=== PATIENT | male | born 1975 | race American Indian/Alaskan Native ===

== ENCOUNTER 2021-06-10 13:03 | Emergency (ER) | payer SELFPAY ==
[2021-06-10 13:19] VITALS: BP 127/97
[2021-06-10] MEDS ORDERED: SODIUM CHLORIDE 0.9% 1000 ML 1,000 ML IV ONE ×2 (14:03→18:07)
[2021-06-10] MEDS ORDERED: MECLIZINE 25 MG TAB PO ONE ×2 (14:03→18:07)
[2021-06-10 16:18] LABS: Basophils # (Auto) 0.1 K/mm3 (0.0-0.1); Basophils % (Auto) 0.3 % (0.0-1.8); Eosinophils % (Auto) 0.1 % (0.0-4.3); Hematocrit 47.4 % (35.5-45.6); Hemoglobin 16.8 gm/dl (11.8-15.2); Lymphocytes # (Auto) 1.1 K/mm3 (1.2-5.4); Lymphocytes % (Auto) 6.5 % (13.4-35.0); Mean Corpuscular HGB Conc 35 % (32-34); Mean Corpuscular Volume 91 fl (84-94); Monocytes % (Auto) 5.9 % (0.0-7.3); Platelet Count 307 K/mm3 (140-440); Red Blood Count 5.23 M/mm3 (3.65-5.03); Red Cell Distribution Width 14.9 % (13.2-15.2)
[2021-06-10 16:42] LABS: Alanine Aminotransferase 51 units/L (7-56); Albumin 4.3 g/dL (3.9-5); BUN/Creatinine Ratio 18; Blood Urea Nitrogen 21 mg/dL (9-20); Calcium 9.2 mg/dL (8.4-10.2); Hemolysis Index 5
--- NOTE | 2021-06-10 18:11 | Emergency Department Report ---
ED General Adult HPI - General Chief complaint: Medical Clearance Stated complaint: DRAINED AND LIGHT HEADED Time Seen by Provider: 06/10/21 13:51 Source: patient Mode of arrival: Ambulatory Limitations: No Limitations - History of Present Illness Initial comments: This is a 46-year-old male nontoxic, well nourished in appearance, no acute signs of distress presents to the ED with c/o of tiredness and dizziness x several days. Patient denies any headache or head trauma. Patient stated the dizziness is worsened with position change. Patient denies any other complaints or symptoms. Patient denies any numbness, tingling, headache, stiff neck, chest pain, shortness of breathe, numbness or tingling. Denies any visual changes or blurry vision. Denies any drug allergies. Patient stated PMH includes DM which he was prescribed Metformin 500 mg BID but has not been taking it for "very long time". -: days(s) Radiation: non-radiation Severity scale (0 -10): 3 Quality: aching Consistency: constant Improves with: none Worsens with: none Associated Symptoms: denies other symptoms. denies: confusion, chest pain, cough, diaphoresis, fever/chills, headaches, loss of appetite, malaise, nausea/vomiting, rash, seizure, shortness of breath, syncope, weakness Treatments Prior to Arrival: none - Related Data Previous Rx's Medication Instructions Recorded Last Taken Type Meclizine [Antivert] 12.5 mg PO DAILY PRN #12 tablet 06/10/21 Unknown Rx metFORMIN [Glucophage] 500 mg PO BID #60 tablet 06/10/21 Unknown Rx Allergies Allergy/AdvReac Type Severity Reaction Status Date / Time No Known Allergies Allergy Unverified 06/10/21 13:17 ED Review of Systems ROS: Stated complaint: DRAINED AND LIGHT HEADED Other details as noted in HPI Comment: All other systems reviewed and negative Constitutional: denies: chills, fever Eyes: denies: eye pain, eye discharge, vision change ENT: denies: ear pain, throat pain Respiratory: denies: cough, shortness of breath, wheezing Cardiovascular: denies: chest pain, palpitations Endocrine: no symptoms reported Gastrointestinal: denies: abdominal pain, nausea, diarrhea Genitourinary: denies: urgency, dysuria Musculoskeletal: denies: back pain, joint swelling, arthralgia Skin: denies: rash, lesions Neurological: headache. denies: weakness, paresthesias Psychiatric: denies: anxiety, depression Hematological/Lymphatic: denies: easy bleeding, easy bruising ED Past Medical Hx - Past Medical History Previous Medical History?: No - Surgical History Past Surgical History?: No - Medications Home Medications: Home Medications Medication Instructions Recorded Confirmed Last Taken Type Meclizine [Antivert] 12.5 mg PO DAILY PRN #12 tablet 06/10/21 Unknown Rx metFORMIN [Glucophage] 500 mg PO BID #60 tablet 06/10/21 Unknown Rx ED Physical Exam - General Limitations: No Limitations General appearance: alert, in no apparent distress - Head Head exam: Present: atraumatic, normocephalic - Eye Eye exam: Present: normal appearance, PERRL, EOMI - ENT ENT exam: Present: normal exam, normal orophraynx - Neck Neck exam: Present: normal inspection, full ROM. Absent: tenderness, meningismus, lymphadenopathy - Respiratory Respiratory exam: Present: normal lung sounds bilaterally. Absent: respiratory distress, wheezes, rales, rhonchi, stridor, chest wall tenderness, accessory muscle use, decreased breath sounds, prolonged expiratory - Cardiovascular Cardiovascular Exam: Present: regular rate, normal rhythm, normal heart sounds. Absent: bradycardia, tachycardia, irregular rhythm, systolic murmur, diastolic murmur, rubs, gallop - GI/Abdominal GI/Abdominal exam: Present: soft, normal bowel sounds. Absent: distended, tenderness, guarding, rebound, rigid, diminished bowel sounds - Extremities Exam Extremities exam: Present: normal inspection, full ROM, normal capillary refill. Absent: tenderness - Back Exam Back exam: Present: normal inspection, full ROM. Absent: tenderness, CVA tenderness (R), CVA tenderness (L), muscle spasm, paraspinal tenderness, vertebral tenderness, rash noted - Neurological Exam Neurological exam: Present: alert, oriented X3, normal gait - Expanded Neurological Exam Expanded Patient oriented to: Present: person, place, time Cranial nerves: EOM's Intact: Normal, Facial Sensation: Normal Cerebellar function: Finger to Nose: Normal Upper motor neuron: Pronator Drift: Normal, Sensory Extinction: Normal Motor strength exam: RUE: 5, LUE: 5, RLE: 5, LLE: 5 Best Eye Response (Lima): (4) open spontaneously Best Motor Response (Lima): (6) obeys commands Best Verbal Response (Lima): (5) oriented Nettie Total: 15 - Psychiatric Psychiatric exam: Present: normal affect, normal mood - Skin Skin exam: Present: warm, dry, intact, normal color. Absent: rash ED Course Vital Signs 06/10/21 13:16 Temperature 98.4 F Pulse Rate 81 Respiratory 18 Rate Blood Pressure 127/97 O2 Sat by Pulse 99 Oximetry - Reevaluation(s) Reevaluation #1: 06/10/21 18:13 Patient is speaking in full sentences with no signs of distress noted. ED Medical Decision Making - Lab Data Result diagrams: 06/10/21 16:06 06/10/21 16:06 Lab Results 06/10/21 06/10/21 Range/Units 16:06 16:06 WBC 16.5 H (4.5-11.0) K/mm3 RBC 5.23 H (3.65-5.03) M/mm3 Hgb 16.8 H (11.8-15.2) gm/dl Hct 47.4 H (35.5-45.6) % MCV 91 (84-94) fl MCH 32 (28-32) pg MCHC 35 H (32-34) % RDW 14.9 (13.2-15.2) % Plt Count 307 (140-440) K/mm3 Lymph % (Auto) 6.5 L (13.4-35.0) % [place] % (Auto) 5.9 (0.0-7.3) % Eos % (Auto) 0.1 (0.0-4.3) % Baso % (Auto) 0.3 (0.0-1.8) % Lymph # (Auto) 1.1 L (1.2-5.4) K/mm3 [place] # (Auto) 1.0 H (0.0-0.8) K/mm3 Eos # (Auto) 0.0 (0.0-0.4) K/mm3 Baso # (Auto) 0.1 (0.0-0.1) K/mm3 Seg Neutrophils % 87.2 H (40.0-70.0) % Seg Neutrophils # 14.4 H (1.8-7.7) K/mm3 Sodium 137 (137-145) mmol/L Potassium 3.7 (3.6-5.0) mmol/L Chloride 98.8 (98-107) mmol/L Carbon Dioxide 27 (22-30) mmol/L Anion Gap 15 mmol/L BUN 21 H (9-20) mg/dL Creatinine 1.2 (0.8-1.3) mg/dL Estimated GFR > 60 ml/min BUN/Creatinine Ratio 18 % Glucose 240 H (75-100) mg/dL Calcium 9.2 (8.4-10.2) mg/dL Total Bilirubin 0.60 (0.1-1.2) mg/dL AST 26 (5-40) units/L ALT 51 (7-56) units/L Alkaline Phosphatase 84 (35-129) units/L Total Protein 6.9 (6.3-8.2) g/dL Albumin 4.3 (3.9-5) g/dL Albumin/Globulin Ratio 1.7 % - EKG Data 06/10/21 18:13 Normal sinus rhythm at 89 bpm. Anterior premature complex. Probable left anterior large. LVH with secondary repositioning abnormality. No STEMI. Reviewed and signed by MD. - Medical Decision Making This is a 46-year-old male that presents with dizziness and hyperglycemia. Patient is stable and was examined by me. EKG is normal sinus rhythm with no ST abnormalities. Labs are unremarkable. Urine obtained. Orthostatic vital signs obtained and within normal limits. Patient received 1 L of normal saline and antivert which she stated his symptoms of dizziness has subsided and resolved. Patient is neurologically stable. Patient was instructed to Follow- up with a primary care doctor in 3-5 days or if symptoms worsen and continue return to emergency room as soon as possible. At time of discharge, the patient does not seem toxic or ill in appearance. No acute signs of distress noted. Patient agrees to discharge treatment plan of care. No further questions noted by the patient. Critical care attestation.: If time is entered above; I have spent that time in minutes in the direct care of this critically ill patient, excluding procedure time. ED Disposition Clinical Impression: Hyperglycemia, Dizziness Disposition: HOME / SELF CARE / HOMELESS Is pt being admited?: No Does the pt Need Aspirin: No Condition: Stable Instructions: Hyperglycemia, Dizziness, Blood Glucose Monitoring, Adult Additional Instructions: Follow-up with a primary care doctor in 3-5 days or if symptoms worsen and continue return to emergency room as soon as possible. Prescriptions: Meclizine [Antivert] 12.5 mg PO DAILY PRN #12 tablet PRN Reason: Vertigo metFORMIN [Glucophage] 500 mg PO BID #60 tablet Referrals: PRIMARY CAREMD [Primary Care Provider] - 3-5 Days ISAIAS MCKINNON MD [Staff Physician] - 3-5 Days Forms: Work/School Release Form(ED) Time of Disposition: 18:20
--- NOTE | 2021-06-11 14:26 | Electrocardiograph Report ---
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
== END 2021-06-10 20:22 | disposition home or self-care (01) ==
LOC: ED 13:03
DX: R42 Dizziness and giddiness (principal); R73.9 Hyperglycemia, unspecified; Z79.899 Other long term (current) drug therapy
CPT/HCPCS: 36415; 80053; 85025; 93005; 99283; J7030

== ENCOUNTER 2021-06-24 14:29 | Emergency (ER) | payer OTHER ==
[2021-06-24] MEDS ORDERED: IBUPROFEN 800 MG TAB PO ONE (16:16)
[2021-06-24 16:27] VITALS: BP 156/107
[2021-06-24 16:53] LABS: INR 0.93 (0.87-1.13)
[2021-06-24 16:54] LABS: Partial Thromboplastin Time 23.5 Sec. (24.2-36.6)
[2021-06-24 16:59] LABS: Alanine Aminotransferase 109 units/L (7-56); Albumin 3.7 g/dL (3.9-5); BUN/Creatinine Ratio 18; Blood Urea Nitrogen 14 mg/dL (9-20); Calcium 8.9 mg/dL (8.4-10.2); Hemolysis Index 10
[2021-06-24] MEDS ORDERED: POTASSIUM CHLORIDE ER 20 MEQ TAB PO ONE (17:02)
--- NOTE | 2021-06-24 17:20 | XRay Report ---
CHEST 2 VIEWS INDICATION / CLINICAL INFORMATION: Chest Pain. COMPARISON: None available. FINDINGS: SUPPORT DEVICES: None. HEART / MEDIASTINUM: The heart size is borderline with a left ventricular configuration. The aorta is normal in caliber. LUNGS / PLEURA: There are bullous changes in both lungs, significantly greater on the right. Patchy l inear and coarse parenchymal opacities in both lungs are more likely chronic than acute. No pneumotho rax. ADDITIONAL FINDINGS: No significant additional findings. IMPRESSION: Chronic appearing changes in both lungs with bullous changes, especially on the right. Signer Name: Isauro Ellington MD Signed: 06/24/2021 5:16 PM Workstation Name: [id number]
[2021-06-24 18:01] LABS: Basophils % (Auto) 0.1 % (0.0-1.8); Eosinophils % (Auto) 0.3 % (0.0-4.3); Hematocrit 41.5 % (35.5-45.6); Hemoglobin 13.9 gm/dl (11.8-15.2); Lymphocytes # (Auto) 2.1 K/mm3 (1.2-5.4); Lymphocytes % (Auto) 14.5 % (13.4-35.0); Mean Corpuscular HGB Conc 34 % (32-34); Mean Corpuscular Volume 93 fl (84-94); Monocytes # (Auto) 1.1 K/mm3 (0.0-0.8); Monocytes % (Auto) 7.7 % (0.0-7.3); Platelet Count 273 K/mm3 (140-440); Red Blood Count 4.46 M/mm3 (3.65-5.03); Red Cell Distribution Width 15.2 % (13.2-15.2)
--- NOTE | 2021-06-24 18:30 | Emergency Department Report ---
ED Chest Pain HPI - General Chief Complaint: Chest Pain Stated Complaint: chest pain, left upper area Time Seen by Provider: 06/24/21 16:09 Source: patient Mode of arrival: Ambulatory Limitations: No Limitations - History of Present Illness Initial Comments: This is a 46-year-old male nontoxic, well nourished in appearance, no acute signs of distress presents to the ED with c/o of left-sided chest pain x 4 days. Patient stated pain is worse with inspirations. Patient denies any radiation of pain. Patient describes pain as sharp intermittently. Patient denies any upper respiratory symptoms. Patient denies any shortness of breath, hemoptysis, fever, chills, nausea, vomiting, headache, stiff neck, numbness, tingling, abdominal pain. Patient denies any recent travels or long car rides. Patient denies any recent surgeries or any sick contacts. Patient denies any drug allergies or significant PMH. MD Complaint: chest pain -: days(s) Pain Location: left chest Pain Radiation: none Severity: mild Severity scale (0 -10): 3 Quality: sharp Consistency: intermittent, now resolved Improves With: nothing Worsens With: nothing re: denies: nausea, vomting, diaphoresis, dyspnea, sense of impending doom Other Symptoms: denies: cough, fever, syncope, rash, acid taste in mouth, leg swelling, palpitations, burping Treatments Prior to Arrival: none Aspirin use within the Past 7 Days: (0) No - Related Data Previous Rx's Medication Instructions Recorded Last Taken Type Meclizine [Antivert] 12.5 mg PO DAILY PRN #12 tablet 06/10/21 Unknown Rx metFORMIN [Glucophage] 500 mg PO BID #60 tablet 06/10/21 Unknown Rx Naproxen 500 mg PO Q12H PRN #12 tablet 06/24/21 Unknown Rx Allergies Allergy/AdvReac Type Severity Reaction Status Date / Time No Known Allergies Allergy Verified 06/24/21 16:38 Heart Score - HEART Score History: Slightly suspicious EKG: Normal Age: 45-65 Risk factors: No known risk factors Troponin: < normal limit HEART Score: 1 - EKG Read Time Time EKG Completed: 16:32 EKG Read Time: 16:33 - Critical Actions Critical Actions: 0-3 pts:0.9-1.7%risk of adverse cardiac event.Candidate for discharge ED Review of Systems ROS: Stated complaint: chest pain, left upper area Other details as noted in HPI Constitutional: denies: chills, fever Eyes: denies: eye pain, eye discharge, vision change ENT: denies: ear pain, throat pain Respiratory: denies: cough, orthopnea, shortness of breath, SOB with exertion, SOB at rest, wheezing Cardiovascular: chest pain. denies: palpitations, dyspnea on exertion, orthopnea, edema, syncope, paroxysmal nocturnal dyspnea Endocrine: no symptoms reported Gastrointestinal: denies: abdominal pain, nausea, diarrhea Genitourinary: denies: urgency, dysuria Musculoskeletal: denies: back pain, joint swelling, arthralgia Skin: denies: rash, lesions Neurological: denies: headache, weakness, paresthesias Psychiatric: denies: anxiety, depression Hematological/Lymphatic: denies: easy bleeding, easy bruising ED Past Medical Hx - Past Medical History Previous Medical History?: No Hx Diabetes: Yes - Social History Smoking Status: Never Smoker Substance Use Type: None - Medications Home Medications: Home Medications Medication Instructions Recorded Confirmed Last Taken Type Meclizine [Antivert] 12.5 mg PO DAILY PRN #12 tablet 06/10/21 Unknown Rx metFORMIN [Glucophage] 500 mg PO BID #60 tablet 06/10/21 Unknown Rx Naproxen 500 mg PO Q12H PRN #12 tablet 06/24/21 Unknown Rx ED Physical Exam - General Limitations: No Limitations General appearance: alert, in no apparent distress - Head Head exam: Present: atraumatic, normocephalic - Eye Eye exam: Present: normal appearance - Neck Neck exam: Present: normal inspection, full ROM. Absent: tenderness, meningismus, lymphadenopathy - Respiratory Respiratory exam: Present: normal lung sounds bilaterally. Absent: respiratory distress, wheezes, rales, rhonchi, stridor, chest wall tenderness, accessory muscle use, decreased breath sounds, prolonged expiratory - Cardiovascular Cardiovascular Exam: Present: regular rate, normal rhythm, normal heart sounds. Absent: bradycardia, tachycardia, irregular rhythm, systolic murmur, diastolic murmur, rubs, gallop - GI/Abdominal GI/Abdominal exam: Present: soft, normal bowel sounds. Absent: distended, tenderness, guarding, rebound, rigid, diminished bowel sounds, mass, bruit, pulsatile mass - Extremities Exam Extremities exam: Present: normal inspection, full ROM - Back Exam Back exam: Present: normal inspection, full ROM. Absent: tenderness, CVA tenderness (R), CVA tenderness (L), muscle spasm, paraspinal tenderness, vertebral tenderness, rash noted - Neurological Exam Neurological exam: Present: alert, oriented X3, normal gait - Psychiatric Psychiatric exam: Present: normal affect, normal mood - Skin Skin exam: Present: warm, dry, intact, normal color. Absent: rash ED Course Vital Signs 06/24/21 16:26 Temperature 98.6 F Pulse Rate 83 Respiratory 16 Rate Blood Pressure 156/107 [Right] O2 Sat by Pulse 95 Oximetry - Reevaluation(s) Reevaluation #1: 06/24/21 18:30 Patient is speaking in full sentences with no signs of distress noted. - Consultations Consultation #1: 06/24/21 19:49 Patient has been consulted with Dr. Burnham about patient history, physical exam, and labs/imaging results and EKG and patient can be discharged with follow-up. BILLY score - Billy Score Age > 65: (0) No Aspirin use within the Past 7 Days: (0) No 3 or more CAD Risk Factors: (0) No 2 or more Angina events in past 24 hrs: (0) No Known CAD with more than 50% Stenosis: (0) No Elevated Cardiac Markers: (0) No ST Deviation Greater than 0.5mm: (0) No BILLY Score: 0 ED Medical Decision Making - Lab Data Result diagrams: 06/24/21 16:18 06/24/21 16:18 Lab Results 06/24/21 06/24/21 06/24/21 Range/Units 16:18 16:18 16:18 WBC 14.4 H (4.5-11.0) K/mm3 RBC 4.46 (3.65-5.03) M/mm3 Hgb 13.9 (11.8-15.2) gm/dl Hct 41.5 (35.5-45.6) % MCV 93 (84-94) fl MCH 31 (28-32) pg MCHC 34 (32-34) % RDW 15.2 (13.2-15.2) % Plt Count 273 (140-440) K/mm3 Lymph % (Auto) 14.5 (13.4-35.0) % [place] % (Auto) 7.7 H (0.0-7.3) % Eos % (Auto) 0.3 (0.0-4.3) % Baso % (Auto) 0.1 (0.0-1.8) % Lymph # (Auto) 2.1 (1.2-5.4) K/mm3 [place] # (Auto) 1.1 H (0.0-0.8) K/mm3 Eos # (Auto) 0.0 (0.0-0.4) K/mm3 Baso # (Auto) 0.0 (0.0-0.1) K/mm3 Seg Neutrophils % 77.4 H (40.0-70.0) % Seg Neutrophils # 11.1 H (1.8-7.7) K/mm3 PT 13.0 (12.2-14.9) Sec. INR 0.93 (0.87-1.13) APTT 23.5 L (24.2-36.6) Sec. D-Dimer 135.00 (0-234) ng/mlDDU Sodium 143 (137-145) mmol/L Potassium 3.1 L (3.6-5.0) mmol/L Chloride 102.3 (98-107) mmol/L Carbon Dioxide 37 H (22-30) mmol/L Anion Gap 7 mmol/L BUN 14 (9-20) mg/dL Creatinine 0.8 (0.8-1.3) mg/dL Estimated GFR > 60 ml/min BUN/Creatinine Ratio 18 % Glucose 145 H (75-100) mg/dL Calcium 8.9 (8.4-10.2) mg/dL Total Bilirubin 0.20 (0.1-1.2) mg/dL AST 54 H (5-40) units/L ALT 109 H (7-56) units/L Alkaline Phosphatase 89 (35-129) units/L Troponin T 0.024 (0.00-0.029) ng/mL Total Protein 5.9 L (6.3-8.2) g/dL Albumin 3.7 L (3.9-5) g/dL Albumin/Globulin Ratio 1.7 % 06/24/21 Range/Units 18:54 WBC (4.5-11.0) K/mm3 RBC (3.65-5.03) M/mm3 Hgb (11.8-15.2) gm/dl Hct (35.5-45.6) % MCV (84-94) fl MCH (28-32) pg MCHC (32-34) % RDW (13.2-15.2) % Plt Count (140-440) K/mm3 Lymph % (Auto) (13.4-35.0) % [place] % (Auto) (0.0-7.3) % Eos % (Auto) (0.0-4.3) % Baso % (Auto) (0.0-1.8) % Lymph # (Auto) (1.2-5.4) K/mm3 [place]key # (Auto) (0.0-0.8) K/mm3 Eos # (Auto) (0.0-0.4) K/mm3 Baso # (Auto) (0.0-0.1) K/mm3 Seg Neutrophils % (40.0-70.0) % Seg Neutrophils # (1.8-7.7) K/mm3 PT (12.2-14.9) Sec. INR (0.87-1.13) APTT (24.2-36.6) Sec. D-Dimer (0-234) ng/mlDDU Sodium (137-145) mmol/L Potassium (3.6-5.0) mmol/L Chloride (98-107) mmol/L Carbon Dioxide (22-30) mmol/L Anion Gap mmol/L BUN (9-20) mg/dL Creatinine (0.8-1.3) mg/dL Estimated GFR ml/min BUN/Creatinine Ratio % Glucose (75-100) mg/dL Calcium (8.4-10.2) mg/dL Total Bilirubin (0.1-1.2) mg/dL AST (5-40) units/L ALT (7-56) units/L Alkaline Phosphatase (35-129) units/L Troponin T 0.026 (0.00-0.029) ng/mL Total Protein (6.3-8.2) g/dL Albumin (3.9-5) g/dL Albumin/Globulin Ratio % - EKG Data 06/24/21 18:31 Normal sinus rhythm at 77 bpm. Anterior premature complex. Consider left ventricular hypertrophic. Nonspecific T wave abnormality. No significant ST wave abnormalities. No STEMI. Reviewed and signed by . - Radiology Data [facility] [address] [place] [address] XRay Report Signed Patient: SHERYL DE LA ROSA MR#: [id number] : 1975 Acct:[id number] Age/Sex: 46 / M ADM Date: 06/24/21 Loc: ED Attending Dr: Ordering Physician: JOSELYN GLOVER NP Date of Service: 06/24/21 Procedure(s): XR chest routine 2V Accession Number(s): [id number] cc: JOSELYN GLOVER NP Fluoro Time In Minutes: CHEST 2 VIEWS INDICATION / CLINICAL INFORMATION: Chest Pain. COMPARISON: None available. FINDINGS: SUPPORT DEVICES: None. HEART / MEDIASTINUM: The heart size is borderline with a left ventricular configuration. The aorta is normal in caliber. LUNGS / PLEURA: There are bullous changes in both lungs, significantly greater on the right. Patchy linear and coarse parenchymal opacities in both lungs are more likely chronic than acute. No pneumothorax. ADDITIONAL FINDINGS: No significant additional findings. IMPRESSION: Chronic appearing changes in both lungs with bullous changes, especially on the right. Signer Name: Isauro Ellington MD Signed: 06/24/2021 5:16 PM Workstation Name: [id number] Transcribed By: RT Dictated By: Isauro Ellington MD Electronically Authenticated By: Isauro Ellington MD Signed Date/Time: 06/24/211715 DD/ 12 TD/TT: - Medical Decision Making This is a 46-year-old male that presents with unspecific chest pain, hypokalemia, hypertension. Patient is stable and was examined by me. BILLY and HEART score 0 pints. PERC score for DVT/SVT/PE 0 points. Negative d-dimmer. EKG normal sinus rhythm with no significant changes in ST. Chest xray dictated by the radiologist. PAtient is notified of the Xray report with no questions noted. Labs within normal limits. Negative troponin x2. Patient received treatment in the ED which stated symptoms are improving subsided. Educated patient on hypertension and to take a blood pressure 2-3 times daily and presented to [facility]. According to ACEP: (1) in ED patients with asymptomatic markedly elevated blood pressure, routine screening for acute target organ injury (eg, serum creatinine, urinalysis, ECG) is not required. (1) In patients with asymptomatic markedly elevated blood pressure, routine ED medical intervention is not required. Patient was instructed to Follow-up with a primary care/pm technician doctor in 2 days or if symptoms worsen and continue return to emergency room as soon as possible. At time of discharge, the patient does not seem toxic or ill in appearance. No acute signs of distress noted. Patient agrees to discharge treatment plan of care. No further questions noted by the patient. Critical care attestation.: If time is entered above; I have spent that time in minutes in the direct care of this critically ill patient, excluding procedure time. ED Disposition Clinical Impression: Chest pain, unspecified Qualifiers: Chest pain type: unspecified Qualified Code(s): R07.9 - Chest pain, unspecified Disposition: 01 HOME / SELF CARE / HOMELESS Is pt being admited?: No Does the pt Need Aspirin: No Condition: Stable Instructions: Nonspecific Chest Pain, Adult Additional Instructions: Follow-up with a primary care/pm technician doctor in 2 days or if symptoms worsen and continue return to emergency room as soon as possible. Prescriptions: Naproxen 500 mg PO Q12H PRN #12 tablet PRN Reason: Pain , Severe (7-10) Referrals: PRIMARY MD ABY [Primary Care Provider] - 3-5 Days ISAIAS MCKINNON MD [Staff Physician] - 3-5 Days CATHERINE LOPEZ MD [Staff Physician] - 06/26/21 Forms: Work/School Release Form(ED) Time of Disposition: 19:50
--- NOTE | 2021-07-09 13:45 | Electrocardiograph Report ---
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
== END 2021-06-24 20:37 | disposition home or self-care (01) ==
LOC: ED 14:29
DX: R07.9 Chest pain, unspecified (principal); E11.8 Type 2 diabetes mellitus with unspecified complications
CPT/HCPCS: 36415; 71046; 80053; 84484; 85025; 85379; 85610; 85730; 93005; 99283; 99284

== ENCOUNTER 2021-07-31 14:44 | Emergency (ER) | payer BC, OTHER ==
--- NOTE | 2021-07-31 16:21 | XRay Report ---
CHEST 2 VIEWS INDICATION / CLINICAL INFORMATION: chest pain. COMPARISON: 06/24/2021 FINDINGS: SUPPORT DEVICES: None. HEART / MEDIASTINUM: Unchanged LUNGS / PLEURA: Bullous disease is unchanged. Pulmonary opacities appear unchanged given differences in technique. There is a nodular density in the right midlung zone which may represent prominent vess els. This area measures approximately 2.5 x 1.7 cm.. No pneumothorax. ADDITIONAL FINDINGS: No significant additional findings. IMPRESSION: 1. Pulmonary opacities and bullous disease appear relatively unchanged given differences in technique . 2. There is a possible nodule in the right midlung zone. CT imaging of the chest is recommended to fu rther evaluate. Signer Name: Johnathan Adamson MD Signed: 07/31/2021 4:17 PM Workstation Name: [id number]
[2021-07-31] MEDS ORDERED: IPRATROPIUM 0.02% NEBU 2.5 ML IH ONE (17:11)
[2021-07-31] MEDS ORDERED: methylPREDNISolone Sod Succinate 125 MG/2 ML INJ IM ONE (17:11)
[2021-07-31] MEDS ORDERED: ALBUTEROL 2.5 MG/3 ML NEBU IH ONE (17:11)
--- NOTE | 2021-07-31 17:16 | Emergency Department Report ---
ED Shortness of Breath HPI - General Chief Complaint: Dyspnea/Respdistress Stated Complaint: CHEST PAIN SOB Time Seen by Provider: 07/31/21 16:30 Source: patient Mode of arrival: Ambulatory Limitations: No Limitations - History of Present Illness Initial Comments: 46-year-old male, history of sarcoidosis, presents to ED with shortness of breath x2-3 days. Patient reports wheezing. He denies any fever, cough. He reports some chest tightness. Patient states ran out of his albuterol inhaler. Does not have a nebulizer machine at home. Patient states he started taking some prednisone that he has at home, but that does not seem to be working. Patient denies any leg pain or swelling. Patient states he is not receiving the COVID-19 vaccine. MD Complaint: shortness of breath -: days(s) (3) Severity: moderate Consistency: intermittent Improves With: rest Worsens With: exertion Known History Of: other (Sarcoidosis) Treatments Prior to Arrival: none - Related Data Home Oxygen Therapy: No Previous Rx's Medication Instructions Recorded Last Taken Type Meclizine [Antivert] 12.5 mg PO DAILY PRN #12 tablet 06/10/21 Unknown Rx metFORMIN [Glucophage] 500 mg PO BID #60 tablet 06/10/21 Unknown Rx Naproxen 500 mg PO Q12H PRN #12 tablet 06/24/21 Unknown Rx Albuterol Sulfate [Proventil Hfa] 2 puff IH Q4HR PRN #1 hfa.[email or web address] 07/31/21 Unknown Rx predniSONE [Deltasone] 50 mg PO QDAY #5 tab 07/31/21 Unknown Rx Allergies Allergy/AdvReac Type Severity Reaction Status Date / Time No Known Allergies Allergy Verified 07/31/21 15:00 ED Review of Systems ROS: Stated complaint: CHEST PAIN SOB Other details as noted in HPI Comment: All other systems reviewed and negative Constitutional: denies: chills, fever Respiratory: SOB with exertion, wheezing. denies: cough Cardiovascular: chest pain Musculoskeletal: other (Denies leg pain or swelling) ED Past Medical Hx - Past Medical History Hx Diabetes: Yes - Social History Smoking Status: Former Smoker Substance Use Type: None - Medications Home Medications: Home Medications Medication Instructions Recorded Confirmed Last Taken Type Meclizine [Antivert] 12.5 mg PO DAILY PRN #12 tablet 06/10/21 Unknown Rx metFORMIN [Glucophage] 500 mg PO BID #60 tablet 06/10/21 Unknown Rx Naproxen 500 mg PO Q12H PRN #12 tablet 06/24/21 Unknown Rx Albuterol Sulfate [Proventil Hfa] 2 puff IH Q4HR PRN #1 hfa.aer.ad 07/31/21 Unknown Rx predniSONE [Deltasone] 50 mg PO QDAY #5 tab 07/31/21 Unknown Rx ED Physical Exam - General Limitations: No Limitations General appearance: alert, in no apparent distress - Head Head exam: Present: atraumatic, normocephalic - Eye Eye exam: Present: normal appearance, EOMI - ENT ENT exam: Present: mucous membranes moist - Neck Neck exam: Present: normal inspection - Respiratory Respiratory exam: Present: wheezes. Absent: respiratory distress - Cardiovascular Cardiovascular Exam: Present: regular rate, normal rhythm - GI/Abdominal GI/Abdominal exam: Present: soft. Absent: distended, tenderness - Extremities Exam Extremities exam: Present: normal inspection. Absent: pedal edema, calf te nderness - Neurological Exam Neurological exam: Present: alert, oriented X3 - Psychiatric Psychiatric exam: Present: normal affect, normal mood - Skin Skin exam: Present: warm, dry, intact, normal color ED Course Vital Signs 07/31/21 07/31/21 07/31/21 14:58 17:03 17:05 Temperature 98.9 F Pulse Rate 76 94 H Pulse Rate [ Bilateral] Respiratory 30 H 19 Rate Respiratory Rate [Bilateral ] Blood Pressure 134/66 Blood Pressure 143/115 [Left] O2 Sat by Pulse 96 95 93 Oximetry 07/31/21 07/31/21 18:01 18:13 Temperature Pulse Rate 91 H Pulse Rate [ 91 H Bilateral] Respiratory 27 H Rate Respiratory 20 Rate [Bilateral ] Blood Pressure 124/96 Blood Pressure [Left] O2 Sat by Pulse 94 Oximetry ED Medical Decision Making - Radiology Data Radiology results: report reviewed, image reviewed - Medical Decision Making 46-year-old male with exacerbation of sarcoidosis. Patient with wheezing, shortness of breath. Solu-Medrol, albuterol nebs given. Following treatment, lungs clear to auscultation bilaterally. Chest x-ray shows no acute findings. O2 sats are normal. Patient will be discharged at this time with prescriptions. Outpatient follow-up advised, return precautions given. - Differential Diagnosis Sarcoidosis, pulmonary edema, pneumonia Critical care attestation.: If time is entered above; I have spent that time in minutes in the direct care of this critically ill patient, excluding procedure time. ED Disposition Clinical Impression: Sarcoidosis of lung Disposition: 01 HOME / SELF CARE / HOMELESS Is pt being admited?: No Condition: Stable Prescriptions: predniSONE [Deltasone] 50 mg PO QDAY #5 tab Albuterol Sulfate [Proventil Hfa] 2 puff IH Q4HR PRN #1 hfa.aer.ad PRN Reason: Wheezing Referrals: PRIMARY CARE, [Primary Care Provider] - 3-5 Days [facility] [Provider Group] - 3-5 Days Forms: Work/School Release Form(ED) Time of Disposition: 20:03
[2021-07-31 18:40] VITALS: BP 124/96
--- NOTE | 2021-08-01 17:38 | Electrocardiograph Report ---
[facility] Test Date: 2021-07-31 Test Time: 14:50:27 Pat Name: SHERYL DE LA ROSA Department: Room: Gender: M Wheelman: TV : 1975 Requested By: ISSAC NELSON Order Number: [id number] Reading MD: Chele Slater Measurements Intervals [place] Rate: 104 P: 68 [place]: 173 QRS: 40 QRSD: 85 T: 48 QT: 345 QTc: 455 Interpretive Statements Sinus tachycardia LAE, consider biatrial enlargement Probable left ventricular hypertrophy Compared to ECG 06/24/2021 16:32:44 Sinus rate has increased PACs are no longer evident Electronically Signed On 08-01-2021 17:37:51 EDT by Chele Slater
== END 2021-07-31 23:19 | disposition home or self-care (01) ==
LOC: ED 14:44
DX: D86.0 Sarcoidosis of lung (principal); E11.9 Type 2 diabetes mellitus without complications; Z87.891 Personal history of nicotine dependence; Z79.899 Other long term (current) drug therapy
CPT/HCPCS: 71046; 93005; 94640; 96372; 99283; J2930; 94644

== ENCOUNTER 2021-09-10 16:47 | Emergency (ER) | payer SELFPAY ==
--- NOTE | 2021-09-10 16:53 | Emergency Department Report ---
ED Neuro Deficit HPI - General Chief Complaint: Neuro Symptoms/Deficit Stated Complaint: STROKE Time Seen by Provider: 09/10/21 16:50 Source: patient, family, EMS (Verbal report received from emergency medical services. EMS documentation not available at time of chart dictation ), RN notes reviewed, old records reviewed Mode of arrival: Stretcher Limitations: Altered Mental Status, Physical Limitation - History of Present Illness Initial Comments: History obtained from EMS, and from the patient's aunt, Ms. Susan Spears; [phone] The patient is a 46-year-old gentleman, who was brought to the hospital by EMS as a code stroke. EMS believes patient last known well time is at 330/3:45 PM. Contacted patient's aunt, at the listed phone number. Patient's aunt reports that she is only biological next of kin, and point of contact for the patient. She states that the patient's last known well time is 3:00 PM. Patient found at or around 345, laying down, sweating, not responsive, aunts felt that the patient was altered, and called 911. Code stroke activated because the patient has left-sided weakness, and facial droop, as well as a right-sided gaze preference. EMS reports normal Accu-Chek to myself. EMS reports appropriate blood pressure to myself. Extensive discussion had with patient's aunt. She reports no recent trauma, surgery, diagnosis of stroke, reports cardiac catheterization at [facility] a few weeks ago, and she is certain that the patient is not taking systemic anticoagulation. The patient himself is awake, and follows commands, but is aphasic. He is not able to describe the qualitative nature of symptoms, exacerbating factors relieving factors or aggravating factors. -: This afternoon Location: right arm, right leg Presenting Symptoms: Present: Weak/Paralyzed One Side, Facial Droop/Numbness, Unable to Speak Clearly, Altered Mental Status Place: home On Anticoagulants: No Context: other (On believes last known well time is 3:00 PM) - Related Data Home Medications: Previous Rx's Medication Instructions Recorded Last Taken Type Meclizine [Antivert] 12.5 mg PO DAILY PRN #12 tablet 06/10/21 Unknown Rx metFORMIN [Glucophage] 500 mg PO BID #60 tablet 06/10/21 Unknown Rx Naproxen 500 mg PO Q12H PRN #12 tablet 06/24/21 Unknown Rx Albuterol Sulfate [Proventil Hfa] 2 puff IH Q4HR PRN #1 hfa.[email or web address] 07/31/21 Unknown Rx predniSONE [Deltasone] 50 mg PO QDAY #5 tab 07/31/21 Unknown Rx Allergies/Adverse Reactions: Allergies Allergy/AdvReac Type Severity Reaction Status Date / Time No Known Allergies Allergy Verified 07/31/21 15:00 ED Review of Systems ROS: Stated complaint: STROKE Other details as noted in HPI Comment: Per family Constitutional: weakness Respiratory: denies: cough Cardiovascular: denies: syncope Gastrointestinal: denies: nausea, vomiting, hematemesis, melena, hematochezia Neurological: weakness, confusion ED Past Medical Hx - Past Medical History Hx Diabetes: Yes - Social History Smoking Status: Former Smoker Substance Use Type: None - Medications Home Medications: Home Medications Medication Instructions Recorded Confirmed Last Taken Type Meclizine [Antivert] 12.5 mg PO DAILY PRN #12 tablet 06/10/21 Unknown Rx metFORMIN [Glucophage] 500 mg PO BID #60 tablet 06/10/21 Unknown Rx Naproxen 500 mg PO Q12H PRN #12 tablet 06/24/21 Unknown Rx Albuterol Sulfate [Proventil Hfa] 2 puff IH Q4HR PRN #1 hfa.aer.ad 07/31/21 Unknown Rx predniSONE [Deltasone] 50 mg PO QDAY #5 tab 07/31/21 Unknown Rx ED Neuro Physical Exam - General Limitations: Altered Mental Status, Physical Limitation General appearance: in no apparent distress Suspected Stroke: Yes - Head Head exam: Present: atraumatic, normocephalic - Eye Eye exam: Present: normal appearance, PERRL, other (There is a right-sided gaze preference) - ENT ENT exam: Present: normal exam, normal orophraynx, mucous membranes moist, normal external ear exam - Neck Neck exam: Present: normal inspection, full ROM. Absent: tenderness, meningismus - Respiratory Respiratory exam: Present: normal lung sounds bilaterally, decreased breath sounds. Absent: respiratory distress, wheezes, rales, rhonchi, stridor - Cardiovascular Cardiovascular Exam: Present: regular rate, normal rhythm, normal heart sounds. Absent: bradycardia, tachycardia, irregular rhythm, systolic murmur, diastolic murmur, rubs, gallop - GI/Abdominal GI/Abdominal exam: Present: soft. Absent: distended, tenderness, guarding, avery ound, rigid, pulsatile mass - Rectal Rectal exam: Present: deferred - Extremities Exam Extremities exam: Present: normal inspection, full ROM (Right arm), other (2+ pulses noted in the bilateral upper and lower extremities. There is no palpable cord. negative Homans sign. Muscular compartments are soft. The pelvis is stable.). Absent: calf tenderness - Back Exam Back exam: Present: normal inspection. Absent: tenderness, paraspinal tenderness - Neurological Exam Neurological exam: Present: altered, other (There is a right-sided gaze preference. There is left-sided facial droop.) - NIHSS Assessment Interval: Baseline 1a. Level of Consciousness: arousable/minor stimuli 1b. LOC Questions: aphasic 1c. LOC Commands: performs tasks correctly 2. Best Gaze: partial gaze palsy 3. Visual: no visual loss (Unable to assess) 4. Facial Palsy: partial paralysis 5b. Motor Arm Right: drift 5a. Motor Arm Left: no gravity effort 6a. Motor Leg Left: no gravity effort 6b. Motor Leg Right: some gravity effort 7. Limb Ataxia: present 1 limb 8. Sensory: mild/moderate sensory loss 9. Best Language: mute/global aphasia 10. Dysarthria: mute/anarrthric 11. Extinction/Inattention: visual/tactile inattention Total Score: 23 Stroke Severity: Severe Stroke - Skin Skin exam: Present: warm, dry, intact, normal color. Absent: rash ED Course Vital Signs 09/10/21 09/10/21 09/10/21 16:47 17:29 17:30 Pulse Rate 103 H 100 H Respiratory 20 29 H 25 H Rate Blood Pressure 134/97 Blood Pressure [Right] O2 Sat by Pulse 100 99 100 Oximetry 09/10/21 09/10/21 09/10/21 17:46 18:00 18:05 Pulse Rate 93 H 92 H 92 H Respiratory 24 23 Rate Blood Pressure 128/100 132/98 130/93 Blood Pressure [Right] O2 Sat by Pulse 100 100 Oximetry 09/10/21 09/10/21 09/10/21 18:11 18:16 18:40 Pulse Rate 91 H 91 H 91 H Respiratory 23 22 Rate Blood Pressure 130/93 124/92 Blood Pressure 131/93 150/89 [Right] O2 Sat by Pulse 100 98 Oximetry - Reevaluation(s) Reevaluation #1: 09/10/21 17:28 Differential diagnosis, including but not limited to: Acute ischemic stroke, acute hemorrhagic stroke, carotid dissection, large vessel occlusion, aortic dissection Assessment and plan: 46-year-old gentleman presenting with acute stroke syndrome, and suspicion for clinical left MCA occlusion. While he does not have the typical contraindications to TPA, the distribution engineering technologist informs me that they have appreciated an aortic arch dissection, with left carotid artery involvement. I have emergently discussed this with the interpreting radiologist, and I am waiting for confirmation. Currently, TPA contraindicated given concern for aortic dissection. 09/10/21 17:47 Have received verbal report from radiologist, Dr. Metzger, right-sided M1 occlusion, no bleed, no dissection. Prior extensive discussion had with patient's auntMs. Susan Spears; [phone], and we discussed risk benefits and alternatives of TPA, and after a thorough and extensive discussion with her, she informing that the patient had no contraindications to TPA, and also provided verbal consent for TPA administration. Given that patient has a right-sided M1 occlusion, large vessel occlusion, and is within window of last known well time (3:00 PM, as per his aunt), TPA is indicated. TPA ordered by myself. Reached out to [facility], and had multiple discussions with one of their stroke neurologist, Dr. Xi Love They have reviewed the patient's images, and have accepted the patient to [facility] for emergent endovascular intervention. Dr. Xavi Ellington will be the accepting physician. This patient has an emergent medical condition which cannot be definitively managed at this time, as we are not able to provide endovascular intervention for large vessel occlusion. Patient saturating well on room air, protecting airway, and is hemodynamically stable for transfer for definitive thrombectomy. Reevaluation #2: 09/10/21 18:24 Glucose of greater than 400 appreciated. This was discussed with consulting stroke neurologist, Ramses He does not recommend administration of TPA, in spite of hyperglycemia, given presence of large vessel occlusion, which I agree with. Insulin is ordered - Lab Data Result diagrams: 09/10/21 17:22 09/10/21 17:22 Lab Results 12/03/2609/10/21 09/10/21 Range/Units 17:22 17:22 17:22 WBC 10.0 (4.5-11.0) K/mm3 RBC 5.52 H (3.65-5.03) M/mm3 Hgb 16.6 H (11.8-15.2) gm/dl Hct 50.7 H (35.5-45.6) % MCV 92 (84-94) fl MCH 30 (28-32) pg MCHC 33 (32-34) % RDW 15.0 (13.2-15.2) % Plt Count 283 (140-440) K/mm3 Add Manual Diff Complete Total Counted 100 Seg Neutrophils % Pbx Supervisor Seg Neuts % (Manual) 90.0 H (40.0-70.0) % Lymphocytes % (Manual) 6.0 L (13.4-35.0) % Monocytes % (Manual) 4.0 (0.0-7.3) % Nucleated RBC % Not Reportable Seg Neutrophils # Man 9.0 H (1.8-7.7) K/mm3 Band Neutrophils # 0.0 K/mm3 Lymphocytes # (Manual) 0.6 L (1.2-5.4) K/mm3 Abs React Lymphs (Man) 0.0 K/mm3 Monocytes # (Manual) 0.4 (0.0-0.8) K/mm3 Eosinophils # (Manual) 0.0 (0.0-0.4) K/mm3 Basophils # (Manual) 0.0 (0.0-0.1) K/mm3 Metamyelocytes # 0.0 K/mm3 Myelocytes # 0.0 K/mm3 Promyelocytes # 0.0 K/mm3 Blast Cells # 0.0 K/mm3 WBC Morphology Not Reportable Hypersegmented Neuts Not Reportable Hyposegmented Neuts Not Reportable Hypogranular Neuts Not Reportable Smudge Cells Not Reportable Toxic Granulation Not Reportable Toxic Vacuolation Not Reportable Dohle Bodies Not Reportable Pelger-Huet Anomaly Not Reportable Rachel Rods Not Reportable Platelet Estimate Consistent w auto Clumped Platelets Not Reportable Plt Clumps, EDTA Not Reportable Large Platelets Not Reportable Giant Platelets Not Reportable Platelet Satelliting Not Reportable Plt Morphology Comment Not Reportable RBC Morphology Normal Dimorphic RBCs Not Reportable Polychromasia Not Reportable Hypochromasia Not Reportable Poikilocytosis Not Reportable Anisocytosis Not Reportable Microcytosis Not Reportable Macrocytosis Not Reportable Spherocytes Not Reportable Pappenheimer Bodies Not Reportable Sickle Cells Not Reportable Target Cells Not Reportable Tear Drop Cells Not Reportable Ovalocytes Not Reportable Helmet Cells Not Reportable [place] Bodies Not Reportable [place] Rings Not Reportable Demarest Cells Not Reportable Bite Cells Not Reportable Crenated Cell Not Reportable Elliptocytes Not Reportable Acanthocytes (Spur) Not Reportable Rouleaux Not Reportable Hemoglobin C Crystals Not Reportable Schistocytes Not Reportable Malaria parasites Not Reportable Ten Bodies Not Reportable Hem Pathologist Commnt No PT 13.1 (12.2-14.9) Sec. INR 0.89 (0.87-1.13) APTT 23.0 L (24.2-36.6) Sec. Thrombin Time 17.9 (15.1-19.6) Sec. Sodium 133 L (137-145) mmol/L Potassium 5.0 (3.6-5.0) mmol/L Chloride 98.6 (98-107) mmol/L Carbon Dioxide 23 (22-30) mmol/L Anion Gap 16 mmol/L BUN 12 (9-20) mg/dL Creatinine 0.9 (0.8-1.3) mg/dL Estimated GFR > 60 ml/min BUN/Creatinine Ratio 13 % Glucose 447 H (75-100) mg/dL POC Glucose (70-105) mg/dL Calcium 8.8 (8.4-10.2) mg/dL Total Bilirubin 0.80 (0.1-1.2) mg/dL AST 36 (5-40) units/L ALT 95 H (7-56) units/L Alkaline Phosphatase 200 H (35-129) units/L Ammonia (25-60) umol/L Total Creatine Kinase 454 H (55-170) units/L CK-MB (CK-2) 5.8 H (0.0-4.0) ng/mL CK-MB (CK-2) Rel Index 1.2 (0-4) Troponin T 0.023 (0.00-0.029) ng/mL Total Protein 5.6 L (6.3-8.2) g/dL Albumin 3.7 L (3.9-5) g/dL Albumin/Globulin Ratio 1.9 % TSH (0.270-4.200) mlU/mL Plasma/Serum Alcohol (0-0.07) % 09/10/21 09/10/21 09/10/21 Range/Units 17:22 17:22 17:22 WBC (4.5-11.0) K/mm3 RBC (3.65-5.03) M/mm3 Hgb (11.8-15.2) gm/dl Hct (35.5-45.6) % MCV (84-94) fl MCH (28-32) pg MCHC (32-34) % RDW (13.2-15.2) % Plt Count (140-440) K/mm3 Add Manual Diff Total Counted Seg Neutrophils % Seg Neuts % (Manual) (40.0-70.0) % Lymphocytes % (Manual) (13.4-35.0) % Monocytes % (Manual) (0.0-7.3) % Nucleated RBC % Seg Neutrophils # Man (1.8-7.7) K/mm3 Band Neutrophils # K/mm3 Lymphocytes # (Manual) (1.2-5.4) K/mm3 Abs React Lymphs (Man) K/mm3 Monocytes # (Manual) (0.0-0.8) K/mm3 Eosinophils # (Manual) (0.0-0.4) K/mm3 Basophils # (Manual) (0.0-0.1) K/mm3 Metamyelocytes # K/mm3 Myelocytes # K/mm3 Promyelocytes # K/mm3 Blast Cells # K/mm3 WBC Morphology Hypersegmented Neuts Hyposegmented Neuts Hypogranular Neuts Smudge Cells Toxic Granulation Toxic Vacuolation Dohle Bodies Pelger-Huet Anomaly Rachel Rods Platelet Estimate Clumped Platelets Plt Clumps, EDTA Large Platelets Giant Platelets Platelet Satelliting Plt Morphology Comment RBC Morphology Dimorphic RBCs Polychromasia Hypochromasia Poikilocytosis Anisocytosis Microcytosis Macrocytosis Spherocytes Pappenheimer Bodies Sickle Cells Target Cells Tear Drop Cells Ovalocytes Helmet Cells [place] Bodies [place] Rings Demarest Cells Bite Cells Crenated Cell Elliptocytes Acanthocytes (Spur) Rouleaux Hemoglobin C Crystals Schistocytes Malaria parasites Ten Bodies Hem Pathologist Commnt PT (12.2-14.9) Sec. INR (0.87-1.13) APTT (24.2-36.6) Sec. Thrombin Time (15.1-19.6) Sec. Sodium (137-145) mmol/L Potassium (3.6-5.0) mmol/L Chloride (98-107) mmol/L Carbon Dioxide (22-30) mmol/L Anion Gap mmol/L BUN (9-20) mg/dL Creatinine (0.8-1.3) mg/dL Estimated GFR ml/min BUN/Creatinine Ratio % Glucose (75-100) mg/dL POC Glucose (70-105) mg/dL Calcium (8.4-10.2) mg/dL Total Bilirubin (0.1-1.2) mg/dL AST (5-40) units/L ALT (7-56) units/L Alkaline Phosphatase (35-129) units/L Ammonia 45.0 (25-60) umol/L Total Creatine Kinase (55-170) units/L CK-MB (CK-2) (0.0-4.0) ng/mL CK-MB (CK-2) Rel Index (0-4) Troponin T (0.00-0.029) ng/mL Total Protein (6.3-8.2) g/dL Albumin (3.9-5) g/dL Albumin/Globulin Ratio % TSH 0.327 (0.270-4.200) mlU/mL Plasma/Serum Alcohol < 0.01 (0-0.07) % 09/10/21 Range/Units 17:54 WBC (4.5-11.0) K/mm3 RBC (3.65-5.03) M/mm3 Hgb (11.8-15.2) gm/dl Hct (35.5-45.6) % MCV (84-94) fl MCH (28-32) pg MCHC (32-34) % RDW (13.2-15.2) % Plt Count (140-440) K/mm3 Add Manual Diff Total Counted Seg Neutrophils % Seg Neuts % (Manual) (40.0-70.0) % Lymphocytes % (Manual) (13.4-35.0) % Monocytes % (Manual) (0.0-7.3) % Nucleated RBC % Seg Neutrophils # Man (1.8-7.7) K/mm3 Band Neutrophils # K/mm3 Lymphocytes # (Manual) (1.2-5.4) K/mm3 Abs React Lymphs (Man) K/mm3 Monocytes # (Manual) (0.0-0.8) K/mm3 Eosinophils # (Manual) (0.0-0.4) K/mm3 Basophils # (Manual) (0.0-0.1) K/mm3 Metamyelocytes # K/mm3 Myelocytes # K/mm3 Promyelocytes # K/mm3 Blast Cells # K/mm3 WBC Morphology Hypersegmented Neuts Hyposegmented Neuts Hypogranular Neuts Smudge Cells Toxic Granulation Toxic Vacuolation Dohle Bodies Pelger-Huet Anomaly Rachel Rods Platelet Estimate Clumped Platelets Plt Clumps, EDTA Large Platelets Giant Platelets Platelet Satelliting Plt Morphology Comment RBC Morphology Dimorphic RBCs Polychromasia Hypochromasia Poikilocytosis Anisocytosis Microcytosis Macrocytosis Spherocytes Pappenheimer Bodies Sickle Cells Target Cells Tear Drop Cells Ovalocytes Helmet Cells [place] Bodies [place] Rings Demarest Cells Bite Cells Crenated Cell Elliptocytes Acanthocytes (Spur) Rouleaux Hemoglobin C Crystals Schistocytes Malaria parasites Ten Bodies Hem Pathologist Commnt PT (12.2-14.9) Sec. INR (0.87-1.13) APTT (24.2-36.6) Sec. Thrombin Time (15.1-19.6) Sec. Sodium (137-145) mmol/L Potassium (3.6-5.0) mmol/L Chloride (98-107) mmol/L Carbon Dioxide (22-30) mmol/L Anion Gap mmol/L BUN (9-20) mg/dL Creatinine (0.8-1.3) mg/dL Estimated GFR ml/min BUN/Creatinine Ratio % Glucose (75-100) mg/dL POC Glucose 407 H (70-105) mg/dL Calcium (8.4-10.2) mg/dL Total Bilirubin (0.1-1.2) mg/dL AST (5-40) units/L ALT (7-56) units/L Alkaline Phosphatase (35-129) units/L Ammonia (25-60) umol/L Total Creatine Kinase (55-170) units/L CK-MB (CK-2) (0.0-4.0) ng/mL CK-MB (CK-2) Rel Index (0-4) Troponin T (0.00-0.029) ng/mL Total Protein (6.3-8.2) g/dL Albumin (3.9-5) g/dL Albumin/Globulin Ratio % TSH (0.270-4.200) mlU/mL Plasma/Serum Alcohol (0-0.07) % Labs 09/10/21 09/10/21 09/10/21 17:22 17:22 17:22 WBC 10.0 RBC 5.52 H Hgb 16.6 H Hct 50.7 H MCV 92 MCH 30 MCHC 33 RDW 15.0 Plt Count 283 Add Manual Diff Complete Total Counted 100 Seg Neutrophils % Pbx Supervisor Seg Neuts % (Manual) 90.0 H Lymphocytes % (Manual) 6.0 L Monocytes % (Manual) 4.0 Nucleated RBC % Not Reportable Seg Neutrophils # Man 9.0 H Band Neutrophils # 0.0 Lymphocytes # (Manual) 0.6 L Abs React Lymphs (Man) 0.0 Monocytes # (Manual) 0.4 Eosinophils # (Manual) 0.0 Basophils # (Manual) 0.0 Metamyelocytes # 0.0 Myelocytes # 0.0 Promyelocytes # 0.0 Blast Cells # 0.0 WBC Morphology Not Reportable Hypersegmented Neuts Not Reportable Hyposegmented Neuts Not Reportable Hypogranular Neuts Not Reportable Smudge Cells Not Reportable Toxic Granulation Not Reportable Toxic Vacuolation Not Reportable Dohle Bodies Not Reportable Pelger-Huet Anomaly Not Reportable Rachel Rods Not Reportable Platelet Estimate Consistent w auto Clumped Platelets Not Reportable Plt Clumps, EDTA Not Reportable Large Platelets Not Reportable Giant Platelets Not Reportable Platelet Satelliting Not Reportable Plt Morphology Comment Not Reportable RBC Morphology Normal Dimorphic RBCs Not Reportable Polychromasia Not Reportable Hypochromasia Not Reportable Poikilocytosis Not Reportable Anisocytosis Not Reportable Microcytosis Not Reportable Macrocytosis Not Reportable Spherocytes Not Reportable Pappenheimer Bodies Not Reportable Sickle Cells Not Reportable Target Cells Not Reportable Tear Drop Cells Not Reportable Ovalocytes Not Reportable Helmet Cells Not Reportable [place] Bodies Not Reportable [place] Rings Not Reportable [place] Cells Not Reportable Bite Cells Not Reportable Crenated Cell Not Reportable Elliptocytes Not Reportable Acanthocytes (Spur) Not Reportable Rouleaux Not Reportable Hemoglobin C Crystals Not Reportable Schistocytes Not Reportable Malaria parasites Not Reportable Ten Bodies Not Reportable Hem Pathologist Commnt No PT 13.1 INR 0.89 APTT 23.0 L Thrombin Time 17.9 Sodium 133 L Potassium 5.0 Chloride 98.6 Carbon Dioxide 23 Anion Gap 16 BUN 12 Creatinine 0.9 Estimated GFR > 60 BUN/Creatinine Ratio 13 Glucose 447 H POC Glucose Calcium 8.8 Total Bilirubin 0.80 AST 36 ALT 95 H Alkaline Phosphatase 200 H Ammonia Total Creatine Kinase 454 H CK-MB (CK-2) 5.8 H CK-MB (CK-2) Rel Index 1.2 Troponin T 0.023 Total Protein 5.6 L Albumin 3.7 L Albumin/Globulin Ratio 1.9 TSH Plasma/Serum Alcohol 09/10/21 09/10/21 09/10/21 17:22 17:22 17:22 WBC RBC Hgb Hct MCV MCH MCHC RDW Plt Count Add Manual Diff Total Counted Seg Neutrophils % Seg Neuts % (Manual) Lymphocytes % (Manual) Monocytes % (Manual) Nucleated RBC % Seg Neutrophils # Man Band Neutrophils # Lymphocytes # (Manual) Abs React Lymphs (Man) Monocytes # (Manual) Eosinophils # (Manual) Basophils # (Manual) Metamyelocytes # Myelocytes # Promyelocytes # Blast Cells # WBC Morphology Hypersegmented Neuts Hyposegmented Neuts Hypogranular Neuts Smudge Cells Toxic Granulation Toxic Vacuolation Dohle Bodies Pelger-Huet Anomaly Rachel Rods Platelet Estimate Clumped Platelets Plt Clumps, EDTA Large Platelets Giant Platelets Platelet Satelliting Plt Morphology Comment RBC Morphology Dimorphic RBCs Polychromasia Hypochromasia Poikilocytosis Anisocytosis Microcytosis Macrocytosis Spherocytes Pappenheimer Bodies Sickle Cells Target Cells Tear Drop Cells Ovalocytes Helmet Cells [place] Bodies [place] Rings Caterina Cells Bite Cells Crenated Cell Elliptocytes Acanthocytes (Spur) Rouleaux Hemoglobin C Crystals Schistocytes Malaria parasites Ten Bodies Hem Pathologist Commnt PT INR APTT Thrombin Time Sodium Potassium Chloride Carbon Dioxide Anion Gap BUN Creatinine Estimated GFR BUN/Creatinine Ratio Glucose POC Glucose Calcium Total Bilirubin AST ALT Alkaline Phosphatase Ammonia 45.0 Total Creatine Kinase CK-MB (CK-2) CK-MB (CK-2) Rel Index Troponin T Total Protein Albumin Albumin/Globulin Ratio TSH 0.327 Plasma/Serum Alcohol < 0.01 09/10/21 17:54 WBC RBC Hgb Hct MCV MCH MCHC RDW Plt Count Add Manual Diff Total Counted Seg Neutrophils % Seg Neuts % (Manual) Lymphocytes % (Manual) Monocytes % (Manual) Nucleated RBC % Seg Neutrophils # Man Band Neutrophils # Lymphocytes # (Manual) Abs React Lymphs (Man) Monocytes # (Manual) Eosinophils # (Manual) Basophils # (Manual) Metamyelocytes # Myelocytes # Promyelocytes # Blast Cells # WBC Morphology Hypersegmented Neuts Hyposegmented Neuts Hypogranular Neuts Smudge Cells Toxic Granulation Toxic Vacuolation Dohle Bodies Pelger-Huet Anomaly Rachel Rods Platelet Estimate Clumped Platelets Plt Clumps, EDTA Large Platelets Giant Platelets Platelet Satelliting Plt Morphology Comment RBC Morphology Dimorphic RBCs Polychromasia Hypochromasia Poikilocytosis Anisocytosis Microcytosis Macrocytosis Spherocytes Pappenheimer Bodies Sickle Cells Target Cells Tear Drop Cells Ovalocytes Helmet Cells [place] Bodies [place] Rings Demarest Cells Bite Cells Crenated Cell Elliptocytes Acanthocytes (Spur) Rouleaux Hemoglobin C Crystals Schistocytes Malaria parasites Ten Bodies Hem Pathologist Commnt PT INR APTT Thrombin Time Sodium Potassium Chloride Carbon Dioxide Anion Gap BUN Creatinine Estimated GFR BUN/Creatinine Ratio Glucose POC Glucose 407 H Calcium Total Bilirubin AST ALT Alkaline Phosphatase Ammonia Total Creatine Kinase CK-MB (CK-2) CK-MB (CK-2) Rel Index Troponin T Total Protein Albumin Albumin/Globulin Ratio TSH Plasma/Serum Alcohol Vital Signs 09/10/21 09/10/21 09/10/21 16:47 18:05 18:11 Pulse Rate 92 H 91 H Respiratory 20 Rate Blood Pressure 130/93 130/93 O2 Sat by Pulse 100 Oximetry - Radiology Data Radiology results: report reviewed, image reviewed CT HEAD WITHOUT CONTRAST INDICATION / CLINICAL INFORMATION: Stroke symptoms. TECHNIQUE: All CT scans at this location are performed using CT dose reduction for ALARA by means of automated exposure control. COMPARISON: None available. FINDINGS: Limitations: Patient motion artifact degrades image quality and is a limiting factor on this examination. HEMORRHAGE: No evidence of intracranial hemorrhage or extra-axial fluid collection. EXTRA-AXIAL SPACES: Cortical sulci, sylvian fissures and basilar cisterns have an unremarkable appearance. VENTRICULAR SYSTEM: The third and lateral ventricles are of normal size and configuration. CEREBRAL PARENCHYMA: No areas of abnormal brain parenchymal attenuation are identified. There is no indication of recent infarction. MIDLINE SHIFT OR HERNIATION: There is no mass effect. CEREBELLUM / BRAINSTEM: Brainstem and cerebellum have an unremarkable appearance. MIDLINE STRUCTURES:No abnormalities of the pituitary gland or pineal region are identified. INTRA CRANIAL VESSELS:No abnormalities are identified on this noncontrast head CT. ORBITS: visualized portions of the orbits have an unremarkable appearance. SOFT TISSUES of HEAD: No significant abnormality. CALVARIUM: Evaluation of bone windows reveals no abnormalities. PARANASAL SINUSES / MASTOID AIR CELLS: Visualized portions of the paranasal sinuses are free from inflammatory mucosal disease. Mastoid air cells are normally pneumatized. IMPRESSION: 1. No significant intercranial abnormality is identified. 2. Study is limited by patient motion artifact. Signer Name: Omar Metzger MD Signed: 4:30 PM Workstation Name: [id number] CTA head with intravenous contrast CLINICAL HISTORY: stroke sx. Left hemiparesis. TECHNIQUE: 0.625 mm thick contiguous axial scans were obtained fr om the skull base to the skull vertex during rapid bolus administration of intravenous contrast material. Multiplanar reconstructions were produced in the coronal and sagittal planes. In addition 3 plane MIP instructions were produced and reviewed for this report. The axial source images and reconstructed images were reviewed for this report. CONTRAST DOSE REPORT: Omnipaque 350: 100 ml administered intravenously. All CT scans at this location are performed using CT dose reduction for ALARA by means of automated exposure control. FINDINGS: Internal carotid arteries:Wild, cavernous, opthalmic, clinoid and supraclinoid segments of the ICAs have an unremarkable appearance. Middle cerebral arteries: Evaluation of the right middle cerebral artery is remarkable for large vessel occlusion of the distal M1 segment of the right MCA. In addition there is decreased size and number of sylvian and opercular branches are compared to those on the left. The M1 segment of the left middle cerebral artery has a normal appearance as do the left M2 and M3 branches. Anterior cerebral arteries:Bilaterally symmetrical A1 segments are demonstrated. No abnormalities are seen along the course of the A2 segments or their visualized pericallosal branches. A small anterior communicating artery is demonstrated. Vertebral arteries:Bilaterally symmetrical vertebral arteries are demonstrated. Both maxx tebral arteries contribute to the basilar artery origin. Basilar artery:Basilar artery has an unremarkable appearance. Posterior cerebral arteries:Bilaterally symmetrical posterior cerebral arteries are identified. Small bilateral posterior communicating arteries are identified. [place]: Intact. See above Dural sinuses: Dural venous sinuses are well demonstrated on this exam. There is no evidence of dural sinus thrombosis. IMPRESSION: 1. Evidence of large vessel occlusion distal M1 segment right middle cerebral artery. CODE STROKE: Time of Communication (DRAPERY CUTTER MACHINE/CDT): 1640 Central standard time Licensed Practitioner Receiving Report: Dr. Kelley of the [facility] emergency department. Signer Name: Omar Metzger MD Signed: 09/10/2021 4:43 PM Workstation Name: [id number] CTA neck without and with intravenous contrast material CLINICAL HISTORY: stroke sx TECHNIQUE: Following acquisition of a timing bolus 0.625 mm thick contiguous axial scans were obtained from aortic arch to the skull base during rapid bolus intravenous contrast infusion. In addition to evaluation of axial source images multiplanar reconstructions were produced and reviewed for this report. 3 plane MIP reconstructions were produced and reviewed. Contrast dose report: Omnipaque 350: 100 ml, administered intravenously All CT examinations performed at this facility utilize modulated dose reduction, iterative reconstruction or weight-based dosing, as appropriate, to obtain a radiation dose which is as low as can reasonably be achieved. FINDINGS: Thoracic aorta:No abnormalities are identified along the course of the thoracic aorta..The origins of the great vessels have an unremarkable appearance. Brachiocephalic artery, left common carotid artery origin and left subclavian artery all have an unremarkable appearance. Right carotid artery:No abnormalities are seen along the course of the RCCA, at the right carotid bifurcation or along the cervical portions of the LIGIA. Left carotid artery: No abnormalities are noted along the course of the left common carotid artery, at the left carotid bifurcation or along the course of the cervical segments of the LICA. Posterior circulation:The vertebral arteries have an unremarkable appearance. Both vertebral arteries contribute to the basilar artery origin. The basilar artery has an unremarkable appearance. The degree of stenosis, if any, is determined utilizing NASCET like criteria. In this case there is no in dication of hemodynamically significant stenosis at the carotid bifurcations or elsewhere. Evaluation of the nonvascular soft tissue structures reveal no abnormality. There is no indication of cervical lymphadenopathy. No abnormalities are seen along the course of the airway. Visualized portions of the parotid glands and the submandibular salivary glands have a normal appearance. Thyroid gland has a normal appearance. Evaluation of the lung apices reveals no evidence of lung nodule or infiltrate. Evaluation of the cervical spine revealed no significant abnormalities. IMPRESSION: 1. No significant abnormality on CTA neck. Signer Name: Omar Metzger MD Signed: 09/10/2021 4:35 PM Workstation Name: [id number] XR chest 1V ap INDICATION / CLINICAL INFORMATION: hx of dyspnea COMPARISON: July 31 2021 FINDINGS: SUPPORT DEVICES: None. HEART / MEDIASTINUM: No significant abnormality. LUNGS / PLEURA: Lung parenchyma is not significantly changed. Severe emphysema. Bilateral perihilar parenchymal opacities, thought to be related to scarring. Unchanged tubular right middle lung zone parenchymal opacities, similar prior study. Costophrenic sulci are sharp. No pneumothorax. ADDITIONAL FINDINGS: No significant additional findings. IMPRESSION: 1. Severe emphysema. No definite acute findings. Signer Name: Jamal Mcfadden MD Signed: 09/10/2021 4:42 PM Workstation Name: [id number] - Thrombolytic Inclusion/Exclusion Thrombolytic Inclusion Criteria: Ischemic Stroke Onset< 3h, NIH Stroke Scale Deficit, Negative CT Scan for ICH, Age 18 or Older, Glucose of 50-400mg/dl Critical Care Time: Yes Critical care time in (mins) excluding proc time.: 74 Critical care attestation.: If time is entered above; I have spent that time in minutes in the direct care of this critically ill patient, excluding procedure time. ED Disposition Clinical Impression: Acute ischemic right MCA stroke, Hyperglycemia Disposition: 02 SHORT TERM HOSPITAL Is pt being admited?: No Does the pt Need Aspirin: No Condition: Critical Referrals: PRIMARY CARE, [Primary Care Provider] - 3-5 Days
--- NOTE | 2021-09-10 17:12 | Consultation ---
History of Present Illness - Reason for Consult Consult date: 09/10/21 - History of Present Illness [facility] Consult Note # Demographics Consult Type: Acute Stroke Level 1 (0-4.5 hrs) Patient Location: Emergency Room First Name: jill Last Name: selma Date of : 1975 Age: 46 Gender: Male Facility: [facility] Time of Initial Page (): 09/10/2021, 16:36 Time of Return Call ( Time): 09/10/2021, 16:36 # HPI History: man found slumped over a couch and with possible seizure activity. EMS was called. On their arrival, he was poorly responsive. He was noted to have right facial droop and was not able to lift arms well, possibly with left weakness. He was also with right gaze deviation. Time last normal was 3PM. He did come to the hospital with problems breathing and was DCed back home. Possible Thrombolytic candidate: not on warfarin or NOACs no intracranial hemorrhage history no recent major surgery no known active major internal bleeding no known blood disorders # Scores Time of exam and NIHSS (): 09/10/2021, 16:59 Level of Consciousness 1a: [1] = Not alert; but arousable by minor stim LOC Questions 1b: [2] = Answers neither correctly LOC Commands 1c: [0] = Performs both tasks correctly Best Gaze 2: [1] = Partial gaze palsy Visual 3: [0] = No visual loss Facial Palsy 4: [1] = Minor paralysis Motor Arm Left 5a: [4] = No movement Motor Arm Right 5b: [0] = No drift Motor Leg Left 6a: [4] = No movement Motor Leg Right 6b: [0] = No drift Limb Ataxia 7: [0] = Absent Sensory 8: [0] = Normal Best Language 9: [3] = Mute Dysarthria 10: [2] = Severe dysarthria Extinction and Inattention 11: [2] = Profound home-inattention or extinction to more than one modality NIHSS Total: 20 # Exam Vitals: vital signs reviewed SBP: 137 DBP: 69 # PMH-FH-SH Past Medical History: congestive heart failure Diabetes hypertension # Data Glucose: [address] personally read by me ( Time): 09/10/2021, 16:[address]: no bleed # Assessment Impression: Ischemic Stroke (Acute) # Plan Thrombolytic/Intervention: IV thrombolytic and possible IA candidate Thrombolytic Dosing: IV alteplase 0.9 mg/kg, max dose 90 mg; 10% of dose given over 1 minute IVP, remaining 90% given as infusion over 1 hour Possible IA Candidate: CTA pending Time IV Thrombolytic Recommended (Eastern Time): 09/10/2021, 17:03 Target Blood Pressure: SBP < 180 DBP < 105 Labs: lipid panel Imaging: (urgency: STAT): CT Angiogram Head and CT Angiogram Neck Imaging: (urgency: routine): MRI Brain without contrast Diagnostic Test: echo without bubble study Therapy/Evaluation: NPO until swallow evaluation PT/OT evaluation speech/swallow consultation DVT Prophylaxis: SCD Thrombolytic Administration Recommendations: Unable to obtain informed consent due to medical condition. No family available. In my opinion, benefits of IV thrombolytic therapy outweigh risks. I have collected independent history specific to time last normal or last known well. We have collaborated with the ED provider and at this time, we have the most current timeline with the information that is available. BP goal< 180/105 for 24hrs post Thrombolytic administration Use Labetolol 10-20mg IV prn or Nicardipine gtt to maintain BP parameters No antiplatelets or anticoagulants for next 24 hrs unless indicated for emergent IA procedure or other life threatening situation ICU admission Call back if there is any decline in neurological condition Other: telemetry monitoring I have discussed my recommendations with the referring provider Disposition: transfer to ICU if no thrombus. If there is a clot on the CTA, I would transfer patient to thrombectomy center Medications and Allergies Allergies Allergy/AdvReac Type Severity Reaction Status Date / Time No Known Allergies Allergy Verified 07/31/21 15:00 Home Medications Medication Instructions Recorded Confirmed Last Taken Type Meclizine [Antivert] 12.5 mg PO DAILY PRN #12 tablet 06/10/21 Unknown Rx metFORMIN [Glucophage] 500 mg PO BID #60 tablet 06/10/21 Unknown Rx Naproxen 500 mg PO Q12H PRN #12 tablet 06/24/21 Unknown Rx Albuterol Sulfate [Proventil Hfa] 2 puff IH Q4HR PRN #1 hfa.aer.ad 07/31/21 Unknown Rx predniSONE [Deltasone] 50 mg PO QDAY #5 tab 07/31/21 Unknown Rx
--- NOTE | 2021-09-10 17:35 | Cat Scan Report ---
CT HEAD WITHOUT CONTRAST INDICATION / CLINICAL INFORMATION: Stroke symptoms. TECHNIQUE: All CT scans at this location are performed using CT dose reduction for ALARA by means of automated e xposure control. COMPARISON: None available. FINDINGS: Limitations: Patient motion artifact degrades image quality and is a limiting factor on this examinat ion. HEMORRHAGE: No evidence of intracranial hemorrhage or extra-axial fluid collection. EXTRA-AXIAL SPACES: Cortical sulci, sylvian fissures and basilar cisterns have an unremarkable appear ance. VENTRICULAR SYSTEM: The third and lateral ventricles are of normal size and configuration. CEREBRAL PARENCHYMA: No areas of abnormal brain parenchymal attenuation are identified. There is no i ndication of recent infarction. MIDLINE SHIFT OR HERNIATION: There is no mass effect. CEREBELLUM / BRAINSTEM: Brainstem and cerebellum have an unremarkable appearance. MIDLINE STRUCTURES:No abnormalities of the pituitary gland or pineal region are identified. INTRACRANIAL VESSELS:No abnormalities are identified on this noncontrast head CT. ORBITS: visualized portions of the orbits have an unremarkable appearance. SOFT TISSUES of HEAD: No significant abnormality. CALVARIUM: Evaluation of bone windows reveals no abnormalities. PARANASAL SINUSES / MASTOID AIR CELLS: Visualized portions of the paranasal sinuses are free from inf lammatory mucosal disease. Mastoid air cells are normally pneumatized. IMPRESSION: 1. No significant intercranial abnormality is identified. 2. Study is limited by patient motion artifact. Signer Name: Omar Metzger MD Signed: 09/10/2021 5:30 PM Workstation Name: [id number]
[2021-09-10 17:40] LABS: Hematocrit 50.7 % (35.5-45.6); Hemoglobin 16.6 gm/dl (11.8-15.2); Mean Corpuscular HGB Conc 33 % (32-34); Mean Corpuscular Volume 92 fl (84-94); Platelet Count 283 K/mm3 (140-440); Red Blood Count 5.52 M/mm3 (3.65-5.03)
--- NOTE | 2021-09-10 17:40 | Cat Scan Report ---
CTA neck without and with intravenous contrast material CLINICAL HISTORY: stroke sx TECHNIQUE: Following acquisition of a timing bolus 0.625 mm thick contiguous axial scans were obtained from aort ic arch to the skull base during rapid bolus intravenous contrast infusion. In addition to evaluation of axial source images multiplanar reconstructions were produced and reviewed for this report. 3 ling ne MIP reconstructions were produced and reviewed. Contrast dose report: Omnipaque 350: 100 ml, administered intravenously All CT examinations performed at this facility utilize modulated dose reduction, iterative reconstruc tion or weight-based dosing, as appropriate, to obtain a radiation dose which is as low as can reason ably be achieved. FINDINGS: Thoracic aorta:No abnormalities are identified along the course of the thoracic aorta..The origins of the great vessels have an unremarkable appearance. Brachiocephalic artery, left common carotid arter y origin and left subclavian artery all have an unremarkable appearance. Right carotid artery:No abnormalities are seen along the course of the RCCA, at the right carotid bif urcation or along the cervical portions of the LIGIA. Left carotid artery: No abnormalities are noted along the course of the left common carotid artery, a t the left carotid bifurcation or along the course of the cervical segments of the LICA. Posterior circulation:The vertebral arteries have an unremarkable appearance. Both vertebral arteries contribute to the basilar artery origin. The basilar artery has an unremarkable appearance. The degree of stenosis, if any, is determined utilizing NASCET like criteria. In this case there is no indication of hemodynamically significant stenosis at the carotid bifurcations or elsewhere. Evaluation of the nonvascular soft tissue structures reveal no abnormality. There is no indication of cervical lymphadenopathy. No abnormalities are seen along the course of the airway. Visualized porti ons of the parotid glands and the submandibular salivary glands have a normal appearance. Thyroid gla nd has a normal appearance. Evaluation of the lung apices reveals no evidence of lung nodule or infil trate. Evaluation of the cervical spine revealed no significant abnormalities. IMPRESSION: 1. No significant abnormality on CTA neck. Signer Name: Omar Metzger MD Signed: 09/10/2021 5:35 PM Workstation Name: [id number]
[2021-09-10] MEDS ORDERED: SODIUM CHLORIDE 0.9% 50 ML IVPB IV ONE ×2 (17:41→18:00)
[2021-09-10] MEDS ORDERED: ALTEPLASE 100 MG INJ KIT IV ONE ×4 (17:41→18:00)
--- NOTE | 2021-09-10 17:47 | XRay Report ---
XR chest 1V ap INDICATION / CLINICAL INFORMATION: hx of dyspnea COMPARISON: July 31 2021 FINDINGS: SUPPORT DEVICES: None. HEART / MEDIASTINUM: No significant abnormality. LUNGS / PLEURA: Lung parenchyma is not significantly changed. Severe emphysema. Bilateral perihilar p arenchymal opacities, thought to be related to scarring. Unchanged tubular right middle lung zone par enchymal opacities, similar prior study. Costophrenic sulci are sharp. No pneumothorax. ADDITIONAL FINDINGS: No significant additional findings. IMPRESSION: 1. Severe emphysema. No definite acute findings. Signer Name: Jamal Mcfadden MD Signed: 09/10/2021 5:42 PM Workstation Name: [id number]
--- NOTE | 2021-09-10 17:48 | Cat Scan Report ---
CTA head with intravenous contrast CLINICAL HISTORY: stroke sx. Left hemiparesis. TECHNIQUE: 0.625 mm thick contiguous axial scans were obtained from the skull base to the skull vertex during r apid bolus administration of intravenous contrast material. Multiplanar reconstructions were produced in the coronal and sagittal planes. In addition 3 plane MIP instructions were produced and reviewed for this report. The axial source images and reconstructed images were reviewed for this report. CONTRAST DOSE REPORT: Omnipaque 350: 100 ml administered intravenously. All CT scans at this location are performed using CT dose reduction for ALARA by means of automated e xposure control. FINDINGS: Internal carotid arteries:Wild, cavernous, opthalmic, clinoid and supraclinoid segments of the ICAs have an unremarkable appearance. Middle cerebral arteries: Evaluation of the right middle cerebral artery is remarkable for large vess el occlusion of the distal M1 segment of the right MCA. In addition there is decreased size and numbe r of sylvian and opercular branches are compared to those on the left. The M1 segment of the left mid dle cerebral artery has a normal appearance as do the left M2 and M3 branches. Anterior cerebral arteries:Bilaterally symmetrical A1 segments are demonstrated. No abnormalities are seen along the course of the A2 segments or their visualized pericallosal branches. A small anterior communicating artery is demonstrated. Vertebral arteries:Bilaterally symmetrical vertebral arteries are demonstrated. Both vertebral arteri es contribute to the basilar artery origin. Basilar artery:Basilar artery has an unremarkable appearance. Posterior cerebral arteries:Bilaterally symmetrical posterior cerebral arteries are identified. [place] l bilateral posterior communicating arteries are identified. [place]: Intact. See above Dural sinuses: Dural venous sinuses are well demonstrated on this exam. There is no evidence of dural sinus thrombosis. IMPRESSION: 1. Evidence of large vessel occlusion distal M1 segment right middle cerebral artery. CODE STROKE: Time of Communication (BUSH HOG OPERATOR/CDT): 1640 Central standard time Licensed Practitioner Receiving Report: Dr. Kelley of the [facility] emergenc y department. Signer Name: Omar Metzger MD Signed: 09/10/2021 5:43 PM Workstation Name: [id number]
[2021-09-10 17:50] LABS: INR 0.89 (0.87-1.13)
[2021-09-10 17:59] LABS: Thrombin Time 17.9 Sec. (15.1-19.6)
[2021-09-10 18:01] LABS: Alanine Aminotransferase 95 units/L (7-56); Albumin 3.7 g/dL (3.9-5); BUN/Creatinine Ratio 13; Blood Urea Nitrogen 12 mg/dL (9-20); Calcium 8.8 mg/dL (8.4-10.2); Creatine Kinase MB 5.8 ng/mL (0.0-4.0); Hemolysis Index 15
[2021-09-10 18:18] LABS: Total Cells Counted 100
[2021-09-10 18:19] LABS: Platelet Estimate Consistent w Auto; RBC Morphology Normal
[2021-09-10] MEDS ORDERED: INSULIN REGULAR, HUMAN 100 UNITS/1 ML IV ONE (18:24)
[2021-09-10 18:48] VITALS: BP 150/89
== END 2021-09-10 18:40 | disposition short-term general hospital (02) ==
LOC: ED 16:47
DX: I63.511 Cerebral infarction due to unspecified occlusion or stenosis of right middle cerebral artery (principal); E11.65 Type 2 diabetes mellitus with hyperglycemia; Z87.891 Personal history of nicotine dependence; Z79.899 Other long term (current) drug therapy
CPT/HCPCS: 36415; 37195; 70450; 70496; 70498; 71045; 80053; 82140; 82550; 82553; 82962; 84443; 84484; 85007; 85025; 85610; 85670; 85730; 99291; J2997; Q9967; 80320; 99285; G0480

== ENCOUNTER 2022-02-07 11:29 | Inpatient (IN) | payer SELFPAY ==
[2022-02-07] MEDS ORDERED: ETOMIDATE 20 MG/10 ML INJ IV ONE ×3 (14:46→14:58)
[2022-02-07] MEDS ORDERED: ROCURONIUM 50 MG/5 ML INJ IV ONE ×4 (14:47→20:41)
[2022-02-07] MEDS ORDERED: levETIRAcetam 1000 MG/NS 0.75% 1,000 MG/100 ML BAG IV ONE ×2 (14:58→15:01)
[2022-02-07] MEDS ORDERED: MINERAL OIL/PETROLATUM, WHITE OPHTH OINT 3.5 GM OU PRN (14:58)
[2022-02-07] MEDS ORDERED: levETIRAcetam 500 MG in DEXTROSE 5% IN WATER 100 ML IV ONE (14:58)
[2022-02-07] MEDS ORDERED: LIP THERAPY VASELINE TP PRN (14:58)
--- NOTE | 2022-02-07 15:11 | Emergency Department Report ---
ED General Adult HPI - General Chief complaint: Dyspnea/Respdistress Stated complaint: SOB Time Seen by Provider: 02/07/22 14:56 Source: patient, RN notes reviewed, old records reviewed Mode of arrival: Stretcher Limitations: Altered Mental Status, Physical Limitation - History of Present Illness Initial comments: The patient is a 47-year-old gentleman. He reportedly presented to the emergency room this afternoon with a complaint of shortness of breath. He was immediately brought to my attention after he had an episode of convulsion and unresponsiveness in the waiting room, last known well time is approximately 2:45 PM. History obtained entirely from nursing team. Patient reportedly presented with shortness of breath, unremarkable vital signs, and unremarkable physical exam. After his convulsive event, with a normal documented glucose, he is immediately brought back to room 19. The patient is not protecting his airway. The patient is sweating and diaphoretic. Patient placed on nasal cannula, head of bed elevated, and receives [id number] ventilation. Patient induced with 20 mg of etomidate, and 100 mg of rocuronium, and intubated with a 7.5 endotracheal tube for acute respiratory failure. A code stroke is called overhead. Prior to intubation and paralysis, patient noted to be moving right arm and right leg, after seizure/convulsive event. Multiple phone calls made to listed phone numbers in the patient's chart; [phone]. Nobody answered. Left voicemail for call back. Have not received a call back. Patient not able to describe the qualitative nature of symptoms, exacerbating factors relieving factors or aggravating factors. Patient is now currently intubated, sedated, and has not had any convulsive events, he does not appear to be bucking the vent -: unknown Severity scale (0 -10): 0 - Related Data Previous Rx's Medication Instructions Recorded Last Taken Type Meclizine [Antivert] 12.5 mg PO DAILY PRN #12 tablet 06/10/21 Unknown Rx RX: metFORMIN [Glucophage] 500 mg PO BID #60 tablet 06/10/21 Unknown Rx RX: Naproxen 500 mg PO Q12H PRN #12 tablet 06/24/21 Unknown Rx RX: Albuterol Sulfate [Proventil 2 puff IH Q4HR PRN #1 hfa.aer.ad 07/31/21 Unknown Rx Hfa] RX: predniSONE [Deltasone] 50 mg PO QDAY #5 tab 07/31/21 Unknown Rx Allergies Allergy/AdvReac Type Severity Reaction Status Date / Time No Known Allergies Allergy Verified 07/31/21 15:00 ED Review of Systems ROS: Stated complaint: SOB Other details as noted in HPI Comment: Unobtainable due to pts medical conditions ED Past Medical Hx - Past Medical History Hx Diabetes: Yes - Social History Smoking Status: Former Smoker Substance Use Type: None - Medications Home Medications: Home Medications Medication Instructions Recorded Confirmed Last Taken Type Meclizine [Antivert] 12.5 mg PO DAILY PRN #12 tablet 06/10/21 Unknown Rx RX: metFORMIN [Glucophage] 500 mg PO BID #60 tablet 06/10/21 Unknown Rx RX: Naproxen 500 mg PO Q12H PRN #12 tablet 06/24/21 Unknown Rx RX: Albuterol Sulfate [Proventil 2 puff IH Q4HR PRN #1 hfa.aer.ad 07/31/21 Unknown Rx Hfa] RX: predniSONE [Deltasone] 50 mg PO QDAY #5 tab 07/31/21 Unknown Rx ED Physical Exam - General Limitations: Altered Mental Status General appearance: anxious, lethargic - Head Head exam: Present: atraumatic, normocephalic - Eye Eye exam: Present: normal appearance - ENT ENT exam: Present: normal exam, normal orophraynx, mucous membranes moist, normal external ear exam - Neck Neck exam: Present: normal inspection. Absent: tenderness, meningismus - Respiratory Respiratory exam: Present: respiratory distress - Cardiovascular Cardiovascular Exam: Present: normal rhythm, tachycardia, normal heart sounds. Absent: bradycardia, irregular rhythm, systolic murmur, diastolic murmur, rubs, gallop - GI/Abdominal GI/Abdominal exam: Present: soft. Absent: distended, tenderness, guarding, avery ound, rigid, pulsatile mass - Rectal Rectal exam: Present: deferred - exam: Present: normal inspection External exam: Present: normal external exam - Extremities Exam Extremities exam: Present: normal inspection, full ROM (Right arm and right leg) - Back Exam Back exam: Present: normal inspection. Absent: tenderness, CVA tenderness (R), CVA tenderness (L), paraspinal tenderness, vertebral tenderness - Neurological Exam Neurological exam: Present: altered, other (Prior to intubation, there is no facial droop. Vigorous 5/5 strength right arm and right leg. Not moving left arm or left leg. Unable to assess sensation) - Psychiatric Psychiatric exam: Present: anxious - Skin Skin exam: Present: warm, dry, intact, normal color. Absent: rash ED Course Vital Signs 02/07/22 02/07/22 02/07/22 11:54 14:57 15:42 Temperature 98.8 F 97.0 F L Pulse Rate 59 L 135 H 133 H Respiratory 18 18 18 Rate Blood Pressure 159/95 166/119 Blood Pressure 125/95 [Right] O2 Sat by Pulse 98 100 100 Oximetry 02/07/22 02/07/22 02/07/22 15:46 16:00 16:12 Temperature Pulse Rate 136 H 137 H 135 H Respiratory 18 18 Rate Blood Pressure 166/119 170/120 171/122 Blood Pressure [Right] O2 Sat by Pulse 100 100 Oximetry 02/07/22 02/07/22 16:16 16:30 Temperature Pulse Rate 128 H 141 H Respiratory 18 19 Rate Blood Pressure 171/122 159/95 Blood Pressure [Right] O2 Sat by Pulse 100 100 Oximetry - Reevaluation(s) Reevaluation #1: 02/07/22 16:33 Differential diagnosis, including but not limited to: Seizure, pneumonia, UTI, intracranial hemorrhage, large vessel occlusion Assessment and plan: 47-year-old gentleman, who presented initially with a triage complaint of shortness of breath, with a known documented normal exam as per nursing team, who has a convulsive event in the waiting room, normal Accu- Chek, subsequently required intubation for airway protection. I suspect that the patient had a primary respiratory event, either secondary to undiagnosed emphysema, pneumonia, or both, causing transient hypoxic respiratory failure, and subsequent seizure/convulsion. 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 A large vessel occlusion is not identified. Ischemic stroke is less likely, given the aforementioned. In addition, the patient is intubated for airway protection, but did not have more than 1 seizure, and is currently not demonstrating evidence of seizure-like activity. Subclinical status epilepticus is very unlikely. In addition, his aunt, Ms. Spears, called me back, and indicated that the patient did have some residual left-sided deficits after his old stroke. Patient is seen in conjunction/consultation with stroke neurology, Dr. Gill, who has also examined the patient, and we both agree that this is most likely a seizure, much less likely to be an acute ischemic event, and therefore, would not advise tPA. Antibiotics, fluids and supportive care will be administered, given pulmonary opacities on x-ray and imaging. Patient is ruling in for systemic inflammatory response syndrome, metabolic acidosis likely secondary to seizure and or convulsive event. Fluids, antibiotics, and supportive care. Nonspecific pulmonary findings noted on visualized lung architecture from CT scan of the cervical spine, I will defer to the inpatient team to further evaluate and manage. It does appear that this patient has a history of emphysema/COPD as per discussion with family, so I suspect that initial presenting complaint likely secondary to underlying COPD/pneumonia. Critical care physician, Dr. Jha to follow in consultation. Hospital physician, Dr. Montez Hess to admit to IMS/ICU Reevaluation #2: 02/07/22 17:23 Lactic acidosis likely secondary to convulsions/seizure/systemic inflammatory response syndrome ED Medical Decision Making - Lab Data Result diagrams: 02/07/22 Unknown 02/07/22 Unknown Vital Signs 02/07/22 11:54 Temperature 98.8 F Pulse Rate 59 L Respiratory 18 Rate Blood Pressure 125/95 [Right] O2 Sat by Pulse 98 Oximetry Lab Results 02/07/22 02/07/22 02/07/22 Range/Units 11:56 Unknown Unknown WBC 17.1 H (4.5-11.0) K/mm3 RBC 5.46 H (3.65-5.03) M/mm3 Hgb 15.2 (11.8-15.2) gm/dl Hct 46.4 H (35.5-45.6) % MCV 85 (84-94) fl MCH 28 (28-32) pg MCHC 33 (32-34) % RDW 17.6 H (13.2-15.2) % Plt Count 431 (140-440) K/mm3 Lymph # (Auto) Sample Checker Add Manual Diff Complete Total Counted 100 Seg Neuts % (Manual) 48.0 (40.0-70.0) % Band Neutrophils % 0 % Lymphocytes % (Manual) 30.0 (13.4-35.0) % Reactive Lymphs % (Man) 11.0 % Monocytes % (Manual) 10.0 H (0.0-7.3) % Eosinophils % (Manual) 0 (0.0-4.3) % Basophils % (Manual) 1.0 (0.0-1.8) % Metamyelocytes % 0 % Myelocytes % 0 % Promyelocytes % 0 % Blast Cells % 0 % Nucleated RBC % Not Reportable Seg Neutrophils # Man 8.2 H (1.8-7.7) K/mm3 Band Neutrophils # 0.0 K/mm3 Lymphocytes # (Manual) 5.1 (1.2-5.4) K/mm3 Abs React Lymphs (Man) 1.9 K/mm3 Monocytes # (Manual) 1.7 H (0.0-0.8) K/mm3 Eosinophils # (Manual) 0.0 (0.0-0.4) K/mm3 Basophils # (Manual) 0.2 H (0.0-0.1) K/mm3 Metamyelocytes # 0.0 K/mm3 Myelocytes # 0.0 K/mm3 Promyelocytes # 0.0 K/mm3 Blast Cells # 0.0 K/mm3 WBC Morphology Not Reportable Hypersegmented Neuts Not Reportable Hyposegmented Neuts Not Reportable Hypogranular Neuts Not Reportable Smudge Cells Not Reportable Toxic Granulation Not Reportable Toxic Vacuolation Not Reportable Dohle Bodies Not Reportable Pelger-Huet Anomaly Not Reportable Rachel Rods Not Reportable Platelet Estimate Appears decreased Clumped Platelets Rare Plt Clumps, EDTA Not Reportable Large Platelets Not Reportable Giant Platelets Not Reportable Platelet Satelliting Not Reportable Plt Morphology Comment Not Reportable RBC Morphology Not Reportable Dimorphic RBCs Not Reportable Polychromasia Not Reportable Hypochromasia Not Reportable Poikilocytosis Rare Anisocytosis Not Reportable Microcytosis Not Reportable Macrocytosis Not Reportable Spherocytes Not Reportable Pappenheimer Bodies Not Reportable Sickle Cells Not Reportable Target Cells Not Reportable Tear Drop Cells Not Reportable Ovalocytes Rare Helmet Cells Not Reportable [place] Bodies Not Reportable [place] Rings Not Reportable [place]aterina Cells Not Reportable Bite Cells Not Reportable Crenated Cell Not Reportable Elliptocytes Rare Acanthocytes (Spur) Not Reportable Rouleaux Not Reportable Hemoglobin C Crystals Not Reportable Schistocytes Not Reportable Malaria parasites Not Reportable Ten Bodies Not Reportable Hem Pathologist Commnt No PT 17.2 H (12.2-14.9) Sec. INR 1.25 H (0.87-1.13) APTT 29.2 (24.2-36.6) Sec. Thrombin Time 17.0 (15.1-19.6) Sec. Sodium (137-145) mmol/L Potassium (3.6-5.0) mmol/L Chloride (98-107) mmol/L Carbon Dioxide (22-30) mmol/L Anion Gap mmol/L BUN (9-20) mg/dL Creatinine (0.8-1.3) mg/dL Estimated GFR ml/min BUN/Creatinine Ratio % Glucose (75-100) mg/dL POC Glucose 131 H (70-105) mg/dL Calcium (8.4-10.2) mg/dL Total Bilirubin (0.1-1.2) mg/dL AST (5-40) units/L ALT (7-56) units/L Alkaline Phosphatase (35-129) units/L Total Creatine Kinase (55-170) units/L CK-MB (CK-2) (0.0-4.0) ng/mL CK-MB (CK-2) Rel Index (0-4) Troponin T (0.00-0.029) ng/mL Total Protein (6.3-8.2) g/dL Albumin (3.9-5) g/dL Albumin/Globulin Ratio % Salicylates (2.8-20.0) mg/dL Acetaminophen (10.0-30.0) ug/mL Plasma/Serum Alcohol (0-0.07) % 02/07/22 02/07/22 02/07/22 Range/Units Unknown Unknown Unknown WBC (4.5-11.0) K/mm3 RBC (3.65-5.03) M/mm3 Hgb (11.8-15.2) gm/dl Hct (35.5-45.6) % MCV (84-94) fl MCH (28-32) pg MCHC (32-34) % RDW (13.2-15.2) % Plt Count (140-440) K/mm3 Lymph # (Auto) Add Manual Diff Total Counted Seg Neuts % (Manual) (40.0-70.0) % Band Neutrophils % % Lymphocytes % (Manual) (13.4-35.0) % Reactive Lymphs % (Man) % Monocytes % (Manual) (0.0-7.3) % Eosinophils % (Manual) (0.0-4.3) % Basophils % (Manual) (0.0-1.8) % Metamyelocytes % % Myelocytes % % Promyelocytes % % Blast Cells % % Nucleated RBC % Seg Neutrophils # Man (1.8-7.7) K/mm3 Band Neutrophils # K/mm3 Lymphocytes # (Manual) (1.2-5.4) K/mm3 Abs React Lymphs (Man) K/mm3 Monocytes # (Manual) (0.0-0.8) K/mm3 Eosinophils # (Manual) (0.0-0.4) K/mm3 Basophils # (Manual) (0.0-0.1) K/mm3 Metamyelocytes # K/mm3 Myelocytes # K/mm3 Promyelocytes # K/mm3 Blast Cells # K/mm3 WBC Morphology Hypersegmented Neuts Hyposegmented Neuts Hypogranular Neuts Smudge Cells Toxic Granulation Toxic Vacuolation Dohle Bodies Pelger-Huet Anomaly Rachel Rods Platelet Estimate Clumped Platelets Plt Clumps, EDTA Large Platelets Giant Platelets Platelet Satelliting Plt Morphology Comment RBC Morphology Dimorphic RBCs Polychromasia Hypochromasia Poikilocytosis Anisocytosis Microcytosis Macrocytosis Spherocytes Pappenheimer Bodies Sickle Cells Target Cells Tear Drop Cells Ovalocytes Helmet Cells Banuelos-[place] Bodies [place] Rings Caterina Cells Bite Cells Crenated Cell Elliptocytes Acanthocytes (Spur) Rouleaux Hemoglobin C Crystals Schistocytes Malaria parasites Ten Bodies Hem Pathologist Commnt PT (12.2-14.9) Sec. INR (0.87-1.13) APTT (24.2-36.6) Sec. Thrombin Time (15.1-19.6) Sec. Sodium 143 (137-145) mmol/L Potassium 4.2 (3.6-5.0) mmol/L Chloride 96.3 L (98-107) mmol/L Carbon Dioxide 14 L (22-30) mmol/L Anion Gap 37 mmol/L BUN 11 (9-20) mg/dL Creatinine 1.4 H (0.8-1.3) mg/dL Estimated GFR > 60 ml/min BUN/Creatinine Ratio 8 % Glucose 190 H (75-100) mg/dL POC Glucose (70-105) mg/dL Calcium 10.1 (8.4-10.2) mg/dL Total Bilirubin 1.30 H (0.1-1.2) mg/dL AST 23 (5-40) units/L ALT 23 (7-56) units/L Alkaline Phosphatase 141 H (35-129) units/L Total Creatine Kinase 279 H (55-170) units/L CK-MB (CK-2) 3.7 (0.0-4.0) ng/mL CK-MB (CK-2) Rel Index 1.3 (0-4) Troponin T 0.010 (0.00-0.029) ng/mL Total Protein 7.2 (6.3-8.2) g/dL Albumin 4.9 (3.9-5) g/dL Albumin/Globulin Ratio 2.1 % Salicylates < 0.3 L (2.8-20.0) mg/dL Acetaminophen (10.0-30.0) ug/mL Plasma/Serum Alcohol < 0.01 (0-0.07) % // Range/Units Unknown WBC (4.5-11.0) K/mm3 RBC (3.65-5.03) M/mm3 Hgb (11.8-15.2) gm/dl Hct (35.5-45.6) % MCV (84-94) fl MCH (28-32) pg MCHC (32-34) % RDW (13.2-15.2) % Plt Count (140-440) K/mm3 Lymph # (Auto) Add Manual Diff Total Counted Seg Neuts % (Manual) (40.0-70.0) % Band Neutrophils % % Lymphocytes % (Manual) (13.4-35.0) % Reactive Lymphs % (Man) % Monocytes % (Manual) (0.0-7.3) % Eosinophils % (Manual) (0.0-4.3) % Basophils % (Manual) (0.0-1.8) % Metamyelocytes % % Myelocytes % % Promyelocytes % % Blast Cells % % Nucleated RBC % Seg Neutrophils # Man (1.8-7.7) K/mm3 Band Neutrophils # K/mm3 Lymphocytes # (Manual) (1.2-5.4) K/mm3 Abs React Lymphs (Man) K/mm3 Monocytes # (Manual) (0.0-0.8) K/mm3 Eosinophils # (Manual) (0.0-0.4) K/mm3 Basophils # (Manual) (0.0-0.1) K/mm3 Metamyelocytes # K/mm3 Myelocytes # K/mm3 Promyelocytes # K/mm3 Blast Cells # K/mm3 WBC Morphology Hypersegmented Neuts Hyposegmented Neuts Hypogranular Neuts Smudge Cells Toxic Granulation Toxic Vacuolation Dohle Bodies Pelger-Huet Anomaly Rachel Rods Platelet Estimate Clumped Platelets Plt Clumps, EDTA Large Platelets Giant Platelets Platelet Satelliting Plt Morphology Comment RBC Morphology Dimorphic RBCs Polychromasia Hypochromasia Poikilocytosis Anisocytosis Microcytosis Macrocytosis Spherocytes Pappenheimer Bodies Sickle Cells Target Cells Tear Drop Cells Ovalocytes Helmet Cells Banuelos-[place] Bodies [place] Rings [place] Cells Bite Cells Crenated Cell Elliptocytes Acanthocytes (Spur) Rouleaux Hemoglobin C Crystals Schistocytes Malaria parasites Ten Bodies Hem Pathologist Commnt PT (12.2-14.9) Sec. INR (0.87-1.13) APTT (24.2-36.6) Sec. Thrombin Time (15.1-19.6) Sec. Sodium (137-145) mmol/L Potassium (3.6-5.0) mmol/L Chloride (98-107) mmol/L Carbon Dioxide (22-30) mmol/L Anion Gap mmol/L BUN (9-20) mg/dL Creatinine (0.8-1.3) mg/dL Estimated GFR ml/min BUN/Creatinine Ratio % Glucose (75-100) mg/dL POC Glucose (70-105) mg/dL Calcium (8.4-10.2) mg/dL Total Bilirubin (0.1-1.2) mg/dL AST (5-40) units/L ALT (7-56) units/L Alkaline Phosphatase (35-129) units/L Total Creatine Kinase (55-170) units/L CK-MB (CK-2) (0.0-4.0) ng/mL CK-MB (CK-2) Rel Index (0-4) Troponin T (0.00-0.029) ng/mL Total Protein (6.3-8.2) g/dL Albumin (3.9-5) g/dL Albumin/Globulin Ratio % Salicylates (2.8-20.0) mg/dL Acetaminophen 5.0 L (10.0-30.0) ug/mL Plasma/Serum Alcohol (0-0.07) % - EKG Data -: EKG Interpreted by Or EKG shows normal: sinus rhythm Rate: tachycardia - EKG Data 02/07/22 16:28 The EKG is interpreted at 15: 02 Sinus rhythm, tachycardia, rate 139 bpm. Normal axis, normal P wave axis, QTC 5 4 5 ms. This is an abnormal EKG. This is not a STEMI. - Radiology Data Radiology results: pending, report reviewed, image reviewed CT HEAD WITHOUT CONTRAST INDICATION / CLINICAL INFORMATION: Stroke symptoms. TECHNIQUE: Axial imaging performed from the skull apex through the skull base without the use of contrast. Sagittal and coronal reformatted images. All CT scans at this location are performed using CT dose reduction for [employer] by means of automated exposure control. COMPARISON: 09/10/2021 FINDINGS: CEREBRAL PARENCHYMA: No acute parenchymal abnormality is detected. Moderate size area of chronic infarct are identified throughout the right MCA distribution which is new since the previous exam. The remaining brain parenchyma density is within normal limits. HEMORRHAGE: None. EXTRA-AXIAL SPACES: Normal in size and morphology for the patient's age. VENTRICULAR SYSTEM: Normal in size and morphology for the patient's age. MIDLINE SHIFT OR HERNIATION: None. CEREBELLUM / BRAINSTEM: No significant abnormality. CALVARIUM: No significant abnorm ality. ORBITS: Normal as visualized. PARANASAL SINUSES / MASTOID AIR CELLS: Normal as visualized. SOFT TISSUES of HEAD: No significant abnormality. ADDITIONAL FINDINGS: None. IMPRESSION: No acute intracranial abnormality. Moderate areas of chronic ischemia in the right MCA distribution. These findings were discussed with Dr. Danielle in the emergency department at 1443 hours Signer Name: Alessandro Brower Jr, MD Signed: 02/07/2022 2:45 PM Workstation Name: [id number] . XR chest 1V ap INDICATION / CLINICAL INFORMATION: ett placement. COMPARISON: 09/10/2021 FINDINGS: SUPPORT DEVICES: Endotracheal tube terminates 3.1 cm above the katiana. HEART /PULMONARY VASCULATURE: Unchanged. LUNGS / PLEURA: Increased airspace density extending from the lateral right lung apex to the hilum. Severe bullous disease again noted. Patchy bibasilar opacities appear unchanged. No sizable pleural effusion. No pneumothorax. IMPRESSION: 1. Satisfactory position of endotracheal tube. 2. Increased airspace density in the right lung apex. CT is recommended. Signer Name: Usman Campos MD Signed: 02/07/2022 2:58 PM Workstation Name: [email or web address] CT angio head, CT angio neck HISTORY: stroke sx 100 ML [id number] COMPARISON: CT head from earlier same day. CTA head neck from September 10, 2021 TECHNIQUE: CTA of the neck and head is performed after IV contrast. 3-D/MIP reformats were postprocessed. Percentage stenosis is determined by direct quantitative measurements of diseased internal carotid artery diameter compared with normal distal internal carotid artery reference segments or by criteria similar to NASCET where applicable. All CT scans at this location are performed using CT dose reduction for ALARA by means of automated exposure control. FINDINGS: CTA NECK: Aortic arch: No significant abnormality. Cervical vertebral arteries: No occlusion or hemodynamically significant stenosis. Common Carotid arteries: No occlusion or hemodynamically significant stenosis. Internal carotid arteries: No occlusion or hemodynamically significant stenosis. CTA HEAD: Intracranial internal carotid arteries: No occlusion or significant stenosis. Anterior cerebral arteries: No occlusion or significant stenosis. Middle cerebral arteries: No occlusion or significant stenosis. Intracranial vertebral arteries: No occlusion or significant stenosis. Basilar artery: No occlusion or significant stenosis. Posterior cerebral arteries: No occlusion or significant stenosis. No aneurysm. Encephalomalacia from prior right MCA distribution infarction. Additional findings: Patient is intubated and the ventricular tube terminates appropriately. Severe emphysematous changes lung parenchyma with a new moderate- sized right pleural effusion. There is persistent but progressed soft tissue seen involving the right hilum which extends along the right bronchus along the posterior aspect of the right pulmonary artery. There is associated narrowing of the bronchi and right pulmona ry artery. There is also left perihilar soft tissue seen associated bronchiectasis which is related to scarring. There are bilateral patchy ground glass opacities and small areas of consolidation seen within the right upper lobe. IMPRESSION: 1. CTA NECK: No occlusion or significant stenosis of the carotid or vertebral arteries. 2. CTA HEAD: No occlusion or significant stenosis of the major intracranial vasculature. 3. Severe emphysema with worsening soft tissue seen along the right hilum which appears to extend into mediastinum resulting in narrowing of the right pulmonary artery and bronchi. This raises concern for neoplasm and CT chest with contrast is recommended if this has not been worked up previously. Signer Name: Jamal Mcfadden MD Signed: 02/07/2022 3:04 PM Workstation Name: [email or web address] Critical Care Time: Yes Critical care time in (mins) excluding proc time.: 45 Critical care attestation.: If time is entered above; I have spent that time in minutes in the direct care of this critically ill patient, excluding procedure time. ED Disposition Clinical Impression: Acute respiratory failure with hypoxia, Systemic inflammatory response syndrome (SIRS), Opacity of lung on imaging study, Metabolic acidosis, Seizure, Acute encephalopathy Disposition: 09 ADMITTED INPATIENT Is pt being admited?: Yes Does the pt Need Aspirin: No Condition: Critical Referrals: PRIMARY CARE, [Primary Care Provider] - 3-5 Days
[2022-02-07 15:25] LABS: Hematocrit 46.4 % (35.5-45.6); Hemoglobin 15.2 gm/dl (11.8-15.2); Mean Corpuscular HGB Conc 33 % (32-34); Mean Corpuscular Volume 85 fl (84-94); Platelet Count 431 K/mm3 (140-440); Red Blood Count 5.46 M/mm3 (3.65-5.03); Red Cell Distribution Width 17.6 % (13.2-15.2)
[2022-02-07 15:31] LABS: INR 1.25 (0.87-1.13)
[2022-02-07 15:32] LABS: Partial Thromboplastin Time 29.2 Sec. (24.2-36.6)
[2022-02-07 15:37] LABS: Creatine Kinase MB 3.7 ng/mL (0.0-4.0)
[2022-02-07] MEDS ORDERED: hydrALAZINE 20 MG/1 ML INJ IV ONE (15:44)
--- NOTE | 2022-02-07 15:49 | Cat Scan Report ---
CT HEAD WITHOUT CONTRAST INDICATION / CLINICAL INFORMATION: Stroke symptoms. TECHNIQUE: Axial imaging performed from the skull apex through the skull base without the use of cont rast. Sagittal and coronal reformatted images. All CT scans at this location are performed using CT dose reduction for ALARA by means of automated exposure control. COMPARISON: 09/10/2021 FINDINGS: CEREBRAL PARENCHYMA: No acute parenchymal abnormality is detected. Moderate size area of chronic infa rct are identified throughout the right MCA distribution which is new since the previous exam. The re maining brain parenchyma density is within normal limits. HEMORRHAGE: None. EXTRA-AXIAL SPACES: Normal in size and morphology for the patient's age. VENTRICULAR SYSTEM: Normal in size and morphology for the patient's age. MIDLINE SHIFT OR HERNIATION: None. CEREBELLUM / BRAINSTEM: No significant abnormality. CALVARIUM: No significant abnormality. ORBITS: Normal as visualized. PARANASAL SINUSES / MASTOID AIR CELLS: Normal as visualized. SOFT TISSUES of HEAD: No significant abnormality. ADDITIONAL FINDINGS: None. IMPRESSION: No acute intracranial abnormality. Moderate areas of chronic ischemia in the right MCA distribution. These findings were discussed with Dr. Danielle in the emergency department at 1443 hours Signer Name: Alessandro Brower Jr, MD Signed: 02/07/2022 3:45 PM Workstation Name: [id number]
[2022-02-07 16:00] LABS: Alanine Aminotransferase 23 units/L (7-56); Albumin 4.9 g/dL (3.9-5); BUN/Creatinine Ratio 8; Blood Urea Nitrogen 11 mg/dL (9-20); Calcium 10.1 mg/dL (8.4-10.2); Hemolysis Index 78
--- NOTE | 2022-02-07 16:03 | XRay Report ---
. XR chest 1V ap INDICATION / CLINICAL INFORMATION: ett placement. COMPARISON: 09/10/2021 FINDINGS: SUPPORT DEVICES: Endotracheal tube terminates 3.1 cm above the katiana. HEART /PULMONARY VASCULATURE: Unchanged. LUNGS / PLEURA: Increased airspace density extending from the lateral right lung apex to the hilum. S evere bullous disease again noted. Patchy bibasilar opacities appear unchanged. No sizable pleural ef fusion. No pneumothorax. IMPRESSION: 1. Satisfactory position of endotracheal tube. 2. Increased airspace density in the right lung apex. CT is recommended. Signer Name: Usman Campos MD Signed: 02/07/2022 3:58 PM Workstation Name: [id number]
[2022-02-07 16:05] LABS: Eosinophils % (Manual) 0 % (0.0-4.3); Total Cells Counted 100
--- NOTE | 2022-02-07 16:09 | Cat Scan Report ---
CT angio head, CT angio neck HISTORY: stroke sx 100 ML OMNI 350 COMPARISON: CT head from earlier same day. CTA head neck from September 10, 2021 TECHNIQUE: CTA of the neck and head is performed after IV contrast. 3-D/MIP reformats were postproces sed. Percentage stenosis is determined by direct quantitative measurements of diseased internal jarvis tid artery diameter compared with normal distal internal carotid artery reference segments or by crit eria similar to NASCET where applicable. All CT scans at this location are performed using CT dose re duction for ALARA by means of automated exposure control. FINDINGS: CTA NECK: Aortic arch: No significant abnormality. Cervical vertebral arteries: No occlusion or hemodynamically significant stenosis. Common Carotid arteries: No occlusion or hemodynamically significant stenosis. Internal carotid arteries: No occlusion or hemodynamically significant stenosis. CTA HEAD: Intracranial internal carotid arteries: No occlusion or significant stenosis. Anterior cerebral arteries: No occlusion or significant stenosis. Middle cerebral arteries: No occlusion or significant stenosis. Intracranial vertebral arteries: No occlusion or significant stenosis. Basilar artery: No occlusion or significant stenosis. Posterior cerebral arteries: No occlusion or significant stenosis. No aneurysm. Encephalomalacia from prior right MCA distribution infarction. Additional findings: Patient is intubated and the ventricular tube terminates appropriately. Severe e mphysematous changes lung parenchyma with a new moderate-sized right pleural effusion. There is persi stent but progressed soft tissue seen involving the right hilum which extends along the right bronchu s along the posterior aspect of the right pulmonary artery. There is associated narrowing of the bron chi and right pulmonary artery. There is also left perihilar soft tissue seen associated bronchiectas is which is related to scarring. There are bilateral patchy ground glass opacities and small areas of consolidation seen within the ri ght upper lobe. IMPRESSION: 1. CTA NECK: No occlusion or significant stenosis of the carotid or vertebral arteries. 2. CTA HEAD: No occlusion or significant stenosis of the major intracranial vasculature. 3. Severe emphysema with worsening soft tissue seen along the right hilum which appears to extend int o mediastinum resulting in narrowing of the right pulmonary artery and bronchi. This raises concern f or neoplasm and CT chest with contrast is recommended if this has not been worked up previously. Signer Name: Jamal Mcfadden MD Signed: 02/07/2022 4:04 PM Workstation Name: [id number]
[2022-02-07 16:10] LABS: Ovalocytes Rare; Poikilocytosis Rare
[2022-02-07 16:12] LABS: Platelet Estimate Appears Decreased
[2022-02-07 16:13] LABS: Platelet Clumps Rare
[2022-02-07] MEDS ORDERED: AZITHROMYCIN/NS 500 MG/250 ML 500 MG/250 ML BAG IV ONE (16:25)
[2022-02-07] MEDS ORDERED: cefTRIAXone/NS 1 GM/50 ML 1 GM/50 ML BAG IV ONE (16:25)
[2022-02-07] MEDS ORDERED: SODIUM CHLORIDE 0.9% 1000 ML 2,500 ML IV ONE (16:26)
[2022-02-07] MEDS ORDERED: IPRATROPIUM 0.02% NEBU 2.5 ML IH ONE (16:41)
[2022-02-07] MEDS ORDERED: ALBUTEROL 2.5 MG/3 ML NEBU IH ONE (16:41)
[2022-02-07] MEDS ORDERED: methylPREDNISolone Sod Succinate 125 MG/2 ML INJ IV ONE (16:41)
[2022-02-07 17:47] LABS: Bilirubin,Urine NEG (Negative); Blood,Urine NEG (Negative); Color,Urine Straw (Yellow); Urobilinogen,Urine < 2.0 mg/dL (<2.0)
[2022-02-07 17:54] LABS: Amphetamine Screen,Urine Negative; Benzodiazepines Screen,Urine Negative; Cannabinoid Screen,Urine Negative; Cocaine Screen,Urine Negative; Methadone Screen,Urine Negative; Opiate Screen,Urine Negative
[2022-02-07 18:33] LABS: ABG Methemoglobin 0.5 % (0.0-1.5); ABG Oxygen Saturation 99.7 % (95.0-99.0)
--- NOTE | 2022-02-07 18:34 | Emergency Department Report ---
Blank Doc - Documentation Documentation: [facility] Consult Note # Demographics Consult Type: Acute Stroke Level 1 (0-4.5 hrs) Patient Location: Emergency Room First Name: Manoj Last Name: Lori Date of : 1975 Age: 47 Gender: Male Facility: [facility] Time of Initial Page (Eastern Time): 02/07/2022, 14:57 Time of Return Call (Eastern Time): 02/07/2022, 14:58 # HPI History: 47 year old male presented with sob. In waiting room he had syncopal episode and convulsive activity that was generalized. He did not return to baseline and as per ED provider, there was concern for left sided weakness. Patient noted to have hx of right mca infarct with left sided weakness that is old. Patient was intubated in ED. Neurology consult after the fact Last Known Normal: 11:54 # Exam Additional Neurologic Exam: Patient intubated, received rocuronium and sedative thus I am not able to get any examination on the patient at this time. # H-FH-SH Past Medical History: stroke Social History: lives with family # Data Head CT: chronic right mca infarct CTA Neck: findings of emphysema in hilum extending further into mediastinum concerning for lung cancer # Assessment Impression: 47 year old male with right mca infarct presented to ED with SOB. noted to have seizure in ED. Intubated for airway protection. CTH with old right mca infarct. CTA neck shows emphysema in right hilum extending into mediastinum concerning for cancer. This is likely cause of the SOB and hypoxia. Neuro standpoint cannot rule out seizure though convulsive event in light of severe hypoxia is high on the differential. Recommend MRI Brain with and without to rule out any intracr anial mets. Start Keppra 1000 mg BID. Consider cEEG if patient is not waking up off sedation. # Plan Labs: CBC comprehensive metabolic panel troponin Imaging: (urgency: routine): MRI Brain with AND without contrast Medication: levetiracetam (Keppra) 1000 mg twice daily Other: If patient has any neurological deterioration please call me back immediately telemetry monitoring seizure precautions I have discussed my recommendations with the referring provider Disposition: continue admission
[2022-02-07 18:38] LABS: ABG Base Excess -1.9 mmol/L (-2.0-3.0); ABG HCO3 22.7 mmol/L (20.0-26.0); ABG PCO2 38.1 mm Hg; ABG PH 7.393 pH Units (7.350-7.450); ABG PO2 161.1 mm Hg (80.0-90.0)
[2022-02-07] MEDS ORDERED: SODIUM CHLORIDE 0.9% 1000 ML 1,000 ML IV ONE (18:56)
[2022-02-07] MEDS ORDERED: fentaNYL DRIP Premix 2,000 MCG/100 ML BAG IV SCH (19:00)
[2022-02-07] MEDS: fentaNYL 100 MCG/2 ML INJ IV PRN (19:08)
[2022-02-07] MEDS ORDERED: METOCLOPRAMIDE 10 MG/2 ML INJ IV PRN (20:27)
[2022-02-07] MEDS ORDERED: MORPHINE 2 MG/1 ML INJ IV PRN (20:27)
[2022-02-07] MEDS ORDERED: ONDANSETRON 4 MG/2 ML INJ IV PRN (20:27)
[2022-02-07] MEDS ORDERED: ACETAMINOPHEN 325 MG TAB PO PRN (20:27)
[2022-02-07] MEDS ORDERED: SODIUM CHLORIDE 0.9% 1000 ML 1,000 ML IV SCH (20:30)
[2022-02-07] MEDS ORDERED: MIDAZOLAM 2 MG/2 ML INJ IV PRN (20:38)
[2022-02-07] MEDS ORDERED: MIDAZOLAM/NS Drip 100mg/100ml 100 MG/100 ML BAG IV SCH (21:00)
[2022-02-07] MEDS ORDERED: levETIRAcetam 1000 MG/NS 0.75% 1,000 MG/100 ML BAG IV SCH (21:00)
[2022-02-07] MEDS ORDERED: hydrALAZINE 20 MG/1 ML INJ IV PRN (21:03)
[2022-02-07] MEDS ORDERED: dilTIAZem 25 MG/5 ML INJ IV ONE (21:28)
[2022-02-08] MEDS: dilTIAZem/D5W 100 MG/100 ML BAG IV SCH ×2 (00:34→06:14)
[2022-02-08] MEDS: fentaNYL 100 MCG/2 ML INJ IV PRN (01:52)
[2022-02-08] MEDS: levETIRAcetam 1,000 MG in DEXTROSE 5% IN WATER 100 ML IV SCH ×2 (04:06→16:45)
[2022-02-08] MEDS: SENNOSIDES/DOCUSATE SODIUM 8.6/50 MG TAB FEEDTUBE SCH ×3 (04:30→22:42)
[2022-02-08] MEDS: FAMOTIDINE 20 MG/2 ML INJ IV SCH ×3 (04:30→22:42)
[2022-02-08] MEDS: HEPARIN 5,000 UNIT/1 ML VIAL SUB-Q SCH ×3 (04:31→22:41)
[2022-02-08 04:48] LABS: ABG Base Excess 0.9 mmol/L (-2.0-3.0); ABG HCO3 25.1 mmol/L (20.0-26.0); ABG Methemoglobin 0.5 % (0.0-1.5); ABG Oxygen Saturation 96.9 % (95.0-99.0); ABG PCO2 38.5 mm Hg; ABG PH 7.432 pH Units (7.350-7.450); ABG PO2 85.9 mm Hg (80.0-90.0)
[2022-02-08 04:56] LABS: Basophils # (Auto) 0.1 K/mm3 (0.0-0.1); Basophils % (Auto) 0.6 % (0.0-1.8); Hematocrit 45.6 % (35.5-45.6); Hemoglobin 14.3 gm/dl (11.8-15.2); Lymphocytes # (Auto) 0.8 K/mm3 (1.2-5.4); Lymphocytes % (Auto) 5.3 % (13.4-35.0); Mean Corpuscular HGB Conc 31 % (32-34); Mean Corpuscular Volume 82 fl (84-94); Monocytes # (Auto) 0.7 K/mm3 (0.0-0.8); Monocytes % (Auto) 4.8 % (0.0-7.3); Platelet Count 386 K/mm3 (140-440); Red Blood Count 5.57 M/mm3 (3.65-5.03); Red Cell Distribution Width 16.9 % (13.2-15.2)
[2022-02-08 05:21] LABS: Alanine Aminotransferase 63 units/L (7-56); Albumin 4.4 g/dL (3.9-5); BUN/Creatinine Ratio 13; Blood Urea Nitrogen 15 mg/dL (9-20); Calcium 9.5 mg/dL (8.4-10.2); Hemolysis Index 124
--- NOTE | 2022-02-08 05:26 | XRay Report ---
CHEST 1 VIEW INDICATION / CLINICAL INFORMATION: follow up respiratory failure. COMPARISON: Chest x-ray 02/07/2022 FINDINGS: SUPPORT DEVICES: Stable, satisfactory device positioning. HEART / MEDIASTINUM: Stable interval appearance of the cardiomediastinal silhouette. Mild cardiomegal y. LUNGS / PLEURA: Opacities in the lateral aspect of the right lung possibly reflective of fluid within minor fissure have resolved. Coarsened interstitial markings mid and lower left lung slightly more p rominent. BONES: No significant osseous abnormality. ADDITIONAL FINDINGS: No significant additional findings. IMPRESSION: 1. Overall, minimal change. Stable endotracheal tube placement. Signer Name: Sam Aparicio II, MD Signed: 02/08/2022 5:21 AM Workstation Name: [id number]
[2022-02-08] MEDS ORDERED: SODIUM CHLORIDE 0.9% 1000 ML 1,000 ML IV ONE (05:55)
[2022-02-08] MEDS ORDERED: SODIUM CHLORIDE 0.9% 1000 ML 1,000 ML IV SCH (05:57)
--- NOTE | 2022-02-08 06:38 | History and Physical Report ---
History of Present Illness Date of examination: 02/07/22 Date of admission: 02/07/22 20:28 Chief complaint: Witnessed seizures followed by respiratory arrest in the ER waiting room History of present illness: 47-year-old male medical history significant for diabetes and asthma presented to the emergency room with complaints of shortness of breath. In the emergency room patient had and became unresponsive. Last well-known time around 2:45 PM history obtained from nursing. Patient became extremely shortness of breath while in the triage area and the patient was brought into the emergency room. Chief complaint was shortness of breath. No fever or chills. - Past Medical History --Diabetes: Yes =Surgical history ==unavailable = Family history ==unavailable - Social History --Smoking Status: Former Smoker --Substance Use Type: None - Medications Home Medications: Home Medications Medication Instructions Recorded Confirmed Last Taken Type Meclizine [Antivert] 12.5 mg PO DAILY PRN #12 tablet 06/10/21 Unknown Rx RX: metFORMIN [Glucophage] 500 mg PO BID #60 tablet 06/10/21 Unknown Rx RX: Naproxen 500 mg PO Q12H PRN #12 tablet 06/24/21 Unknown Rx RX: Albuterol Sulfate [Proventil 2 puff IH Q4HR PRN #1 hfa.aer.ad 07/31/21 Unknown Rx Hfa] RX: predniSONE [Deltasone] 50 mg PO QDAY #5 tab 07/31/21 Unknown Rx Review of Systems ROS: Stated complaint: SOB Other details as noted in HPI Comment: Unobtainable due to pts medical conditions Medications and Allergies Allergies Allergy/AdvReac Type Severity Reaction Status Date / Time No Known Allergies Allergy Verified 07/31/21 15:00 Home Medications Medication Instructions Recorded Confirmed Last Taken Type Meclizine [Antivert] 12.5 mg PO DAILY PRN #12 tablet 06/10/21 Unknown Rx metFORMIN [Glucophage] 500 mg PO BID #60 tablet 06/10/21 Unknown Rx Naproxen 500 mg PO Q12H PRN #12 tablet 06/24/21 Unknown Rx Albuterol Sulfate [Proventil Hfa] 2 puff IH Q4HR PRN #1 hfa.aer.ad 07/31/21 Unknown Rx predniSONE [Deltasone] 50 mg PO QDAY #5 tab 07/31/21 Unknown Rx Active Meds: Active Medications Acetaminophen (Acetaminophen 325 Mg Tab) 650 mg PO Q4H PRN PRN Reason: Pain MILD(1-3)/Fever >100.5/AVILES Famotidine (Famotidine 20 Mg/2 Ml Inj) 20 mg IV BID REBECCA Last Admin: 02/08/22 04:30 Dose: Not Given Fentanyl (Fentanyl 100 Mcg/2 Ml Inj) 50 mcg IV Q10MIN PRN PRN Reason: ANALGESIA Last Admin: 02/08/22 01:52 Dose: 50 mcg Heparin Sodium (Porcine) (Heparin 5,000 Unit/1 Ml Vial) 5,000 unit SUB-Q Q12HR REBECCA Last Admin: 02/08/22 04:31 Dose: Not Given Hydralazine HCl (Hydralazine 20 Mg/1 Ml Inj) 10 mg IV Q6HR PRN PRN Reason: Blood Pressure Stop: 02/13/22 21:02 Last Admin: 02/07/22 21:13 Dose: 10 mg Hydrophilic Ointment (Lip Therapy Vaseline) 1 applic TP Q2HR PRN PRN Reason: Dry Lips Propofol (Diprivan 10 Mg/Ml) 1,000 mg in 100 mls @ 2.449 mls/hr IV TITR REBECCA; Protocol Last Titration: 02/07/22 20:49 Dose: 0 mcg/kg/min, 0 mls/hr Fentanyl Citrate (Fentanyl Drip Premix) 2,000 mcg in 100 mls @ 4.082 mls/hr IV TITR REBECCA; Protocol Last Admin: 02/08/22 03:02 Dose: 1 mcg/kg/hr, 4.082 mls/hr MIDAZOLAM/NS Drip 100mg/100ml (Midazolam/Ns Drip 100mg/100ml) 100 mg in 100 mls @ 1 mls/hr IV TITR REBECCA; Protocol Last Titration: 02/08/22 05:32 Dose: 0 mg/hr, 0 mls/hr Levetiracetam 1,000 mg/ (Dextrose) 110 mls @ 400 mls/hr IV Q12H REBECCA Last Admin: 02/08/22 04:06 Dose: 400 mls/hr Diltiazem HCl (Cardizem/D5w 100mg/100ml) 100 mg in 100 mls @ 5 mls/hr IV TITR REBECCA; Protocol Last Admin: 02/08/22 06:14 Dose: 5 mg/hr, 5 mls/hr Sodium Chloride (Nacl 0.9% 1000 Ml) 1,000 mls @ 999 mls/hr IV BOLUS ONE Stop: 02/08/22 06:55 Last Admin: 02/08/22 06:15 Dose: 999 mls/hr Sodium Chloride (Nacl 0.9% 1000 Ml) 1,000 mls @ 125 mls/hr IV DIRECT REBECCA Metoclopramide HCl (Metoclopramide 10 Mg/2 Ml Inj) 10 mg IV Q6H PRN PRN Reason: Nausea And Vomiting Midazolam HCl (Midazolam 2 Mg/2 Ml Inj) 2 mg IV Q10MIN PRN PRN Reason: Sedation Morphine Sulfate (Morphine 2 Mg/1 Ml Inj) 2 mg IV Q4H PRN PRN Reason: Pain, Moderate (4-6) Multi-Ingred Cream/Lotion/Oil/Oint (Mineral Oil/Petrolatum, White Ophth Oint 3.5 Gm) 1 applic OU Q4HR PRN PRN Reason: Dry Eye(s) Ondansetron HCl (Ondansetron 4 Mg/2 Ml Inj) 4 mg IV Q8H PRN PRN Reason: Nausea And Vomiting Senna/Docusate Sodium (Sennosides/Docusate Sodium 8.6/50 Mg Tab) 1 tab FEEDTUBE BID [facility] Last Admin: 02/08/22 04:30 Dose: Not Given Sodium Chloride (Sodium Chloride 0.9% 10 Ml Flush Syringe) 10 ml IV BID [facility] Last Admin: 02/08/22 04:30 Dose: Not Given Sodium Chloride (Sodium Chloride 0.9% 10 Ml Flush Syringe) 10 ml IV PRN PRN PRN Reason: LINE FLUSH Exam - Physical Exam Narrative exam: Patient is intubated. - Constitutional Vitals: Temp Pulse Resp BP Pulse Ox 98.8 F 87 13 87/49 96 02/08/22 03:54 02/08/22 06:15 02/08/22 06:15 02/08/22 06:15 02/08/22 06:15 General appearance: Present: severe distress, well-nourished - EENT Eyes: Present: PERRL ENT: hearing intact, clear oral mucosa - Neck Neck: Present: supple, normal ROM - Respiratory Respiratory effort: normal Respiratory: bilateral: CTA - Cardiovascular Heart rate: 78 Rhythm: regular Heart Sounds: Present: S1 & S2. Absent: rub, click - Extremities Extremities: no ischemia, pulses intact, pulses symmetrical, No edema Peripheral Pulses: within normal limits - Abdominal General gastrointestinal: Present: soft, non-tender, non-distended, normal bowel sounds Male genitourinary: Present: normal - Rectal Rectal Exam: deferred - Integumentary Integumentary: Present: clear, warm, dry - Musculoskeletal Musculoskeletal: generalized weakness - Psychiatric Psychiatric: other (Patient intubated.) - Neurologic Neurologic: other (Patient intubated.) - Allied Health Allied health notes reviewed: nursing, RT, case management HEART Score - HEART Score Age: 45-65 Risk factors: 1-2 risk factors Troponin: Troponin T 0.010 ng/mL (0.00-0.029) 02/07/22 Unknown Troponin: < normal limit - Critical Actions Critical Actions: 0-3 pts:0.9-1.7%risk of adverse cardiac event.Candidate for discharge Results - Labs CBC & Chem 7: 02/08/22 04:07 02/08/22 04:07 Labs: Laboratory Last Values WBC 15.0 K/mm3 (4.5-11.0) H 02/08/22 04:07 RBC 5.57 M/mm3 (3.65-5.03) H 02/08/22 04:07 Hgb 14.3 gm/dl (11.8-15.2) 02/08/22 04:07 Hct 45.6 % (35.5-45.6) 02/08/22 04:07 MCV 82 fl (84-94) L 02/08/22 04:07 MCH 26 pg (28-32) L 02/08/22 04:07 MCHC 31 % (32-34) L 02/08/22 04:07 RDW 16.9 % (13.2-15.2) H 02/08/22 04:07 Plt Count 386 K/mm3 (140-440) 02/08/22 04:07 Lymph % (Auto) 5.3 % (13.4-35.0) L 02/08/22 04:07 [place] % (Auto) 4.8 % (0.0-7.3) 02/08/22 04:07 Eos % (Auto) 0.0 % (0.0-4.3) 02/08/22 04:07 Baso % (Auto) 0.6 % (0.0-1.8) 02/08/22 04:07 Lymph # (Auto) 0.8 K/mm3 (1.2-5.4) L 02/08/22 04:07 [place] # (Auto) 0.7 K/mm3 (0.0-0.8) 02/08/22 04:07 Eos # (Auto) 0.0 K/mm3 (0.0-0.4) 02/08/22 04:07 Baso # (Auto) 0.1 K/mm3 (0.0-0.1) 02/08/22 04:07 Add Manual Diff Complete 02/07/22 Unknown Total Counted 100 02/07/22 Unknown Seg Neutrophils % 89.3 % (40.0-70.0) H 02/08/22 04:07 Seg Neuts % (Manual) 48.0 % (40.0-70.0) 02/07/22 Unknown Band Neutrophils % 0 % 02/07/22 Unknown Lymphocytes % (Manual) 30.0 % (13.4-35.0) 02/07/22 Unknown Reactive Lymphs % (Man) 11.0 % 02/07/22 Unknown Monocytes % (Manual) 10.0 % (0.0-7.3) H 02/07/22 Unknown Eosinophils % (Manual) 0 % (0.0-4.3) 02/07/22 Unknown Basophils % (Manual) 1.0 % (0.0-1.8) 02/07/22 Unknown Metamyelocytes % 0 % 02/07/22 Unknown Myelocytes % 0 % 02/07/22 Unknown Promyelocytes % 0 % 02/07/22 Unknown Blast Cells % 0 % 02/07/22 Unknown Nucleated RBC % Not Reportable 02/07/22 Unknown Seg Neutrophils # 13.4 K/mm3 (1.8-7.7) H 02/08/22 04:07 Seg Neutrophils # Man 8.2 K/mm3 (1.8-7.7) H 02/07/22 Unknown Band Neutrophils # 0.0 K/mm3 02/07/22 Unknown Lymphocytes # (Manual) 5.1 K/mm3 (1.2-5.4) 02/07/22 Unknown Abs React Lymphs (Man) 1.9 K/mm3 02/07/22 Unknown Monocytes # (Manual) 1.7 K/mm3 (0.0-0.8) H 02/07/22 Unknown Eosinophils # (Manual) 0.0 K/mm3 (0.0-0.4) 02/07/22 Unknown Basophils # (Manual) 0.2 K/mm3 (0.0-0.1) H 02/07/22 Unknown Metamyelocytes # 0.0 K/mm3 02/07/22 Unknown Myelocytes # 0.0 K/mm3 02/07/22 Unknown Promyelocytes # 0.0 K/mm3 02/07/22 Unknown Blast Cells # 0.0 K/mm3 02/07/22 Unknown WBC Morphology Not Reportable 02/07/22 Unknown Hypersegmented Neuts Not Reportable 02/07/22 Unknown Hyposegmented Neuts Not Reportable 02/07/22 Unknown Hypogranular Neuts Not Reportable 02/07/22 Unknown Smudge Cells Not Reportable 02/07/22 Unknown Toxic Granulation Not Reportable 02/07/22 Unknown Toxic Vacuolation Not Reportable 02/07/22 Unknown Dohle Bodies Not Reportable 02/07/22 Unknown Pelger-Huet Anomaly Not Reportable 02/07/22 Unknown Rachel Rods Not Reportable 02/07/22 Unknown Platelet Estimate Appears decreased 02/07/22 Unknown Clumped Platelets Rare 02/07/22 Unknown Plt Clumps, EDTA Not Reportable 02/07/22 Unknown Large Platelets Not Reportable 02/07/22 Unknown Giant Platelets Not Reportable 02/07/22 Unknown Platelet Satelliting Not Reportable 02/07/22 Unknown Plt Morphology Comment Not Reportable 02/07/22 Unknown RBC Morphology Not Reportable 02/07/22 Unknown Dimorphic RBCs Not Reportable 02/07/22 Unknown Polychromasia Not Reportable 02/07/22 Unknown Hypochromasia Not Reportable 02/07/22 Unknown Poikilocytosis Rare 02/07/22 Unknown Anisocytosis Not Reportable 02/07/22 Unknown Microcytosis Not Reportable 02/07/22 Unknown Macrocytosis Not Reportable 02/07/22 Unknown Spherocytes Not Reportable 02/07/22 Unknown Pappenheimer Bodies Not Reportable 02/07/22 Unknown Sickle Cells Not Reportable 02/07/22 Unknown Target Cells Not Reportable 02/07/22 Unknown Tear Drop Cells Not Reportable 02/07/22 Unknown Ovalocytes Rare 02/07/22 Unknown Helmet Cells Not Reportable 02/07/22 Unknown Banuelos-Matheson Bodies Not Reportable 02/07/22 Unknown [place] Rings Not Reportable 02/07/22 Unknown [place] Cells Not Reportable 02/07/22 Unknown Bite Cells Not Reportable 02/07/22 Unknown Crenated Cell Not Reportable 02/07/22 Unknown Elliptocytes Rare 02/07/22 Unknown Acanthocytes (Spur) Not Reportable 02/07/22 Unknown Rouleaux Not Reportable 02/07/22 Unknown Hemoglobin C Crystals Not Reportable 02/07/22 Unknown Schistocytes Not Reportable 02/07/22 Unknown Malaria parasites Not Reportable 02/07/22 Unknown Ten Bodies Not Reportable 02/07/22 Unknown Hem Pathologist Commnt No 02/07/22 Unknown PT 17.2 Sec. (12.2-14.9) H 02/07/22 Unknown INR 1.25 (0.87-1.13) H 02/07/22 Unknown APTT 29.2 Sec. (24.2-36.6) 02/07/22 Unknown Thrombin Time 17.0 Sec. (15.1-19.6) 02/07/22 Unknown ABG pH 7.432 pH Units (7.350-7.450) 02/08/22 04:09 ABG pCO2 38.5 mm Hg 02/08/22 04:09 ABG pO2 85.9 mm Hg (80.0-90.0) 02/08/22 04:09 ABG HCO3 25.1 mmol/L (20.0-26.0) 02/08/22 04:09 ABG O2 Saturation 96.9 % (95.0-99.0) 02/08/22 04:09 ABG O2 Content 18.0 (0.0-44) 02/08/22 04:09 ABG Base Excess 0.9 mmol/L (-2.0-3.0) 02/08/22 04:09 ABG Hemoglobin 13.4 gm/dl (14.0-18.0) L 02/08/22 04:09 ABG Carboxyhemoglobin 1.4 % (0.0-5.0) 02/08/22 04:09 ABG Methemoglobin 0.5 % (0.0-1.5) 02/08/22 04:09 Oxyhemoglobin 95.1 % (95.0-99.0) 02/08/22 04:09 FiO2 40 % 02/08/22 04:09 Sodium 141 mmol/L (137-145) 02/08/22 04:07 Potassium 4.4 mmol/L (3.6-5.0) 02/08/22 04:07 Chloride 99.9 mmol/L (98-107) 02/08/22 04:07 Carbon Dioxide 22 mmol/L (22-30) D 02/08/22 04:07 Anion Gap 24 mmol/L 02/08/22 04:07 BUN 15 mg/dL (9-20) 02/08/22 04:07 Creatinine 1.2 mg/dL (0.8-1.3) 02/08/22 04:07 Estimated GFR > 60 ml/min 02/08/22 04:07 BUN/Creatinine Ratio 13 % 02/08/22 04:07 Glucose 184 mg/dL (75-100) H 02/08/22 04:07 POC Glucose 183 mg/dL (70-105) H 02/08/22 05:31 Lactic Acid 2.20 mmol/L (0.7-2.0) H* 02/07/22 19:36 Calcium 9.5 mg/dL (8.4-10.2) 02/08/22 04:07 Total Bilirubin 0.90 mg/dL (0.1-1.2) 02/08/22 04:07 AST 80 units/L (5-40) H 02/08/22 04:07 ALT 63 units/L (7-56) H 02/08/22 04:07 Alkaline Phosphatase 150 units/L (35-129) H 02/08/22 04:07 Total Creatine Kinase 279 units/L (55-170) H 02/07/22 Unknown CK-MB (CK-2) 3.7 ng/mL (0.0-4.0) 02/07/22 Unknown CK-MB (CK-2) Rel Index 1.3 (0-4) 02/07/22 Unknown Troponin T 0.010 ng/mL (0.00-0.029) 02/07/22 Unknown Total Protein 6.5 g/dL (6.3-8.2) 02/08/22 04:07 Albumin 4.4 g/dL (3.9-5) 02/08/22 04:07 Albumin/Globulin Ratio 2.1 % 02/08/22 04:07 Urine Color Straw (Yellow) 02/07/22 Unknown Urine Turbidity Clear (Clear) 02/07/22 Unknown Urine pH 7.0 (5.0-7.0) 02/07/22 Unknown Ur Specific [place] 1.028 (1.003-1.030) 02/07/22 Unknown Urine Protein 100 mg/dl mg/dL (Negative) 02/07/22 Unknown Urine Glucose (UA) >=500 mg/dL (Negative) 02/07/22 Unknown Urine Ketones Neg mg/dL (Negative) 02/07/22 Unknown Urine Blood Neg (Negative) 02/07/22 Unknown Urine Nitrite Neg (Negative) 02/07/22 Unknown Urine Bilirubin Neg (Negative) 02/07/22 Unknown Urine Urobilinogen < 2.0 mg/dL (<2.0) 02/07/22 Unknown Ur Leukocyte Esterase Neg (Negative) 02/07/22 Unknown Urine WBC (Auto) 1.0 /HPF (0.0-6.0) 02/07/22 Unknown Urine RBC (Auto) 2.0 /HPF (0.0-6.0) 02/07/22 Unknown U Epithel Cells (Auto) < 1.0 /HPF (0-13.0) 02/07/22 Unknown Salicylates < 0.3 mg/dL (2.8-20.0) L 02/07/22 Unknown Urine Opiates Screen Negative 02/07/22 Unknown Urine Methadone Screen Negative 02/07/22 Unknown Acetaminophen 5.0 ug/mL (10.0-30.0) L 02/07/22 Unknown Ur Barbiturates Screen Negative 02/07/22 Unknown Ur Phencyclidine Scrn Negative 02/07/22 Unknown Ur Amphetamines Screen Negative 02/07/22 Unknown U Benzodiazepines Scrn Negative 02/07/22 Unknown Urine Cocaine Screen Negative 02/07/22 Unknown U Marijuana (THC) Screen Negative 02/07/22 Unknown Drugs of Abuse Note Disclamer 02/07/22 Unknown Plasma/Serum Alcohol < 0.01 % (0-0.07) 02/07/22 Unknown Short CBC 02/07/22 02/08/22 Range/Units Unknown 04:07 WBC 17.1 H 15.0 H (4.5-11.0) K/mm3 Hgb 15.2 14.3 (11.8-15.2) gm/dl Hct 46.4 H 45.6 (35.5-45.6) % Plt Count 431 386 (140-440) K/mm3 BMP 02/07/22 02/08/22 Unknown 04:07 Sodium 143 141 Potassium 4.2 4.4 Chloride 96.3 L 99.9 Carbon Dioxide 14 L 22 D BUN 11 15 Creatinine 1.4 H 1.2 Glucose 190 H 184 H Calcium 10.1 9.5 Cardiac Enzymes 02/07/22 Range/Units Unknown Total Creatine Kinase 279 H (55-170) units/L CK-MB (CK-2) 3.7 (0.0-4.0) ng/mL Troponin T 0.010 (0.00-0.029) ng/mL Liver Function 02/07/22 02/08/22 Range/Units Unknown 04:07 Total Bilirubin 1.30 H 0.90 (0.1-1.2) mg/dL AST 23 80 H (5-40) units/L ALT 23 63 H (7-56) units/L Alkaline Phosphatase 141 H 150 H (35-129) units/L Albumin 4.9 4.4 (3.9-5) g/dL Urine 02/07/22 Range/Units Unknown Urine Color Straw (Yellow) Urine pH 7.0 (5.0-7.0) Ur Specific [place] 1.028 (1.003-1.030) Urine Protein 100 mg/dl (Negative) mg/dL Urine Glucose (UA) >=500 (Negative) mg/dL Microbiology: Microbiology 02/07/22 16:42 Peripheral/Venous Blood Culture - Preliminary Culture in Progress 02/07/22 16:42 Peripheral/Venous Blood Culture - Preliminary Culture in Progress - Imaging and Cardiology EKG: report reviewed Chest x-ray: report reviewed Imaging and Cardiology: Neck CTA chest x-ray Satisfactory positioning of endotracheal tube Increased airspace density in the right Neck CTA no occlusion or significant Significant emphysema with worsening soft tissue from the right hilum with history Intermedius narrowing of the right pulmonary artery. This raises concern for neoplasm on CT chest this has not been worked up p CT with contrast recommended when patient is stable and Not CTA head No acute findings Alexandre/IV: Voiding Method Indwelling Catheter Assessment and Plan Assessment and plan: Critical care statement The high probability OF a clinically significant sudden or life-threatening deterioration of the cardiorespiratory system and endocrine system required my full and direct attention, intervention and postoperative management. The aggregate critical care time was 40 minutes. The time is in addition to time spent performing reported procedures but includes the followin: Data review and interpretation 2: Patient assessment and monitoring of vital signs 3: Documentation 4:: Medication orders and management Advance Directives: Yes (Full code) VTE prophylaxis?: Chemical Plan of care discussed with patient/family: Yes - Patient Problems (1) Acute respiratory failure with hypoxia Current Visit: Yes Status: Acute Plan to address problem: Etiology unclear Possible underlying COPD and pneumonia Treated for COPD and pneumonia IV antibiotics, IV steroids and duo nebs (2) Seizure disorder Current Visit: Yes Status: Acute Plan to address problem: Witnessed seizures in the emergency room IV Keppra initiated Neurology consult requested (3) Sepsis Current Visit: Yes Status: Acute Plan to address problem: Highly likely Rt lung infiltrate present Possible right hilar mass IV antibiotics IV steroids and duo nebs [id number] (4) COPD exacerbation Current Visit: Yes Status: Acute Plan to address problem: Patient has COPD and treat for COPD exacerbation IV antibiotics, IV steroids, duo nebs [id number] and as needed. Kiln Feeder consult requested. (5) Hilar mass Current Visit: Yes Status: Acute Plan to address problem: Hilar mass on the right side\ Possible neoplasm CT of the chest with contrast once stable (6) T2DM (type 2 diabetes mellitus) Current Visit: Yes Status: Chronic Qualifiers: Diabetes mellitus intermediate insulin use: unspecified intermediate frame tender insulin use status Plan to address problem: Coverage for now Check hemoglobin A1c (7) Metabolic acidosis Current Visit: Yes Status: Acute Plan to address problem: Multifactorial Seizures, sepsis and COPD exacerbation IV fluids, IV antibiotics and IV Keppra (8) DVT prophylaxis Current Visit: Yes Status: Acute Plan to address problem: On anticoagulation GI prophylaxis (9) Advance care planning Current Visit: Yes Status: Acute Plan to address problem: Advance care planning could not be done Could not reach out any other family members
[2022-02-08] MEDS ORDERED: IPRATROPIUM/ALBUTEROL SULFATE 3 ML AMPUL.NEB IH PRN (06:54)
[2022-02-08] MEDS ORDERED: ALBUTEROL 2.5 MG/3 ML NEBU IH PRN (07:30)
[2022-02-08] MEDS ORDERED: methylPREDNISolone Sod Succinate 125 MG/2 ML INJ IV SCH (08:00)
--- NOTE | 2022-02-08 09:46 | XRay Report ---
XR abdomen 1V ap INDICATION: ogt placement. COMPARISON: None available. FINDINGS: The tip of the esophagogastric tube projects over the body of the stomach. Signer Name: Garrett Flower MD Signed: 02/08/2022 9:42 AM Workstation Name: [id number]
--- NOTE | 2022-02-08 10:14 | Electrocardiograph Report ---
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
[2022-02-08] MEDS ORDERED: DEXTROSE 50% IN WATER (25GM) 50 ML SYRINGE IV PRN (10:30)
--- NOTE | 2022-02-08 11:35 | Consultation ---
History of Present Illness Consult date: 02/08/22 Reason for consult: dyspnea, other (Seizures) History of present illness: Mr. Sandoval is a 47-year-old -[place] male who reports history of chronic lung problem previous notes suggest possible sarcoidosis was seen in the emergency room with increasing shortness of breath. While in ED patient had syncopal episode and had a seizure. He was intubated for airway protection. He now is intubated and being mechanically ventilated. He he has been sedated with fentanyl drip. There is history of diabetes as well. Clear old previous his tory of his health conditions and not readily available at this time. Past History Past Medical History: diabetes, sarcoidosis (Possible sarcoidosis) Medications and Allergies Allergies Allergy/AdvReac Type Severity Reaction Status Date / Time No Known Allergies Allergy Verified 07/31/21 15:00 Home Medications Medication Instructions Recorded Confirmed Last Taken Type Meclizine [Antivert] 12.5 mg PO DAILY PRN #12 tablet 06/10/21 Unknown Rx metFORMIN [Glucophage] 500 mg PO BID #60 tablet 06/10/21 Unknown Rx Naproxen 500 mg PO Q12H PRN #12 tablet 06/24/21 Unknown Rx Albuterol Sulfate [Proventil Hfa] 2 puff IH Q4HR PRN #1 hfa.aer.ad 07/31/21 Unknown Rx predniSONE [Deltasone] 50 mg PO QDAY #5 tab 07/31/21 Unknown Rx Active Meds: Active Medications Acetaminophen (Acetaminophen 325 Mg Tab) 650 mg PO Q4H PRN PRN Reason: Pain MILD(1-3)/Fever >100.5/AVILES Albuterol (Albuterol 2.5 Mg/3 Ml Nebu) 2.5 mg IH Q3HRT PRN PRN Reason: Wheezing Albuterol/Ipratropium (Ipratropium/Albuterol Sulfate 3 Ml Ampul.Neb) 1 ampul IH QIDRT REBECCA Dextrose (Dextrose 50% In Water (25gm) 50 Ml Syringe) 50 ml IV Q30MIN PRN; Protocol PRN Reason: Hypoglycemia Famotidine (Famotidine 20 Mg/2 Ml Inj) 20 mg IV BID REBECCA Last Admin: 02/08/22 10:36 Dose: 20 mg Fentanyl (Fentanyl 100 Mcg/2 Ml Inj) 50 mcg IV Q10MIN PRN PRN Reason: ANALGESIA Last Admin: 02/08/22 01:52 Dose: 50 mcg Heparin Sodium (Porcine) (Heparin 5,000 Unit/1 Ml Vial) 5,000 unit SUB-Q Q12HR REBECCA Last Admin: 02/08/22 10:36 Dose: 5,000 unit Hydralazine HCl (Hydralazine 20 Mg/1 Ml Inj) 10 mg IV Q6HR PRN PRN Reason: Blood Pressure Stop: 02/13/22 21:02 Last Admin: 02/07/22 21:13 Dose: 10 mg Hydrophilic Ointment (Lip Therapy Vaseline) 1 applic TP Q2HR PRN PRN Reason: Dry Lips Propofol (Diprivan 10 Mg/Ml) 1,000 mg in 100 mls @ 2.449 mls/hr IV TITR REBECCA; Protocol Last Titration: 02/07/22 20:49 Dose: 0 mcg/kg/min, 0 mls/hr Fentanyl Citrate (Fentanyl Drip Premix) 2,000 mcg in 100 mls @ 4.082 mls/hr IV TITR REBECCA; Protocol Last Titration: 02/08/22 10:55 Dose: 1 mcg/kg/hr, 4.082 mls/hr MIDAZOLAM/NS Drip 100mg/100ml (Midazolam/Ns Drip 100mg/100ml) 100 mg in 100 mls @ 1 mls/hr IV TITR REBECCA; Protocol Last Titration: 02/08/22 05:32 Dose: 0 mg/hr, 0 mls/hr Levetiracetam 1,000 mg/ (Dextrose) 110 mls @ 400 mls/hr IV Q12H REBECCA Last Admin: 02/08/22 04:06 Dose: 400 mls/hr Diltiazem HCl (Cardizem/D5w 100mg/100ml) 100 mg in 100 mls @ 5 mls/hr IV TITR REBECCA; Protocol Last Titration: 02/08/22 07:59 Dose: 0 mg/hr, 0 mls/hr Sodium Chloride (Nacl 0.9% 1000 Ml) 1,000 mls @ 125 mls/hr IV DIRECT REBECCA Last Admin: 02/08/22 07:22 Dose: 125 mls/hr Azithromycin (Zithromax/Ns) 500 mg in 250 mls @ 250 mls/hr IV Q24H REBECCA Stop: 02/11/22 17:59 Ceftriaxone Sodium (Rocephin/Ns 2 Gm/100 Ml) 2 gm in 100 mls @ 200 mls/hr IV Q24H [facility]; Protocol Insulin Human Regular (Insulin Regular, Human 100 Units/1 Ml) 0 units SUB-Q Q6HR [facility]; Protocol Methylprednisolone Sodium Succinate (Methylprednisolone Sod Succinate 125 Mg/2 Ml Inj) 80 mg IV Q8HR [facility] Last Admin: 02/08/22 08:30 Dose: 80 mg Metoclopramide HCl (Metoclopramide 10 Mg/2 Ml Inj) 10 mg IV Q6H PRN PRN Reason: Nausea And Vomiting Midazolam HCl (Midazolam 2 Mg/2 Ml Inj) 2 mg IV Q10MIN PRN PRN Reason: Sedation Morphine Sulfate (Morphine 2 Mg/1 Ml Inj) 2 mg IV Q4H PRN PRN Reason: Pain, Moderate (4-6) Multi-Ingred Cream/Lotion/Oil/Oint (Mineral Oil/Petrolatum, White Ophth Oint 3.5 Gm) 1 applic OU Q4HR PRN PRN Reason: Dry Eye(s) Ondansetron HCl (Ondansetron 4 Mg/2 Ml Inj) 4 mg IV Q8H PRN PRN Reason: Nausea And Vomiting Senna/Docusate Sodium (Sennosides/Docusate Sodium 8.6/50 Mg Tab) 1 tab FEEDTUBE BID [facility] Last Admin: 02/08/22 10:37 Dose: 1 tab Sodium Chloride (Sodium Chloride 0.9% 10 Ml Flush Syringe) 10 ml IV BID [facility] Last Admin: 02/08/22 10:37 Dose: 10 ml Sodium Chloride (Sodium Chloride 0.9% 10 Ml Flush Syringe) 10 ml IV PRN PRN PRN Reason: LINE FLUSH Review of Systems ROS unobtainable: due to endotracheal tube, due to mental status Physical Examination Vital signs: Vital Signs Temp Pulse Resp BP Pulse Ox 98.8 F 59 L 18 125/95 98 02/07/22 11:54 02/07/22 11:54 02/07/22 11:54 02/07/22 11:54 02/07/22 11:54 General appearance: no acute distress, appears uncomfortable, other (Sedated) Eyes: non-icteric ENT: oropharynx moist, other (Orally intubated) Neck: supple, no lymphadenopathy, no JVD Effort: other (Normal on mechanical ventilator) Ascultation: Bilateral: diminished breath sounds Cardiovascular: regular rate and rhythm Gastrointestinal: normoactive bowel sounds, soft, non-tender Extremities: no cyanosis, other (No clubbing or edema) Musculoskeletal: no deformities Gait: other (Not tested) Results - Laboratory Findings CBC and BMP: 02/08/22 04:07 02/08/22 04:07 ABG ABG pH 7.432 pH Units (7.350-7.450) 02/08/22 04:09 ABG pCO2 38.5 mm Hg 02/08/22 04:09 ABG pO2 85.9 mm Hg (80.0-90.0) 02/08/22 04:09 ABG O2 Saturation 96.9 % (95.0-99.0) 02/08/22 04:09 PT/INR, D-dimer PT 17.2 Sec. (12.2-14.9) H 02/07/22 Unknown INR 1.25 (0.87-1.13) H 02/07/22 Unknown Abnormal lab findings: Abnormal Labs 02/07/22 02/07/22 02/07/22 11:56 16:42 16:51 WBC RBC Hct MCV MCH MCHC RDW Lymph % (Auto) Lymph # (Auto) Seg Neutrophils % Monocytes % (Manual) Seg Neutrophils # Seg Neutrophils # Man Monocytes # (Manual) Basophils # (Manual) PT INR ABG pO2 ABG O2 Saturation ABG Hemoglobin Chloride Carbon Dioxide Creatinine Glucose POC Glucose 131 H 320 H Lactic Acid 16.80 H* Total Bilirubin AST ALT Alkaline Phosphatase Total Creatine Kinase Salicylates Acetaminophen 02/07/22 02/07/22 02/07/22 18:30 19:36 Unknown WBC 17.1 H RBC 5.46 H Hct 46.4 H MCV MCH MCHC RDW 17.6 H Lymph % (Auto) Lymph # (Auto) Seg Neutrophils % Monocytes % (Manual) 10.0 H Seg Neutrophils # Seg Neutrophils # Man 8.2 H Monocytes # (Manual) 1.7 H Basophils # (Manual) 0.2 H PT INR ABG pO2 161.1 H ABG O2 Saturation 99.7 H ABG Hemoglobin 13.1 L Chloride Carbon Dioxide Creatinine Glucose POC Glucose Lactic Acid 2.20 H* Total Bilirubin AST ALT Alkaline Phosphatase Total Creatine Kinase Salicylates Acetaminophen 02/07/22 02/07/2202/07/22 Unknown Unknown Unknown WBC RBC Hct MCV MCH MCHC RDW Lymph % (Auto) Lymph # (Auto) Seg Neutrophils % Monocytes % (Manual) Seg Neutrophils # Seg Neutrophils # Man Monocytes # (Manual) Basophils # (Manual) PT 17.2 H INR 1.25 H ABG pO2 ABG O2 Saturation ABG Hemoglobin Chloride 96.3 L Carbon Dioxide 14 L Creatinine 1.4 H Glucose 190 H POC Glucose Lactic Acid Total Bilirubin 1.30 H AST ALT Alkaline Phosphatase 141 H Total Creatine Kinase 279 H Salicylates < 0.3 L Acetaminophen 02/07/22 02/08/22 02/08/22 Unknown 01:27 04:07 WBC 15.0 H RBC 5.57 H Hct MCV 82 L MCH 26 L MCHC 31 L RDW 16.9 H Lymph % (Auto) 5.3 L Lymph # (Auto) 0.8 L Seg Neutrophils % 89.3 H Monocytes % (Manual) Seg Neutrophils # 13.4 H Seg Neutrophils # Man Monocytes # (Manual) Basophils # (Manual) PT INR ABG pO2 ABG O2 Saturation ABG Hemoglobin Chloride Carbon Dioxide Creatinine Glucose POC Glucose 264 H Lactic Acid Total Bilirubin AST ALT Alkaline Phosphatase Total Creatine Kinase Salicylates Acetaminophen 5.0 L 02/08/22 02/08/22 02/08/22 04:07 04:09 05:31 WBC RBC Hct MCV MCH MCHC RDW Lymph % (Auto) Lymph # (Auto) Seg Neutrophils % Monocytes % (Manual) Seg Neutrophils # Seg Neutrophils # Man Monocytes # (Manual) Basophils # (Manual) PT INR ABG pO2 ABG O2 Saturation ABG Hemoglobin 13.4 L Chloride Carbon Dioxide Creatinine Glucose 184 H POC Glucose 183 H Lactic Acid Total Bilirubin AST 80 H ALT 63 H Alkaline Phosphatase 150 H Total Creatine Kinase Salicylates Acetaminophen - Diagnostic Findings Chest x-ray: image reviewed (Mild cardiomegaly. There appears to be chronic changes in the both lung. Majority of these changes unchanged from previous chest x-ray from last year. However, there is some increased atelectatic changes in the right upper lobe compared to the past) Assessment and Plan Impression: Acute respiratory failure, on mechanical ventilator. Seizure disorder Chronic lung disease possible sarcoidosis based on previous history Dyspnea and hypoxemia. Diabetes mellitus. Recommendation: Patient appears to be waking up and responsive on fentanyl drip. Wean sedation, gives trial of CPAP if tolerated possible extubation later today. Continue with control of seizure with Keppra Continue with antibiotic and steroids and inhaled bronchodilators Total critical care time 37-minute
--- NOTE | 2022-02-08 13:53 | Progress Note ---
<JAIMIENIK KirbyMari - Last Filed: 02/08/22 14:00> Assessment and Plan Assessment and plan: This is a 47-year-old male with a right MCA infarct, DM, sarcoidosis admitted with acute hypoxic respiratory failure, seizures and possible sepsis secondary to pneumonia. Neuro: Seizure, H/O right MCA infarct (2020) -Sedated with fentanyl -RASS goal 0 to -1 -Avoid delirium -Reorientation as needed -Maintain sleep-wake cycle -aspiration/seizure precautions -As needed analgesia -CT head showed no acute intracranial abnormality, moderate areas of chronic ischemia in the right MCA distribution -CTA head and neck showed no occlusion or significant stenosis of the major intracranial Or carotid or vertebral arteries. -Neurology consulted, appreciate recommendations -IV Keppra -MRI Brain pending -EEG pending Cardiac: NAD -Blood pressure monitoring per protocol -As needed IV hydralazine Respiratory: Acute hypoxic respiratory failure, h/o sarcoidosis -cTAh/n shows severe emphysema with worsening soft tissue seen along the right helium which appears to extend into the mediastinum resulting in narrowing of the right pulmonary artery and bronchi which raises concern for neoplasm CT of chest with contrast is recommended by radiology -CCM consulted, appreciate recommendations -Intubated on 02/07 with 7.5 OETT at 24 at the lips in the ED -A.m. vent settings: AC/PRVC Rate 18, TV 475, PEEP 6, 40% FiO2 -See RT notes for titration -PSV trial -A.m. ABG and CXR noted -VAP bundle -SPO2 monitoring GI: Transminitis -24 hours +33 mL -PPI -NTR consulted for tube feedings -hold TF in setting of possible extubation -BR: Senokot -Trend LFTs : Acute kidney injury 2/2 vasomotor nephropathy (resolved) -Admit labs Cr/BUN 1.4/11 -s/p 3 L IVF in ED -Strict intake and output -Renally dose medications -Avoid nephrotoxic medications -Daily weights -Trend BMP ID: Sepsis 2/2 to possible PNA, lactic acidosis (resolving) -CXR showed increased density in the right lung apex -Initial LA 16 but repeat 2.2 -s/p 3L NS in ED -Antibiotic therapy with cefepime and azithro -f/u blood culture -Monitor WBC and temperature curve -Trend LA Endo: h/o DM -Hbg A1C 9.2 -Avoid hypoglycemia -SSI -Accu-Cheks q.6 Heme: Leukocytosis -Trend CBC -Transfuse hemoglobin less than 7 -Heparin subq -Monitor for signs of bleeding -SCDs to BLE while in bed The high probability of a clinically significant, sudden or life threatening deterioration of the [pulm/neuro] system(s) required my full and direct attention, intervention and personal management. The aggregate critical care time was [60] minutes. This time is in addition to time spent performing reported procedures but includes the following: [x] Data Review and interpretation [x] Patient assessment and monitoring of vital signs [x] Documentation [x] Medication orders and management Disposition Plan: icu Total Time Spent with Patient (Minutes): 60 History Interval history: This is a 47-year-old male with sarcoidosis, right MCA infarct (2020), former tobacco abuse, diabetes mellitus who presented to the emergency department on 02/07 with increasing shortness of breath and while in the ED patient had a seizure and was intubated for airway protection. Work-up in the emergency department revealed leukocytosis, acute kidney injury, metabolic acidosis and imaging was read as possible pneumonia. Patient was initiated on sepsis protocol and admitted to the hospitalist service with consults to [facility] and neurology. Hospital course to date: 02/08: Patient sedated on fentanyl which has been weaned and patient is currently on pressure support trial. We will continue antibiotic therapy with ceftriaxone and azithromycin but discontinued steroid therapy. Hospitalist Physical - Constitutional Vitals: Temp Pulse Resp BP Pulse Ox 97.7 F 88 15 103/67 93 02/08/22 12:00 02/08/22 13:00 02/08/22 13:00 02/08/22 13:00 02/08/22 13:00 General appearance: Present: no acute distress, well-nourished - EENT Eyes: Present: PERRL, EOM intact ENT: hearing intact, clear oral mucosa, dentition normal - Neck Neck: Present: normal ROM - Respiratory Respiratory effort: normal Respiratory: bilateral: diminished - Cardiovascular Rhythm: regular Heart Sounds: Present: S1 & S2. Absent: systolic murmur, diastolic murmur - Extremities Extremities: no ischemia, pulses intact, pulses symmetrical, No edema, normal temperature, normal color, Full ROM Peripheral Pulses: within normal limits - Abdominal General gastrointestinal: soft, non-tender, non-distended, normal bowel sounds - Integumentary Integumentary: Present: warm, dry - Psychiatric Psychiatric: appropriate mood/affect, cooperative - Neurologic Neurologic: CNII-XII intact, no focal deficits, moves all extremities - Allied Health Allied health notes reviewed: nursing, RT, social work HEART Score - HEART Score Age: 45-65 Risk factors: 1-2 risk factors Troponin: Troponin T 0.010 ng/mL (0.00-0.029) 02/07/22 Unknown Troponin: < normal limit - Critical Actions Critical Actions: 0-3 pts:0.9-1.7%risk of adverse cardiac event.Candidate for discharge Results - Labs CBC & Chem 7: 02/08/22 04:07 02/08/22 04:07 Labs: Laboratory Last Values WBC 15.0 K/mm3 (4.5-11.0) H 02/08/22 04:07 RBC 5.57 M/mm3 (3.65-5.03) H 02/08/22 04:07 Hgb 14.3 gm/dl (11.8-15.2) 02/08/22 04:07 Hct 45.6 % (35.5-45.6) 02/08/22 04:07 MCV 82 fl (84-94) L 02/08/22 04:07 MCH 26 pg (28-32) L 02/08/22 04:07 MCHC 31 % (32-34) L 02/08/22 04:07 RDW 16.9 % (13.2-15.2) H 02/08/22 04:07 Plt Count 386 K/mm3 (140-440) 02/08/22 04:07 Lymph % (Auto) 5.3 % (13.4-35.0) L 02/08/22 04:07 Caroline % (Auto) 4.8 % (0.0-7.3) 02/08/22 04:07 Eos % (Auto) 0.0 % (0.0-4.3) 02/08/22 04:07 Baso % (Auto) 0.6 % (0.0-1.8) 02/08/22 04:07 Lymph # (Auto) 0.8 K/mm3 (1.2-5.4) L 02/08/22 04:07 Caroline # (Auto) 0.7 K/mm3 (0.0-0.8) 02/08/22 04:07 Eos # (Auto) 0.0 K/mm3 (0.0-0.4) 02/08/22 04:07 Baso # (Auto) 0.1 K/mm3 (0.0-0.1) 02/08/22 04:07 Add Manual Diff Complete 02/07/22 Unknown Total Counted 100 02/07/22 Unknown Seg Neutrophils % 89.3 % (40.0-70.0) H 02/08/22 04:07 Seg Neuts % (Manual) 48.0 % (40.0-70.0) 02/07/22 Unknown Band Neutrophils % 0 % 02/07/22 Unknown Lymphocytes % (Manual) 30.0 % (13.4-35.0) 02/07/22 Unknown Reactive Lymphs % (Man) 11.0 % 02/07/22 Unknown Monocytes % (Manual) 10.0 % (0.0-7.3) H 02/07/22 Unknown Eosinophils % (Manual) 0 % (0.0-4.3) 02/07/22 Unknown Basophils % (Manual) 1.0 % (0.0-1.8) 02/07/22 Unknown Metamyelocytes % 0 % 02/07/22 Unknown Myelocytes % 0 % 02/07/22 Unknown Promyelocytes % 0 % 02/07/22 Unknown Blast Cells % 0 % 02/07/22 Unknown Nucleated RBC % Not Reportable 02/07/22 Unknown Seg Neutrophils # 13.4 K/mm3 (1.8-7.7) H 02/08/22 04:07 Seg Neutrophils # Man 8.2 K/mm3 (1.8-7.7) H 02/07/22 Unknown Band Neutrophils # 0.0 K/mm3 02/07/22 Unknown Lymphocytes # (Manual) 5.1 K/mm3 (1.2-5.4) 02/07/22 Unknown Abs React Lymphs (Man) 1.9 K/mm3 02/07/22 Unknown Monocytes # (Manual) 1.7 K/mm3 (0.0-0.8) H 02/07/22 Unknown Eosinophils # (Manual) 0.0 K/mm3 (0.0-0.4) 02/07/22 Unknown Basophils # (Manual) 0.2 K/mm3 (0.0-0.1) H 02/07/22 Unknown Metamyelocytes # 0.0 K/mm3 02/07/22 Unknown Myelocytes # 0.0 K/mm3 02/07/22 Unknown Promyelocytes # 0.0 K/mm3 02/07/22 Unknown Blast Cells # 0.0 K/mm3 02/07/22 Unknown WBC Morphology Not Reportable 02/07/22 Unknown Hypersegmented Neuts Not Reportable 02/07/22 Unknown Hyposegmented Neuts Not Reportable 02/07/22 Unknown Hypogranular Neuts Not Reportable 02/07/22 Unknown Smudge Cells Not Reportable 02/07/22 Unknown Toxic Granulation Not Reportable 02/07/22 Unknown Toxic Vacuolation Not Reportable 02/07/22 Unknown Dohle Bodies Not Reportable 02/07/22 Unknown Pelger-Huet Anomaly Not Reportable 02/07/22 Unknown Rachel Rods Not Reportable 02/07/22 Unknown Platelet Estimate Appears decreased 02/07/22 Unknown Clumped Platelets Rare 02/07/22 Unknown Plt Clumps, EDTA Not Reportable 02/07/22 Unknown Large Platelets Not Reportable 02/07/22 Unknown Giant Platelets Not Reportable 02/07/22 Unknown Platelet Satelliting Not Reportable 02/07/22 Unknown Plt Morphology Comment Not Reportable 02/07/22 Unknown RBC Morphology Not Reportable 02/07/22 Unknown Dimorphic RBCs Not Reportable 02/07/22 Unknown Polychromasia Not Reportable 02/07/22 Unknown Hypochromasia Not Reportable 02/07/22 Unknown Poikilocytosis Rare 02/07/22 Unknown Anisocytosis Not Reportable 02/07/22 Unknown Microcytosis Not Reportable 02/07/22 Unknown Macrocytosis Not Reportable 02/07/22 Unknown Spherocytes Not Reportable 02/07/22 Unknown Pappenheimer Bodies Not Reportable 02/07/22 Unknown Sickle Cells Not Reportable 02/07/22 Unknown Target Cells Not Reportable 02/07/22 Unknown Tear Drop Cells Not Reportable 02/07/22 Unknown Ovalocytes Rare 02/07/22 Unknown Helmet Cells Not Reportable 02/07/22 Unknown [place] Bodies Not Reportable 02/07/22 Unknown [place] Rings Not Reportable 02/07/22 Unknown [place] Cells Not Reportable 02/07/22 Unknown Bite Cells Not Reportable 02/07/22 Unknown Crenated Cell Not Reportable 02/07/22 Unknown Elliptocytes Rare 02/07/22 Unknown Acanthocytes (Spur) Not Reportable 02/07/22 Unknown Rouleaux Not Reportable 02/07/22 Unknown Hemoglobin C Crystals Not Reportable 02/07/22 Unknown Schistocytes Not Reportable 02/07/22 Unknown Malaria parasites Not Reportable 02/07/22 Unknown Ten Bodies Not Reportable 02/07/22 Unknown Hem Pathologist Commnt No 02/07/22 Unknown PT 17.2 Sec. (12.2-14.9) H 02/07/22 Unknown INR 1.25 (0.87-1.13) H 02/07/22 Unknown APTT 29.2 Sec. (24.2-36.6) 02/07/22 Unknown Thrombin Time 17.0 Sec. (15.1-19.6) 02/07/22 Unknown ABG pH 7.432 pH Units (7.350-7.450) 02/08/22 04:09 ABG pCO2 38.5 mm Hg 02/08/22 04:09 ABG pO2 85.9 mm Hg (80.0-90.0) 02/08/22 04:09 ABG HCO3 25.1 mmol/L (20.0-26.0) 02/08/22 04:09 ABG O2 Saturation 96.9 % (95.0-99.0) 02/08/22 04:09 ABG O2 Content 18.0 (0.0-44) 02/08/22 04:09 ABG Base Excess 0.9 mmol/L (-2.0-3.0) 02/08/22 04:09 ABG Hemoglobin 13.4 gm/dl (14.0-18.0) L 02/08/22 04:09 ABG Carboxyhemoglobin 1.4 % (0.0-5.0) 02/08/22 04:09 ABG Methemoglobin 0.5 % (0.0-1.5) 02/08/22 04:09 Oxyhemoglobin 95.1 % (95.0-99.0) 02/08/22 04:09 FiO2 40 % 02/08/22 04:09 Sodium 141 mmol/L (137-145) 02/08/22 04:07 Potassium 4.4 mmol/L (3.6-5.0) 02/08/22 04:07 Chloride 99.9 mmol/L (98-107) 02/08/22 04:07 Carbon Dioxide 22 mmol/L (22-30) D 02/08/22 04:07 Anion Gap 24 mmol/L 02/08/22 04:07 BUN 15 mg/dL (9-20) 02/08/22 04:07 Creatinine 1.2 mg/dL (0.8-1.3) 02/08/22 04:07 Estimated GFR > 60 ml/min 02/08/22 04:07 BUN/Creatinine Ratio 13 % 02/08/22 04:07 Glucose 184 mg/dL (75-100) H 02/08/22 04:07 POC Glucose 183 mg/dL (70-105) H 02/08/22 05:31 Hemoglobin A1c 9.2 % (4-6) H 02/08/22 04:07 Lactic Acid 2.20 mmol/L (0.7-2.0) H* 02/07/22 19:36 Calcium 9.5 mg/dL (8.4-10.2) 02/08/22 04:07 Total Bilirubin 0.90 mg/dL (0.1-1.2) 02/08/22 04:07 AST 80 units/L (5-40) H 02/08/22 04:07 ALT 63 units/L (7-56) H 02/08/22 04:07 Alkaline Phosphatase 150 units/L (35-129) H 02/08/22 04:07 Total Creatine Kinase 279 units/L (55-170) H 02/07/22 Unknown CK-MB (CK-2) 3.7 ng/mL (0.0-4.0) 02/07/22 Unknown CK-MB (CK-2) Rel Index 1.3 (0-4) 02/07/22 Unknown Troponin T 0.010 ng/mL (0.00-0.029) 02/07/22 Unknown Total Protein 6.5 g/dL (6.3-8.2) 02/08/22 04:07 Albumin 4.4 g/dL (3.9-5) 02/08/22 04:07 Albumin/Globulin Ratio 2.1 % 02/08/22 04:07 Urine Color Straw (Yellow) 02/07/22 Unknown Urine Turbidity Clear (Clear) 02/07/22 Unknown Urine pH 7.0 (5.0-7.0) 02/07/22 Unknown Ur Specific [place] 1.028 (1.003-1.030) 02/07/22 Unknown Urine Protein 100 mg/dl mg/dL (Negative) 02/07/22 Unknown Urine Glucose (UA) >=500 mg/dL (Negative) 02/07/22 Unknown Urine Ketones Neg mg/dL (Negative) 02/07/22 Unknown Urine Blood Neg (Negative) 02/07/22 Unknown Urine Nitrite Neg (Negative) 02/07/22 Unknown Urine Bilirubin Neg (Negative) 02/07/22 Unknown Urine Urobilinogen < 2.0 mg/dL (<2.0) 02/07/22 Unknown Ur Leukocyte Esterase Neg (Negative) 02/07/22 Unknown Urine WBC (Auto) 1.0 /HPF (0.0-6.0) 02/07/22 Unknown Urine RBC (Auto) 2.0 /HPF (0.0-6.0) 02/07/22 Unknown U Epithel Cells (Auto) < 1.0 /HPF (0-13.0) 02/07/22 Unknown Salicylates < 0.3 mg/dL (2.8-20.0) L 02/07/22 Unknown Urine Opiates Screen Negative 02/07/22 Unknown Urine Methadone Screen Negative 02/07/22 Unknown Acetaminophen 5.0 ug/mL (10.0-30.0) L 02/07/22 Unknown Ur Barbiturates Screen Negative 02/07/22 Unknown Ur Phencyclidine Scrn Negative 02/07/22 Unknown Ur Amphetamines Screen Negative 02/07/22 Unknown U Benzodiazepines Scrn Negative 02/07/22 Unknown Urine Cocaine Screen Negative 02/07/22 Unknown U Marijuana (THC) Screen Negative 02/07/22 Unknown Drugs of Abuse Note Disclamer 02/07/22 Unknown Plasma/Serum Alcohol < 0.01 % (0-0.07) 02/07/22 Unknown Microbiology: Microbiology 02/07/22 16:42 Peripheral/Venous Blood Culture - Preliminary Culture in Progress 02/07/22 16:42 Peripheral/Venous Blood Culture - Preliminary Culture in Progress Alexandre/IV: Voiding Method Indwelling Catheter Active Medications - Current Medications Current Medications: Generic Name Dose Route Start Last Admin Trade Name Freq PRN Reason Stop Dose Admin Acetaminophen 650 mg 02/07/22 20:27 Acetaminophen 325 Mg Tab PO Q4H PRN Pain MILD(1-3)/Fever >100.5/AVILES Albuterol 2.5 mg 02/08/22 07:30 Albuterol 2.5 Mg/3 Ml Nebu IH Q3HRT PRN Wheezing Albuterol/Ipratropium 1 ampul 02/08/22 08:00 Ipratropium/Albuterol Sulfate 3 Ml Ampul.Neb IH QIDRT REBECCA Dextrose 50 ml 02/08/22 10:30 Dextrose 50% In Water (25gm) 50 Ml Syringe IV Q30MIN PRN Hypoglycemia Protocol Famotidine 20 mg 02/07/22 22:00 02/08/22 10:36 Famotidine 20 Mg/2 Ml Inj IV 20 mg BID REBECCA Administration Fentanyl 50 mcg 02/07/22 18:56 02/08/22 01:52 Fentanyl 100 Mcg/2 Ml Inj IV 50 mcg Q10MIN PRN Administration ANALGESIA Heparin Sodium (Porcine) 5,000 unit 02/07/22 22:00 02/08/22 10:36 Heparin 5,000 Unit/1 Ml Vial SUB-Q 5,000 unit Q12HR REBECCA Administration Hydralazine HCl 10 mg 02/07/22 21:03 02/07/22 21:13 Hydralazine 20 Mg/1 Ml Inj IV 02/13/22 21:02 10 mg Q6HR PRN Administration Blood Pressure Hydrophilic Ointment 1 applic 02/07/22 14:58 Lip Therapy Vaseline TP Q2HR PRN Dry Lips Propofol 1,000 mg in 100 mls @ 2.449 mls/hr 02/07/22 15:00 02/07/22 20:49 Diprivan 10 Mg/Ml IV 0 mcg/kg/min TITR REBECCA 0 mls/hr Titration Protocol 5 MCG/KG/MIN Fentanyl Citrate 2,000 mcg in 100 mls @ 4.082 mls/hr 02/07/22 19:00 02/08/22 10:55 Fentanyl Drip Premix IV 1 mcg/kg/hr TITR REBECCA 4.082 mls/hr Titration Protocol 1 MCG/KG/HR MIDAZOLAM/NS Drip 100mg/100ml 100 mg in 100 mls @ 1 mls/hr 02/07/22 21:00 02/08/22 05:32 Midazolam/Ns Drip 100mg/100ml IV 0 mg/hr TITR REBECCA 0 mls/hr Titration Protocol 1 MG/HR Levetiracetam 1,000 mg/ 110 mls @ 400 mls/hr 02/08/22 04:00 02/08/22 04:06 Dextrose IV 400 mls/hr Q12H REBECCA Administration Diltiazem HCl 100 mg in 100 mls @ 5 mls/hr 02/07/22 22:00 02/08/22 07:59 Cardizem/D5w 100mg/100ml IV 0 mg/hr TITR REBECCA 0 mls/hr Titration Protocol 5 MG/HR Sodium Chloride 1,000 mls @ 125 mls/hr 02/08/22 05:57 02/08/22 07:22 Nacl 0.9% 1000 Ml IV 125 mls/hr DIRECT REBECCA Administration Azithromycin 500 mg in 250 mls @ 250 mls/hr 02/08/22 17:00 Zithromax/Ns IV 02/11/22 17:59 Q24H REBECCA Ceftriaxone Sodium 2 gm in 100 mls @ 200 mls/hr 02/08/22 18:00 Rocephin/Ns 2 Gm/100 Ml IV Q24H [facility] Protocol Insulin Human Regular 0 units 02/08/22 12:00 Insulin Regular, Human 100 Units/1 Ml SUB-Q Q6HR [facility] Protocol Metoclopramide HCl 10 mg 02/07/22 20:27 Metoclopramide 10 Mg/2 Ml Inj IV Q6H PRN Nausea And Vomiting Midazolam HCl 2 mg 02/07/22 20:38 Midazolam 2 Mg/2 Ml Inj IV Q10MIN PRN Sedation Morphine Sulfate 2 mg 02/07/22 20:27 Morphine 2 Mg/1 Ml Inj IV Q4H PRN Pain, Moderate (4-6) Multi-Ingred Cream/Lotion/Oil/Oint 1 applic 02/07/22 14:58 Mineral Oil/Petrolatum, White Ophth Oint 3.5 Gm OU Q4HR PRN Dry Eye(s) Ondansetron HCl 4 mg 02/07/22 20:27 Ondansetron 4 Mg/2 Ml Inj IV Q8H PRN Nausea And Vomiting Senna/Docusate Sodium 1 tab 02/07/22 22:00 02/08/22 10:37 Sennosides/Docusate Sodium 8.6/50 Mg Tab FEEDTUBE 1 tab BID REBECCA Administration Sodium Chloride 10 ml 02/07/22 22:00 02/08/22 10:37 Sodium Chloride 0.9% 10 Ml Flush Syringe IV 10 ml BID REBECCA Administration Sodium Chloride 10 ml 02/07/22 20:27 Sodium Chloride 0.9% 10 Ml Flush Syringe IV PRN PRN LINE FLUSH <ROSIO BIRMINGHAM - Last Filed: 02/09/22 07:22> Assessment and Plan Assessment and plan: I saw and evaluated the patient. I agree with the findings and the plan of care as documented in the Nurse Practitioner's~note, with the following corrections and additions. Hospitalist Physical - Constitutional Vitals: Temp Pulse Resp BP Pulse Ox 97.8 F 89 30 H 114/81 96 02/09/22 03:55 02/09/22 05:45 02/09/22 06:20 02/09/22 06:20 02/09/22 04:00 HEART Score - HEART Score Troponin: Troponin T 0.010 ng/mL (0.00-0.029) 02/07/22 Unknown Results - Labs CBC & Chem 7: 02/09/22 04:19 02/09/22 04:19 Labs: Laboratory Last Values WBC 14.5 K/mm3 (4.5-11.0) H 02/09/22 04:19 RBC 4.97 M/mm3 (3.65-5.03) 02/09/22 04:19 Hgb 12.7 gm/dl (11.8-15.2) 02/09/22 04:19 Hct 41.4 % (35.5-45.6) 02/09/22 04:19 MCV 83 fl (84-94) L 02/09/22 04:19 MCH 26 pg (28-32) L 02/09/22 04:19 MCHC 31 % (32-34) L 02/09/22 04:19 RDW 16.9 % (13.2-15.2) H 02/09/22 04:19 Plt Count 359 K/mm3 (140-440) 02/09/22 04:19 Lymph % (Auto) 5.3 % (13.4-35.0) L 02/08/22 04:07 [place] % (Auto) 4.8 % (0.0-7.3) 02/08/22 04:07 Eos % (Auto) 0.0 % (0.0-4.3) 02/08/22 04:07 Baso % (Auto) 0.6 % (0.0-1.8) 02/08/22 04:07 Lymph # (Auto) 0.8 K/mm3 (1.2-5.4) L 02/08/22 04:07 Caroline # (Auto) 0.7 K/mm3 (0.0-0.8) 02/08/22 04:07 Eos # (Auto) 0.0 K/mm3 (0.0-0.4) 02/08/22 04:07 Baso # (Auto) 0.1 K/mm3 (0.0-0.1) 02/08/22 04:07 Add Manual Diff Complete 02/07/22 Unknown Total Counted 100 02/07/22 Unknown Seg Neutrophils % 89.3 % (40.0-70.0) H 02/08/22 04:07 Seg Neuts % (Manual) 48.0 % (40.0-70.0) 02/07/22 Unknown Band Neutrophils % 0 % 02/07/22 Unknown Lymphocytes % (Manual) 30.0 % (13.4-35.0) 02/07/22 Unknown Reactive Lymphs % (Man) 11.0 % 02/07/22 Unknown Monocytes % (Manual) 10.0 % (0.0-7.3) H 02/07/22 Unknown Eosinophils % (Manual) 0 % (0.0-4.3) 02/07/22 Unknown Basophils % (Manual) 1.0 % (0.0-1.8) 02/07/22 Unknown Metamyelocytes % 0 % 02/07/22 Unknown Myelocytes % 0 % 02/07/22 Unknown Promyelocytes % 0 % 02/07/22 Unknown Blast Cells % 0 % 02/07/22 Unknown Nucleated RBC % Not Reportable 02/07/22 Unknown Seg Neutrophils # 13.4 K/mm3 (1.8-7.7) H 02/08/22 04:07 Seg Neutrophils # Man 8.2 K/mm3 (1.8-7.7) H 02/07/22 Unknown Band Neutrophils # 0.0 K/mm3 02/07/22 Unknown Lymphocytes # (Manual) 5.1 K/mm3 (1.2-5.4) 02/07/22 Unknown Abs React Lymphs (Man) 1.9 K/mm3 02/07/22 Unknown Monocytes # (Manual) 1.7 K/mm3 (0.0-0.8) H 02/07/22 Unknown Eosinophils # (Manual) 0.0 K/mm3 (0.0-0.4) 02/07/22 Unknown Basophils # (Manual) 0.2 K/mm3 (0.0-0.1) H 02/07/22 Unknown Metamyelocytes # 0.0 K/mm3 02/07/22 Unknown Myelocytes # 0.0 K/mm3 02/07/22 Unknown Promyelocytes # 0.0 K/mm3 02/07/22 Unknown Blast Cells # 0.0 K/mm3 02/07/22 Unknown WBC Morphology Not Reportable 02/07/22 Unknown Hypersegmented Neuts Not Reportable 02/07/22 Unknown Hyposegmented Neuts Not Reportable 02/07/22 Unknown Hypogranular Neuts Not Reportable 02/07/22 Unknown Smudge Cells Not Reportable 02/07/22 Unknown Toxic Granulation Not Reportable 02/07/22 Unknown Toxic Vacuolation Not Reportable 02/07/22 Unknown Dohle Bodies Not Reportable 02/07/22 Unknown Pelger-Huet Anomaly Not Reportable 02/07/22 Unknown Rachel Rods Not Reportable 02/07/22 Unknown Platelet Estimate Appears decreased 02/07/22 Unknown Clumped Platelets Rare 02/07/22 Unknown Plt Clumps, EDTA Not Reportable 02/07/22 Unknown Large Platelets Not Reportable 02/07/22 Unknown Giant Platelets Not Reportable 02/07/22 Unknown Platelet Satelliting Not Reportable 02/07/22 Unknown Plt Morphology Comment Not Reportable 02/07/22 Unknown RBC Morphology Not Reportable 02/07/22 Unknown Dimorphic RBCs Not Reportable 02/07/22 Unknown Polychromasia Not Reportable 02/07/22 Unknown Hypochromasia Not Reportable 02/07/22 Unknown Poikilocytosis Rare 02/07/22 Unknown Anisocytosis Not Reportable 02/07/22 Unknown Microcytosis Not Reportable 02/07/22 Unknown Macrocytosis Not Reportable 02/07/22 Unknown Spherocytes Not Reportable 02/07/22 Unknown Pappenheimer Bodies Not Reportable 02/07/22 Unknown Sickle Cells Not Reportable 02/07/22 Unknown Target Cells Not Reportable 02/07/22 Unknown Tear Drop Cells Not Reportable 02/07/22 Unknown Ovalocytes Rare 02/07/22 Unknown Helmet Cells Not Reportable 02/07/22 Unknown [place] Bodies Not Reportable 02/07/22 Unknown [place] Rings Not Reportable 02/07/22 Unknown [place] Cells Not Reportable 02/07/22 Unknown Bite Cells Not Reportable 02/07/22 Unknown Crenated Cell Not Reportable 02/07/22 Unknown Elliptocytes Rare 02/07/22 Unknown Acanthocytes (Spur) Not Reportable 02/07/22 Unknown Rouleaux Not Reportable 02/07/22 Unknown Hemoglobin C Crystals Not Reportable 02/07/22 Unknown Schistocytes Not Reportable 02/07/22 Unknown Malaria parasites Not Reportable 02/07/22 Unknown Ten Bodies Not Reportable 02/07/22 Unknown Hem Pathologist Commnt No 02/07/22 Unknown PT 17.2 Sec. (12.2-14.9) H 02/07/22 Unknown INR 1.25 (0.87-1.13) H 02/07/22 Unknown APTT 29.2 Sec. (24.2-36.6) 02/07/22 Unknown Thrombin Time 17.0 Sec. (15.1-19.6) 02/07/22 Unknown ABG pH 7.393 pH Units (7.350-7.450) 02/08/22 16:03 ABG pCO2 37.0 mm Hg 02/08/22 16:03 ABG pO2 76.4 mm Hg (80.0-90.0) L 02/08/22 16:03 ABG HCO3 22.1 mmol/L (20.0-26.0) 02/08/22 16:03 ABG O2 Saturation 95.6 % (95.0-99.0) 02/08/22 16:03 ABG O2 Content 16.8 (0.0-44) 02/08/22 16:03 ABG Base Excess -2.4 mmol/L (-2.0-3.0) L 02/08/22 16:03 ABG Hemoglobin 12.7 gm/dl (14.0-18.0) L 02/08/22 16:03 ABG Carboxyhemoglobin 1.5 % (0.0-5.0) 02/08/22 16:03 ABG Methemoglobin 0.4 % (0.0-1.5) 02/08/22 16:03 Oxyhemoglobin 93.8 % (95.0-99.0) L 02/08/22 16:03 FiO2 25 % 02/08/22 16:03 Sodium 143 mmol/L (137-145) 02/09/22 04:19 Potassium 4.3 mmol/L (3.6-5.0) 02/09/22 04:19 Chloride 105.4 mmol/L (98-107) 02/09/22 04:19 Carbon Dioxide 18 mmol/L (22-30) L 02/09/22 04:19 Anion Gap 24 mmol/L 02/09/22 04:19 BUN 26 mg/dL (9-20) H 02/09/22 04:19 Creatinine 1.3 mg/dL (0.8-1.3) 02/09/22 04:19 Estimated GFR > 60 ml/min 02/09/22 04:19 BUN/Creatinine Ratio 20 % 02/09/22 04:19 Glucose 170 mg/dL (75-100) H 02/09/22 04:19 POC Glucose 175 mg/dL (70-105) H 02/09/22 05:12 Hemoglobin A1c 9.2 % (4-6) H 02/08/22 04:07 Lactic Acid 5.00 mmol/L (0.7-2.0) H* 02/09/22 04:19 Calcium 9.1 mg/dL (8.4-10.2) 02/09/22 04:19 Total Bilirubin 0.90 mg/dL (0.1-1.2) 02/08/22 04:07 AST 80 units/L (5-40) H 02/08/22 04:07 ALT 63 units/L (7-56) H 02/08/22 04:07 Alkaline Phosphatase 150 units/L (35-129) H 02/08/22 04:07 Total Creatine Kinase 279 units/L (55-170) H 02/07/22 Unknown CK-MB (CK-2) 3.7 ng/mL (0.0-4.0) 02/07/22 Unknown CK-MB (CK-2) Rel Index 1.3 (0-4) 02/07/22 Unknown Troponin T 0.010 ng/mL (0.00-0.029) 02/07/22 Unknown Total Protein 6.5 g/dL (6.3-8.2) 02/08/22 04:07 Albumin 4.4 g/dL (3.9-5) 02/08/22 04:07 Albumin/Globulin Ratio 2.1 % 02/08/22 04:07 Urine Color Straw (Yellow) 02/07/22 Unknown Urine Turbidity Clear (Clear) 02/07/22 Unknown Urine pH 7.0 (5.0-7.0) 02/07/22 Unknown Ur Specific [place] 1.028 (1.003-1.030) 02/07/22 Unknown Urine Protein 100 mg/dl mg/dL (Negative) 02/07/22 Unknown Urine Glucose (UA) >=500 mg/dL (Negative) 02/07/22 Unknown Urine Ketones Neg mg/dL (Negative) 02/07/22 Unknown Urine Blood Neg (Negative) 02/07/22 Unknown Urine Nitrite Neg (Negative) 02/07/22 Unknown Urine Bilirubin Neg (Negative) 02/07/22 Unknown Urine Urobilinogen < 2.0 mg/dL (<2.0) 02/07/22 Unknown Ur Leukocyte Esterase Neg (Negative) 02/07/22 Unknown Urine WBC (Auto) 1.0 /HPF (0.0-6.0) 02/07/22 Unknown Urine RBC (Auto) 2.0 /HPF (0.0-6.0) 02/07/22 Unknown U Epithel Cells (Auto) < 1.0 /HPF (0-13.0) 02/07/22 Unknown Salicylates < 0.3 mg/dL (2.8-20.0) L 02/07/22 Unknown Urine Opiates Screen Negative 02/07/22 Unknown Urine Methadone Screen Negative 02/07/22 Unknown Acetaminophen 5.0 ug/mL (10.0-30.0) L 02/07/22 Unknown Ur Barbiturates Screen Negative 02/07/22 Unknown Ur Phencyclidine Scrn Negative 02/07/22 Unknown Ur Amphetamines Screen Negative 02/07/22 Unknown U Benzodiazepines Scrn Negative 02/07/22 Unknown Urine Cocaine Screen Negative 02/07/22 Unknown U Marijuana (THC) Screen Negative 02/07/22 Unknown Drugs of Abuse Note Disclamer 02/07/22 Unknown Plasma/Serum Alcohol < 0.01 % (0-0.07) 02/07/22 Unknown Microbiology: Microbiology 02/07/22 16:42 Peripheral/Venous Blood Culture - Preliminary NO GROWTH AFTER 24 HOURS 02/07/22 16:42 Peripheral/Venous Blood Culture - Preliminary NO GROWTH AFTER 24 HOURS Alexandre/IV: Voiding Method Indwelling Catheter Active Medications - Current Medications Current Medications: Generic Name Dose Route Start Last Admin Trade Name Freq PRN Reason Stop Dose Admin Acetaminophen 650 mg 02/07/22 20:27 Acetaminophen 325 Mg Tab PO Q4H PRN Pain MILD(1-3)/Fever >100.5/AVILES Albuterol 2.5 mg 02/08/22 07:30 Albuterol 2.5 Mg/3 Ml Nebu IH Q3HRT PRN Wheezing Albuterol/Ipratropium 1 ampul 02/08/22 08:00 02/08/22 20:42 Ipratropium/Albuterol Sulfate 3 Ml Ampul.Neb IH 1 ampul QIDRT REBECCA Administration Dextrose 50 ml 02/08/22 10:30 Dextrose 50% In Water (25gm) 50 Ml Syringe IV Q30MIN PRN Hypoglycemia Protocol Famotidine 20 mg 02/07/22 22:00 02/08/22 22:42 Famotidine 20 Mg/2 Ml Inj IV 20 mg BID REBECCA Administration Fentanyl 50 mcg 02/07/22 18:56 02/08/22 01:52 Fentanyl 100 Mcg/2 Ml Inj IV 50 mcg Q10MIN PRN Administration ANALGESIA Heparin Sodium (Porcine) 5,000 unit 02/07/22 22:00 02/08/22 22:41 Heparin 5,000 Unit/1 Ml Vial SUB-Q 5,000 unit Q12HR REBECCA Administration Hydralazine HCl 10 mg 02/07/22 21:03 02/07/22 21:13 Hydralazine 20 Mg/1 Ml Inj IV 02/13/22 21:02 10 mg Q6HR PRN Administration Blood Pressure Hydrophilic Ointment 1 applic 02/07/22 14:58 Lip Therapy Vaseline TP Q2HR PRN Dry Lips Propofol 1,000 mg in 100 mls @ 2.449 mls/hr 02/07/22 15:00 02/07/22 20:49 Diprivan 10 Mg/Ml IV 0 mcg/kg/min TITR REBECCA 0 mls/hr Titration Protocol 5 MCG/KG/MIN Fentanyl Citrate 2,000 mcg in 100 mls @ 4.082 mls/hr 02/07/22 19:00 02/08/22 10:55 Fentanyl Drip Premix IV 1 mcg/kg/hr TITR REBECCA 4.082 mls/hr Titration Protocol 1 MCG/KG/HR MIDAZOLAM/NS Drip 100mg/100ml 100 mg in 100 mls @ 1 mls/hr 02/07/22 21:00 02/08/22 05:32 Midazolam/Ns Drip 100mg/100ml IV 0 mg/hr TITR REBECCA 0 mls/hr Titration Protocol 1 MG/HR Levetiracetam 1,000 mg/ 110 mls @ 400 mls/hr 02/08/22 04:00 02/09/22 04:26 Dextrose IV 400 mls/hr Q12H REBECCA Administration Diltiazem HCl 100 mg in 100 mls @ 5 mls/hr 02/07/22 22:00 02/08/22 07:59 Cardizem/D5w 100mg/100ml IV 0 mg/hr TITR REBECCA 0 mls/hr Titration Protocol 5 MG/HR Sodium Chloride 1,000 mls @ 125 mls/hr 02/08/22 05:57 02/08/22 07:22 Nacl 0.9% 1000 Ml IV 125 mls/hr DIRECT REBECCA Administration Azithromycin 500 mg in 250 mls @ 250 mls/hr 02/08/22 17:00 02/08/22 17:13 Zithromax/Ns IV 02/11/22 17:59 250 mls/hr Q24H REBECCA Administration Ceftriaxone Sodium 2 gm in 100 mls @ 200 mls/hr 02/08/22 18:00 02/08/22 18:56 Rocephin/Ns 2 Gm/100 Ml IV 200 mls/hr Q24H REBECCA Administration Protocol Insulin Human Regular 0 units 02/08/22 12:00 02/09/22 06:26 Insulin Regular, Human 100 Units/1 Ml SUB-Q 2 units Q6HR REBECCA Administration Protocol Metoclopramide HCl 10 mg 02/07/22 20:27 Metoclopramide 10 Mg/2 Ml Inj IV Q6H PRN Nausea And Vomiting Midazolam HCl 2 mg 02/07/22 20:38 Midazolam 2 Mg/2 Ml Inj IV Q10MIN PRN Sedation Morphine Sulfate 2 mg 02/07/22 20:27 Morphine 2 Mg/1 Ml Inj IV Q4H PRN Pain, Moderate (4-6) Multi-Ingred Cream/Lotion/Oil/Oint 1 applic 02/07/22 14:58 Mineral Oil/Petrolatum, White Ophth Oint 3.5 Gm OU Q4HR PRN Dry Eye(s) Ondansetron HCl 4 mg 02/07/22 20:27 Ondansetron 4 Mg/2 Ml Inj IV Q8H PRN Nausea And Vomiting Senna/Docusate Sodium 1 tab 02/07/22 22:00 02/08/22 22:42 Sennosides/Docusate Sodium 8.6/50 Mg Tab FEEDTUBE 1 tab BID REBECCA Administration Sodium Chloride 10 ml 02/07/22 22:00 02/08/22 22:42 Sodium Chloride 0.9% 10 Ml Flush Syringe IV 10 ml BID REBECCA Administration Sodium Chloride 10 ml 02/07/22 20:27 Sodium Chloride 0.9% 10 Ml Flush Syringe IV PRN PRN LINE FLUSH Nutrition/Malnutrition Assess - Dietary Evaluation Nutrition/Malnutrition Findings: Nutrition Notes Start: 02/08/22 14:02 Freq: Status: Active Protocol: Document 02/08/22 14:26 SHAYNE (Rec: 02/08/22 14:56 SHAYNE [id number]) Nutrition Notes Need for Assessment 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 Current Diet NPO (since 02/07 16:41), TF- Glucerna 1.2 Ranjan @ 70 ml/hr ( from B 02/09). Labs/Tests 02/08: Glu 184, HbA1c 9.2. Pertinent Medications 02/08: Propofol @ 2.449 ml/hr (65 Kcal), others nutritionally unremarkable. Height 6 ft 1 in Weight 84.5 kg [place] Body Weight (kg) 83.63 BMI 24.5 Intake Prior to Admission Good Weight change and time frame Pt states being unsure if loss body weight [employer]. Weight Status Appropriate Subjective/Other Information RD consult for evaluation of nutritional intake, difficulty chewing and risk of malnutrition assessments, and write/manage TF. Pt has been on NPO since admission. Pt is on Mechanical Ventilation, O2 saturation @ 100%, according to Physical Assessment History notes. I will prescribe and order TF. Pt shows no signs of concern for risk of malnutrition at the time, according to Physical Assessment History notes. Swallowing and chewing evaluation have not been performed, due to Pt's being on Mechanical ventilation. Pt will possibly be extubated later today, according to Progress notes. Percent of energy/protein needs met: Pt has been on NPO since admission. Prescribed TF-Glucerna 1.2 Ranjan @ 70 ml/hr provides for energy/protein needs (2,020 Kcal/101 g) during LOS, 95% Kcal; 99% AA. Including Propofol, increases to 98% Kcal; 99% AA. Burn Absent Trauma Absent GI Symptoms None Food Allergy No Skin Integrity/Comment Assessment WNL. Current % PO Other Minimum of two criteria No #1 Nutrition Diagnosis Inadequate oral intake Comments: Pt will possibly be extubated later today (02/08), according to Progress notes. Etiology Pt on Mechanical Ventilation. As Evidenced by Signs and Symptoms Pt has been on NPO since admission. Is patient on ventilator? Yes Is Patient Ambulatory and/or Out of Bed No REE-([facility]-confined to bed) [phone] Calculation Used for Recommendations Kcal/kg Additional Notes Protein: 1.2-2 g/Kg ABW; 102- 170 g/day. Fluids: 1 ml/Kcal, or as per MD. Nutrition Intervention Nutrition Support: Start Glucerna 1.2 Ranjan @ 70 ml /hr. Flush: 130 ml water Q 4 hr, or as per MD. Kcal 2,020 Protein (gm) 101 Carbohydrates (gm) 193 Fat (gm) 101 Fluid (mL) 1,355 Fiber (gm) 27 % RDI: 95% Kcal; 99% AA. Goal #1 Provide at least 75% of energy /protein needs through Enteral Feeding during LOS. Goal #2 Maintain body weight within +/ -3% of admission body weight during LOS. Follow-Up By: 02/11/22 Additional Comments Start monitoring TF tolerance and BM.
[2022-02-08] MEDS: INSULIN REGULAR, HUMAN 100 UNITS/1 ML SUB-Q SCH ×2 (14:53→18:56)
[2022-02-08 16:49] LABS: ABG Base Excess -2.4 mmol/L (-2.0-3.0); ABG HCO3 22.1 mmol/L (20.0-26.0); ABG Methemoglobin 0.4 % (0.0-1.5); ABG Oxygen Saturation 95.6 % (95.0-99.0); ABG PH 7.393 pH Units (7.350-7.450); ABG PO2 76.4 mm Hg (80.0-90.0)
[2022-02-08] MEDS: AZITHROMYCIN/NS 500 MG/250 ML 500 MG/250 ML BAG IV SCH (17:13)
[2022-02-08] MEDS: cefTRIAXone/NS 2 GM/100 ML 2 GM/100 ML BAG IV SCH (18:56)
[2022-02-08] MEDS: IPRATROPIUM/ALBUTEROL SULFATE 3 ML AMPUL.NEB IH SCH (20:42)
--- NOTE | 2022-02-08 21:48 | Consultation ---
History of Present Illness Consult date: 02/08/22 Reason for Consult: Seizure Chief complaint: Seizure History of present illness: 47 yo male with rt mca stroke, sarcoidosis, dm, asthma who presented initially with acute respiratory distress and then witnessed with a seizure in the ED. Noted with abnormal lung findings including a questionable mass. Patient is cur rently intubated and no further history can be obtained. No clinical seizure activity noted since admission. Past History Past Medical History: diabetes, sarcoidosis (Possible sarcoidosis) Past Surgical History: Other (cannot obtain secondary to loc;) Social history: other (cannot obtain secondary to loc;) Family history: other (cannot obtain secondary to loc;) Medications and Allergies Allergies Allergy/AdvReac Type Severity Reaction Status Date / Time No Known Allergies Allergy Verified 07/31/21 15:00 Home Medications Medication Instructions Recorded Confirmed Last Taken Type Meclizine [Antivert] 12.5 mg PO DAILY PRN #12 tablet 06/10/21 Unknown Rx metFORMIN [Glucophage] 500 mg PO BID #60 tablet 06/10/21 Unknown Rx Naproxen 500 mg PO Q12H PRN #12 tablet 06/24/21 Unknown Rx Albuterol Sulfate [Proventil Hfa] 2 puff IH Q4HR PRN #1 hfa.aer.ad 07/31/21 Unknown Rx predniSONE [Deltasone] 50 mg PO QDAY #5 tab 07/31/21 Unknown Rx Active Meds: Active Medications Acetaminophen (Acetaminophen 325 Mg Tab) 650 mg PO Q4H PRN PRN Reason: Pain MILD(1-3)/Fever >100.5/AVILES Albuterol (Albuterol 2.5 Mg/3 Ml Nebu) 2.5 mg IH Q3HRT PRN PRN Reason: Wheezing Albuterol/Ipratropium (Ipratropium/Albuterol Sulfate 3 Ml Ampul.Neb) 1 ampul IH QIDRT [facility] Last Admin: 02/08/22 20:42 Dose: 1 ampul Dextrose (Dextrose 50% In Water (25gm) 50 Ml Syringe) 50 ml IV Q30MIN PRN; Protocol PRN Reason: Hypoglycemia Famotidine (Famotidine 20 Mg/2 Ml Inj) 20 mg IV BID [facility] Last Admin: 02/08/22 10:36 Dose: 20 mg Fentanyl (Fentanyl 100 Mcg/2 Ml Inj) 50 mcg IV Q10MIN PRN PRN Reason: ANALGESIA Last Admin: 02/08/22 01:52 Dose: 50 mcg Heparin Sodium (Porcine) (Heparin 5,000 Unit/1 Ml Vial) 5,000 unit SUB-Q Q12HR REBECCA Last Admin: 02/08/22 10:36 Dose: 5,000 unit Hydralazine HCl (Hydralazine 20 Mg/1 Ml Inj) 10 mg IV Q6HR PRN PRN Reason: Blood Pressure Stop: 02/13/22 21:02 Last Admin: 02/07/22 21:13 Dose: 10 mg Hydrophilic Ointment (Lip Therapy Vaseline) 1 applic TP Q2HR PRN PRN Reason: Dry Lips Propofol (Diprivan 10 Mg/Ml) 1,000 mg in 100 mls @ 2.449 mls/hr IV TITR REBECCA; Protocol Last Titration: 02/07/22 20:49 Dose: 0 mcg/kg/min, 0 mls/hr Fentanyl Citrate (Fentanyl Drip Premix) 2,000 mcg in 100 mls @ 4.082 mls/hr IV TITR REBECCA; Protocol Last Titration: 02/08/22 10:55 Dose: 1 mcg/kg/hr, 4.082 mls/hr MIDAZOLAM/NS Drip 100mg/100ml (Midazolam/Ns Drip 100mg/100ml) 100 mg in 100 mls @ 1 mls/hr IV TITR REBECCA; Protocol Last Titration: 02/08/22 05:32 Dose: 0 mg/hr, 0 mls/hr Levetiracetam 1,000 mg/ (Dextrose) 110 mls @ 400 mls/hr IV Q12H REBECCA Last Admin: 02/08/22 16:45 Dose: 400 mls/hr Diltiazem HCl (Cardizem/D5w 100mg/100ml) 100 mg in 100 mls @ 5 mls/hr IV TITR REBECCA; Protocol Last Titration: 02/08/22 07:59 Dose: 0 mg/hr, 0 mls/hr Sodium Chloride (Nacl 0.9% 1000 Ml) 1,000 mls @ 125 mls/hr IV DIRECT REBECCA Last Admin: 02/08/22 07:22 Dose: 125 mls/hr Azithromycin (Zithromax/Ns) 500 mg in 250 mls @ 250 mls/hr IV Q24H REBECCA Stop: 02/11/22 17:59 Last Admin: 02/08/22 17:13 Dose: 250 mls/hr Ceftriaxone Sodium (Rocephin/Ns 2 Gm/100 Ml) 2 gm in 100 mls @ 200 mls/hr IV Q24H [facility]; Protocol Last Admin: 02/08/22 18:56 Dose: 200 mls/hr Insulin Human Regular (Insulin Regular, Human 100 Units/1 Ml) 0 units SUB-Q Q 6HR [facility]; Protocol Last Admin: 02/08/22 18:56 Dose: 2 units Metoclopramide HCl (Metoclopramide 10 Mg/2 Ml Inj) 10 mg IV Q6H PRN PRN Reason: Nausea And Vomiting Midazolam HCl (Midazolam 2 Mg/2 Ml Inj) 2 mg IV Q10MIN PRN PRN Reason: Sedation Morphine Sulfate (Morphine 2 Mg/1 Ml Inj) 2 mg IV Q4H PRN PRN Reason: Pain, Moderate (4-6) Multi-Ingred Cream/Lotion/Oil/Oint (Mineral Oil/Petrolatum, White Ophth Oint 3.5 Gm) 1 applic OU Q4HR PRN PRN Reason: Dry Eye(s) Ondansetron HCl (Ondansetron 4 Mg/2 Ml Inj) 4 mg IV Q8H PRN PRN Reason: Nausea And Vomiting Senna/Docusate Sodium (Sennosides/Docusate Sodium 8.6/50 Mg Tab) 1 tab FEEDTUBE BID [facility] Last Admin: 02/08/22 10:37 Dose: 1 tab Sodium Chloride (Sodium Chloride 0.9% 10 Ml Flush Syringe) 10 ml IV BID [facility] Last Admin: 02/08/22 10:37 Dose: 10 ml Sodium Chloride (Sodium Chloride 0.9% 10 Ml Flush Syringe) 10 ml IV PRN PRN PRN Reason: LINE FLUSH Review of Systems ROS unobtainable: due to endotracheal tube Physical Examination - Vital Signs Vital Signs: Vital Signs Temp Pulse Resp BP Pulse Ox 98.8 F 59 L 18 125/95 98 02/07/22 11:54 02/07/22 11:54 02/07/22 11:54 02/07/22 11:54 02/07/22 11:54 - Physical Exam Narrative exam: Gen: nad, well-nourished, intubated; Head: normocephalic; Eyes: no gaze deviation; no ptosis appreciated; ENT: +ETT; CVS: warm and well-perfused; Pulm: no respiratory distress; GI: appears non-distended; Ext: no cyanosis appreciated at distal extremities; Skin: no acute rash or hives appreciated at distal extremities; Heme: no pathologic ecchymosis appreciated at distal extremities; Neuro: obtunded, intubated, CN 2 - sluggish reactive pupils, CN 3, 4, 6 - oculocephalic absent, CN 5/7 - corneal reflex intact, CN 9/10 - cough reflex noted, CN 11/12 - pt cannot cooperate secondary to LOC; Motor/Sensory - at least 1+/5 at right exts and 0/5 at left exts to tactile stimuli; Cerebellar/Gait - pt cannot cooperate secondary to LOC; Results - Laboratory Findings CBC and BMP: 02/09/22 04:19 02/09/22 04:19 Abnormal Lab Findings: Abnormal Labs 02/07/22 02/07/22 02/07/22 11:56 16:42 16:51 WBC RBC Hct MCV MCH MCHC RDW Lymph % (Auto) Lymph # (Auto) Seg Neutrophils % Monocytes % (Manual) Seg Neutrophils # Seg Neutrophils # Man Monocytes # (Manual) Basophils # (Manual) PT INR ABG pO2 ABG O2 Saturation ABG Base Excess ABG Hemoglobin Oxyhemoglobin Chloride Carbon Dioxide Creatinine Glucose POC Glucose 131 H 320 H Hemoglobin A1c Lactic Acid 16.80 H* Total Bilirubin AST ALT Alkaline Phosphatase Total Creatine Kinase Salicylates Acetaminophen 02/07/22 02/07/22 02/07/22 18:30 19:36 Unknown WBC 17.1 H RBC 5.46 H Hct 46.4 H MCV MCH MCHC RDW 17.6 H Lymph % (Auto) Lymph # (Auto) Seg Neutrophils % Monocytes % (Manual) 10.0 H Seg Neutrophils # Seg Neutrophils # Man 8.2 H Monocytes # (Manual) 1.7 H Basophils # (Manual) 0.2 H PT INR ABG pO2 161.1 H ABG O2 Saturation 99.7 H ABG Base Excess ABG Hemoglobin 13.1 L Oxyhemoglobin Chloride Carbon Dioxide Creatinine Glucose POC Glucose Hemoglobin A1c Lactic Acid 2.20 H* Total Bilirubin AST ALT Alkaline Phosphatase Total Creatine Kinase Salicylates Acetaminophen 02/07/22 02/07/22 02/07/22 Unknown Unknown Unknown WBC RBC Hct MCV MCH MCHC RDW Lymph % (Auto) Lymph # (Auto) Seg Neutrophils % Monocytes % (Manual) Seg Neutrophils # Seg Neutrophils # Man Monocytes # (Manual) Basophils # (Manual) PT 17.2 H INR 1.25 H ABG pO2 ABG O2 Saturation ABG Base Excess ABG Hemoglobin Oxyhemoglobin Chloride 96.3 L Carbon Dioxide 14 L Creatinine 1.4 H Glucose 190 H POC Glucose Hemoglobin A1c Lactic Acid Total Bilirubin 1.30 H AST ALT Alkaline Phosphatase 141 H Total Creatine Kinase 279 H Salicylates < 0.3 L Acetaminophen 02/07/22 02/08/22 02/08/22 Unknown 01:27 04:07 WBC 15.0 H RBC 5.57 H Hct MCV 82 L MCH 26 L MCHC 31 L RDW 16.9 H Lymph % (Auto) 5.3 L Lymph # (Auto) 0.8 L Seg Neutrophils % 89.3 H Monocytes % (Manual) Seg Neutrophils # 13.4 H Seg Neutrophils # Man Monocytes # (Manual) Basophils # (Manual) PT INR ABG pO2 ABG O2 Saturation ABG Base Excess ABG Hemoglobin Oxyhemoglobin Chloride Carbon Dioxide Creatinine Glucose POC Glucose 264 H Hemoglobin A1c Lactic Acid Total Bilirubin AST ALT Alkaline Phosphatase Total Creatine Kinase Salicylates Acetaminophen 5.0 L 02/08/22 02/08/22 02/08/22 04:07 04:07 04:09 WBC RBC Hct MCV MCH MCHC RDW Lymph % (Auto) Lymph # (Auto) Seg Neutrophils % Monocytes % (Manual) Seg Neutrophils # Seg Neutrophils # Man Monocytes # (Manual) Basophils # (Manual) PT INR ABG pO2 ABG O2 Saturation ABG Base Excess ABG Hemoglobin 13.4 L Oxyhemoglobin Chloride Carbon Dioxide Creatinine Glucose 184 H POC Glucose Hemoglobin A1c 9.2 H Lactic Acid Total Bilirubin AST 80 H ALT 63 H Alkaline Phosphatase 150 H Total Creatine Kinase Salicylates Acetaminophen 02/08/22 02/08/22 02/08/22 05:31 11:36 16:03 WBC RBC Hct MCV MCH MCHC RDW Lymph % (Auto) Lymph # (Auto) Seg Neutrophils % Monocytes % (Manual) Seg Neutrophils # Seg Neutrophils # Man Monocytes # (Manual) Basophils # (Manual) PT INR ABG pO2 76.4 L ABG O2 Saturation ABG Base Excess -2.4 L ABG Hemoglobin 12.7 L Oxyhemoglobin 93.8 L Chloride Carbon Dioxide Creatinine Glucose POC Glucose 183 H 153 H Hemoglobin A1c Lactic Acid Total Bilirubin AST ALT Alkaline Phosphatase Total Creatine Kinase Salicylates Acetaminophen Assessment and Plan 47 yo male with rt mca stroke, sarcoidosis, dm, asthma who presented initially with acute respiratory distress and then witnessed with a seizure in the ED. Patient is currently intubated and no further history can be obtained. No clinical seizure activity noted since admission. 1. Seizure - agree with Keppra; eeg; mri brain w/ wo contrast; aggressive treatment of underlying metabolic/toxic/infectious/inflammatory derangements; seizure precautions. 2. Sarcoidosis / Neurosarcoidosis - recommend mri brain w/ wo contrast. 3. Acute Metabolic Encephalopathy - in the setting of infection/renal failure. 4. Hx of Completed Stroke - if non-hemorrhagic, recommend antiplatelet/statin therapy unless known cardioembolic/afib-related event, then recommend anticoagulation. 5. Left Hemiplegia - ?chronic vs. recrudescece vs. postictal; mri brain w/ wo contrast; eeg. 6. Cerebral Metastasis - if findings on cxr confirm lung ca, then recommend mri brrain w/ wo contrast. 7. Seizure precautions. Glynn Ellington MD Neurology [id number]
[2022-02-09] MEDS: INSULIN REGULAR, HUMAN 100 UNITS/1 ML SUB-Q SCH ×5 (00:05→22:48)
[2022-02-09] MEDS: levETIRAcetam 1,000 MG in DEXTROSE 5% IN WATER 100 ML IV SCH (04:26)
[2022-02-09 04:49] LABS: Mean Corpuscular HGB Conc 31 % (32-34); Mean Corpuscular Volume 83 fl (84-94); Platelet Count 359 K/mm3 (140-440); Red Blood Count 4.97 M/mm3 (3.65-5.03); Red Cell Distribution Width 16.9 % (13.2-15.2)
[2022-02-09 05:01] LABS: Hematocrit 41.4 % (35.5-45.6); Hemoglobin 12.7 gm/dl (11.8-15.2)
[2022-02-09 05:10] LABS: BUN/Creatinine Ratio 20; Blood Urea Nitrogen 26 mg/dL (9-20); Calcium 9.1 mg/dL (8.4-10.2); Hemolysis Index 35
[2022-02-09] MEDS: IPRATROPIUM/ALBUTEROL SULFATE 3 ML AMPUL.NEB IH SCH ×6 (08:08→21:24)
[2022-02-09] MEDS ORDERED: levETIRAcetam 500 MG TAB PO SCH (10:00)
[2022-02-09] MEDS: HEPARIN 5,000 UNIT/1 ML VIAL SUB-Q SCH ×2 (10:19→22:48)
--- NOTE | 2022-02-09 10:54 | XRay Report ---
XR chest 1V ap INDICATION / CLINICAL INFORMATION: RESP DISTRESS. COMPARISON: 02/08/2022 FINDINGS: SUPPORT DEVICES: Endotracheal tube has been removed. HEART /PULMONARY VASCULATURE: Unchanged. LUNGS / PLEURA: Bilateral parenchymal opacities, left greater than right, unchanged. Focal small roun ded opacity within the right mid-upper lung may reflect fluid in the fissure. Recommend continued fol low-up resolution. No pneumothorax IMPRESSION: 1. No significant interval change. Signer Name: Usman Campos MD Signed: 02/09/2022 10:50 AM Workstation Name: [id number]
[2022-02-09] MEDS ORDERED: LACTATED RINGERS 1,000 ML IV ONE (10:57)
[2022-02-09] MEDS ORDERED: LACTATED RINGERS 1,000 ML IV SCH (11:00)
--- NOTE | 2022-02-09 11:40 | Progress Note ---
<JAIMIENIK KirbyMari - Last Filed: 02/09/22 14:31> Assessment and Plan Assessment and plan: This is a 47-year-old male with a right MCA infarct, DM, sarcoidosis admitted with acute hypoxic respiratory failure, seizures and possible sepsis secondary to pneumonia. Neuro: Seizure, H/O right MCA infarct (2020) with left sided deficits -Avoid delirium -Reorientation as needed -Maintain sleep-wake cycle -aspiration/seizure precautions -As needed analgesia -CT head showed no acute intracranial abnormality, moderate areas of chronic ischemia in the right MCA distribution -CTA head and neck showed no occlusion or significant stenosis of the major intracranial or carotid or vertebral arteries. -Neurology consulted, appreciate recommendations -PO Meño -MRI Brain pending -EEG pending Cardiac: NAD -Blood pressure monitoring per protocol -As needed IV hydralazine Respiratory: Acute hypoxic respiratory failure, h/o sarcoidosis, former smoker -CTA h/n shows severe emphysema with worsening soft tissue seen along the right helium which appears to extend into the mediastinum resulting in narrowing of the right pulmonary artery and bronchi which raises concern for neoplasm CT of chest with contrast is recommended by radiology -CCM consulted, appreciate recommendations -Intubated on 02/07 with 7.5 OETT and extubated 02/08 -Weaned to NC -Pulmonary hygiene -Supplemental oxygenation as needed -SPO2 monitoring GI: Transminitis -24 hours +1015 mL -PPI -CC diet -BR: Senokot -Trend LFTs : Acute kidney injury 2/2 vasomotor nephropathy (resolved) -Admit labs Cr/BUN 1.4/11 -s/p 3 L IVF in ED -Strict intake and output -Renally dose medications -Avoid nephrotoxic medications -Daily weights -Trend BMP ID: Sepsis 2/2 to PNA, lactic acidosis -CXR showed increased density in the right lung apex -Initial LA 16 but repeat 2.2 -today 5 -will given LR bolus and continue IVF -s/p 3L NS in ED -Antibiotic therapy with cefepime and azithro -f/u blood culture -Monitor WBC and temperature curve -Trend LA Endo: h/o DM -Hbg A1C 9.2 -Avoid hypoglycemia -SSI -Accu-Cheks q.6 Heme: Leukocytosis -Trend CBC -Transfuse hemoglobin less than 7 -Heparin subq -Monitor for signs of bleeding -SCDs to BLE while in bed The high probability of a clinically significant, sudden or life threatening deterioration of the [pulm/neuro] system(s) required my full and direct attention, intervention and personal management. The aggregate critical care time was [60] minutes. This time is in addition to time spent performing reported procedures but includes the following: [x] Data Review and interpretation [x] Patient assessment and monitoring of vital signs [x] Documentation [x] Medication orders and management Disposition Plan: icu Total Time Spent with Patient (Minutes): 60 History Interval history: This is a 47-year-old male with sarcoidosis, right MCA infarct (2020), former tobacco abuse, diabetes mellitus who presented to the emergency department on 02/07 with increasing shortness of breath and while in the ED patient had a seizure and was intubated for airway protection. Work-up in the emergency department revealed leukocytosis, acute kidney injury, metabolic acidosis and imaging was read as possible pneumonia. Patient was initiated on sepsis protocol and admitted to the hospitalist service with consults to [facility] and neurology. Hospital course to date: 02/08: Patient sedated on fentanyl which has been weaned and patient is currently on pressure support trial. We will continue antibiotic therapy with ceftriaxone and azithromycin but discontinued steroid therapy. 02/09: Patient had hypotension overnight and received IVF. This morning he has lactic acidosis and a repeat LA is pending. LR bolus. Pharmacy has concerns about LR with Rocephin forming participates and causing renal failure. Lr IVF cancelled, will give IVF NS. Metabolic acidosis noted. Unequal pupils however no new neuro deficits (LUE altered sensation with drift, Left facial droop fom previous CVA per pt) and he is AAOX4. Complaining of dry eye and given cellulose drops. Pending MRI brain w and w/o con. Hospitalist Physical - Constitutional Vitals: Temp Pulse Resp BP Pulse Ox 98.9 F 88 16 117/85 100 02/09/22 07:22 02/09/22 10:00 02/09/22 10:00 02/09/22 10:02/09/22 10:27 General appearance: Present: no acute distress, well-nourished - EENT Eyes: Present: EOM intact. Absent: PERRL (L pupil > R pupil, both reactive to light/round) ENT: hearing intact, clear oral mucosa, dentition normal - Neck Neck: Present: normal ROM - Respiratory Respiratory effort: normal Respiratory: bilateral: diminished - Cardiovascular Rhythm: regular Heart Sounds: Present: S1 & S2. Absent: systolic murmur, diastolic murmur - Extremities Extremities: no ischemia, pulses intact, pulses symmetrical, No edema, normal temperature, normal color Peripheral Pulses: within normal limits - Abdominal General gastrointestinal: soft, non-tender, normal bowel sounds - Integumentary Integumentary: Present: warm, dry - Psychiatric Psychiatric: appropriate mood/affect, intact judgment & insight, cooperative - Neurologic Neurologic: CNII-XII intact, focal deficits (L facial droop/LUE drift and altered sensation (not new deficits)), moves all extremities - Allied Health Allied health notes reviewed: nursing, RT HEART Score - HEART Score Age: 45-65 Risk factors: 1-2 risk factors Troponin: Troponin T 0.010 ng/mL (0.00-0.029) 02/07/22 Unknown Troponin: < normal limit - Critical Actions Critical Actions: 0-3 pts:0.9-1.7%risk of adverse cardiac event.Candidate for discharge Results - Labs CBC & Chem 7: 02/09/22 04:19 02/09/22 04:19 Labs: Laboratory Last Values WBC 14.5 K/mm3 (4.5-11.0) H 02/09/22 04:19 RBC 4.97 M/mm3 (3.65-5.03) 02/09/22 04:19 Hgb 12.7 gm/dl (11.8-15.2) 02/09/22 04:19 Hct 41.4 % (35.5-45.6) 02/09/22 04:19 MCV 83 fl (84-94) L 02/09/22 04:19 MCH 26 pg (28-32) L 02/09/22 04:19 MCHC 31 % (32-34) L 02/09/22 04:19 RDW 16.9 % (13.2-15.2) H 02/09/22 04:19 Plt Count 359 K/mm3 (140-440) 02/09/22 04:19 Lymph % (Auto) 5.3 % (13.4-35.0) L 02/08/22 04:07 Dale % (Auto) 4.8 % (0.0-7.3) 02/08/22 04:07 Eos % (Auto) 0.0 % (0.0-4.3) 02/08/22 04:07 Baso % (Auto) 0.6 % (0.0-1.8) 02/08/22 04:07 Lymph # (Auto) 0.8 K/mm3 (1.2-5.4) L 02/08/22 04:07 Dale # (Auto) 0.7 K/mm3 (0.0-0.8) 02/08/22 04:07 Eos # (Auto) 0.0 K/mm3 (0.0-0.4) 02/08/22 04:07 Baso # (Auto) 0.1 K/mm3 (0.0-0.1) 02/08/22 04:07 Add Manual Diff Complete 02/07/22 Unknown Total Counted 100 02/07/22 Unknown Seg Neutrophils % 89.3 % (40.0-70.0) H 02/08/22 04:07 Seg Neuts % (Manual) 48.0 % (40.0-70.0) 02/07/22 Unknown Band Neutrophils % 0 % 02/07/22 Unknown Lymphocytes % (Manual) 30.0 % (13.4-35.0) 02/07/22 Unknown Reactive Lymphs % (Man) 11.0 % 02/07/22 Unknown Monocytes % (Manual) 10.0 % (0.0-7.3) H 02/07/22 Unknown Eosinophils % (Manual) 0 % (0.0-4.3) 02/07/22 Unknown Basophils % (Manual) 1.0 % (0.0-1.8) 02/07/22 Unknown Metamyelocytes % 0 % 02/07/22 Unknown Myelocytes % 0 % 02/07/22 Unknown Promyelocytes % 0 % 02/07/22 Unknown Blast Cells % 0 % 02/07/22 Unknown Nucleated RBC % Not Reportable 02/07/22 Unknown Seg Neutrophils # 13.4 K/mm3 (1.8-7.7) H 02/08/22 04:07 Seg Neutrophils # Man 8.2 K/mm3 (1.8-7.7) H 02/07/22 Unknown Band Neutrophils # 0.0 K/mm3 02/07/22 Unknown Lymphocytes # (Manual) 5.1 K/mm3 (1.2-5.4) 02/07/22 Unknown Abs React Lymphs (Man) 1.9 K/mm3 02/07/22 Unknown Monocytes # (Manual) 1.7 K/mm3 (0.0-0.8) H 02/07/22 Unknown Eosinophils # (Manual) 0.0 K/mm3 (0.0-0.4) 02/07/22 Unknown Basophils # (Manual) 0.2 K/mm3 (0.0-0.1) H 02/07/22 Unknown Metamyelocytes # 0.0 K/mm3 02/07/22 Unknown Myelocytes # 0.0 K/mm3 02/07/22 Unknown Promyelocytes # 0.0 K/mm3 02/07/22 Unknown Blast Cells # 0.0 K/mm3 02/07/22 Unknown WBC Morphology Not Reportable 02/07/22 Unknown Hypersegmented Neuts Not Reportable 02/07/22 Unknown Hyposegmented Neuts Not Reportable 02/07/22 Unknown Hypogranular Neuts Not Reportable 02/07/22 Unknown Smudge Cells Not Reportable 02/07/22 Unknown Toxic Granulation Not Reportable 02/07/22 Unknown Toxic Vacuolation Not Reportable 02/07/22 Unknown Dohle Bodies Not Reportable 02/07/22 Unknown Pelger-Huet Anomaly Not Reportable 02/07/22 Unknown Rachel Rods Not Reportable 02/07/22 Unknown Platelet Estimate Appears decreased 02/07/22 Unknown Clumped Platelets Rare 02/07/22 Unknown Plt Clumps, EDTA Not Reportable 02/07/22 Unknown Large Platelets Not Reportable 02/07/22 Unknown Giant Platelets Not Reportable 02/07/22 Unknown Platelet Satelliting Not Reportable 02/07/22 Unknown Plt Morphology Comment Not Reportable 02/07/22 Unknown RBC Morphology Not Reportable 02/07/22 Unknown Dimorphic RBCs Not Reportable 02/07/22 Unknown Polychromasia Not Reportable 02/07/22 Unknown Hypochromasia Not Reportable 02/07/22 Unknown Poikilocytosis Rare 02/07/22 Unknown Anisocytosis Not Reportable 02/07/22 Unknown Microcytosis Not Reportable 02/07/22 Unknown Macrocytosis Not Reportable 02/07/22 Unknown Spherocytes Not Reportable 02/07/22 Unknown Pappenheimer Bodies Not Reportable 02/07/22 Unknown Sickle Cells Not Reportable 02/07/22 Unknown Target Cells Not Reportable 02/07/22 Unknown Tear Drop Cells Not Reportable 02/07/22 Unknown Ovalocytes Rare 02/07/22 Unknown Helmet Cells Not Reportable 02/07/22 Unknown [place] Bodies Not Reportable 02/07/22 Unknown Warden Rings Not Reportable 02/07/22 Unknown [place] Cells Not Reportable 02/07/22 Unknown Bite Cells Not Reportable 02/07/22 Unknown Crenated Cell Not Reportable 02/07/22 Unknown Elliptocytes Rare 02/07/22 Unknown Acanthocytes (Spur) Not Reportable 02/07/22 Unknown Rouleaux Not Reportable 02/07/22 Unknown Hemoglobin C Crystals Not Reportable 02/07/22 Unknown Schistocytes Not Reportable 02/07/22 Unknown Malaria parasites Not Reportable 02/07/22 Unknown Ten Bodies Not Reportable 02/07/22 Unknown Hem Pathologist Commnt No 02/07/22 Unknown PT 17.2 Sec. (12.2-14.9) H 02/07/22 Unknown INR 1.25 (0.87-1.13) H 02/07/22 Unknown APTT 29.2 Sec. (24.2-36.6) 02/07/22 Unknown Thrombin Time 17.0 Sec. (15.1-19.6) 02/07/22 Unknown ABG pH 7.393 pH Units (7.350-7.450) 02/08/22 16:03 ABG pCO2 37.0 mm Hg 02/08/22 16:03 ABG pO2 76.4 mm Hg (80.0-90.0) L 02/08/22 16:03 ABG HCO3 22.1 mmol/L (20.0-26.0) 02/08/22 16:03 ABG O2 Saturation 95.6 % (95.0-99.0) 02/08/22 16:03 ABG O2 Content 16.8 (0.0-44) 02/08/22 16:03 ABG Base Excess -2.4 mmol/L (-2.0-3.0) L 02/08/22 16:03 ABG Hemoglobin 12.7 gm/dl (14.0-18.0) L 02/08/22 16:03 ABG Carboxyhemoglobin 1.5 % (0.0-5.0) 02/08/22 16:03 ABG Methemoglobin 0.4 % (0.0-1.5) 02/08/22 16:03 Oxyhemoglobin 93.8 % (95.0-99.0) L 02/08/22 16:03 FiO2 25 % 02/08/22 16:03 Sodium 143 mmol/L (137-145) 02/09/22 04:19 Potassium 4.3 mmol/L (3.6-5.0) 02/09/22 04:19 Chloride 105.4 mmol/L (98-107) 02/09/22 04:19 Carbon Dioxide 18 mmol/L (22-30) L 02/09/22 04:19 Anion Gap 24 mmol/L 02/09/22 04:19 BUN 26 mg/dL (9-20) H 02/09/22 04:19 Creatinine 1.3 mg/dL (0.8-1.3) 02/09/22 04:19 Estimated GFR > 60 ml/min 02/09/22 04:19 BUN/Creatinine Ratio 20 % 02/09/22 04:19 Glucose 170 mg/dL (75-100) H 02/09/22 04:19 POC Glucose 175 mg/dL (70-105) H 02/09/22 05:12 Hemoglobin A1c 9.2 % (4-6) H 02/08/22 04:07 Lactic Acid 5.00 mmol/L (0.7-2.0) H* 02/09/22 04:19 Calcium 9.1 mg/dL (8.4-10.2) 02/09/22 04:19 Total Bilirubin 0.90 mg/dL (0.1-1.2) 02/08/22 04:07 AST 80 units/L (5-40) H 02/08/22 04:07 ALT 63 units/L (7-56) H 02/08/22 04:07 Alkaline Phosphatase 150 units/L (35-129) H 02/08/22 04:07 Total Creatine Kinase 279 units/L (55-170) H 02/07/22 Unknown CK-MB (CK-2) 3.7 ng/mL (0.0-4.0) 02/07/22 Unknown CK-MB (CK-2) Rel Index 1.3 (0-4) 02/07/22 Unknown Troponin T 0.010 ng/mL (0.00-0.029) 02/07/22 Unknown Total Protein 6.5 g/dL (6.3-8.2) 02/08/22 04:07 Albumin 4.4 g/dL (3.9-5) 02/08/22 04:07 Albumin/Globulin Ratio 2.1 % 02/08/22 04:07 Urine Color Straw (Yellow) 02/07/22 Unknown Urine Turbidity Clear (Clear) 02/07/22 Unknown Urine pH 7.0 (5.0-7.0) 02/07/22 Unknown Ur Specific [place] 1.028 (1.003-1.030) 02/07/22 Unknown Urine Protein 100 mg/dl mg/dL (Negative) 02/07/22 Unknown Urine Glucose (UA) >=500 mg/dL (Negative) 02/07/22 Unknown Urine Ketones Neg mg/dL (Negative) 02/07/22 Unknown Urine Blood Neg (Negative) 02/07/22 Unknown Urine Nitrite Neg (Negative) 02/07/22 Unknown Urine Bilirubin Neg (Negative) 02/07/22 Unknown Urine Urobilinogen < 2.0 mg/dL (<2.0) 02/07/22 Unknown Ur Leukocyte Esterase Neg (Negative) 02/07/22 Unknown Urine WBC (Auto) 1.0 /HPF (0.0-6.0) 02/07/22 Unknown Urine RBC (Auto) 2.0 /HPF (0.0-6.0) 02/07/22 Unknown U Epithel Cells (Auto) < 1.0 /HPF (0-13.0) 02/07/22 Unknown Salicylates < 0.3 mg/dL (2.8-20.0) L 02/07/22 Unknown Urine Opiates Screen Negative 02/07/22 Unknown Urine Methadone Screen Negative 02/07/22 Unknown Acetaminophen 5.0 ug/mL (10.0-30.0) L 02/07/22 Unknown Ur Barbiturates Screen Negative 02/07/22 Unknown Ur Phencyclidine Scrn Negative 02/07/22 Unknown Ur Amphetamines Screen Negative 02/07/22 Unknown U Benzodiazepines Scrn Negative 02/07/22 Unknown Urine Cocaine Screen Negative 02/07/22 Unknown U Marijuana (THC) Screen Negative 02/07/22 Unknown Drugs of Abuse Note Disclamer 02/07/22 Unknown Plasma/Serum Alcohol < 0.01 % (0-0.07) 02/07/22 Unknown Microbiology: Microbiology 02/07/22 16:42 Peripheral/Venous Blood Culture - Preliminary NO GROWTH AFTER 24 HOURS 02/07/22 16:42 Peripheral/Venous Blood Culture - Preliminary NO GROWTH AFTER 24 HOURS Alexandre/IV: Voiding Method Indwelling Catheter Active Medications - Current Medications Current Medications: Generic Name Dose Route Start Last Admin Trade Name Freq PRN Reason Stop Dose Admin Acetaminophen 650 mg 02/07/22 20:27 Acetaminophen 325 Mg Tab PO Q4H PRN Pain MILD(1-3)/Fever >100.5/AVILES Albuterol 2.5 mg 02/08/22 07:30 Albuterol 2.5 Mg/3 Ml Nebu IH Q3HRT PRN Wheezing Albuterol/Ipratropium 1 ampul 02/08/22 08:00 02/09/22 08:14 Ipratropium/Albuterol Sulfate 3 Ml Ampul.Neb IH Not Given QIDRT REBECCA Dextrose 50 ml 02/08/22 10:30 Dextrose 50% In Water (25gm) 50 Ml Syringe IV Q30MIN PRN Hypoglycemia Protocol Famotidine 40 mg 02/09/22 22:00 Famotidine 20 Mg Tab PO QHS REBECCA Heparin Sodium (Porcine) 5,000 unit 02/07/22 22:00 02/09/22 10:19 Heparin 5,000 Unit/1 Ml Vial SUB-Q 5,000 unit Q12HR REBECCA Administration Hydralazine HCl 10 mg 02/07/22 21:03 02/07/22 21:13 Hydralazine 20 Mg/1 Ml Inj IV 02/13/22 21:02 10 mg Q6HR PRN Administration Blood Pressure Hydrophilic Ointment 1 applic 02/07/22 14:58 Lip Therapy Vaseline TP Q2HR PRN Dry Lips Azithromycin 500 mg in 250 mls @ 250 mls/hr 02/08/22 17:00 02/08/22 17:13 Zithromax/Ns IV 02/11/22 17:59 250 mls/hr Q24H REBECCA Administration Ceftriaxone Sodium 2 gm in 100 mls @ 200 mls/hr 02/08/22 18:00 02/08/22 18:56 Rocephin/Ns 2 Gm/100 Ml IV 200 mls/hr Q24H REBECCA Administration Protocol Levetiracetam 1,000 mg/ 110 mls @ 400 mls/hr 02/09/22 16:00 Dextrose IV 02/09/22 16:16 ONCE ONE Lactated Ringer's 1,000 mls @ 999 mls/hr 02/09/22 10:57 02/09/22 11:20 Lactated Ringers IV 02/09/22 11:57 999 mls/hr BOLUS ONE Administration Insulin Glargine 10 units 02/09/22 22:00 Insulin Glargine 100 Units/Ml SUB-Q QHS [facility] Insulin Human Regular 0 units 02/08/22 12:00 02/09/22 06:26 Insulin Regular, Human 100 Units/1 Ml SUB-Q 2 units Q6HR [facility] Administration Protocol Levetiracetam 1,000 mg 02/10/22 10:00 Levetiracetam 500 Mg Tab PO BID [facility] Metoclopramide HCl 10 mg 02/07/22 20:27 Metoclopramide 10 Mg/2 Ml Inj IV Q6H PRN Nausea And Vomiting Morphine Sulfate 2 mg 02/07/22 20:27 Morphine 2 Mg/1 Ml Inj IV Q4H PRN Pain, Moderate (4-6) Multi-Ingred Cream/Lotion/Oil/Oint 1 applic 02/07/22 14:58 Mineral Oil/Petrolatum, White Ophth Oint 3.5 Gm OU Q4HR PRN Dry Eye(s) Ondansetron HCl 4 mg 02/07/22 20:27 Ondansetron 4 Mg/2 Ml Inj IV Q8H PRN Nausea And Vomiting Senna/Docusate Sodium 1 tab 02/09/22 22:00 Sennosides/Docusate Sodium 8.6/50 Mg Tab PO QHS REBECCA Sodium Chloride 10 ml 02/07/22 22:00 02/09/22 10:20 Sodium Chloride 0.9% 10 Ml Flush Syringe IV 10 ml BID REBECCA Administration Sodium Chloride 10 ml 02/07/22 20:27 Sodium Chloride 0.9% 10 Ml Flush Syringe IV PRN PRN LINE FLUSH Nutrition/Malnutrition Assess - Dietary Evaluation Nutrition/Malnutrition Findings: Nutrition Notes Start: 02/08/22 14:02 Freq: Status: Active Protocol: Document 02/08/22 14:26 SHAYNE (Rec: 02/08/22 14:56 SHAYNE [id number]) Nutrition Notes Need for Assessment 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 Current Diet NPO (since 02/07 16:41), TF- Glucerna 1.2 Ranjan @ 70 ml/hr ( from B 02/09). Labs/Tests 02/08: Glu 184, HbA1c 9.2. Pertinent Medications 02/08: Propofol @ 2.449 ml/hr (65 Kcal), others nutritionally unremarkable. Height 6 ft 1 in Weight 84.5 kg [place] Body Weight (kg) 83.63 BMI 24.5 Intake Prior to Admission Good Weight change and time frame Pt states being unsure if loss body weight [employer]. Weight Status Appropriate Subjective/Other Information RD consult for evaluation of nutritional intake, difficulty chewing and risk of malnutrition assessments, and write/manage TF. Pt has been on NPO since admission. Pt is on Mechanical Ventilation, O2 saturation @ 100%, according to Physical Assessment History notes. I will prescribe and order TF. Pt shows no signs of concern for risk of malnutrition at the time, according to Physical Assessment History notes. Swallowing and chewing evaluation have not been performed, due to Pt's being on Mechanical ventilation. Pt will possibly be extubated later today, according to Progress notes. Percent of energy/protein needs met: Pt has been on NPO since admission. Prescribed TF-Glucerna 1.2 Ranjan @ 70 ml/hr provides for energy/protein needs (2,020 Kcal/101 g) during LOS, 95% Kcal; 99% AA. Including Propofol, increases to 98% Kcal; 99% AA. Burn Absent Trauma Absent GI Symptoms None Food Allergy No Skin Integrity/Comment Assessment WNL. Current % PO Other Minimum of two criteria No #1 Nutrition Diagnosis Inadequate oral intake Comments: Pt will possibly be extubated later today (02/08), according to Progress notes. Etiology Pt on Mechanical Ventilation. As Evidenced by Signs and Symptoms Pt has been on NPO since admission. Is patient on ventilator? Yes Is Patient Ambulatory and/or Out of Bed No REE-([place]-St. Jeor-confined to bed) 3582.148 Calculation Used for Recommendations Kcal/kg Additional Notes Protein: 1.2-2 g/Kg ABW; 102- 170 g/day. Fluids: 1 ml/Kcal, or as per MD. Nutrition Intervention Nutrition Support: Start Glucerna 1.2 Ranjan @ 70 ml /hr. Flush: 130 ml water Q 4 hr, or as per MD. Kcal 2,020 Protein (gm) 101 Carbohydrates (gm) 193 Fat (gm) 101 Fluid (mL) 1,355 Fiber (gm) 27 % RDI: 95% Kcal; 99% AA. Goal #1 Provide at least 75% of energy /protein needs through Enteral Feeding during LOS. Goal #2 Maintain body weight within +/ -3% of admission body weight during LOS. Follow-Up By: 02/11/22 Additional Comments Start monitoring TF tolerance and BM. <ROSIO BIRMINGHAM - Last Filed: 02/10/22 06:58> Assessment and Plan Assessment and plan: I saw and evaluated the patient. I agree with the findings and the plan of care as documented in the Nurse Practitioner's~note, with the following corrections and additions. Hospitalist Physical - Constitutional Vitals: Temp Pulse Resp BP Pulse Ox 97.8 F 83 23 101/73 100 02/10/22 04:00 02/10/22 04:00 02/10/22 04:00 02/10/22 04:00 02/10/22 04:00 HEART Score - HEART Score Troponin: Troponin T 0.010 ng/mL (0.00-0.029) 02/07/22 Unknown Results - Labs CBC & Chem 7: 02/10/22 04:00 02/10/22 04:00 Labs: Laboratory Last Values WBC 9.7 K/mm3 (4.5-11.0) 02/10/22 04:00 RBC 4.54 M/mm3 (3.65-5.03) 02/10/22 04:00 Hgb 11.9 gm/dl (11.8-15.2) 02/10/22 04:00 Hct 37.8 % (35.5-45.6) 02/10/22 04:00 MCV 83 fl (84-94) L 02/10/22 04:00 MCH 26 pg (28-32) L 02/10/22 04:00 MCHC 31 % (32-34) L 02/10/22 04:00 RDW 17.0 % (13.2-15.2) H 02/10/22 04:00 Plt Count 272 K/mm3 (140-440) 02/10/22 04:00 Lymph % (Auto) 5.3 % (13.4-35.0) L 02/08/22 04:07 Dale % (Auto) 4.8 % (0.0-7.3) 02/08/22 04:07 Eos % (Auto) 0.0 % (0.0-4.3) 02/08/22 04:07 Baso % (Auto) 0.6 % (0.0-1.8) 02/08/22 04:07 Lymph # (Auto) 0.8 K/mm3 (1.2-5.4) L 02/08/22 04:07 Dale # (Auto) 0.7 K/mm3 (0.0-0.8) 02/08/22 04:07 Eos # (Auto) 0.0 K/mm3 (0.0-0.4) 02/08/22 04:07 Baso # (Auto) 0.1 K/mm3 (0.0-0.1) 02/08/22 04:07 Add Manual Diff Complete 02/07/22 Unknown Total Counted 100 02/07/22 Unknown Seg Neutrophils % 89.3 % (40.0-70.0) H 02/08/22 04:07 Seg Neuts % (Manual) 48.0 % (40.0-70.0) 02/07/22 Unknown Band Neutrophils % 0 % 02/07/22 Unknown Lymphocytes % (Manual) 30.0 % (13.4-35.0) 02/07/22 Unknown Reactive Lymphs % (Man) 11.0 % 02/07/22 Unknown Monocytes % (Manual) 10.0 % (0.0-7.3) H 02/07/22 Unknown Eosinophils % (Manual) 0 % (0.0-4.3) 02/07/22 Unknown Basophils % (Manual) 1.0 % (0.0-1.8) 02/07/22 Unknown Metamyelocytes % 0 % 02/07/22 Unknown Myelocytes % 0 % 02/07/22 Unknown Promyelocytes % 0 % 02/07/22 Unknown Blast Cells % 0 % 02/07/22 Unknown Nucleated RBC % Not Reportable 02/07/22 Unknown Seg Neutrophils # 13.4 K/mm3 (1.8-7.7) H 02/08/22 04:07 Seg Neutrophils # Man 8.2 K/mm3 (1.8-7.7) H 02/07/22 Unknown Band Neutrophils # 0.0 K/mm3 02/07/22 Unknown Lymphocytes # (Manual) 5.1 K/mm3 (1.2-5.4) 02/07/22 Unknown Abs React Lymphs (Man) 1.9 K/mm3 02/07/22 Unknown Monocytes # (Manual) 1.7 K/mm3 (0.0-0.8) H 02/07/22 Unknown Eosinophils # (Manual) 0.0 K/mm3 (0.0-0.4) 02/07/22 Unknown Basophils # (Manual) 0.2 K/mm3 (0.0-0.1) H 02/07/22 Unknown Metamyelocytes # 0.0 K/mm3 02/07/22 Unknown Myelocytes # 0.0 K/mm3 02/07/22 Unknown Promyelocytes # 0.0 K/mm3 02/07/22 Unknown Blast Cells # 0.0 K/mm3 02/07/22 Unknown WBC Morphology Not Reportable 02/07/22 Unknown Hypersegmented Neuts Not Reportable 02/07/22 Unknown Hyposegmented Neuts Not Reportable 02/07/22 Unknown Hypogranular Neuts Not Reportable 02/07/22 Unknown Smudge Cells Not Reportable 02/07/22 Unknown Toxic Granulation Not Reportable 02/07/22 Unknown Toxic Vacuolation Not Reportable 02/07/22 Unknown Dohle Bodies Not Reportable 02/07/22 Unknown Pelger-Huet Anomaly Not Reportable 02/07/22 Unknown Rachel Rods Not Reportable 02/07/22 Unknown Platelet Estimate Appears decreased 02/07/22 Unknown Clumped Platelets Rare 02/07/22 Unknown Plt Clumps, EDTA Not Reportable 02/07/22 Unknown Large Platelets Not Reportable 02/07/22 Unknown Giant Platelets Not Reportable 02/07/22 Unknown Platelet Satelliting Not Reportable 02/07/22 Unknown Plt Morphology Comment Not Reportable 02/07/22 Unknown RBC Morphology Not Reportable 02/07/22 Unknown Dimorphic RBCs Not Reportable 02/07/22 Unknown Polychromasia Not Reportable 02/07/22 Unknown Hypochromasia Not Reportable 02/07/22 Unknown Poikilocytosis Rare 02/07/22 Unknown Anisocytosis Not Reportable 02/07/22 Unknown Microcytosis Not Reportable 02/07/22 Unknown Macrocytosis Not Reportable 02/07/22 Unknown Spherocytes Not Reportable 02/07/22 Unknown Pappenheimer Bodies Not Reportable 02/07/22 Unknown Sickle Cells Not Reportable 02/07/22 Unknown Target Cells Not Reportable 02/07/22 Unknown Tear Drop Cells Not Reportable 02/07/22 Unknown Ovalocytes Rare 02/07/22 Unknown Helmet Cells Not Reportable 02/07/22 Unknown [place] Bodies Not Reportable 02/07/22 Unknown Warden Rings Not Reportable 02/07/22 Unknown [place] Cells Not Reportable 02/07/22 Unknown Bite Cells Not Reportable 02/07/22 Unknown Crenated Cell Not Reportable 02/07/22 Unknown Elliptocytes Rare 02/07/22 Unknown Acanthocytes (Spur) Not Reportable 02/07/22 Unknown Rouleaux Not Reportable 02/07/22 Unknown Hemoglobin C Crystals Not Reportable 02/07/22 Unknown Schistocytes Not Reportable 02/07/22 Unknown Malaria parasites Not Reportable 02/07/22 Unknown Ten Bodies Not Reportable 02/07/22 Unknown Hem Pathologist Commnt No 02/07/22 Unknown PT 17.2 Sec. (12.2-14.9) H 02/07/22 Unknown INR 1.25 (0.87-1.13) H 02/07/22 Unknown APTT 29.2 Sec. (24.2-36.6) 02/07/22 Unknown Thrombin Time 17.0 Sec. (15.1-19.6) 02/07/22 Unknown ABG pH 7.393 pH Units (7.350-7.450) 02/08/22 16:03 ABG pCO2 37.0 mm Hg 02/08/22 16:03 ABG pO2 76.4 mm Hg (80.0-90.0) L 02/08/22 16:03 ABG HCO3 22.1 mmol/L (20.0-26.0) 02/08/22 16:03 ABG O2 Saturation 95.6 % (95.0-99.0) 02/08/22 16:03 ABG O2 Content 16.8 (0.0-44) 02/08/22 16:03 ABG Base Excess -2.4 mmol/L (-2.0-3.0) L 02/08/22 16:03 ABG Hemoglobin 12.7 gm/dl (14.0-18.0) L 02/08/22 16:03 ABG Carboxyhemoglobin 1.5 % (0.0-5.0) 02/08/22 16:03 ABG Methemoglobin 0.4 % (0.0-1.5) 02/08/22 16:03 Oxyhemoglobin 93.8 % (95.0-99.0) L 02/08/22 16:03 FiO2 25 % 02/08/22 16:03 Sodium 143 mmol/L (137-145) 02/10/22 04:00 Potassium 4.3 mmol/L (3.6-5.0) 02/10/22 04:00 Chloride 107.1 mmol/L (98-107) H 02/10/22 04:00 Carbon Dioxide 22 mmol/L (22-30) 02/10/22 04:00 Anion Gap 18 mmol/L 02/10/22 04:00 BUN 27 mg/dL (9-20) H 02/10/22 04:00 Creatinine 1.1 mg/dL (0.8-1.3) 02/10/22 04:00 Estimated GFR > 60 ml/min 02/10/22 04:00 BUN/Creatinine Ratio 25 % 02/10/22 04:00 Glucose 122 mg/dL (75-100) H 02/10/22 04:00 POC Glucose 178 mg/dL (70-105) H 02/09/22 21:29 Hemoglobin A1c 9.2 % (4-6) H 02/08/22 04:07 Lactic Acid 1.90 mmol/L (0.7-2.0) 02/10/22 04:00 Calcium 8.3 mg/dL (8.4-10.2) L 02/10/22 04:00 Total Bilirubin 0.50 mg/dL (0.1-1.2) 02/10/22 04:00 AST 44 units/L (5-40) H 02/10/22 04:00 ALT 57 units/L (7-56) H 02/10/22 04:00 Alkaline Phosphatase 152 units/L (35-129) H 02/10/22 04:00 Total Creatine Kinase 279 units/L (55-170) H 02/07/22 Unknown CK-MB (CK-2) 3.7 ng/mL (0.0-4.0) 02/07/22 Unknown CK-MB (CK-2) Rel Index 1.3 (0-4) 02/07/22 Unknown Troponin T 0.010 ng/mL (0.00-0.029) 02/07/22 Unknown Total Protein 5.5 g/dL (6.3-8.2) L 02/10/22 04:00 Albumin 3.9 g/dL (3.9-5) 02/10/22 04:00 Albumin/Globulin Ratio 2.4 % 02/10/22 04:00 Urine Color Straw (Yellow) 02/07/22 Unknown Urine Turbidity Clear (Clear) 02/07/22 Unknown Urine pH 7.0 (5.0-7.0) 02/07/22 Unknown Ur Specific [place] 1.028 (1.003-1.030) 02/07/22 Unknown Urine Protein 100 mg/dl mg/dL (Negative) 02/07/22 Unknown Urine Glucose (UA) >=500 mg/dL (Negative) 02/07/22 Unknown Urine Ketones Neg mg/dL (Negative) 02/07/22 Unknown Urine Blood Neg (Negative) 02/07/22 Unknown Urine Nitrite Neg (Negative) 02/07/22 Unknown Urine Bilirubin Neg (Negative) 02/07/22 Unknown Urine Urobilinogen < 2.0 mg/dL (<2.0) 02/07/22 Unknown Ur Leukocyte Esterase Neg (Negative) 02/07/22 Unknown Urine WBC (Auto) 1.0 /HPF (0.0-6.0) 02/07/22 Unknown Urine RBC (Auto) 2.0 /HPF (0.0-6.0) 02/07/22 Unknown U Epithel Cells (Auto) < 1.0 /HPF (0-13.0) 02/07/22 Unknown Salicylates < 0.3 mg/dL (2.8-20.0) L 02/07/22 Unknown Urine Opiates Screen Negative 02/07/22 Unknown Urine Methadone Screen Negative 02/07/22 Unknown Acetaminophen 5.0 ug/mL (10.0-30.0) L 02/07/22 Unknown Ur Barbiturates Screen Negative 02/07/22 Unknown Ur Phencyclidine Scrn Negative 02/07/22 Unknown Ur Amphetamines Screen Negative 02/07/22 Unknown U Benzodiazepines Scrn Negative 02/07/22 Unknown Urine Cocaine Screen Negative 02/07/22 Unknown U Marijuana (THC) Screen Negative 02/07/22 Unknown Drugs of Abuse Note Disclamer 02/07/22 Unknown Plasma/Serum Alcohol < 0.01 % (0-0.07) 02/07/22 Unknown Microbiology: Microbiology 02/07/22 16:42 Peripheral/Venous Blood Culture - Preliminary NO GROWTH AFTER 48 HOURS 02/07/22 16:42 Peripheral/Venous Blood Culture - Preliminary NO GROWTH AFTER 48 HOURS Alexandre/IV: Voiding Method Incontinent Active Medications - Current Medications Current Medications: Generic Name Dose Route Start Last Admin Trade Name Freq PRN Reason Stop Dose Admin Acetaminophen 650 mg 02/07/22 20:27 Acetaminophen 325 Mg Tab PO Q4H PRN Pain MILD(1-3)/Fever >100.5/AVILES Albuterol 2.5 mg 02/08/22 07:30 Albuterol 2.5 Mg/3 Ml Nebu IH Q3HRT PRN Wheezing Albuterol/Ipratropium 1 ampul 02/08/22 08:00 02/09/22 21:24 Ipratropium/Albuterol Sulfate 3 Ml Ampul.Neb IH 1 ampul QIDRT REBECCA Administration Dextrose 50 ml 02/08/22 10:30 Dextrose 50% In Water (25gm) 50 Ml Syringe IV Q30MIN PRN Hypoglycemia Protocol Famotidine 40 mg 02/09/22 22:00 02/09/22 22:47 Famotidine 20 Mg Tab PO 40 mg QHS REBECCA Administration Heparin Sodium (Porcine) 5,000 unit 02/07/22 22:00 02/09/22 22:48 Heparin 5,000 Unit/1 Ml Vial SUB-Q 5,000 unit Q12HR REBECCA Administration Hydralazine HCl 10 mg 02/07/22 21:03 02/07/22 21:13 Hydralazine 20 Mg/1 Ml Inj IV 02/13/22 21:02 10 mg Q6HR PRN Administration Blood Pressure Hydrophilic Ointment 1 applic 02/07/22 14:58 Lip Therapy Vaseline TP Q2HR PRN Dry Lips Azithromycin 500 mg in 250 mls @ 250 mls/hr 02/08/22 17:00 02/09/22 16:47 Zithromax/Ns IV 02/11/22 17:59 250 mls/hr Q24H REBECCA Administration Ceftriaxone Sodium 2 gm in 100 mls @ 200 mls/hr 02/08/22 18:00 02/09/22 17:47 Rocephin/Ns 2 Gm/100 Ml IV 200 mls/hr Q24H REBECCA Administration Protocol Sodium Chloride 1,000 mls @ 75 mls/hr 02/09/22 15:00 02/10/22 06:56 Nacl 0.45% 1000 Ml IV 75 mls/hr DIRECT REBECCA Administration Insulin Glargine 10 units 02/09/22 22:00 02/09/22 22:47 Insulin Glargine 100 Units/Ml SUB-Q 10 units QHS REBECCA Administration Insulin Human Regular 0 units 02/09/22 22:00 02/09/22 22:48 Insulin Regular, Human 100 Units/1 Ml SUB-Q 2 units ACHS REBECCA Administration Protocol Levetiracetam 1,000 mg 02/10/22 10:00 Levetiracetam 500 Mg Tab PO BID REBECCA Metoclopramide HCl 10 mg 02/07/22 20:27 Metoclopramide 10 Mg/2 Ml Inj IV Q6H PRN Nausea And Vomiting Morphine Sulfate 2 mg 02/07/22 20:27 Morphine 2 Mg/1 Ml Inj IV Q4H PRN Pain, Moderate (4-6) Multi-Ingred Cream/Lotion/Oil/Oint 1 applic 02/07/22 14:58 02/09/22 11:40 Mineral Oil/Petrolatum, White Ophth Oint 3.5 Gm OU 1 applic Q4HR PRN Administration Dry Eye(s) Ondansetron HCl 4 mg 02/07/22 20:27 02/09/22 18:29 Ondansetron 4 Mg/2 Ml Inj IV 4 mg Q8H PRN Administration Nausea And Vomiting Senna/Docusate Sodium 1 tab 02/09/22 22:00 02/09/22 22:47 Sennosides/Docusate Sodium 8.6/50 Mg Tab PO 1 tab QHS REBECCA Administration Sodium Chloride 10 ml 02/07/22 22:00 02/09/22 22:48 Sodium Chloride 0.9% 10 Ml Flush Syringe IV 10 ml BID REBECCA Administration Sodium Chloride 10 ml 02/07/22 20:27 Sodium Chloride 0.9% 10 Ml Flush Syringe IV PRN PRN LINE FLUSH Nutrition/Malnutrition Assess - Dietary Evaluation Nutrition/Malnutrition Findings: Nutrition Notes Start: 02/08/22 14:02 Freq: Status: Active Protocol: Document 02/08/22 14:26 SHAYNE (Rec: 02/08/22 14:56 SHAYNE [email or web address]) Nutrition Notes Need for Assessment generated from: 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 Current Diet NPO (since 02/07 16:41), TF- Glucerna 1.2 Ranjan @ 70 ml/hr ( from B 02/09). Labs/Tests 02/08: Glu 184, HbA1c 9.2. Pertinent Medications 02/08: Propofol @ 2.449 ml/hr (65 Kcal), others nutritionally unremarkable. Height 6 ft 1 in Weight 84.5 kg [place] Body Weight (kg) 83.63 BMI 24.5 Intake Prior to Admission Good Weight change and time frame Pt states being unsure if loss body weight [employer]. Weight Status Appropriate Subjective/Other Information RD consult for evaluation of nutritional intake, difficulty chewing and risk of malnutrition assessments, and write/manage TF. Pt has been on NPO since admission. Pt is on Mechanical Ventilation, O2 saturation @ 100%, according to Physical Assessment History notes. I will prescribe and order TF. Pt shows no signs of concern for risk of malnutrition at the time, according to Physical Assessment History notes. Swallowing and chewing evaluation have not been performed, due to Pt's being on Mechanical ventilation. Pt will possibly be extubated later today, according to Progress notes. Percent of energy/protein needs met: Pt has been on NPO since admission. Prescribed TF-Glucerna 1.2 Ranjan @ 70 ml/hr provides for energy/protein needs (2,020 Kcal/101 g) during LOS, 95% Kcal; 99% AA. Including Propofol, increases to 98% Kcal; 99% AA. Burn Absent Trauma Absent GI Symptoms None Food Allergy No Skin Integrity/Comment Assessment WNL. Current % PO Other Minimum of two criteria No #1 Nutrition Diagnosis Inadequate oral intake Comments: Pt will possibly be extubated later today (02/08), according to Progress notes. Etiology Pt on Mechanical Ventilation. As Evidenced by Signs and Symptoms Pt has been on NPO since admission. Is patient on ventilator? Yes Is Patient Ambulatory and/or Out of Bed No REE-([facility]-confined to bed) 2132.148 Calculation Used for Recommendations Kcal/kg Additional Notes Protein: 1.2-2 g/Kg ABW; 102- 170 g/day. Fluids: 1 ml/Kcal, or as per MD. Nutrition Intervention Nutrition Support: Start Glucerna 1.2 Ranjan @ 70 ml /hr. Flush: 130 ml water Q 4 hr, or as per MD. Kcal 2,020 Protein (gm) 101 Carbohydrates (gm) 193 Fat (gm) 101 Fluid (mL) 1,355 Fiber (gm) 27 % RDI: 95% Kcal; 99% AA. Goal #1 Provide at least 75% of energy /protein needs through Enteral Feeding during LOS. Goal #2 Maintain body weight within +/ -3% of admission body weight during LOS. Follow-Up By: 02/11/22 Additional Comments Start monitoring TF tolerance and BM.
--- NOTE | 2022-02-09 12:38 | Progress Note ---
Assessment and Plan Impression: Acute respiratory failure, on mechanical ventilator. Seizure disorder Chronic lung disease possible sarcoidosis based on previous history Dyspnea and hypoxemia. Diabetes mellitus. History of right MCA stroke in the past Concerned about developing mild metabolic acidosis, elevated lactic acid and some drop in blood pressure. Rule out sepsis. Recommendation: Continue with antibiotic therapy. Will keep in ICU for another day for observation and monitoring. Continue with control of seizure with Keppra Continue with antibiotic and steroids and inhaled bronchodilators Consider echocardiogram and CT of the chest Total critical care time 31-minute Subjective Date of service: 02/09/22 Interval history: Patient was successfully intubated yesterday afternoon. Patient is doing quite well with no significant respiratory issue. He reports having sarcoidosis diagnosed on a lung biopsy in 2003 and currently not receiving any treatment. He does have some shortness of breath with exertion prior to admission. Objective - Exam Narrative Exam: Gen: nad, well-nourished, intubated; Head: normocephalic; Eyes: no gaze deviation; no ptosis appreciated; ENT: +ETT; CVS: warm and well-perfused; Pulm: no respiratory distress; GI: appears non-distended; Ext: no cyanosis appreciated at distal extremities; Skin: no acute rash or hives appreciated at distal extremities; Heme: no pathologic ecchymosis appreciated at distal extremities; Neuro: obtunded, intubated, CN 2 - sluggish reactive pupils, CN 3, 4, 6 - oculocephalic absent, CN 5/7 - corneal reflex intact, CN 9/10 - cough reflex noted, CN 11/12 - pt cannot cooperate secondary to LOC; Motor/Sensory - at least 1+/5 at right exts and 0/5 at left exts to tactile stimuli; Cerebellar/Gait - pt cannot cooperate secondary to LOC; Vital Signs - 12hr 02/09/22 02/09/22 02/09/22 00:45 01:00 01:15 Temperature Pulse Rate 90 84 130 H Pulse Rate [ Bilateral] Pulse Rate [ From Monitor] Respiratory 16 15 42 H Rate Respiratory Rate [Bilateral ] Blood Pressure 98/65 87/52 87/52 O2 Sat by Pulse Oximetry 02/09/22 02/09/22 02/09/22 01:31 01:45 02:00 Temperature Pulse Rate 85 84 81 Pulse Rate [ Bilateral] Pulse Rate [ From Monitor] Respiratory 18 16 11 L Rate Respiratory Rate [Bilateral ] Blood Pressure 87/52 87/52 102/71 O2 Sat by Pulse 99 100 88 Oximetry 02/09/22 02/09/22 02/09/22 02:15 02:31 02:45 Temperature Pulse Rate 83 82 Pulse Rate [ Bilateral] Pulse Rate [ From Monitor] Respiratory 15 15 24 Rate Respiratory Rate [Bilateral ] Blood Pressure 102/71 102/71 102/71 O2 Sat by Pulse 100 100 Oximetry 02/09/22 02/09/22 02/09/22 03:00 03:15 03:31 Temperature Pulse Rate 89 83 84 Pulse Rate [ Bilateral] Pulse Rate [ From Monitor] Respiratory 33 H 18 16 Rate Respiratory Rate [Bilateral ] Blood Pressure 115/89 115/89 115/89 O2 Sat by Pulse 99 100 100 Oximetry 02/09/22 02/09/22 02/09/22 03:45 03:55 04:00 Temperature 97.8 F Pulse Rate 93 H 86 Pulse Rate [ Bilateral] Pulse Rate [ 94 H From Monitor] Respiratory 25 H 16 Rate Respiratory Rate [Bilateral ] Blood Pressure 115/89 O2 Sat by Pulse 96 Oximetry 02/09/22 02/09/22 02/09/22 04:01 04:31 04:45 Temperature Pulse Rate 97 H 90 87 Pulse Rate [ Bilateral] Pulse Rate [ From Monitor] Respiratory 34 H 17 21 Rate Respiratory Rate [Bilateral ] Blood Pressure 115/89 128/95 128/95 O2 Sat by Pulse Oximetry 02/09/22 02/09/22 02/09/22 05:00 05:15 05:31 Temperature Pulse Rate 86 88 89 Pulse Rate [ Bilateral] Pulse Rate [ From Monitor] Respiratory 32 H 18 21 Rate Respiratory Rate [Bilateral ] Blood Pressure 106/41 106/41 106/41 O2 Sat by Pulse Oximetry 02/09/22 02/09/22 02/09/22 05:45 06:00 06:20 Temperature Pulse Rate 89 Pulse Rate [ Bilateral] Pulse Rate [ From Monitor] Respiratory 22 30 H Rate Respiratory Rate [Bilateral ] Blood Pressure 106/41 114/81 114/81 O2 Sat by Pulse Oximetry 02/09/22 02/09/22 02/09/22 06:31 07:00 07:22 Temperature 98.9 F Pulse Rate 86 84 Pulse Rate [ Bilateral] Pulse Rate [ From Monitor] Respiratory 18 20 Rate Respiratory Rate [Bilateral ] Blood Pressure 114/81 94/46 O2 Sat by Pulse Oximetry 02/09/22 02/09/22 02/09/22 08:00 08:01 08:10 Temperature Pulse Rate 88 89 Pulse Rate [ 92 H Bilateral] Pulse Rate [ 84 From Monitor] Respiratory 17 16 Rate Respiratory 16 Rate [Bilateral ] Blood Pressure 107/90 O2 Sat by Pulse 100 Oximetry 02/09/22 02/09/22 02/09/22 09:00 10:00 10:27 Temperature Pulse Rate 87 88 Pulse Rate [ Bilateral] Pulse Rate [ From Monitor] Respiratory 13 16 Rate Respiratory Rate [Bilateral ] Blood Pressure 107/79 117/85 O2 Sat by Pulse 100 100 Oximetry 02/09/22 11:37 Temperature 98.0 F Pulse Rate Pulse Rate [ Bilateral] Pulse Rate [ From Monitor] Respiratory Rate Respiratory Rate [Bilateral ] Blood Pressure O2 Sat by Pulse Oximetry Constitutional: no acute distress, alert, appears uncomfortable, other Eyes: non-icteric ENT: oropharynx moist Neck: supple, no lymphadenopathy, no JVD Effort: normal Ascultation: Bilateral: diminished breath sounds Cardiovascular: regular rate and rhythm Gastrointestinal: normoactive bowel sounds, soft, non-tender Extremities: no cyanosis Neurologic: normal mental status CBC and BMP: 02/09/22 04:19 02/09/22 04:19 ABG, PT/INR, D-dimer: ABG ABG pH 7.393 pH Units (7.350-7.450) 02/08/22 16:03 ABG pCO2 37.0 mm Hg 02/08/22 16:03 ABG pO2 76.4 mm Hg (80.0-90.0) L 02/08/22 16:03 ABG O2 Saturation 95.6 % (95.0-99.0) 02/08/22 16:03 PT/INR, D-dimer PT 17.2 Sec. (12.2-14.9) H 02/07/22 Unknown INR 1.25 (0.87-1.13) H 02/07/22 Unknown Abnormal lab findings: Abnormal Labs 02/07/22 02/07/22 02/07/22 11:56 16:42 16:51 WBC RBC Hct MCV MCH MCHC RDW Lymph % (Auto) Lymph # (Auto) Seg Neutrophils % Monocytes % (Manual) Seg Neutrophils # Seg Neutrophils # Man Monocytes # (Manual) Basophils # (Manual) PT INR ABG pO2 ABG O2 Saturation ABG Base Excess ABG Hemoglobin Oxyhemoglobin Chloride Carbon Dioxide BUN Creatinine Glucose POC Glucose 131 H 320 H Hemoglobin A1c Lactic Acid 16.80 H* Total Bilirubin AST ALT Alkaline Phosphatase Total Creatine Kinase Salicylates Acetaminophen 02/07/22 02/07/22 02/07/22 18:30 19:36 Unknown WBC 17.1 H RBC 5.46 H Hct 46.4 H MCV MCH MCHC RDW 17.6 H Lymph % (Auto) Lymph # (Auto) Seg Neutrophils % Monocytes % (Manual) 10.0 H Seg Neutrophils # Seg Neutrophils # Man 8.2 H Monocytes # (Manual) 1.7 H Basophils # (Manual) 0.2 H PT INR ABG pO2 161.1 H ABG O2 Saturation 99.7 H ABG Base Excess ABG Hemoglobin 13.1 L Oxyhemoglobin Chloride Carbon Dioxide BUN Creatinine Glucose POC Glucose Hemoglobin A1c Lactic Acid 2.20 H* Total Bilirubin AST ALT Alkaline Phosphatase Total Creatine Kinase Salicylates Acetaminophen 02/07/22 02/07/22 02/07/22 Unknown Unknown Unknown WBC RBC Hct MCV MCH MCHC RDW Lymph % (Auto) Lymph # (Auto) Seg Neutrophils % Monocytes % (Manual) Seg Neutrophils # Seg Neutrophils # Man Monocytes # (Manual) Basophils # (Manual) PT 17.2 H INR 1.25 H ABG pO2 ABG O2 Saturation ABG Base Excess ABG Hemoglobin Oxyhemoglobin Chloride 96.3 L Carbon Dioxide 14 L BUN Creatinine 1.4 H Glucose 190 H POC Glucose Hemoglobin A1c Lactic Acid Total Bilirubin 1.30 H AST ALT Alkaline Phosphatase 141 H Total Creatine Kinase 279 H Salicylates < 0.3 L Acetaminophen 02/07/22 02/08/22 02/08/22 Unknown 01:27 04:07 WBC 15.0 H RBC 5.57 H Hct MCV 82 L MCH 26 L MCHC 31 L RDW 16.9 H Lymph % (Auto) 5.3 L Lymph # (Auto) 0.8 L Seg Neutrophils % 89.3 H Monocytes % (Manual) Seg Neutrophils # 13.4 H Seg Neutrophils # Man Monocytes # (Manual) Basophils # (Manual) PT INR ABG pO2 ABG O2 Saturation ABG Base Excess ABG Hemoglobin Oxyhemoglobin Chloride Carbon Dioxide BUN Creatinine Glucose POC Glucose 264 H Hemoglobin A1c Lactic Acid Total Bilirubin AST ALT Alkaline Phosphatase Total Creatine Kinase Salicylates Acetaminophen 5.0 L 05/06/22 05/06/22 05/06/22 04:07 04:07 04:09 WBC RBC Hct MCV MCH MCHC RDW Lymph % (Auto) Lymph # (Auto) Seg Neutrophils % Monocytes % (Manual) Seg Neutrophils # Seg Neutrophils # Man Monocytes # (Manual) Basophils # (Manual) PT INR ABG pO2 ABG O2 Saturation ABG Base Excess ABG Hemoglobin 13.4 L Oxyhemoglobin Chloride Carbon Dioxide BUN Creatinine Glucose 184 H POC Glucose Hemoglobin A1c 9.2 H Lactic Acid Total Bilirubin AST 80 H ALT 63 H Alkaline Phosphatase 150 H Total Creatine Kinase Salicylates Acetaminophen 02/08/22 02/08/22 02/08/22 05:31 11:36 16:03 WBC RBC Hct MCV MCH MCHC RDW Lymph % (Auto) Lymph # (Auto) Seg Neutrophils % Monocytes % (Manual) Seg Neutrophils # Seg Neutrophils # Man Monocytes # (Manual) Basophils # (Manual) PT INR ABG pO2 76.4 L ABG O2 Saturation ABG Base Excess -2.4 L ABG Hemoglobin 12.7 L Oxyhemoglobin 93.8 L Chloride Carbon Dioxide BUN Creatinine Glucose POC Glucose 183 H 153 H Hemoglobin A1c Lactic Acid Total Bilirubin AST ALT Alkaline Phosphatase Total Creatine Kinase Salicylates Acetaminophen 02/08/22 02/08/22 02/09/22 17:58 23:57 04:19 WBC 14.5 H RBC Hct MCV 83 L MCH 26 L MCHC 31 L RDW 16.9 H Lymph % (Auto) Lymph # (Auto) Seg Neutrophils % Monocytes % (Manual) Seg Neutrophils # Seg Neutrophils # Man Monocytes # (Manual) Basophils # (Manual) PT INR ABG pO2 ABG O2 Saturation ABG Base Excess ABG Hemoglobin Oxyhemoglobin Chloride Carbon Dioxide BUN Creatinine Glucose POC Glucose 166 H 162 H Hemoglobin A1c Lactic Acid Total Bilirubin AST ALT Alkaline Phosphatase Total Creatine Kinase Salicylates Acetaminophen 02/09/22 02/09/22 02/09/22 04:19 04:19 05:12 WBC RBC Hct MCV MCH MCHC RDW Lymph % (Auto) Lymph # (Auto) Seg Neutrophils % Monocytes % (Manual) Seg Neutrophils # Seg Neutrophils # Man Monocytes # (Manual) Basophils # (Manual) PT INR ABG pO2 ABG O2 Saturation ABG Base Excess ABG Hemoglobin Oxyhemoglobin Chloride Carbon Dioxide 18 L BUN 26 H Creatinine Glucose 170 H POC Glucose 175 H Hemoglobin A1c Lactic Acid 5.00 H* Total Bilirubin AST ALT Alkaline Phosphatase Total Creatine Kinase Salicylates Acetaminophen Chest x-ray: image reviewed (Bilateral patchy changes suggestive of scarring/previous sarcoidosis, area of density in the right upper lobe may represent atelectasis or fluid in the fissure.)
--- NOTE | 2022-02-09 13:40 | Magnetic Resonance Report ---
MRI BRAIN WITHOUT AND WITH CONTRAST INDICATION / CLINICAL INFORMATION: SEIZURES. TECHNIQUE: Multiplanar, multisequence MR images of the brain were obtained. Contrast: Clairscan: 18 ml, administered intravenously. COMPARISON: None available. FINDINGS: LIMITATIONS: Patient motion artifact is limiting factor on this examination. BRAIN / INTRACRANIAL CONTENTS: A large area of encephalomalacia is observed involving portions of the right frontal operculum and subinsular region. Blood breakdown products are present in this distribu tion. Findings are related to remote right MCA infarction with presumed hemorrhagic transformation. T he infarction occurred since prior study head CT dated 09/10/2021. The brainstem and cerebellum have an unremarkable appearance. MIDLINE STRUCTURES:No abnormalities are seen to involve the pituitary gland. Pineal region has an unr emarkable appearance. CRANIOCERVICAL JUNCTION: No abnormalities are identified at the craniocervical junction. VASCULAR FLOW-VOIDS: Normal flow-voids are present within the major intracranial vessels. ORBITS: The orbits have an unremarkable appearance. SINUSES / MASTOIDS: There is no indication of inflammatory disease in the paranasal sinuses or mastoi d air cells. Following the administration of intravenous contrast enhancement of normal vascular structures is dem onstrated. There is an unusual area of abnormal contrast enhancement along the anterior margin of the right MCA infarction this appears to be a vascular structure, if arterial consider pseudoaneurysm ve nous consider varix. (Coronal postcontrast sequence series MR #[id number], image [id number] and axial postcontr ast sequence series MR #[id number] image [id number]). follow-up with CTA head suggested. No additional areas of abnormal contrast enhancement are identified. IMPRESSION: 1. Findings indicate remote right MCA infarction with hemorrhagic transformation. This occurred sin ce head CT 09/10/2021. 2. Unusual focus of abnormal contrast enhancement along the anterior margin of the patient's infarct ion. Please see above discussion. Consider CTA head for further evaluation. Signer Name: Omar Metzger MD Signed: 02/09/2022 1:36 PM Workstation Name: [id number]
[2022-02-09] MEDS ORDERED: SODIUM CHLORIDE 0.45% 1000 ML IV SOLN IV SCH (15:00)
[2022-02-09] MEDS ORDERED: levETIRAcetam 1,000 MG in DEXTROSE 5% IN WATER 100 ML IV ONE (16:00)
[2022-02-09] MEDS: SODIUM CHLORIDE 0.45% 1000 ML 1,000 ML IV SCH (16:24)
[2022-02-09] MEDS: AZITHROMYCIN/NS 500 MG/250 ML 500 MG/250 ML BAG IV SCH (16:47)
--- NOTE | 2022-02-09 17:31 | Progress Note ---
Subjective Date of service: 02/09/22 Interval history: NSGY update: consult received, images reviewed. 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 There is no significant MLS or mass effect. Therefore, there is no role for further neurosurgical intervention. Recommend continuing supportive measures and medical management. Mr. Sandoval may follow up as an outpatient as needed. Objective - Vital Sign Vital Signs - 12hr 02/09/22 02/09/22 02/09/22 05:31 05:45 06:00 Temperature Pulse Rate 89 89 Pulse Rate [ Bilateral] Pulse Rate [ From Monitor] Respiratory 21 22 Rate Respiratory Rate [Bilateral ] Blood Pressure 106/41 106/41 114/81 O2 Sat by Pulse Oximetry 02/09/22 02/09/22 02/09/22 06:20 06:31 07:00 Temperature Pulse Rate 86 84 Pulse Rate [ Bilateral] Pulse Rate [ From Monitor] Respiratory 30 H 18 20 Rate Respiratory Rate [Bilateral ] Blood Pressure 114/81 114/81 94/46 O2 Sat by Pulse Oximetry 02/09/22 02/09/22 02/09/22 07: 08:00 08:01 Temperature 98.9 F Pulse Rate 88 89 Pulse Rate [ Bilateral] Pulse Rate [ 84 From Monitor] Respiratory 17 16 Rate Respiratory Rate [Bilateral ] Blood Pressure 107/90 O2 Sat by Pulse 100 Oximetry 02/09/22 02/09/22 02/09/22 08:10 09:00 10:00 Temperature Pulse Rate 87 88 Pulse Rate [ 92 H Bilateral] Pulse Rate [ From Monitor] Respiratory 13 16 Rate Respiratory 16 Rate [Bilateral ] Blood Pressure 107/79 117/85 O2 Sat by Pulse 100 Oximetry 02/09/22 02/09/22 02/09/22 10:27 11:01 11:37 Temperature 98.0 F Pulse Rate 90 Pulse Rate [ Bilateral] Pulse Rate [ From Monitor] Respiratory 14 Rate Respiratory Rate [Bilateral ] Blood Pressure 117/85 O2 Sat by Pulse 100 100 Oximetry 02/09/22 02/09/22 02/09/22 12:00 13:14 14:00 Temperature Pulse Rate 92 H 94 H 87 Pulse Rate [ Bilateral] Pulse Rate [ 92 H From Monitor] Respiratory 19 19 Rate Respiratory Rate [Bilateral ] Blood Pressure 109/85 O2 Sat by Pulse 100 99 99 Oximetry 02/09/22 02/09/22 02/09/22 15:00 15:59 16:00 Temperature 97.5 F L Pulse Rate 90 88 Pulse Rate [ 90 Bilateral] Pulse Rate [ From Monitor] Respiratory 19 14 Rate Respiratory 20 Rate [Bilateral ] Blood Pressure 112/79 107/74 O2 Sat by Pulse 100 100 Oximetry 02/09/22 17:00 Temperature Pulse Rate 90 Pulse Rate [ Bilateral] Pulse Rate [ From Monitor] Respiratory 26 H Rate Respiratory Rate [Bilateral ] Blood Pressure 112/84 O2 Sat by Pulse Oximetry - Laboratory Findings CBC and BMP: 02/09/22 04:19 02/09/22 04:19 Abnormal Lab Findings: Abnormal Labs 02/07/22 02/07/22 02/07/22 11:56 16:42 16:51 WBC RBC Hct MCV MCH MCHC RDW Lymph % (Auto) Lymph # (Auto) Seg Neutrophils % Monocytes % (Manual) Seg Neutrophils # Seg Neutrophils # Man Monocytes # (Manual) Basophils # (Manual) PT INR ABG pO2 ABG O2 Saturation ABG Base Excess ABG Hemoglobin Oxyhemoglobin Chloride Carbon Dioxide BUN Creatinine Glucose POC Glucose 131 H 320 H Hemoglobin A1c Lactic Acid 16.80 H* Total Bilirubin AST ALT Alkaline Phosphatase Total Creatine Kinase Salicylates Acetaminophen 02/07/22 02/07/22 02/07/22 18:30 19:36 Unknown WBC 17.1 H RBC 5.46 H Hct 46.4 H MCV MCH MCHC RDW 17.6 H Lymph % (Auto) Lymph # (Auto) Seg Neutrophils % Monocytes % (Manual) 10.0 H Seg Neutrophils # Seg Neutrophils # Man 8.2 H Monocytes # (Manual) 1.7 H Basophils # (Manual) 0.2 H PT INR ABG pO2 161.1 H ABG O2 Saturation 99.7 H ABG Base Excess ABG Hemoglobin 13.1 L Oxyhemoglobin Chloride Carbon Dioxide BUN Creatinine Glucose POC Glucose Hemoglobin A1c Lactic Acid 2.20 H* Total Bilirubin AST ALT Alkaline Phosphatase Total Creatine Kinase Salicylates Acetaminophen 02/07/22 02/07/22 02/07/22 Unknown Unknown Unknown WBC RBC Hct MCV MCH MCHC RDW Lymph % (Auto) Lymph # (Auto) Seg Neutrophils % Monocytes % (Manual) Seg Neutrophils # Seg Neutrophils # Man Monocytes # (Manual) Basophils # (Manual) PT 17.2 H INR 1.25 H ABG pO2 ABG O2 Saturation ABG Base Excess ABG Hemoglobin Oxyhemoglobin Chloride 96.3 L Carbon Dioxide 14 L BUN Creatinine 1.4 H Glucose 190 H POC Glucose Hemoglobin A1c Lactic Acid Total Bilirubin 1.30 H AST ALT Alkaline Phosphatase 141 H Total Creatine Kinase 279 H Salicylates < 0.3 L Acetaminophen 02/07/22 02/08/22 02/08/22 Unknown 01:27 04:07 WBC 15.0 H RBC 5.57 H Hct MCV 82 L MCH 26 L MCHC 31 L RDW 16.9 H Lymph % (Auto) 5.3 L Lymph # (Auto) 0.8 L Seg Neutrophils % 89.3 H Monocytes % (Manual) Seg Neutrophils # 13.4 H Seg Neutrophils # Man Monocytes # (Manual) Basophils # (Manual) PT INR ABG pO2 ABG O2 Saturation ABG Base Excess ABG Hemoglobin Oxyhemoglobin Chloride Carbon Dioxide BUN Creatinine Glucose POC Glucose 264 H Hemoglobin A1c Lactic Acid Total Bilirubin AST ALT Alkaline Phosphatase Total Creatine Kinase Salicylates Acetaminophen 5.0 L 02/08/22 02/08/22 02/08/22 04:07 04:07 04:09 WBC RBC Hct MCV MCH MCHC RDW Lymph % (Auto) Lymph # (Auto) Seg Neutrophils % Monocytes % (Manual) Seg Neutrophils # Seg Neutrophils # Man Monocytes # (Manual) Basophils # (Manual) PT INR ABG pO2 ABG O2 Saturation ABG Base Excess ABG Hemoglobin 13.4 L Oxyhemoglobin Chloride Carbon Dioxide BUN Creatinine Glucose 184 H POC Glucose Hemoglobin A1c 9.2 H Lactic Acid Total Bilirubin AST 80 H ALT 63 H Alkaline Phosphatase 150 H Total Creatine Kinase Salicylates Acetaminophen 02/08/22 02/08/22 02/08/22 05:31 11:36 16:03 WBC RBC Hct MCV MCH MCHC RDW Lymph % (Auto) Lymph # (Auto) Seg Neutrophils % Monocytes % (Manual) Seg Neutrophils # Seg Neutrophils # Man Monocytes # (Manual) Basophils # (Manual) PT INR ABG pO2 76.4 L ABG O2 Saturation ABG Base Excess -2.4 L ABG Hemoglobin 12.7 L Oxyhemoglobin 93.8 L Chloride Carbon Dioxide BUN Creatinine Glucose POC Glucose 183 H 153 H Hemoglobin A1c Lactic Acid Total Bilirubin AST ALT Alkaline Phosphatase Total Creatine Kinase Salicylates Acetaminophen 02/08/22 02/08/22 02/09/22 17:58 23:57 04:19 WBC 14.5 H RBC Hct MCV 83 L MCH 26 L MCHC 31 L RDW 16.9 H Lymph % (Auto) Lymph # (Auto) Seg Neutrophils % Monocytes % (Manual) Seg Neutrophils # Seg Neutrophils # Man Monocytes # (Manual) Basophils # (Manual) PT INR ABG pO2 ABG O2 Saturation ABG Base Excess ABG Hemoglobin Oxyhemoglobin Chloride Carbon Dioxide BUN Creatinine Glucose POC Glucose 166 H 162 H Hemoglobin A1c Lactic Acid Total Bilirubin AST ALT Alkaline Phosphatase Total Creatine Kinase Salicylates Acetaminophen 02/09/22 02/09/22 02/09/22 04:19 04:19 05:12 WBC RBC Hct MCV MCH MCHC RDW Lymph % (Auto) Lymph # (Auto) Seg Neutrophils % Monocytes % (Manual) Seg Neutrophils # Seg Neutrophils # Man Monocytes # (Manual) Basophils # (Manual) PT INR ABG pO2 ABG O2 Saturation ABG Base Excess ABG Hemoglobin Oxyhemoglobin Chloride Carbon Dioxide 18 L BUN 26 H Creatinine Glucose 170 H POC Glucose 175 H Hemoglobin A1c Lactic Acid 5.00 H* Total Bilirubin AST ALT Alkaline Phosphatase Total Creatine Kinase Salicylates Acetaminophen 02/09/22 02/09/22 02/09/22 07:46 11:15 13:25 WBC RBC Hct MCV MCH MCHC RDW Lymph % (Auto) Lymph # (Auto) Seg Neutrophils % Monocytes % (Manual) Seg Neutrophils # Seg Neutrophils # Man Monocytes # (Manual) Basophils # (Manual) PT INR ABG pO2 ABG O2 Saturation ABG Base Excess ABG Hemoglobin Oxyhemoglobin Chloride Carbon Dioxide BUN Creatinine Glucose POC Glucose 137 H 158 H Hemoglobin A1c Lactic Acid 2.30 H* Total Bilirubin AST ALT Alkaline Phosphatase Total Creatine Kinase Salicylates Acetaminophen
[2022-02-09] MEDS: cefTRIAXone/NS 2 GM/100 ML 2 GM/100 ML BAG IV SCH (17:47)
[2022-02-09] MEDS: SENNOSIDES/DOCUSATE SODIUM 8.6/50 MG TAB PO SCH (22:47)
[2022-02-09] MEDS: FAMOTIDINE 20 MG TAB PO SCH (22:47)
[2022-02-09] MEDS: INSULIN GLARGINE 100 UNITS/ML SUB-Q SCH (22:47)
[2022-02-10 05:14] LABS: Hematocrit 37.8 % (35.5-45.6); Hemoglobin 11.9 gm/dl (11.8-15.2); Mean Corpuscular HGB Conc 31 % (32-34); Mean Corpuscular Volume 83 fl (84-94); Platelet Count 272 K/mm3 (140-440); Red Blood Count 4.54 M/mm3 (3.65-5.03)
[2022-02-10 05:27] LABS: Alanine Aminotransferase 57 units/L (7-56); Albumin 3.9 g/dL (3.9-5); BUN/Creatinine Ratio 25; Blood Urea Nitrogen 27 mg/dL (9-20); Calcium 8.3 mg/dL (8.4-10.2); Hemolysis Index 3
[2022-02-10] MEDS: SODIUM CHLORIDE 0.45% 1000 ML 1,000 ML IV SCH (06:56)
[2022-02-10] MEDS: IPRATROPIUM/ALBUTEROL SULFATE 3 ML AMPUL.NEB IH SCH ×4 (08:53→21:48)
--- NOTE | 2022-02-10 09:43 | Ultrasound Report ---
Limited abdominal ultrasound INDICATION: Abdominal pain FINDINGS: Aorta and IVC visualized appears normal. Pancreas appears normal. Spleen and left kidney ar e unremarkable. Right kidney measures 10.1 cm. Gallbladder wall is thickened measuring 4 mm. No peric holecystic fluid. No large gallstones. Common bile measures 3 mm. Liver appears normal. IMPRESSION: Gallbladder wall thickening. No definite gallstones or pericholecystic fluid. Clinical correlation. Signer Name: Jaron Cortez MD Signed: 02/10/2022 9:39 AM Workstation Name: [id number]
--- NOTE | 2022-02-10 09:46 | Progress Note ---
<NIK ETIENNEMari - Last Filed: 02/10/22 10:52> Assessment and Plan Assessment and plan: This is a 47-year-old male with a right MCA infarct, DM, sarcoidosis admitted with acute hypoxic respiratory failure, seizures and possible sepsis secondary to pneumonia. Neuro: Seizure, H/O right MCA infarct (2020) with left sided deficits -Avoid delirium -Reorientation as needed -Maintain sleep-wake cycle -aspiration/seizure precautions -As needed analgesia -CT head showed no acute intracranial abnormality, moderate areas of chronic ischemia in the right MCA distribution -CTA head and neck showed no occlusion or significant stenosis of the major intracranial or carotid or vertebral arteries. -Neurology consulted, appreciate recommendations -PO Keppra -MRI brain shows findings indicating remote right MCA infarct with hemorrhagic transformation, unusual focus of abnormal contrast-enhancement along the anterior margin of the infarction -Neurosurgery consulted, appreciate recommendations -Per neurosurgery: No neurosurgical intervention indicated at this time, continue supportive care, outpatient follow-up as needed. -EEG pending Cardiac: NAD -Blood pressure monitoring per protocol -As needed IV hydralazine Respiratory: Acute hypoxic respiratory failure, h/o sarcoidosis, former smoker -CTA h/n shows severe emphysema with worsening soft tissue seen along the right helium which appears to extend into the mediastinum resulting in narrowing of the right pulmonary artery and bronchi which raises concern for neoplasm CT of chest with contrast is recommended by radiology -CCM consulted, appreciate recommendations -Intubated on 02/07 with 7.5 OETT and extubated 02/08 -Weaned to NC -Pulmonary hygiene -Supplemental oxygenation as needed -SPO2 monitoring GI: Transminitis, mild protein calorie malnutrition -24 hours +95 mL -PPI -CC diet -BR: Senokot -Trend LFTs -Liver ultrasound shows Gallbladder wall thickening, no definite gallstones or pericholecystic fluid : Acute kidney injury 2/2 vasomotor nephropathy (resolved), metabolic acidosis (resolved) -Admit labs Cr/BUN 1.4/11 -s/p 3 L IVF in ED, 1500 IVF in ICU -Strict intake and output -Renally dose medications -Avoid nephrotoxic medications -Daily weights -Trend BMP -MIVF for 2 L ID: Sepsis 2/2 to PNA, lactic acidosis -POA with leukocytosis, LA, density on imaging -CXR showed increased density in the right lung apex -Initial LA 16 but repeat 2.2 then 5 and repeat 1.6/1.9 -s/p 3L NS in ED and 1.5 in ICU -Antibiotic therapy with cefepime and azithro -f/u blood culture -Monitor WBC and temperature curve -Trend LA Endo: h/o DM -Hbg A1C 9.2 -Avoid hypoglycemia -SSI -Accu-Cheks q.6 Heme: Leukocytosis (resolved) -Trend CBC -Transfuse hemoglobin less than 7 -Heparin subq -Monitor for signs of bleeding -SCDs to BLE while in bed The high probability of a clinically significant, sudden or life threatening deterioration of the [pulm/neuro] system(s) required my full and direct attention, intervention and personal management. The aggregate critical care time was [60] minutes. This time is in addition to time spent performing reported procedures but includes the following: [x] Data Review and interpretation [x] Patient assessment and monitoring of vital signs [x] Documentation [x] Medication orders and management Disposition Plan: imcu Total Time Spent with Patient (Minutes): 60 History Interval history: This is a 47-year-old male with sarcoidosis, right MCA infarct (2020), former tobacco abuse, diabetes mellitus who presented to the emergency department on 02/07 with increasing shortness of breath and while in the ED patient had a s eizure and was intubated for airway protection. Work-up in the emergency department revealed leukocytosis, acute kidney injury, metabolic acidosis and imaging was read as possible pneumonia. Patient was initiated on sepsis protocol and admitted to the hospitalist service with consults to CCM and n eurology. Hospital course to date: 02/08: Patient sedated on fentanyl which has been weaned and patient is currently on pressure support trial. We will continue antibiotic therapy with ceftriaxone and azithromycin but discontinued steroid therapy. 02/09: Patient had hypotension overnight and received IVF. This morning he has lactic acidosis and a repeat LA is pending. LR bolus. Pharmacy has concerns about LR with Rocephin forming participates and causing renal failure. Lr IVF cancelled, will give IVF NS. Metabolic acidosis noted. Unequal pupils however no new neuro deficits (LUE altered sensation with drift, Left facial droop fom previous CVA per pt) and he is AAOX4. Complaining of dry eye and given cellulose drops. Pending MRI brain w and w/o con. 5/8: IVF duration changed to 2 bags total, no neuro changes, nsg input appreciated. LFTs trending in right direction, MA resolved. Hospitalist Physical - Constitutional Vitals: Temp Pulse Resp BP Pulse Ox 97.4 F L 78 15 108/80 100 02/10/22 07:08 02/10/22 08:56 02/10/22 08:56 02/10/22 07:01 02/10/22 08:56 General appearance: Present: no acute distress, well-nourished - EENT Eyes: Present: EOM intact. Absent: PERRL (L>R pupil but round, reactive to li ght and acomodation) ENT: hearing intact, dentition normal - Neck Neck: Present: normal ROM - Respiratory Respiratory effort: normal Respiratory: bilateral: diminished - Cardiovascular Rhythm: regular Heart Sounds: Present: S1 & S2. Absent: systolic murmur, diastolic murmur - Extremities Extremities: no ischemia, pulses intact, pulses symmetrical, Full ROM Extremity abnormal: edema - Peripheral Assessment Left Upper Extremity Edema Type: Non-pitting Capillary Refill: < 3 seconds Skin Temperature: Warm Peripheral Pulses: within normal limits - Abdominal General gastrointestinal: soft, non-tender, non-distended, normal bowel sounds - Integumentary Integumentary: Present: warm, dry - Psychiatric Psychiatric: appropriate mood/affect, cooperative - Neurologic Neurologic: CNII-XII intact, focal deficits (Left facila droop, LUE drift), moves all extremities - Allied Health Allied health notes reviewed: nursing HEART Score - HEART Score Age: 45-65 Risk factors: 1-2 risk factors Troponin: Troponin T 0.010 ng/mL (0.00-0.029) 02/07/22 Unknown Troponin: < normal limit - Critical Actions Critical Actions: 0-3 pts:0.9-1.7%risk of adverse cardiac event.Candidate for discharge Results - Labs CBC & Chem 7: 02/10/22 04:00 02/10/22 04:00 Labs: Laboratory Last Values WBC 9.7 K/mm3 (4.5-11.0) 02/10/22 04:00 RBC 4.54 M/mm3 (3.65-5.03) 02/10/22 04:00 Hgb 11.9 gm/dl (11.8-15.2) 02/10/22 04:00 Hct 37.8 % (35.5-45.6) 02/10/22 04:00 MCV 83 fl (84-94) L 02/10/22 04:00 MCH 26 pg (28-32) L 02/10/22 04:00 MCHC 31 % (32-34) L 02/10/22 04:00 RDW 17.0 % (13.2-15.2) H 02/10/22 04:00 Plt Count 272 K/mm3 (140-440) 02/10/22 04:00 Lymph % (Auto) 5.3 % (13.4-35.0) L 02/08/22 04:07 Phelps % (Auto) 4.8 % (0.0-7.3) 02/08/22 04:07 Eos % (Auto) 0.0 % (0.0-4.3) 02/08/22 04:07 Baso % (Auto) 0.6 % (0.0-1.8) 02/08/22 04:07 Lymph # (Auto) 0.8 K/mm3 (1.2-5.4) L 02/08/22 04:07 Phelps # (Auto) 0.7 K/mm3 (0.0-0.8) 02/08/22 04:07 Eos # (Auto) 0.0 K/mm3 (0.0-0.4) 02/08/22 04:07 Baso # (Auto) 0.1 K/mm3 (0.0-0.1) 02/08/22 04:07 Add Manual Diff Complete 02/07/22 Unknown Total Counted 100 02/07/22 Unknown Seg Neutrophils % 89.3 % (40.0-70.0) H 02/08/22 04:07 Seg Neuts % (Manual) 48.0 % (40.0-70.0) 02/07/22 Unknown Band Neutrophils % 0 % 02/07/22 Unknown Lymphocytes % (Manual) 30.0 % (13.4-35.0) 02/07/22 Unknown Reactive Lymphs % (Man) 11.0 % 02/07/22 Unknown Monocytes % (Manual) 10.0 % (0.0-7.3) H 02/07/22 Unknown Eosinophils % (Manual) 0 % (0.0-4.3) 02/07/22 Unknown Basophils % (Manual) 1.0 % (0.0-1.8) 02/07/22 Unknown Metamyelocytes % 0 % 02/07/22 Unknown Myelocytes % 0 % 02/07/22 Unknown Promyelocytes % 0 % 02/07/22 Unknown Blast Cells % 0 % 02/07/22 Unknown Nucleated RBC % Not Reportable 02/07/22 Unknown Seg Neutrophils # 13.4 K/mm3 (1.8-7.7) H 02/08/22 04:07 Seg Neutrophils # Man 8.2 K/mm3 (1.8-7.7) H 02/07/22 Unknown Band Neutrophils # 0.0 K/mm3 02/07/22 Unknown Lymphocytes # (Manual) 5.1 K/mm3 (1.2-5.4) 02/07/22 Unknown Abs React Lymphs (Man) 1.9 K/mm3 02/07/22 Unknown Monocytes # (Manual) 1.7 K/mm3 (0.0-0.8) H 02/07/22 Unknown Eosinophils # (Manual) 0.0 K/mm3 (0.0-0.4) 02/07/22 Unknown Basophils # (Manual) 0.2 K/mm3 (0.0-0.1) H 02/07/22 Unknown Metamyelocytes # 0.0 K/mm3 02/07/22 Unknown Myelocytes # 0.0 K/mm3 02/07/22 Unknown Promyelocytes # 0.0 K/mm3 02/07/22 Unknown Blast Cells # 0.0 K/mm3 02/07/22 Unknown WBC Morphology Not Reportable 02/07/22 Unknown Hypersegmented Neuts Not Reportable 02/07/22 Unknown Hyposegmented Neuts Not Reportable 02/07/22 Unknown Hypogranular Neuts Not Reportable 02/07/22 Unknown Smudge Cells Not Reportable 02/07/22 Unknown Toxic Granulation Not Reportable 02/07/22 Unknown Toxic Vacuolation Not Reportable 02/07/22 Unknown Dohle Bodies Not Reportable 02/07/22 Unknown Pelger-Huet Anomaly Not Reportable 02/07/22 Unknown Rachel Rods Not Reportable 02/07/22 Unknown Platelet Estimate Appears decreased 02/07/22 Unknown Clumped Platelets Rare 02/07/22 Unknown Plt Clumps, EDTA Not Reportable 02/07/22 Unknown Large Platelets Not Reportable 02/07/22 Unknown Giant Platelets Not Reportable 02/07/22 Unknown Platelet Satelliting Not Reportable 02/07/22 Unknown Plt Morphology Comment Not Reportable 02/07/22 Unknown RBC Morphology Not Reportable 02/07/22 Unknown Dimorphic RBCs Not Reportable 02/07/22 Unknown Polychromasia Not Reportable 02/07/22 Unknown Hypochromasia Not Reportable 02/07/22 Unknown Poikilocytosis Rare 02/07/22 Unknown Anisocytosis Not Reportable 02/07/22 Unknown Microcytosis Not Reportable 02/07/22 Unknown Macrocytosis Not Reportable 02/07/22 Unknown Spherocytes Not Reportable 02/07/22 Unknown Pappenheimer Bodies Not Reportable 02/07/22 Unknown Sickle Cells Not Reportable 02/07/22 Unknown Target Cells Not Reportable 02/07/22 Unknown Tear Drop Cells Not Reportable 02/07/22 Unknown Ovalocytes Rare 02/07/22 Unknown Helmet Cells Not Reportable 02/07/22 Unknown [place] Bodies Not Reportable 02/07/22 Unknown Marana Rings Not Reportable 02/07/22 Unknown [place] Cells Not Reportable 02/07/22 Unknown Bite Cells Not Reportable 02/07/22 Unknown Crenated Cell Not Reportable 02/07/22 Unknown Elliptocytes Rare 02/07/22 Unknown Acanthocytes (Spur) Not Reportable 02/07/22 Unknown Rouleaux Not Reportable 02/07/22 Unknown Hemoglobin C Crystals Not Reportable 02/07/22 Unknown Schistocytes Not Reportable 02/07/22 Unknown Malaria parasites Not Reportable 02/07/22 Unknown Ten Bodies Not Reportable 02/07/22 Unknown Hem Pathologist Commnt No 02/07/22 Unknown PT 17.2 Sec. (12.2-14.9) H 02/07/22 Unknown INR 1.25 (0.87-1.13) H 02/07/22 Unknown APTT 29.2 Sec. (24.2-36.6) 02/07/22 Unknown Thrombin Time 17.0 Sec. (15.1-19.6) 02/07/22 Unknown ABG pH 7.393 pH Units (7.350-7.450) 02/08/22 16:03 ABG pCO2 37.0 mm Hg 02/08/22 16:03 ABG pO2 76.4 mm Hg (80.0-90.0) L 02/08/22 16:03 ABG HCO3 22.1 mmol/L (20.0-26.0) 02/08/22 16:03 ABG O2 Saturation 95.6 % (95.0-99.0) 02/08/22 16:03 ABG O2 Content 16.8 (0.0-44) 02/08/22 16:03 ABG Base Excess -2.4 mmol/L (-2.0-3.0) L 02/08/22 16:03 ABG Hemoglobin 12.7 gm/dl (14.0-18.0) L 02/08/22 16:03 ABG Carboxyhemoglobin 1.5 % (0.0-5.0) 02/08/22 16:03 ABG Methemoglobin 0.4 % (0.0-1.5) 02/08/22 16:03 Oxyhemoglobin 93.8 % (95.0-99.0) L 02/08/22 16:03 FiO2 25 % 02/08/22 16:03 Sodium 143 mmol/L (137-145) 02/10/22 04:00 Potassium 4.3 mmol/L (3.6-5.0) 02/10/22 04:00 Chloride 107.1 mmol/L (98-107) H 02/10/22 04:00 Carbon Dioxide 22 mmol/L (22-30) 02/10/22 04:00 Anion Gap 18 mmol/L 02/10/22 04:00 BUN 27 mg/dL (9-20) H 02/10/22 04:00 Creatinine 1.1 mg/dL (0.8-1.3) 02/10/22 04:00 Estimated GFR > 60 ml/min 02/10/22 04:00 BUN/Creatinine Ratio 25 % 02/10/22 04:00 Glucose 122 mg/dL (75-100) H 02/10/22 04:00 POC Glucose 178 mg/dL (70-105) H 02/09/22 21:29 Hemoglobin A1c 9.2 % (4-6) H 02/08/22 04:07 Lactic Acid 1.90 mmol/L (0.7-2.0) 02/10/22 04:00 Calcium 8.3 mg/dL (8.4-10.2) L 02/10/22 04:00 Total Bilirubin 0.50 mg/dL (0.1-1.2) 02/10/22 04:00 AST 44 units/L (5-40) H 02/10/22 04:00 ALT 57 units/L (7-56) H 02/10/22 04:00 Alkaline Phosphatase 152 units/L (35-129) H 02/10/22 04:00 Total Creatine Kinase 279 units/L (55-170) H 02/07/22 Unknown CK-MB (CK-2) 3.7 ng/mL (0.0-4.0) 02/07/22 Unknown CK-MB (CK-2) Rel Index 1.3 (0-4) 02/07/22 Unknown Troponin T 0.010 ng/mL (0.00-0.029) 02/07/22 Unknown Total Protein 5.5 g/dL (6.3-8.2) L 02/10/22 04:00 Albumin 3.9 g/dL (3.9-5) 02/10/22 04:00 Albumin/Globulin Ratio 2.4 % 02/10/22 04:00 Urine Color Straw (Yellow) 02/07/22 Unknown Urine Turbidity Clear (Clear) 02/07/22 Unknown Urine pH 7.0 (5.0-7.0) 02/07/22 Unknown Ur Specific [place] 1.028 (1.003-1.030) 02/07/22 Unknown Urine Protein 100 mg/dl mg/dL (Negative) 02/07/22 Unknown Urine Glucose (UA) >=500 mg/dL (Negative) 02/07/22 Unknown Urine Ketones Neg mg/dL (Negative) 02/07/22 Unknown Urine Blood Neg (Negative) 02/07/22 Unknown Urine Nitrite Neg (Negative) 02/07/22 Unknown Urine Bilirubin Neg (Negative) 02/07/22 Unknown Urine Urobilinogen < 2.0 mg/dL (<2.0) 02/07/22 Unknown Ur Leukocyte Esterase Neg (Negative) 02/07/22 Unknown Urine WBC (Auto) 1.0 /HPF (0.0-6.0) 02/07/22 Unknown Urine RBC (Auto) 2.0 /HPF (0.0-6.0) 02/07/22 Unknown U Epithel Cells (Auto) < 1.0 /HPF (0-13.0) 02/07/22 Unknown Salicylates < 0.3 mg/dL (2.8-20.0) L 02/07/22 Unknown Urine Opiates Screen Negative 02/07/22 Unknown Urine Methadone Screen Negative 02/07/22 Unknown Acetaminophen 5.0 ug/mL (10.0-30.0) L 02/07/22 Unknown Ur Barbiturates Screen Negative 02/07/22 Unknown Ur Phencyclidine Scrn Negative 02/07/22 Unknown Ur Amphetamines Screen Negative 02/07/22 Unknown U Benzodiazepines Scrn Negative 02/07/22 Unknown Urine Cocaine Screen Negative 02/07/22 Unknown U Marijuana (THC) Screen Negative 02/07/22 Unknown Drugs of Abuse Note Disclamer 02/07/22 Unknown Plasma/Serum Alcohol < 0.01 % (0-0.07) 02/07/22 Unknown Microbiology: Microbiology 02/07/22 16:42 Peripheral/Venous Blood Culture - Preliminary NO GROWTH AFTER 48 HOURS 02/07/22 16:42 Peripheral/Venous Blood Culture - Preliminary NO GROWTH AFTER 48 HOURS Alexandre/IV: Voiding Method Incontinent Active Medications - Current Medications Current Medications: Generic Name Dose Route Start Last Admin Trade Name Freq PRN Reason Stop Dose Admin Acetaminophen 650 mg 02/07/22 20:27 Acetaminophen 325 Mg Tab PO Q4H PRN Pain MILD(1-3)/Fever >100.5/AVILES Albuterol 2.5 mg 02/08/22 07:30 Albuterol 2.5 Mg/3 Ml Nebu IH Q3HRT PRN Wheezing Albuterol/Ipratropium 1 ampul 02/08/22 08:00 02/10/22 08:53 Ipratropium/Albuterol Sulfate 3 Ml Ampul.Neb IH 1 ampul QIDRT REBECCA Administration Dextrose 50 ml 02/08/22 10:30 Dextrose 50% In Water (25gm) 50 Ml Syringe IV Q30MIN PRN Hypoglycemia Protocol Famotidine 40 mg 02/09/22 22:00 02/09/22 22:47 Famotidine 20 Mg Tab PO 40 mg QHS REBECCA Administration Heparin Sodium (Porcine) 5,000 unit 02/07/22 22:00 02/09/22 22:48 Heparin 5,000 Unit/1 Ml Vial SUB-Q 5,000 unit Q12HR REBECCA Administration Hydralazine HCl 10 mg 02/07/22 21:03 02/07/22 21:13 Hydralazine 20 Mg/1 Ml Inj IV 02/13/22 21:02 10 mg Q6HR PRN Administration Blood Pressure Hydrophilic Ointment 1 applic 02/07/22 14:58 Lip Therapy Vaseline TP Q2HR PRN Dry Lips Azithromycin 500 mg in 250 mls @ 250 mls/hr 02/08/22 17:00 02/09/22 16:47 Zithromax/Ns IV 02/11/22 17:59 250 mls/hr Q24H REBECCA Administration Ceftriaxone Sodium 2 gm in 100 mls @ 200 mls/hr 02/08/22 18:00 02/09/22 17:47 Rocephin/Ns 2 Gm/100 Ml IV 200 mls/hr Q24H REBECCA Administration Protocol Sodium Chloride 1,000 mls @ 75 mls/hr 02/09/22 15:00 02/10/22 06:56 Nacl 0.45% 1000 Ml IV 02/11/22 14:59 75 mls/hr DIRECT REBECCA Administration Insulin Glargine 10 units 02/09/22 22:00 02/09/22 22:47 Insulin Glargine 100 Units/Ml SUB-Q 10 units QHS REBECCA Administration Insulin Human Regular 0 units 02/09/22 22:00 02/09/22 22:48 Insulin Regular, Human 100 Units/1 Ml SUB-Q 2 units ACHS REBECCA Administration Protocol Levetiracetam 1,000 mg 02/10/22 10:00 Levetiracetam 500 Mg Tab PO BID REBECCA Metoclopramide HCl 10 mg 02/07/22 20:27 Metoclopramide 10 Mg/2 Ml Inj IV Q6H PRN Nausea And Vomiting Morphine Sulfate 2 mg 02/07/22 20:27 Morphine 2 Mg/1 Ml Inj IV Q4H PRN Pain, Moderate (4-6) Multi-Ingred Cream/Lotion/Oil/Oint 1 applic 02/07/22 14:58 02/09/22 11:40 Mineral Oil/Petrolatum, White Ophth Oint 3.5 Gm OU 1 applic Q4HR PRN Administration Dry Eye(s) Ondansetron HCl 4 mg 02/07/22 20:27 02/09/22 18:29 Ondansetron 4 Mg/2 Ml Inj IV 4 mg Q8H PRN Administration Nausea And Vomiting Senna/Docusate Sodium 1 tab 02/09/22 22:00 02/09/22 22:47 Sennosides/Docusate Sodium 8.6/50 Mg Tab PO 1 tab QHS REBECCA Administration Sodium Chloride 10 ml 02/07/22 22:00 02/09/22 22:48 Sodium Chloride 0.9% 10 Ml Flush Syringe IV 10 ml BID REBECCA Administration Sodium Chloride 10 ml 02/07/22 20:27 Sodium Chloride 0.9% 10 Ml Flush Syringe IV PRN PRN LINE FLUSH Nutrition/Malnutrition Assess - Dietary Evaluation Nutrition/Malnutrition Findings: Nutrition Notes Start: 02/08/22 14:02 Freq: Status: Active Protocol: Document 02/08/22 14:26 SHAYNE (Rec: 02/08/22 14:56 SHAYNE [email or web address]) Nutrition Notes Need for Assessment 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 Current Diet NPO (since 02/07 16:41), TF- Glucerna 1.2 Ranjan @ 70 ml/hr ( from B 02/09). Labs/Tests 02/08: Glu 184, HbA1c 9.2. Pertinent Medications 02/08: Propofol @ 2.449 ml/hr (65 Kcal), others nutritionally unremarkable. 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 Weight Status Appropriate Subjective/Other Information RD consult for evaluation of nutritional intake, difficulty chewing and risk of malnutrition assessments, and write/manage TF. Pt has been on NPO since admission. Pt is on Mechanical Ventilation, O2 saturation @ 100%, according to Physical Assessment History notes. I will prescribe and order TF. Pt shows no signs of concern for risk of malnutrition at the time, according to Physical Assessment History notes. Swallowing and chewing evaluation have not been performed, due to Pt's being on Mechanical ventilation. Pt will possibly be extubated later today, according to Progress notes. Percent of energy/protein needs met: Pt has been on NPO since admission. Prescribed TF-Glucerna 1.2 Ranjan @ 70 ml/hr provides for energy/protein needs (2,020 Kcal/101 g) during LOS, 95% Kcal; 99% AA. Including Propofol, increases to 98% Kcal; 99% AA. Burn Absent Trauma Absent GI Symptoms None Food Allergy No Skin Integrity/Comment Assessment WNL. Current % PO Other Minimum of two criteria No #1 Nutrition Diagnosis Inadequate oral intake Comments: Pt will possibly be extubated later today (02/08), according to Progress notes. Etiology Pt on Mechanical Ventilation. As Evidenced by Signs and Symptoms Pt has been on NPO since admission. Is patient on ventilator? Yes Is Patient Ambulatory and/or Out of Bed No REE-([facility]-confined to bed) 2131.148 Calculation Used for Recommendations Kcal/kg Additional Notes Protein: 1.2-2 g/Kg ABW; 102- 170 g/day. Fluids: 1 ml/Kcal, or as per MD. Nutrition Intervention Nutrition Support: Start Glucerna 1.2 Ranjan @ 70 ml /hr. Flush: 130 ml water Q 4 hr, or as per MD. Kcal 2,020 Protein (gm) 101 Carbohydrates (gm) 193 Fat (gm) 101 Fluid (mL) 1,355 Fiber (gm) 27 % RDI: 95% Kcal; 99% AA. Goal #1 Provide at least 75% of energy /protein needs through Enteral Feeding during LOS. Goal #2 Maintain body weight within +/ -3% of admission body weight during LOS. Follow-Up By: 02/11/22 Additional Comments Start monitoring TF tolerance and BM. <ROSIO B[place] - Last Filed: 02/10/22 13:59> Assessment and Plan Assessment and plan: I saw and evaluated the patient. I agree with the findings and the plan of care as documented in the Nurse Practitioner's~note, with the following corrections and additions. Hospitalist Physical - Constitutional Vitals: Temp Pulse Resp BP Pulse Ox 97.9 F 79 27 H 103/73 99 02/10/22 11:29 02/10/22 13:00 02/10/22 13:00 02/10/22 13:00 02/10/22 13:00 HEART Score - HEART Score Troponin: Troponin T 0.010 ng/mL (0.00-0.029) 02/07/22 Unknown Results - Labs CBC & Chem 7: 02/10/22 04:00 02/10/22 04:00 Labs: Laboratory Last Values WBC 9.7 K/mm3 (4.5-11.0) 02/10/22 04:00 RBC 4.54 M/mm3 (3.65-5.03) 02/10/22 04:00 Hgb 11.9 gm/dl (11.8-15.2) 02/10/22 04:00 Hct 37.8 % (35.5-45.6) 02/10/22 04:00 MCV 83 fl (84-94) L 02/10/22 04:00 MCH 26 pg (28-32) L 02/10/22 04:00 MCHC 31 % (32-34) L 02/10/22 04:00 RDW 17.0 % (13.2-15.2) H 02/10/22 04:00 Plt Count 272 K/mm3 (140-440) 02/10/22 04:00 Lymph % (Auto) 5.3 % (13.4-35.0) L 02/08/22 04:07 [place] % (Auto) 4.8 % (0.0-7.3) 02/08/22 04:07 Eos % (Auto) 0.0 % (0.0-4.3) 02/08/22 04:07 Baso % (Auto) 0.6 % (0.0-1.8) 02/08/22 04:07 Lymph # (Auto) 0.8 K/mm3 (1.2-5.4) L 02/08/22 04:07 [place] # (Auto) 0.7 K/mm3 (0.0-0.8) 02/08/22 04:07 Eos # (Auto) 0.0 K/mm3 (0.0-0.4) 02/08/22 04:07 Baso # (Auto) 0.1 K/mm3 (0.0-0.1) 02/08/22 04:07 Add Manual Diff Complete 02/07/22 Unknown Total Counted 100 02/07/22 Unknown Seg Neutrophils % 89.3 % (40.0-70.0) H 02/08/22 04:07 Seg Neuts % (Manual) 48.0 % (40.0-70.0) 02/07/22 Unknown Band Neutrophils % 0 % 02/07/22 Unknown Lymphocytes % (Manual) 30.0 % (13.4-35.0) 02/07/22 Unknown Reactive Lymphs % (Man) 11.0 % 02/07/22 Unknown Monocytes % (Manual) 10.0 % (0.0-7.3) H 02/07/22 Unknown Eosinophils % (Manual) 0 % (0.0-4.3) 02/07/22 Unknown Basophils % (Manual) 1.0 % (0.0-1.8) 02/07/22 Unknown Metamyelocytes % 0 % 02/07/22 Unknown Myelocytes % 0 % 02/07/22 Unknown Promyelocytes % 0 % 02/07/22 Unknown Blast Cells % 0 % 02/07/22 Unknown Nucleated RBC % Not Reportable 02/07/22 Unknown Seg Neutrophils # 13.4 K/mm3 (1.8-7.7) H 02/08/22 04:07 Seg Neutrophils # Man 8.2 K/mm3 (1.8-7.7) H 02/07/22 Unknown Band Neutrophils # 0.0 K/mm3 02/07/22 Unknown Lymphocytes # (Manual) 5.1 K/mm3 (1.2-5.4) 02/07/22 Unknown Abs React Lymphs (Man) 1.9 K/mm3 02/07/22 Unknown Monocytes # (Manual) 1.7 K/mm3 (0.0-0.8) H 02/07/22 Unknown Eosinophils # (Manual) 0.0 K/mm3 (0.0-0.4) 02/07/22 Unknown Basophils # (Manual) 0.2 K/mm3 (0.0-0.1) H 02/07/22 Unknown Metamyelocytes # 0.0 K/mm3 02/07/22 Unknown Myelocytes # 0.0 K/mm3 02/07/22 Unknown Promyelocytes # 0.0 K/mm3 02/07/22 Unknown Blast Cells # 0.0 K/mm3 02/07/22 Unknown WBC Morphology Not Reportable 02/07/22 Unknown Hypersegmented Neuts Not Reportable 02/07/22 Unknown Hyposegmented Neuts Not Reportable 02/07/22 Unknown Hypogranular Neuts Not Reportable 02/07/22 Unknown Smudge Cells Not Reportable 02/07/22 Unknown Toxic Granulation Not Reportable 02/07/22 Unknown Toxic Vacuolation Not Reportable 02/07/22 Unknown Dohle Bodies Not Reportable 02/07/22 Unknown Pelger-Huet Anomaly Not Reportable 02/07/22 Unknown Rachel Rods Not Reportable 02/07/22 Unknown Platelet Estimate Appears decreased 02/07/22 Unknown Clumped Platelets Rare 02/07/22 Unknown Plt Clumps, EDTA Not Reportable 02/07/22 Unknown Large Platelets Not Reportable 02/07/22 Unknown Giant Platelets Not Reportable 02/07/22 Unknown Platelet Satelliting Not Reportable 02/07/22 Unknown Plt Morphology Comment Not Reportable 02/07/22 Unknown RBC Morphology Not Reportable 02/07/22 Unknown Dimorphic RBCs Not Reportable 02/07/22 Unknown Polychromasia Not Reportable 02/07/22 Unknown Hypochromasia Not Reportable 02/07/22 Unknown Poikilocytosis Rare 02/07/22 Unknown Anisocytosis Not Reportable 02/07/22 Unknown Microcytosis Not Reportable 02/07/22 Unknown Macrocytosis Not Reportable 02/07/22 Unknown Spherocytes Not Reportable 02/07/22 Unknown Pappenheimer Bodies Not Reportable 02/07/22 Unknown Sickle Cells Not Reportable 02/07/22 Unknown Target Cells Not Reportable 02/07/22 Unknown Tear Drop Cells Not Reportable 02/07/22 Unknown Ovalocytes Rare 02/07/22 Unknown Helmet Cells Not Reportable 02/07/22 Unknown [place] Bodies Not Reportable 02/07/22 Unknown Marana Rings Not Reportable 02/07/22 Unknown Caterina Cells Not Reportable 02/07/22 Unknown Bite Cells Not Reportable 02/07/22 Unknown Crenated Cell Not Reportable 02/07/22 Unknown Elliptocytes Rare 02/07/22 Unknown Acanthocytes (Spur) Not Reportable 02/07/22 Unknown Rouleaux Not Reportable 02/07/22 Unknown Hemoglobin C Crystals Not Reportable 02/07/22 Unknown Schistocytes Not Reportable 02/07/22 Unknown Malaria parasites Not Reportable 02/07/22 Unknown Ten Bodies Not Reportable 02/07/22 Unknown Hem Pathologist Commnt No 02/07/22 Unknown PT 17.2 Sec. (12.2-14.9) H 02/07/22 Unknown INR 1.25 (0.87-1.13) H 02/07/22 Unknown APTT 29.2 Sec. (24.2-36.6) 02/07/22 Unknown Thrombin Time 17.0 Sec. (15.1-19.6) 02/07/22 Unknown ABG pH 7.393 pH Units (7.350-7.450) 02/08/22 16:03 ABG pCO2 37.0 mm Hg 02/08/22 16:03 ABG pO2 76.4 mm Hg (80.0-90.0) L 02/08/22 16:03 ABG HCO3 22.1 mmol/L (20.0-26.0) 02/08/22 16:03 ABG O2 Saturation 95.6 % (95.0-99.0) 02/08/22 16:03 ABG O2 Content 16.8 (0.0-44) 02/08/22 16:03 ABG Base Excess -2.4 mmol/L (-2.0-3.0) L 02/08/22 16:03 ABG Hemoglobin 12.7 gm/dl (14.0-18.0) L 02/08/22 16:03 ABG Carboxyhemoglobin 1.5 % (0.0-5.0) 02/08/22 16:03 ABG Methemoglobin 0.4 % (0.0-1.5) 02/08/22 16:03 Oxyhemoglobin 93.8 % (95.0-99.0) L 02/08/22 16:03 FiO2 25 % 02/08/22 16:03 Sodium 143 mmol/L (137-145) 02/10/22 04:00 Potassium 4.3 mmol/L (3.6-5.0) 02/10/22 04:00 Chloride 107.1 mmol/L (98-107) H 02/10/22 04:00 Carbon Dioxide 22 mmol/L (22-30) 02/10/22 04:00 Anion Gap 18 mmol/L 02/10/22 04:00 BUN 27 mg/dL (9-20) H 02/10/22 04:00 Creatinine 1.1 mg/dL (0.8-1.3) 02/10/22 04:00 Estimated GFR > 60 ml/min 02/10/22 04:00 BUN/Creatinine Ratio 25 % 02/10/22 04:00 Glucose 122 mg/dL (75-100) H 02/10/22 04:00 POC Glucose 134 mg/dL (70-105) H 02/10/22 11:09 Hemoglobin A1c 9.2 % (4-6) H 02/08/22 04:07 Lactic Acid 1.90 mmol/L (0.7-2.0) 02/10/22 04:00 Calcium 8.3 mg/dL (8.4-10.2) L 02/10/22 04:00 Total Bilirubin 0.50 mg/dL (0.1-1.2) 02/10/22 04:00 AST 44 units/L (5-40) H 02/10/22 04:00 ALT 57 units/L (7-56) H 02/10/22 04:00 Alkaline Phosphatase 152 units/L (35-129) H 02/10/22 04:00 Total Creatine Kinase 279 units/L (55-170) H 02/07/22 Unknown CK-MB (CK-2) 3.7 ng/mL (0.0-4.0) 02/07/22 Unknown CK-MB (CK-2) Rel Index 1.3 (0-4) 02/07/22 Unknown Troponin T 0.010 ng/mL (0.00-0.029) 02/07/22 Unknown Total Protein 5.5 g/dL (6.3-8.2) L 02/10/22 04:00 Albumin 3.9 g/dL (3.9-5) 02/10/22 04:00 Albumin/Globulin Ratio 2.4 % 02/10/22 04:00 Procalcitonin 4.13 ng/mL (<0.15) 02/10/22 04:00 Urine Color Straw (Yellow) 02/07/22 Unknown Urine Turbidity Clear (Clear) 02/07/22 Unknown Urine pH 7.0 (5.0-7.0) 02/07/22 Unknown Ur Specific [place] 1.028 (1.003-1.030) 02/07/22 Unknown Urine Protein 100 mg/dl mg/dL (Negative) 02/07/22 Unknown Urine Glucose (UA) >=500 mg/dL (Negative) 02/07/22 Unknown Urine Ketones Neg mg/dL (Negative) 02/07/22 Unknown Urine Blood Neg (Negative) 02/07/22 Unknown Urine Nitrite Neg (Negative) 02/07/22 Unknown Urine Bilirubin Neg (Negative) 02/07/22 Unknown Urine Urobilinogen < 2.0 mg/dL (<2.0) 02/07/22 Unknown Ur Leukocyte Esterase Neg (Negative) 02/07/22 Unknown Urine WBC (Auto) 1.0 /HPF (0.0-6.0) 02/07/22 Unknown Urine RBC (Auto) 2.0 /HPF (0.0-6.0) 02/07/22 Unknown U Epithel Cells (Auto) < 1.0 /HPF (0-13.0) 02/07/22 Unknown Salicylates < 0.3 mg/dL (2.8-20.0) L 02/07/22 Unknown Urine Opiates Screen Negative 02/07/22 Unknown Urine Methadone Screen Negative 02/07/22 Unknown Acetaminophen 5.0 ug/mL (10.0-30.0) L 02/07/22 Unknown Ur Barbiturates Screen Negative 02/07/22 Unknown Ur Phencyclidine Scrn Negative 02/07/22 Unknown Ur Amphetamines Screen Negative 02/07/22 Unknown U Benzodiazepines Scrn Negative 02/07/22 Unknown Urine Cocaine Screen Negative 02/07/22 Unknown U Marijuana (THC) Screen Negative 02/07/22 Unknown Drugs of Abuse Note Disclamer 02/07/22 Unknown Plasma/Serum Alcohol < 0.01 % (0-0.07) 02/07/22 Unknown Microbiology: Microbiology 02/07/22 16:42 Peripheral/Venous Blood Culture - Preliminary NO GROWTH AFTER 48 HOURS 02/07/22 16:42 Peripheral/Venous Blood Culture - Preliminary NO GROWTH AFTER 48 HOURS Alexandre/IV: Voiding Method Incontinent Active Medications - Current Medications Current Medications: Generic Name Dose Route Start Last Admin Trade Name Freq PRN Reason Stop Dose Admin Acetaminophen 650 mg 02/07/22 20:27 Acetaminophen 325 Mg Tab PO Q4H PRN Pain MILD(1-3)/Fever >100.5/AVILES Albuterol 2.5 mg 02/08/22 07:30 Albuterol 2.5 Mg/3 Ml Nebu IH Q3HRT PRN Wheezing Albuterol/Ipratropium 1 ampul 02/08/22 08:00 02/10/22 12:50 Ipratropium/Albuterol Sulfate 3 Ml Ampul.Neb IH 1 ampul QIDRT REBECCA Administration Dextrose 50 ml 02/08/22 10:30 Dextrose 50% In Water (25gm) 50 Ml Syringe IV Q30MIN PRN Hypoglycemia Protocol Famotidine 40 mg 02/09/22 22:00 02/09/22 22:47 Famotidine 20 Mg Tab PO 40 mg QHS REBECCA Administration Heparin Sodium (Porcine) 5,000 unit 02/07/22 22:00 02/10/22 10:45 Heparin 5,000 Unit/1 Ml Vial SUB-Q 5,000 unit Q12HR REBECCA Administration Hydralazine HCl 10 mg 02/07/22 21:03 02/07/22 21:13 Hydralazine 20 Mg/1 Ml Inj IV 02/13/22 21:02 10 mg Q6HR PRN Administration Blood Pressure Hydrophilic Ointment 1 applic 02/07/22 14:58 Lip Therapy Vaseline TP Q2HR PRN Dry Lips Azithromycin 500 mg in 250 mls @ 250 mls/hr 02/08/22 17:00 02/09/22 16:47 Zithromax/Ns IV 02/11/22 17:59 250 mls/hr Q24H REBECCA Administration Ceftriaxone Sodium 2 gm in 100 mls @ 200 mls/hr 02/08/22 18:00 02/09/22 17:47 Rocephin/Ns 2 Gm/100 Ml IV 200 mls/hr Q24H REBECCA Administration Protocol Sodium Chloride 1,000 mls @ 75 mls/hr 02/09/22 15:00 02/10/22 06:56 Nacl 0.45% 1000 Ml IV 02/11/22 14:59 75 mls/hr DIRECT REBECCA Administration Insulin Glargine 10 units 02/09/22 22:00 02/09/22 22:47 Insulin Glargine 100 Units/Ml SUB-Q 10 units QHS REBECCA Administration Insulin Human Regular 0 units 02/09/22 22:00 02/10/22 13:57 Insulin Regular, Human 100 Units/1 Ml SUB-Q Not Given ACHS [facility] Protocol Levetiracetam 1,000 mg 02/10/22 10:00 02/10/22 10:45 Levetiracetam 500 Mg Tab PO 1,000 mg BID REBECCA Administration Metoclopramide HCl 10 mg 02/07/22 20:27 Metoclopramide 10 Mg/2 Ml Inj IV Q6H PRN Nausea And Vomiting Morphine Sulfate 2 mg 02/07/22 20:27 Morphine 2 Mg/1 Ml Inj IV Q4H PRN Pain, Moderate (4-6) Multi-Ingred Cream/Lotion/Oil/Oint 1 applic 02/07/22 14:58 02/09/22 11:40 Mineral Oil/Petrolatum, White Ophth Oint 3.5 Gm OU 1 applic Q4HR PRN Administration Dry Eye(s) Ondansetron HCl 4 mg 02/07/22 20:27 02/09/22 18:29 Ondansetron 4 Mg/2 Ml Inj IV 4 mg Q8H PRN Administration Nausea And Vomiting Senna/Docusate Sodium 1 tab 02/09/22 22:00 02/09/22 22:47 Sennosides/Docusate Sodium 8.6/50 Mg Tab PO 1 tab QHS REBECCA Administration Sodium Chloride 10 ml 02/07/22 22:00 02/10/22 10:45 Sodium Chloride 0.9% 10 Ml Flush Syringe IV 10 ml BID REBECCA Administration Sodium Chloride 10 ml 02/07/22 20:27 Sodium Chloride 0.9% 10 Ml Flush Syringe IV PRN PRN LINE FLUSH Nutrition/Malnutrition Assess - Dietary Evaluation Nutrition/Malnutrition Findings: Nutrition Notes Start: 02/08/22 14:02 Freq: Status: Active Protocol: Document 02/08/22 14:26 SHAYNE (Rec: 02/08/22 14:56 SHAYNE [id number]) Nutrition Notes Need for Assessment 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 Current Diet NPO (since 02/07 16:41), TF- Glucerna 1.2 Ranjan @ 70 ml/hr ( from B 02/09). Labs/Tests 02/08: Glu 184, HbA1c 9.2. Pertinent Medications 02/08: Propofol @ 2.449 ml/hr (65 Kcal), others nutritionally unremarkable. 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 Weight Status Appropriate Subjective/Other Information RD consult for evaluation of nutritional intake, difficulty chewing and risk of malnutrition assessments, and write/manage TF. Pt has been on NPO since admission. Pt is on Mechanical Ventilation, O2 saturation @ 100%, according to Physical Assessment History notes. I will prescribe and order TF. Pt shows no signs of concern for risk of malnutrition at the time, according to Physical Assessment History notes. Swallowing and chewing evaluation have not been performed, due to Pt's being on Mechanical ventilation. Pt will possibly be extubated later today, according to Progress notes. Percent of energy/protein needs met: Pt has been on NPO since admission. Prescribed TF-Glucerna 1.2 Ranjan @ 70 ml/hr provides for energy/protein needs (2,020 Kcal/101 g) during LOS, 95% Kcal; 99% AA. Including Propofol, increases to 98% Kcal; 99% AA. Burn Absent Trauma Absent GI Symptoms None Food Allergy No Skin Integrity/Comment Assessment WNL. Current % PO Other Minimum of two criteria No #1 Nutrition Diagnosis Inadequate oral intake Comments: Pt will possibly be extubated later today (02/08), according to Progress notes. Etiology Pt on Mechanical Ventilation. As Evidenced by Signs and Symptoms Pt has been on NPO since admission. Is patient on ventilator? Yes Is Patient Ambulatory and/or Out of Bed No REE-([facility]-confined to bed) 2132.148 Calculation Used for Recommendations Kcal/kg Additional Notes Protein: 1.2-2 g/Kg ABW; 102- 170 g/day. Fluids: 1 ml/Kcal, or as per MD. Nutrition Intervention Nutrition Support: Start Glucerna 1.2 Ranjan @ 70 ml /hr. Flush: 130 ml water Q 4 hr, or as per MD. Kcal 2,020 Protein (gm) 101 Carbohydrates (gm) 193 Fat (gm) 101 Fluid (mL) 1,355 Fiber (gm) 27 % RDI: 95% Kcal; 99% AA. Goal #1 Provide at least 75% of energy /protein needs through Enteral Feeding during LOS. Goal #2 Maintain body weight within +/ -3% of admission body weight during LOS. Follow-Up By: 02/11/22 Additional Comments Start monitoring TF tolerance and BM.
[2022-02-10] MEDS: levETIRAcetam 500 MG TAB PO SCH ×2 (10:45→22:20)
[2022-02-10] MEDS: HEPARIN 5,000 UNIT/1 ML VIAL SUB-Q SCH ×2 (10:45→22:20)
--- NOTE | 2022-02-10 11:17 | Progress Note ---
Assessment and Plan Impression: Acute respiratory failure, on mechanical ventilator. Seizure disorder Chronic lung disease possible sarcoidosis based on previous history Dyspnea and hypoxemia. Diabetes mellitus. History of right MCA stroke in the past BP, lactic acid and metabolic acidosis seems to have improved or resolved. Recommendation: Continue with antibiotic therapy. Can go to floor. Continue with control of seizure with Keppra Continue with antibiotic and steroids and inhaled bronchodilators Consider echocardiogram and CT of the chest Subjective Date of service: 02/10/22 Interval history: Patient was successfully intubated yesterday 2 days ago. Patient is doing quite well with no significant respiratory issue. He reports having sarcoidosis diagnosed on a lung biopsy in 2003 and currently not receiving any treatment. He does have some shortness of breath with exertion prior to admission. 02/10/2022: Patient doing quite well. Moved to [facility] sleeping eating well no new complaints Objective Vital Signs - 12hr 02/10/22 02/10/22 02/10/22 00:00 00:10 01:00 Temperature 97.9 F Pulse Rate 81 83 83 Pulse Rate [ Bilateral] Pulse Rate [ 81 From Monitor] Respiratory 23 32 H Rate Respiratory Rate [Bilateral ] Blood Pressure 97/67 94/68 O2 Sat by Pulse 99 97 Oximetry 02/10/22 02/10/22 02/10/22 02:00 03:01 03:30 Temperature Pulse Rate 82 84 77 Pulse Rate [ Bilateral] Pulse Rate [ From Monitor] Respiratory 16 13 Rate Respiratory Rate [Bilateral ] Blood Pressure 88/68 107/81 O2 Sat by Pulse 99 100 Oximetry 02/10/22 02/10/22 02/10/22 04:00 05:00 06:01 Temperature 97.8 F Pulse Rate 83 75 78 Pulse Rate [ Bilateral] Pulse Rate [ 83 From Monitor] Respiratory 16 14 9 L Rate Respiratory Rate [Bilateral ] Blood Pressure 101/73 95/77 95/77 O2 Sat by Pulse 100 100 97 Oximetry 02/10/22 02/10/22 02/10/22 07:01 07:08 08:56 Temperature 97.4 F L Pulse Rate 79 Pulse Rate [ 78 Bilateral] Pulse Rate [ From Monitor] Respiratory 14 Rate Respiratory 15 Rate [Bilateral ] Blood Pressure 108/80 O2 Sat by Pulse 100 Oximetry Constitutional: no acute distress, alert, appears uncomfortable, other Eyes: non-icteric ENT: oropharynx moist Neck: supple, no lymphadenopathy, no JVD Effort: normal Ascultation: Bilateral: diminished breath sounds Cardiovascular: regular rate and rhythm Gastrointestinal: normoactive bowel sounds, soft, non-tender Extremities: no cyanosis Neurologic: normal mental status CBC and BMP: 02/10/22 04:00 02/10/22 04:00 ABG, PT/INR, D-dimer: ABG ABG pH 7.393 pH Units (7.350-7.450) 02/08/22 16:03 ABG pCO2 37.0 mm Hg 02/08/22 16:03 ABG pO2 76.4 mm Hg (80.0-90.0) L 02/08/22 16:03 ABG O2 Saturation 95.6 % (95.0-99.0) 02/08/22 16:03 PT/INR, D-dimer PT 17.2 Sec. (12.2-14.9) H 02/07/22 Unknown INR 1.25 (0.87-1.13) H 02/07/22 Unknown Abnormal lab findings: Abnormal Labs 02/07/22 02/07/22 02/07/22 11:56 16:42 16:51 WBC RBC Hct MCV MCH MCHC RDW Lymph % (Auto) Lymph # (Auto) Seg Neutrophils % Monocytes % (Manual) Seg Neutrophils # Seg Neutrophils # Man Monocytes # (Manual) Basophils # (Manual) PT INR ABG pO2 ABG O2 Saturation ABG Base Excess ABG Hemoglobin Oxyhemoglobin Chloride Carbon Dioxide BUN Creatinine Glucose POC Glucose 131 H 320 H Hemoglobin A1c Lactic Acid 16.80 H* Calcium Total Bilirubin AST ALT Alkaline Phosphatase Total Creatine Kinase Total Protein Salicylates Acetaminophen 02/07/22 02/07/22 02/07/22 18:30 19:36 Unknown WBC 17.1 H RBC 5.46 H Hct 46.4 H MCV MCH MCHC RDW 17.6 H Lymph % (Auto) Lymph # (Auto) Seg Neutrophils % Monocytes % (Manual) 10.0 H Seg Neutrophils # Seg Neutrophils # Man 8.2 H Monocytes # (Manual) 1.7 H Basophils # (Manual) 0.2 H PT INR ABG pO2 161.1 H ABG O2 Saturation 99.7 H ABG Base Excess ABG Hemoglobin 13.1 L Oxyhemoglobin Chloride Carbon Dioxide BUN Creatinine Glucose POC Glucose Hemoglobin A1c Lactic Acid 2.20 H* Calcium Total Bilirubin AST ALT Alkaline Phosphatase Total Creatine Kinase Total Protein Salicylates Acetaminophen 02/07/22 02/07/22 02/07/22 Unknown Unknown Unknown WBC RBC Hct MCV MCH MCHC RDW Lymph % (Auto) Lymph # (Auto) Seg Neutrophils % Monocytes % (Manual) Seg Neutrophils # Seg Neutrophils # Man Monocytes # (Manual) Basophils # (Manual) PT 17.2 H INR 1.25 H ABG pO2 ABG O2 Saturation ABG Base Excess ABG Hemoglobin Oxyhemoglobin Chloride 96.3 L Carbon Dioxide 14 L BUN Creatinine 1.4 H Glucose 190 H POC Glucose Hemoglobin A1c Lactic Acid Calcium Total Bilirubin 1.30 H AST ALT Alkaline Phosphatase 141 H Total Creatine Kinase 279 H Total Protein Salicylates < 0.3 L Acetaminophen 02/07/22 02/08/22 02/08/22 Unknown 01:27 04:07 WBC 15.0 H RBC 5.57 H Hct MCV 82 L MCH 26 L MCHC 31 L RDW 16.9 H Lymph % (Auto) 5.3 L Lymph # (Auto) 0.8 L Seg Neutrophils % 89.3 H Monocytes % (Manual) Seg Neutrophils # 13.4 H Seg Neutrophils # Man Monocytes # (Manual) Basophils # (Manual) PT INR ABG pO2 ABG O2 Saturation ABG Base Excess ABG Hemoglobin Oxyhemoglobin Chloride Carbon Dioxide BUN Creatinine Glucose POC Glucose 264 H Hemoglobin A1c Lactic Acid Calcium Total Bilirubin AST ALT Alkaline Phosphatase Total Creatine Kinase Total Protein Salicylates Acetaminophen 5.0 L 02/08/22 02/08/22 02/08/22 04:07 04:07 04:09 WBC RBC Hct MCV MCH MCHC RDW Lymph % (Auto) Lymph # (Auto) Seg Neutrophils % Monocytes % (Manual) Seg Neutrophils # Seg Neutrophils # Man Monocytes # (Manual) Basophils # (Manual) PT INR ABG pO2 ABG O2 Saturation ABG Base Excess ABG Hemoglobin 13.4 L Oxyhemoglobin Chloride Carbon Dioxide BUN Creatinine Glucose 184 H POC Glucose Hemoglobin A1c 9.2 H Lactic Acid Calcium Total Bilirubin AST 80 H ALT 63 H Alkaline Phosphatase 150 H Total Creatine Kinase Total Protein Salicylates Acetaminophen 02/08/22 02/08/22 02/08/22 05:31 11:36 16:03 WBC RBC Hct MCV MCH MCHC RDW Lymph % (Auto) Lymph # (Auto) Seg Neutrophils % Monocytes % (Manual) Seg Neutrophils # Seg Neutrophils # Man Monocytes # (Manual) Basophils # (Manual) PT INR ABG pO2 76.4 L ABG O2 Saturation ABG Base Excess -2.4 L ABG Hemoglobin 12.7 L Oxyhemoglobin 93.8 L Chloride Carbon Dioxide BUN Creatinine Glucose POC Glucose 183 H 153 H Hemoglobin A1c Lactic Acid Calcium Total Bilirubin AST ALT Alkaline Phosphatase Total Creatine Kinase Total Protein Salicylates Acetaminophen 02/08/22 02/08/22 02/09/22 17:58 23:57 04:19 WBC 14.5 H RBC Hct MCV 83 L MCH 26 L MCHC 31 L RDW 16.9 H Lymph % (Auto) Lymph # (Auto) Seg Neutrophils % Monocytes % (Manual) Seg Neutrophils # Seg Neutrophils # Man Monocytes # (Manual) Basophils # (Manual) PT INR ABG pO2 ABG O2 Saturation ABG Base Excess ABG Hemoglobin Oxyhemoglobin Chloride Carbon Dioxide BUN Creatinine Glucose POC Glucose 166 H 162 H Hemoglobin A1c Lactic Acid Calcium Total Bilirubin AST ALT Alkaline Phosphatase Total Creatine Kinase Total Protein Salicylates Acetaminophen 02/09/22 02/09/22 02/09/22 04:19 04:19 05:12 WBC RBC Hct MCV MCH MCHC RDW Lymph % (Auto) Lymph # (Auto) Seg Neutrophils % Monocytes % (Manual) Seg Neutrophils # Seg Neutrophils # Man Monocytes # (Manual) Basophils # (Manual) PT INR ABG pO2 ABG O2 Saturation ABG Base Excess ABG Hemoglobin Oxyhemoglobin Chloride Carbon Dioxide 18 L BUN 26 H Creatinine Glucose 170 H POC Glucose 175 H Hemoglobin A1c Lactic Acid 5.00 H* Calcium Total Bilirubin AST ALT Alkaline Phosphatase Total Creatine Kinase Total Protein Salicylates Acetaminophen 02/09/22 02/09/22 02/09/22 07:46 11:15 13:25 WBC RBC Hct MCV MCH MCHC RDW Lymph % (Auto) Lymph # (Auto) Seg Neutrophils % Monocytes % (Manual) Seg Neutrophils # Seg Neutrophils # Man Monocytes # (Manual) Basophils # (Manual) PT INR ABG pO2 ABG O2 Saturation ABG Base Excess ABG Hemoglobin Oxyhemoglobin Chloride Carbon Dioxide BUN Creatinine Glucose POC Glucose 137 H 158 H Hemoglobin A1c Lactic Acid 2.30 H* Calcium Total Bilirubin AST ALT Alkaline Phosphatase Total Creatine Kinase Total Protein Salicylates Acetaminophen 02/09/22 02/09/22 02/10/22 16:33 21:29 04:00 WBC RBC Hct MCV 83 L MCH 26 L MCHC 31 L RDW 17.0 H Lymph % (Auto) Lymph # (Auto) Seg Neutrophils % Monocytes % (Manual) Seg Neutrophils # Seg Neutrophils # Man Monocytes # (Manual) Basophils # (Manual) PT INR ABG pO2 ABG O2 Saturation ABG Base Excess ABG Hemoglobin Oxyhemoglobin Chloride Carbon Dioxide BUN Creatinine Glucose POC Glucose 173 H 178 H Hemoglobin A1c Lactic Acid Calcium Total Bilirubin AST ALT Alkaline Phosphatase Total Creatine Kinase Total Protein Salicylates Acetaminophen 02/10/22 04:00 WBC RBC Hct MCV MCH MCHC RDW Lymph % (Auto) Lymph # (Auto) Seg Neutrophils % Monocytes % (Manual) Seg Neutrophils # Seg Neutrophils # Man Monocytes # (Manual) Basophils # (Manual) PT INR ABG pO2 ABG O2 Saturation ABG Base Excess ABG Hemoglobin Oxyhemoglobin Chloride 107.1 H Carbon Dioxide BUN 27 H Creatinine Glucose 122 H POC Glucose Hemoglobin A1c Lactic Acid Calcium 8.3 L Total Bilirubin AST 44 H ALT 57 H Alkaline Phosphatase 152 H Total Creatine Kinase Total Protein 5.5 L Salicylates Acetaminophen
[2022-02-10] MEDS: INSULIN REGULAR, HUMAN 100 UNITS/1 ML SUB-Q SCH ×4 (12:00→22:21)
[2022-02-10] MEDS: cefTRIAXone/NS 2 GM/100 ML 2 GM/100 ML BAG IV SCH (17:02)
[2022-02-10] MEDS: AZITHROMYCIN/NS 500 MG/250 ML 500 MG/250 ML BAG IV SCH (17:02)
[2022-02-10] MEDS: INSULIN GLARGINE 100 UNITS/ML SUB-Q SCH (22:21)
[2022-02-10] MEDS: SENNOSIDES/DOCUSATE SODIUM 8.6/50 MG TAB PO SCH (22:21)
[2022-02-10] MEDS: FAMOTIDINE 20 MG TAB PO SCH (22:21)
[2022-02-11 05:48] LABS: Hemoglobin 13.2 gm/dl (11.8-15.2); Mean Corpuscular HGB Conc 31 % (32-34); Mean Corpuscular Volume 83 fl (84-94); Platelet Count 290 K/mm3 (140-440); Red Blood Count 5.07 M/mm3 (3.65-5.03); Red Cell Distribution Width 17.1 % (13.2-15.2)
[2022-02-11 06:13] LABS: BUN/Creatinine Ratio 20; Blood Urea Nitrogen 24 mg/dL (9-20); Calcium 8.8 mg/dL (8.4-10.2); Hemolysis Index 28
[2022-02-11] MEDS: IPRATROPIUM/ALBUTEROL SULFATE 3 ML AMPUL.NEB IH SCH ×2 (08:25→15:17)
--- NOTE | 2022-02-11 08:46 | Discharge Summary ---
Providers - Providers Date of Admission: 02/07/22 20:28 Attending physician: ROSIO BIRMINGHAM MD 02/07/22 14:58 Consult to Physician [CONS] Stat Comment: Consulting Provider: AQUILINO SILVERIO Physician Instructions: Reason For Exam: Ventilator management status post intubation for 02/07/22 16:41 Speech Therapy Evaluation and Treat [CONS] Routine Reason For Exam: altered 02/07/22 20:37 Consult to Physician [CONS] Routine Comment: Consulting Provider: MARJ CORDOVA Physician Instructions: Reason For Exam: Seizure disorder 02/08/22 09:10 Consult to Dietitian/Nutrition [CONS] Routine Physician Instructions: Reason For Exam: Reason for Consult: Write/Manage Tube Feeding 02/09/22 14:42 Consult to Physician [CONS] Routine Comment: Consulting Provider: SHITAL POWELL II Physician Instructions: Reason For Exam: R MCA CVA hemmorhagic conversion 02/10/22 08:21 Occupational Therapy Evaluate and Treat [CONS] Routine Comment: Reason For Exam: debility Physical Therapy Evaluation and Treat [CONS] Routine Comment: Reason For Exam: debility Primary care physician: [employer] Hospitalization Reason for admission: Sepsis Condition: Stable Hospital course: This is a 47-year-old male with sarcoidosis, right MCA infarct (2020), former tobacco abuse, diabetes mellitus who presented to the emergency department on 02/07 with increasing shortness of breath and while in the ED patient had a seizure and was intubated for airway protection. Work-up in the emergency department revealed leukocytosis, acute kidney injury, metabolic acidosis and imaging was read as possible pneumonia. Patient was initiated on sepsis protocol and admitted to the hospitalist service with consults to [facility] and neurology. Hospital course to date: 02/08: Patient sedated on fentanyl which has been weaned and patient is currently on pressure support trial. We will continue antibiotic therapy with ceftriaxone and azithromycin but discontinued steroid therapy. 02/09: Patient had hypotension overnight and received IVF. This morning he has lactic acidosis and a repeat LA is pending. LR bolus. Pharmacy has concerns about LR with Rocephin forming participates and causing renal failure. Lr IVF cancelled, will give IVF NS. Metabolic acidosis noted. Unequal pupils however no new neuro deficits (LUE altered sensation with drift, Left facial droop fom previous CVA per pt) and he is AAOX4. Complaining of dry eye and given cellulose drops. Pending MRI brain w and w/o con. 02/10: IVF duration changed to 2 bags total, no neuro changes, nsg input appreciated. LFTs trending in right direction, MA resolved. 02/11: Patient clinically stable no new complaints. Anticipate discharge today. We will get an x-ray of the ankle discussed with the family the importance of following up with general surgeon for the distended gallbladder although no acute cystitis noted on physical exam no tenderness. Patient with persistent nausea which could be secondary to this. Also discussed the finding of hemorrhagic transformation from stroke noted in September 2021 and outpatient follow-up with neurosurgeon. Neuro: Seizure, H/O right MCA infarct (2020) with left sided deficits now with noted hemorrhagic transformation likely also according to -Avoid delirium -Reorientation as needed - No asa due to hemorrhagic transformation, start asa when cleared by Neurology -Maintain sleep-wake cycle -aspiration/seizure precautions -As needed analgesia -CT head showed no acute intracranial abnormality, moderate areas of chronic ischemia in the right MCA distribution -CTA head and neck showed no occlusion or significant stenosis of the major intracranial or carotid or vertebral arteries. -Neurology consulted, appreciate recommendations -PATRIA Wilder -MRI brain shows findings indicating remote right MCA infarct with hemorrhagic transformation, unusual focus of abnormal contrast-enhancement along the anterior margin of the infarction -Neurosurgery consulted, appreciate recommendations -Per neurosurgery: No neurosurgical intervention indicated at this time, continue supportive care, outpatient follow-up as needed. -EEG pending Cardiac: NAD -Blood pressure monitoring per protocol -As needed IV hydralazine Respiratory: Acute hypoxic respiratory failure, h/o sarcoidosis, former smoker -CTA h/n shows severe emphysema with worsening soft tissue seen along the right helium which appears to extend into the mediastinum resulting in narrowing of the right pulmonary artery and bronchi which raises concern for neoplasm CT of chest with contrast is recommended by radiology -[facility] consulted, appreciate recommendations -Intubated on 02/07 with 7.5 OETT and extubated 02/08 -Weaned to NC -Pulmonary hygiene -Supplemental oxygenation as needed -SPO2 monitoring GI: Transminitis, mild protein calorie malnutrition -24 hours +95 mL -PPI -CC diet -BR: Senokot -Trend LFTs -Liver ultrasound shows Gallbladder wall thickening, no definite gallstones or pericholecystic fluid : Acute kidney injury 2/2 vasomotor nephropathy (resolved), metabolic acidosis (resolved) -Admit labs Cr/BUN 1.4/11 -s/p 3 L IVF in ED, 1500 IVF in ICU -Strict intake and output -Renally dose medications -Avoid nephrotoxic medications -Daily weights -Trend BMP -MIVF for 2 L ID: Sepsis 2/2 to aspiration PNA, lactic acidosis -POA with leukocytosis, LA, density on imaging -CXR showed increased density in the right lung apex -Initial LA 16 but repeat 2.2 then 5 and repeat 1.6/1.9 -s/p 3L NS in ED and 1.5 in ICU -Antibiotic therapy with cefepime and azithro -f/u blood culture -Monitor WBC and temperature curve -Trend LA Endo: h/o DM -Hbg A1C 9.2 -Avoid hypoglycemia -SSI -Accu-Cheks q.6 Heme: Leukocytosis (resolved) -Trend CBC -Transfuse hemoglobin less than 7 -Heparin subq -Monitor for signs of bleeding -SCDs to BLE while in bed Left ankle pain Disposition: HOME HEALTH CARE SERVICE Final Discharge Diagnosis (Prints w/discharge instructions): Hypoxic respiratory failure. Seizure. Sepsis secondary to aspiration pneumonia Time spent for discharge: 35 mins Core Measure Documentation - Palliative Care Palliative Care/ Comfort Measures: Not Applicable - Core Measures Any of the following diagnoses?: none Exam - Physical Exam Narrative exam: General appearance: Present: no acute distress, well-nourished - EENT Eyes: Present: EOM intact. Absent: PERRL (L>R pupil but round, reactive to light and accommodation) ENT: hearing intact, dentition normal - Neck Neck: Present: normal ROM - Respiratory Respiratory effort: normal Respiratory: bilateral: diminished - Cardiovascular Rhythm: regular Heart Sounds: Present: S1 & S2. Absent: systolic murmur, diastolic murmur - Extremities Extremities: no ischemia, pulses intact, pulses symmetrical, Full ROM Extremity abnormal: edema - Peripheral Assessment Left Upper Extremity Edema Type: Non-pitting Capillary Refill: < 3 seconds Skin Temperature: Warm Peripheral Pulses: within normal limits - Abdominal General gastrointestinal: soft, non-tender, non-distended, normal bowel sounds - Integumentary Integumentary: Present: warm, dry, mild swelling around the left ankle - Psychiatric Psychiatric: appropriate mood/affect, cooperative - Neurologic Neurologic: CNII-XII intact, focal deficits (Left facila droop, LUE drift) chronic, moves all extremities - Allied Health Allied health notes reviewed: nursing - Constitutional Vitals: Temp Pulse Resp BP Pulse Ox 97.6 F 87 18 126/87 98 02/11/22 07:51 02/11/22 08:28 02/11/22 08:28 02/11/22 07:51 02/11/22 08:29 Plan Activity: advance as tolerated, fall precautions Diet: low fat Special Instructions: record daily weights, record daily BP diary Follow up with: PRIMARY CARE, [Primary Care Provider] - 3-5 Days SHITAL POWELL II, MD [Staff Physician] - 7 Days SARAH GUPTA MD [Staff Physician] - 7 Days YULI JONES MD [Staff Physician] - 7 Days Prescriptions: AtorvaSTATin [Lipitor] 40 mg PO QHS #30 tab Famotidine [Pepcid] 40 mg PO QHS #30 tablet Sennosides/Docusate [Senokot S] 1 tab PO QHS #30 tablet metFORMIN [Glucophage] 850 mg PO BID #60 tab levETIRAcetam [Keppra TAB] 1,000 mg PO BID #60 tab
[2022-02-11] MEDS: INSULIN REGULAR, HUMAN 100 UNITS/1 ML SUB-Q SCH ×2 (08:48→12:53)
--- NOTE | 2022-02-11 09:26 | XRay Report ---
LEFT ANKLE 2 VIEWS INDICATION: fall. COMPARISON: None. IMPRESSION: No acute osseous or soft tissue abnormality. No significant DJD. Signer Name: Alessandro Brower Jr, MD Signed: 02/11/2022 9:22 AM Workstation Name: [id number]
[2022-02-11] MEDS: HEPARIN 5,000 UNIT/1 ML VIAL SUB-Q SCH (10:27)
[2022-02-11] MEDS: levETIRAcetam 500 MG TAB PO SCH (10:27)
--- NOTE | 2022-02-11 11:46 | Progress Note ---
Assessment and Plan Impression: Acute respiratory failure, on mechanical ventilator. Seizure disorder Chronic lung disease possible sarcoidosis based on previous history Dyspnea and hypoxemia. Diabetes mellitus. History of right MCA stroke in the past BP, lactic acid and metabolic acidosis seems to have improved or resolved. Recommendation: Continue with antibiotic therapy. Can go to floor. Continue with control of seizure with Keppra Continue with antibiotic and steroids and inhaled bronchodilators Await formal CT results appears to show combination of emphysema and fibrosis. Will require bronchodilator therapy a combination of LAMA/LABA/ICS upon dis charge. Subjective Date of service: 02/11/22 Interval history: Patient was successfully intubated yesterday 2 days ago. Patient is doing quite well with no significant respiratory issue. He reports having sarcoidosis diagnosed on a lung biopsy in 2003 and currently not receiving any treatment. He does have some shortness of breath with exertion prior to admission. 02/10/2022: Patient doing quite well. Moved to [facility] sleeping eating well no new complaints 02/11/2022: Now on the floor on room air appears to be comfortable. Had CT chest report pending appears to have fibrosis and emphysema Objective Vital Signs - 12hr 02/11/22 02/11/22 02/11/22 00:13 04:06 04:25 Temperature 98.1 F 98.1 F Pulse Rate 92 H 80 Pulse Rate [ Bilateral] Respiratory 18 18 Rate Respiratory Rate [Bilateral ] Blood Pressure 127/89 110/79 O2 Sat by Pulse 96 98 97 Oximetry 02/11/22 02/11/22 02/11/22 07:51 08:28 08:29 Temperature 97.6 F Pulse Rate 94 H Pulse Rate [ 87 Bilateral] Respiratory 18 Rate Respiratory 18 Rate [Bilateral ] Blood Pressure 126/87 O2 Sat by Pulse 92 98 Oximetry Constitutional: no acute distress, alert, appears uncomfortable Eyes: non-icteric ENT: oropharynx moist Neck: supple, no lymphadenopathy, no JVD Effort: normal Ascultation: Bilateral: diminished breath sounds Cardiovascular: regular rate and rhythm Gastrointestinal: normoactive bowel sounds, soft, non-tender Extremities: no cyanosis Neurologic: normal mental status CBC and BMP: 02/11/22 05:11 02/11/22 05:11 ABG, PT/INR, D-dimer: ABG ABG pH 7.393 pH Units (7.350-7.450) 02/08/22 16:03 ABG pCO2 37.0 mm Hg 02/08/22 16:03 ABG pO2 76.4 mm Hg (80.0-90.0) L 02/08/22 16:03 ABG O2 Saturation 95.6 % (95.0-99.0) 02/08/22 16:03 PT/INR, D-dimer PT 17.2 Sec. (12.2-14.9) H 02/07/22 Unknown INR 1.25 (0.87-1.13) H 02/07/22 Unknown Abnormal lab findings: Abnormal Labs 02/07/22 02/07/22 02/07/22 11:56 16:42 16:51 WBC RBC Hct MCV MCH MCHC RDW Lymph % (Auto) Lymph # (Auto) Seg Neutrophils % Monocytes % (Manual) Seg Neutrophils # Seg Neutrophils # Man Monocytes # (Manual) Basophils # (Manual) PT INR ABG pO2 ABG O2 Saturation ABG Base Excess ABG Hemoglobin Oxyhemoglobin Chloride Carbon Dioxide BUN Creatinine Glucose POC Glucose 131 H 320 H Hemoglobin A1c Lactic Acid 16.80 H* Calcium Total Bilirubin AST ALT Alkaline Phosphatase Total Creatine Kinase Total Protein Salicylates Acetaminophen 02/07/22 02/07/22 02/07/22 18:30 19:36 Unknown WBC 17.1 H RBC 5.46 H Hct 46.4 H MCV MCH MCHC RDW 17.6 H Lymph % (Auto) Lymph # (Auto) Seg Neutrophils % Monocytes % (Manual) 10.0 H Seg Neutrophils # Seg Neutrophils # Man 8.2 H Monocytes # (Manual) 1.7 H Basophils # (Manual) 0.2 H PT INR ABG pO2 161.1 H ABG O2 Saturation 99.7 H ABG Base Excess ABG Hemoglobin 13.1 L Oxyhemoglobin Chloride Carbon Dioxide BUN Creatinine Glucose POC Glucose Hemoglobin A1c Lactic Acid 2.20 H* Calcium Total Bilirubin AST ALT Alkaline Phosphatase Total Creatine Kinase Total Protein Salicylates Acetaminophen 02/07/22 02/07/22 02/07/22 Unknown Unknown Unknown WBC RBC Hct MCV MCH MCHC RDW Lymph % (Auto) Lymph # (Auto) Seg Neutrophils % Monocytes % (Manual) Seg Neutrophils # Seg Neutrophils # Man Monocytes # (Manual) Basophils # (Manual) PT 17.2 H INR 1.25 H ABG pO2 ABG O2 Saturation ABG Base Excess ABG Hemoglobin Oxyhemoglobin Chloride 96.3 L Carbon Dioxide 14 L BUN Creatinine 1.4 H Glucose 190 H POC Glucose Hemoglobin A1c Lactic Acid Calcium Total Bilirubin 1.30 H AST ALT Alkaline Phosphatase 141 H Total Creatine Kinase 279 H Total Protein Salicylates < 0.3 L Acetaminophen 02/07/22 02/08/22 02/08/22 Unknown 01:27 04:07 WBC 15.0 H RBC 5.57 H Hct MCV 82 L MCH 26 L MCHC 31 L RDW 16.9 H Lymph % (Auto) 5.3 L Lymph # (Auto) 0.8 L Seg Neutrophils % 89.3 H Monocytes % (Manual) Seg Neutrophils # 13.4 H Seg Neutrophils # Man Monocytes # (Manual) Basophils # (Manual) PT INR ABG pO2 ABG O2 Saturation ABG Base Excess ABG Hemoglobin Oxyhemoglobin Chloride Carbon Dioxide BUN Creatinine Glucose POC Glucose 264 H Hemoglobin A1c Lactic Acid Calcium Total Bilirubin AST ALT Alkaline Phosphatase Total Creatine Kinase Total Protein Salicylates Acetaminophen 5.0 L 02/08/22 02/08/22 02/08/22 04:07 04:07 04:09 WBC RBC Hct MCV MCH MCHC RDW Lymph % (Auto) Lymph # (Auto) Seg Neutrophils % Monocytes % (Manual) Seg Neutrophils # Seg Neutrophils # Man Monocytes # (Manual) Basophils # (Manual) PT INR ABG pO2 ABG O2 Saturation ABG Base Excess ABG Hemoglobin 13.4 L Oxyhemoglobin Chloride Carbon Dioxide BUN Creatinine Glucose 184 H POC Glucose Hemoglobin A1c 9.2 H Lactic Acid Calcium Total Bilirubin AST 80 H ALT 63 H Alkaline Phosphatase 150 H Total Creatine Kinase Total Protein Salicylates Acetaminophen 02/08/22 02/08/22 02/08/22 05:31 11:36 16:03 WBC RBC Hct MCV MCH MCHC RDW Lymph % (Auto) Lymph # (Auto) Seg Neutrophils % Monocytes % (Manual) Seg Neutrophils # Seg Neutrophils # Man Monocytes # (Manual) Basophils # (Manual) PT INR ABG pO2 76.4 L ABG O2 Saturation ABG Base Excess -2.4 L ABG Hemoglobin 12.7 L Oxyhemoglobin 93.8 L Chloride Carbon Dioxide BUN Creatinine Glucose POC Glucose 183 H 153 H Hemoglobin A1c Lactic Acid Calcium Total Bilirubin AST ALT Alkaline Phosphatase Total Creatine Kinase Total Protein Salicylates Acetaminophen 02/08/22 02/08/22 02/09/22 17:58 23:57 04:19 WBC 14.5 H RBC Hct MCV 83 L MCH 26 L MCHC 31 L RDW 16.9 H Lymph % (Auto) Lymph # (Auto) Seg Neutrophils % Monocytes % (Manual) Seg Neutrophils # Seg Neutrophils # Man Monocytes # (Manual) Basophils # (Manual) PT INR ABG pO2 ABG O2 Saturation ABG Base Excess ABG Hemoglobin Oxyhemoglobin Chloride Carbon Dioxide BUN Creatinine Glucose POC Glucose 166 H 162 H Hemoglobin A1c Lactic Acid Calcium Total Bilirubin AST ALT Alkaline Phosphatase Total Creatine Kinase Total Protein Salicylates Acetaminophen 02/09/22 02/09/22 02/09/22 04:19 04:19 05:12 WBC RBC Hct MCV MCH MCHC RDW Lymph % (Auto) Lymph # (Auto) Seg Neutrophils % Monocytes % (Manual) Seg Neutrophils # Seg Neutrophils # Man Monocytes # (Manual) Basophils # (Manual) PT INR ABG pO2 ABG O2 Saturation ABG Base Excess ABG Hemoglobin Oxyhemoglobin Chloride Carbon Dioxide 18 L BUN 26 H Creatinine Glucose 170 H POC Glucose 175 H Hemoglobin A1c Lactic Acid 5.00 H* Calcium Total Bilirubin AST ALT Alkaline Phosphatase Total Creatine Kinase Total Protein Salicylates Acetaminophen 02/09/22 02/09/22 02/09/22 07:46 11:15 13:25 WBC RBC Hct MCV MCH MCHC RDW Lymph % (Auto) Lymph # (Auto) Seg Neutrophils % Monocytes % (Manual) Seg Neutrophils # Seg Neutrophils # Man Monocytes # (Manual) Basophils # (Manual) PT INR ABG pO2 ABG O2 Saturation ABG Base Excess ABG Hemoglobin Oxyhemoglobin Chloride Carbon Dioxide BUN Creatinine Glucose POC Glucose 137 H 158 H Hemoglobin A1c Lactic Acid 2.30 H* Calcium Total Bilirubin AST ALT Alkaline Phosphatase Total Creatine Kinase Total Protein Salicylates Acetaminophen 02/09/22 02/09/22 02/10/22 16:33 21:29 04:00 WBC RBC Hct MCV 83 L MCH 26 L MCHC 31 L RDW 17.0 H Lymph % (Auto) Lymph # (Auto) Seg Neutrophils % Monocytes % (Manual) Seg Neutrophils # Seg Neutrophils # Man Monocytes # (Manual) Basophils # (Manual) PT INR ABG pO2 ABG O2 Saturation ABG Base Excess ABG Hemoglobin Oxyhemoglobin Chloride Carbon Dioxide BUN Creatinine Glucose POC Glucose 173 H 178 H Hemoglobin A1c Lactic Acid Calcium Total Bilirubin AST ALT Alkaline Phosphatase Total Creatine Kinase Total Protein Salicylates Acetaminophen 02/10/22 02/10/22 02/10/22 04:00 11:09 16:06 WBC RBC Hct MCV MCH MCHC RDW Lymph % (Auto) Lymph # (Auto) Seg Neutrophils % Monocytes % (Manual) Seg Neutrophils # Seg Neutrophils # Man Monocytes # (Manual) Basophils # (Manual) PT INR ABG pO2 ABG O2 Saturation ABG Base Excess ABG Hemoglobin Oxyhemoglobin Chloride 107.1 H Carbon Dioxide BUN 27 H Creatinine Glucose 122 H POC Glucose 134 H 109 H Hemoglobin A1c Lactic Acid Calcium 8.3 L Total Bilirubin AST 44 H ALT 57 H Alkaline Phosphatase 152 H Total Creatine Kinase Total Protein 5.5 L Salicylates Acetaminophen 02/10/22 02/11/22 02/11/22 22:21 05:11 05:11 WBC RBC 5.07 H Hct MCV 83 L MCH 26 L MCHC 31 L RDW 17.1 H Lymph % (Auto) Lymph # (Auto) Seg Neutrophils % Monocytes % (Manual) Seg Neutrophils # Seg Neutrophils # Man Monocytes # (Manual) Basophils # (Manual) PT INR ABG pO2 ABG O2 Saturation ABG Base Excess ABG Hemoglobin Oxyhemoglobin Chloride Carbon Dioxide 19 L BUN 24 H Creatinine Glucose 130 H POC Glucose 134 H Hemoglobin A1c Lactic Acid Calcium Total Bilirubin AST ALT Alkaline Phosphatase Total Creatine Kinase Total Protein Salicylates Acetaminophen 02/11/22 07:51 WBC RBC Hct MCV MCH MCHC RDW Lymph % (Auto) Lymph # (Auto) Seg Neutrophils % Monocytes % (Manual) Seg Neutrophils # Seg Neutrophils # Man Monocytes # (Manual) Basophils # (Manual) PT INR ABG pO2 ABG O2 Saturation ABG Base Excess ABG Hemoglobin Oxyhemoglobin Chloride Carbon Dioxide BUN Creatinine Glucose POC Glucose 119 H Hemoglobin A1c Lactic Acid Calcium Total Bilirubin AST ALT Alkaline Phosphatase Total Creatine Kinase Total Protein Salicylates Acetaminophen Chest x-ray: image reviewed (Emphysema and some fibrotic changes. Final results pending)
--- NOTE | 2022-02-11 13:10 | Cat Scan Report ---
CT chest w con INDICATION: Sarcoidosis. TECHNIQUE: All CT scans at this location are performed using CT dose reduction for ALARA by means of automated e xposure control. COMPARISON: Chest x-ray on 02/09/2022 FINDINGS: There is severe bilateral upper lobe predominant emphysema as well as tiny bilateral pleural effusion s. There is fluid also within the right major fissure. There is no intrathoracic adenopathy. The heart is mildly globally enlarged. There is no aortic aneur ysm. The pulmonary artery is not dilated. Visualized upper abdominal organs demonstrate no acute findings. There are no acute osseous abnormali ties. IMPRESSION: 1. Severe bilateral upper lobe predominant emphysema and tiny bilateral pleural effusions. 2. No intrathoracic adenopathy identified. Signer Name: Garrett Flower MD Signed: 02/11/2022 1:05 PM Workstation Name: [email or web address]
[2022-02-11 16:50] VITALS: BP 129/106
== END 2022-02-11 17:33 | disposition home health service (06) | DRG 871 ==
LOC: ED 11:29 → CC1 20:28 → IMCU 02-09 18:14 → 4A 02-10 13:37
PROVIDERS: ADMIT Internal Medicine; ATTEND Internal Medicine
PROC: 0BH17EZ Insertion of Endotracheal Airway into Trachea, Via Natural or Artificial Opening (ICD-10-PCS; principal; 2022-02-07)
PROC: 4A033R1 Measurement of Arterial Saturation, Peripheral, Percutaneous Approach (ICD-10-PCS; 2022-02-07)
PROC: 5A1945Z Respiratory Ventilation, 24-96 Consecutive Hours (ICD-10-PCS; 2022-02-07)
PROC: 0BP1XDZ Removal of Intraluminal Device from Trachea, External Approach (ICD-10-PCS; 2022-02-08)
DX: A41.9 Sepsis, unspecified organism (principal); J96.01 Acute respiratory failure with hypoxia; N17.0 Acute kidney failure with tubular necrosis; G93.41 Metabolic encephalopathy; J69.0 Pneumonitis due to inhalation of food and vomit; C79.31 Secondary malignant neoplasm of brain; E44.1 Mild protein-calorie malnutrition; E87.2 Acidosis; J44.1 Chronic obstructive pulmonary disease with (acute) exacerbation; J44.0 Chronic obstructive pulmonary disease with (acute) lower respiratory infection; Z99.11 Dependence on respirator [ventilator] status; I69.954 Hemiplegia and hemiparesis following unspecified cerebrovascular disease affecting left non-dominant side; D86.89 Sarcoidosis of other sites; R74.01 Elevation of levels of liver transaminase levels; E11.9 Type 2 diabetes mellitus without complications; G40.909 Epilepsy, unspecified, not intractable, without status epilepticus; Z87.891 Personal history of nicotine dependence; Z79.899 Other long term (current) drug therapy; Z68.24 Body mass index [BMI] 24.0-24.9, adult
CPT/HCPCS: 31500; 36415; 36600; 70450; 70496; 70498; 70553; 71045; 71260; 74018; 76705; 80048; 80053; 80307; 80320; 81001; 82140; 82550; 82553; 82803; 82962; 83036; 84145; 84484; 85007; 85025; 85027; 85610; 85670; 85730; 87040; 87641; 93005; 94002; 94003; 94640; 94644; 94760; 95819; 96374; 96375; 99291; G0378; J3490; J7060; Q9967; A9575; G0480; J0360; J0456; J0696; J1644; J1815; J1953; J2250; J2405; J2704; J2930; J3010; J7030; J7120

== ENCOUNTER 2022-02-16 18:02 | Inpatient (IN) | payer SELFPAY ==
[2022-02-16] MEDS ORDERED: IPRATROPIUM 0.02% NEBU 2.5 ML IH ONE (19:59)
[2022-02-16] MEDS ORDERED: methylPREDNISolone Sod Succinate 125 MG/2 ML INJ IV ONE (19:59)
[2022-02-16] MEDS ORDERED: ALBUTEROL 2.5 MG/3 ML NEBU IH ONE (19:59)
--- NOTE | 2022-02-16 20:53 | XRay Report ---
CHEST 1 VIEW 02/16/2022 8:06 PM INDICATION / CLINICAL INFORMATION: Dyspnea. COMPARISON: CT chest with contrast from 02/11/2022. One view of the chest from 02/09/2022. FINDINGS: SUPPORT DEVICES: None. HEART / MEDIASTINUM: Stable. LUNGS / PLEURA: Emphysema is again noted bilaterally with chronic appearing parenchymal changes. No n ew acute pulmonary abnormality. No significant pleural effusion. No pneumothorax. ADDITIONAL FINDINGS: No significant additional findings. IMPRESSION: 1. No acute abnormality of the chest. No significant interval changes. Signer Name: Hansel Chu MD Signed: 02/16/2022 8:48 PM Workstation Name: [id number]
[2022-02-16 21:04] LABS: Basophils # (Auto) 0.1 K/mm3 (0.0-0.1); Basophils % (Auto) 1.1 % (0.0-1.8); Eosinophils # (Auto) 0.1 K/mm3 (0.0-0.4); Eosinophils % (Auto) 1.4 % (0.0-4.3); Hematocrit 41.9 % (35.5-45.6); Hemoglobin 13.2 gm/dl (11.8-15.2); Lymphocytes # (Auto) 1.8 K/mm3 (1.2-5.4); Lymphocytes % (Auto) 23.1 % (13.4-35.0); Mean Corpuscular HGB Conc 32 % (32-34); Mean Corpuscular Volume 83 fl (84-94); Monocytes # (Auto) 0.9 K/mm3 (0.0-0.8); Monocytes % (Auto) 11.7 % (0.0-7.3); Platelet Count 351 K/mm3 (140-440); Red Blood Count 5.07 M/mm3 (3.65-5.03); Red Cell Distribution Width 17.3 % (13.2-15.2)
[2022-02-16 21:12] LABS: INR 1.06 (0.87-1.13)
[2022-02-16 21:26] LABS: Creatine Kinase MB 34.5 ng/mL (0.0-4.0)
[2022-02-16 21:30] LABS: Alanine Aminotransferase 76 units/L (7-56); Albumin 3.8 g/dL (3.9-5); BUN/Creatinine Ratio 12; Blood Urea Nitrogen 13 mg/dL (9-20); Calcium 9.2 mg/dL (8.4-10.2); Hemolysis Index 8
[2022-02-16 21:56] LABS: Chol/HDL Ratio 3.07 %; HDL Cholesterol 42 mg/dL (40-59); LDL Cholesterol,Direct 67 mg/dL (50-130)
[2022-02-16 21:56] LABS: ABG HCO3 19.3 mmol/L (20.0-26.0); ABG Methemoglobin 0.4 % (0.0-1.5); ABG Oxygen Saturation 97.9 % (95.0-99.0); ABG PCO2 30.1 mm Hg; ABG PH 7.425 pH Units (7.350-7.450); ABG PO2 104.5 mm Hg (80.0-90.0)
[2022-02-16] MEDS ORDERED: FUROSEMIDE 40 MG/4 ML INJ IV ONE (22:26)
[2022-02-16] MEDS ORDERED: MAGNESIUM HYDROXIDE (MOM) ORAL LIQD UDC PO PRN (23:27)
[2022-02-16] MEDS ORDERED: MORPHINE 4 MG/1 ML INJ IV PRN (23:27)
[2022-02-16] MEDS ORDERED: ACETAMINOPHEN 325 MG TAB PO PRN ×2 (23:27)
[2022-02-16] MEDS ORDERED: NITROGLYCERIN 0.4 MG TAB SUBL SL PRN (23:27)
[2022-02-16] MEDS ORDERED: MORPHINE 2 MG/1 ML INJ IV PRN (23:27)
[2022-02-16] MEDS ORDERED: DEXTROSE 50% IN WATER (25GM) 50 ML SYRINGE IV PRN (23:27)
[2022-02-16] MEDS ORDERED: ONDANSETRON 4 MG/2 ML INJ IV PRN (23:27)
--- NOTE | 2022-02-16 23:49 | History and Physical Report ---
History of Present Illness Date of examination: 02/16/22 Date of admission: 02/16/2022 Chief complaint: Shortness of Breath History of present illness: 47-year-old male with known history of sarcoidosis, COPD, seizure disorder, diabetes mellitus presented to the emergency room today complaining of shortness of breath. Shortness of breath symptoms started few days ago and is worse on exertion. He denies any chest pain. Denies any fever or chills, no nausea vomiting and no abdominal pain. Upon arrival in the emergency room today patient was quite tachypneic. Work-up in the emergency room today, lab was significant for troponin of 0.149, elevated liver enzymes, BNP of 7405. Chest x-ray shows no acute changes. Past History Past Medical History: COPD, diabetes, hypertension, seizures, stroke, other (Sarcoidosis) Past Surgical History: No surgical history Social history: smoking (Former Smoker) Family history: no significant family history Medications and Allergies Allergies Allergy/AdvReac Type Severity Reaction Status Date / Time No Known Allergies Allergy Verified 07/31/21 15:00 Home Medications Medication Instructions Recorded Confirmed Last Taken Type Meclizine [Antivert] 12.5 mg PO DAILY PRN #12 tablet 06/10/21 Unknown Rx metFORMIN [Glucophage] 500 mg PO BID #60 tablet 06/10/21 Unknown Rx Albuterol Sulfate [Proventil Hfa] 2 puff IH Q4HR PRN #1 hfa.aer.ad 07/31/21 Unknown Rx predniSONE [Deltasone] 50 mg PO QDAY #5 tab 07/31/21 Unknown Rx AtorvaSTATin [Lipitor] 40 mg PO QHS #30 tab 02/11/22 Unknown Rx Famotidine [Pepcid] 40 mg PO QHS #30 tablet 02/11/22 Unknown Rx Sennosides/Docusate [Senokot S] 1 tab PO QHS #30 tablet 02/11/22 Unknown Rx levETIRAcetam [Keppra TAB] 1,000 mg PO BID #60 tab 02/11/22 Unknown Rx metFORMIN [Glucophage] 850 mg PO BID #60 tab 02/11/22 Unknown Rx Active Meds: Active Medications Acetaminophen (Acetaminophen 325 Mg Tab) 650 mg PO Q4H PRN PRN Reason: Pain MILD(1-3)/Fever >100.5/AVILES Acetaminophen (Acetaminophen 325 Mg Tab) 650 mg PO Q6H PRN PRN Reason: Pain, Mild (1-3) Aspirin (Aspirin Ec 325 Mg Tab) 325 mg PO QDAY REBECCA Dextrose (Dextrose 50% In Water (25gm) 50 Ml Syringe) 50 ml IV Q30MIN PRN; Protocol PRN Reason: Hypoglycemia Dextrose (Dextrose 50% In Water (25gm) 50 Ml Syringe) 50 ml IV Q30MIN PRN; Protocol PRN Reason: Hypoglycemia Furosemide (Furosemide 40 Mg/4 Ml Inj) 40 mg IV BID@0600,1800 [facility] Insulin Human Lispro (Insulin Lispro 100 Unit/Ml) 0 unit SUB-Q ACHS REBECCA; Protocol Magnesium Hydroxide (Magnesium Hydroxide (Mom) Oral Liqd Udc) 30 ml PO Q4H PRN PRN Reason: Constipation Morphine Sulfate (Morphine 2 Mg/1 Ml Inj) 2 mg IV Q4H PRN PRN Reason: Pain, Moderate (4-6) Morphine Sulfate (Morphine 4 Mg/1 Ml Inj) 4 mg IV Q4H PRN PRN Reason: Pain , Severe (7-10) Morphine Sulfate (Morphine 4 Mg/1 Ml Inj) 2 mg IV Q5MIN PRN PRN Reason: Chest Pain unrelieved by NTG Nitroglycerin (Nitroglycerin 0.4 Mg Tab Subl) 0.4 mg SL .Q5MIN PRN PRN Reason: Chest Pain Ondansetron HCl (Ondansetron 4 Mg/2 Ml Inj) 4 mg IV Q8H PRN PRN Reason: Nausea And Vomiting Sodium Chloride (Sodium Chloride 0.9% 10 Ml Flush Syringe) 10 ml IV BID REBECCA Sodium Chloride (Sodium Chloride 0.9% 10 Ml Flush Syringe) 10 ml IV PRN PRN PRN Reason: LINE FLUSH Sodium Chloride (Sodium Chloride 0.9% 10 Ml Flush Syringe) 10 ml IV PRN PRN PRN Reason: LINE FLUSH Tramadol HCl (Tramadol 50 Mg Tab) 50 mg PO Q6H PRN PRN Reason: Pain, Moderate (4-6) Review of Systems Constitutional: no fever, no chills Ears, nose, mouth and throat: no nasal congestion, no sore throat Cardiovascular: no chest pain, no palpitations Respiratory: shortness of breath, no cough, no wheezing Gastrointestinal: no abdominal pain, no nausea, no vomiting, no diarrhea Genitourinary Male: no dysuria, no hematuria Musculoskeletal: no neck pain, no low back pain Integumentary: no rash, no pruritis Neurological: no headaches, no confusion Psychiatric: no anxiety, no depression Endocrine: no polyphagia, no polydipsia, no polyuria, no nocturia Exam - Constitutional Vitals: Temp Pulse Resp BP Pulse Ox 97.4 F L 98 H 20 134/106 100 02/16/22 18:23 02/16/22 21:36 02/16/22 21:36 02/16/22 18:23 02/16/22 18:23 General appearance: Present: no acute distress, well-nourished - EENT Eyes: Present: PERRL, EOM intact. Absent: scleral icterus ENT: hearing intact, clear oral mucosa, dentition normal - Neck Neck: Present: supple, normal ROM - Respiratory Respiratory effort: normal Respiratory: bilateral: rales - Cardiovascular Rhythm: regular Heart Sounds: Present: S1 & S2. Absent: gallop, systolic murmur, diastolic murmur, rub, click - Extremities Extremities: no ischemia, pulses intact, pulses symmetrical, normal temperature, normal color, Full ROM Extremity abnormal: edema (2+ jose l.lower extremity edema, 3+ left upper extremity edema) Peripheral Pulses: within normal limits - Abdominal General gastrointestinal: Present: soft, non-tender, non-distended, normal bowel sounds. Absent: mass - Integumentary Integumentary: Present: clear, warm, dry, normal turgor. Absent: rash - Musculoskeletal Musculoskeletal: strength equal bilaterally - Psychiatric Psychiatric: appropriate mood/affect, intact judgment & insight, memory intact, cooperative - Neurologic Neurologic: CNII-XII intact, no focal deficits, moves all extremities HEART Score - HEART Score Troponin: Troponin T 0.149 ng/mL (0.00-0.029) H* 02/16/22 20:32 Results - Labs CBC & Chem 7: 02/17/22 04:38 02/17/22 04:38 Labs: Abnormal lab results 02/16/22 02/16/22 02/16/22 Range/Units 20:32 20:32 20:32 RBC 5.07 H (3.65-5.03) M/mm3 MCV 83 L (84-94) fl MCH 26 L (28-32) pg RDW 17.3 H (13.2-15.2) % Pettis % (Auto) 11.7 H (0.0-7.3) % Pettis # (Auto) 0.9 H (0.0-0.8) K/mm3 PT 15.0 H (12.2-14.9) Sec. ABG pO2 (80.0-90.0) mm Hg ABG HCO3 (20.0-26.0) mmol/L ABG Base Excess (-2.0-3.0) mmol/L ABG Hemoglobin (14.0-18.0) gm/dl Carbon Dioxide 18 L (22-30) mmol/L Glucose 126 H (75-100) mg/dL AST 65 H (5-40) units/L ALT 76 H (7-56) units/L Alkaline Phosphatase 207 H (35-129) units/L Total Creatine Kinase 406 H (55-170) units/L CK-MB (CK-2) 34.5 H (0.0-4.0) ng/mL CK-MB (CK-2) Rel Index 8.4 H (0-4) Troponin T 0.149 H* (0.00-0.029) ng/mL NT-Pro-B Natriuret Pep (0-450) pg/mL Albumin 3.8 L (3.9-5) g/dL 02/16/22 02/16/22 Range/Units 20:32 21:52 RBC (3.65-5.03) M/mm3 MCV (84-94) fl MCH (28-32) pg RDW (13.2-15.2) % Pettis % (Auto) (0.0-7.3) % Pettis # (Auto) (0.0-0.8) K/mm3 PT (12.2-14.9) Sec. ABG pO2 104.5 H (80.0-90.0) mm Hg ABG HCO3 19.3 L (20.0-26.0) mmol/L ABG Base Excess -4.0 L (-2.0-3.0) mmol/L ABG Hemoglobin 12.5 L (14.0-18.0) gm/dl Carbon Dioxide (22-30) mmol/L Glucose (75-100) mg/dL AST (5-40) units/L ALT (7-56) units/L Alkaline Phosphatase (35-129) units/L Total Creatine Kinase (55-170) units/L CK-MB (CK-2) (0.0-4.0) ng/mL CK-MB (CK-2) Rel Index (0-4) Troponin T (0.00-0.029) ng/mL NT-Pro-B Natriuret Pep 7405 H (0-450) pg/mL Albumin (3.9-5) g/dL Assessment and Plan - Patient Problems (1) CHF exacerbation Current Visit: Yes Status: Acute Plan to address problem: Patient was placed on telemetry and started on diuretics. Will monitor input and output and also monitor daily weights. Patient will be scheduled for echocardiogram. (2) Elevated troponin Current Visit: Yes Status: Acute Plan to address problem: We will trend cardiac enzymes. Patient has denied any chest pain. We will await further evaluation and recommendations from cardiology. (3) Seizure disorder Current Visit: No Status: Acute Plan to address problem: Patient will be placed on seizure precautions. Will continue routine home medications. 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 Will monitor Accu-Cheks. (5) DVT prophylaxis Current Visit: No Status: Acute Plan to address problem: Patient placed on subcutaneous heparin. (6) Full code status Current Visit: Yes Status: Acute Plan to address problem: Patient is full code .
--- NOTE | 2022-02-16 23:52 | Emergency Department Report ---
ED Shortness of Breath HPI - General Chief Complaint: Dyspnea/Respdistress Stated Complaint: SOB Time Seen by Provider: 02/16/22 19:49 Source: patient Mode of arrival: Wheelchair Limitations: No Limitations, Physical Limitation - History of Present Illness Initial Comments: 47 years old with sarcoidosis , COPD , seizure , here today for SOb for few days , no chets pain worse while moving , no fever no rash MD Complaint: shortness of breath -: Gradual, days(s) Improves With: nothing Worsens With: exertion Known History Of: COPD Associated Symptoms: denies other symptoms Treatments Prior to Arrival: none - Related Data Home Oxygen Therapy: No Previous Rx's Medication Instructions Recorded Last Taken Type Meclizine [Antivert] 12.5 mg PO DAILY PRN #12 tablet 06/10/21 Unknown Rx metFORMIN [Glucophage] 500 mg PO BID #60 tablet 06/10/21 Unknown Rx Albuterol Sulfate [Proventil Hfa] 2 puff IH Q4HR PRN #1 hfa.aer.ad 07/31/21 Unknown Rx predniSONE [Deltasone] 50 mg PO QDAY #5 tab 07/31/21 Unknown Rx AtorvaSTATin [Lipitor] 40 mg PO QHS #30 tab 02/11/22 Unknown Rx Famotidine [Pepcid] 40 mg PO QHS #30 tablet 02/11/22 Unknown Rx Sennosides/Docusate [Senokot S] 1 tab PO QHS #30 tablet 02/11/22 Unknown Rx levETIRAcetam [Keppra TAB] 1,000 mg PO BID #60 tab 02/11/22 Unknown Rx metFORMIN [Glucophage] 850 mg PO BID #60 tab 02/11/22 Unknown Rx Allergies Allergy/AdvReac Type Severity Reaction Status Date / Time No Known Allergies Allergy Verified 07/31/21 15:00 ED Review of Systems ROS: Stated complaint: SOB Other details as noted in HPI Constitutional: denies: chills, fever Eyes: denies: eye pain, eye discharge, vision change ENT: denies: ear pain, throat pain Respiratory: denies: cough, shortness of breath, wheezing Cardiovascular: denies: chest pain, palpitations Endocrine: no symptoms reported Gastrointestinal: denies: abdominal pain, nausea, diarrhea Genitourinary: denies: urgency, dysuria Musculoskeletal: denies: back pain, joint swelling, arthralgia Skin: denies: rash, lesions Neurological: denies: headache, weakness, paresthesias Psychiatric: denies: anxiety, depression Hematological/Lymphatic: denies: easy bleeding, easy bruising ED Past Medical Hx - Past Medical History Hx Diabetes: Yes Hx Seizures: Yes - Social History Smoking Status: Former Smoker - Medications Home Medications: Home Medications Medication Instructions Recorded Confirmed Last Taken Type Meclizine [Antivert] 12.5 mg PO DAILY PRN #12 tablet 06/10/21 Unknown Rx metFORMIN [Glucophage] 500 mg PO BID #60 tablet 06/10/21 Unknown Rx Albuterol Sulfate [Proventil Hfa] 2 puff IH Q4HR PRN #1 hfa.aer.ad 07/31/21 Unknown Rx predniSONE [Deltasone] 50 mg PO QDAY #5 tab 07/31/21 Unknown Rx AtorvaSTATin [Lipitor] 40 mg PO QHS #30 tab 02/11/22 Unknown Rx Famotidine [Pepcid] 40 mg PO QHS #30 tablet 02/11/22 Unknown Rx Sennosides/Docusate [Senokot S] 1 tab PO QHS #30 tablet 02/11/22 Unknown Rx levETIRAcetam [Keppra TAB] 1,000 mg PO BID #60 tab 02/11/22 Unknown Rx metFORMIN [Glucophage] 850 mg PO BID #60 tab 02/11/22 Unknown Rx ED Physical Exam - General Limitations: No Limitations, Physical Limitation General appearance: alert, in distress - Head Head exam: Present: atraumatic, normocephalic - Eye Eye exam: Present: normal appearance - ENT ENT exam: Present: mucous membranes moist - Neck Neck exam: Present: normal inspection - Respiratory Respiratory exam: Present: respiratory distress, rales, accessory muscle use - Cardiovascular Cardiovascular Exam: Present: regular rate, normal rhythm. Absent: systolic murmur, diastolic murmur, rubs, gallop - GI/Abdominal GI/Abdominal exam: Present: soft, normal bowel sounds - Rectal Rectal exam: Present: deferred - Extremities Exam Extremities exam: Present: normal inspection, pedal edema - Back Exam Back exam: Present: normal inspection - Neurological Exam Neurological exam: Present: alert, oriented X3 - Psychiatric Psychiatric exam: Present: normal affect, normal mood - Skin Skin exam: Present: warm, dry, intact, normal color. Absent: rash ED Course Vital Signs 02/16/22 02/16/22 18:23 21:36 Temperature 97.4 F L Pulse Rate 74 Pulse Rate [ 98 H Anterior] Respiratory 26 H Rate Respiratory 20 Rate [Anterior] Blood Pressure 134/106 [Right] O2 Sat by Pulse 100 Oximetry ED Medical Decision Making - Lab Data Result diagrams: 02/16/22 20:32 02/16/22 20:32 - EKG Data -: EKG Interpreted by Me EKG shows normal: sinus rhythm - EKG Data Interpretation: nonspecific ST-T wave marques, LVH - Radiology Data Radiology results: report reviewed, image reviewed - Medical Decision Making work up showed : - SOB : bnp elevated , lasix igven no recent echo , rt given , steriods - elevated trop : no chets pain ekg shwoed non specific changes will admit for echo and card consult Critical care attestation.: If time is entered above; I have spent that time in minutes in the direct care of this critically ill patient, excluding procedure time. ED Disposition Clinical Impression: CHF (congestive heart failure), Elevated troponin, SOB (shortness of breath), COPD exacerbation Disposition: ADMITTED INPATIENT Is pt being admited?: Yes Does the pt Need Aspirin: No Condition: Stable Instructions: Chronic Obstructive Pulmonary Disease (ED) Referrals: ISAIAS MCKINNON MD [Primary Care Provider] - 3-5 Days
[2022-02-17 01:30] LABS: BUN/Creatinine Ratio 13; Blood Urea Nitrogen 13 mg/dL (9-20); Calcium 9.3 mg/dL (8.4-10.2); Hemolysis Index 6
[2022-02-17] MEDS: MORPHINE 4 MG/1 ML INJ IV PRN ×2 (02:44→13:18)
[2022-02-17 06:02] LABS: Hematocrit 39.7 % (35.5-45.6); Hemoglobin 12.6 gm/dl (11.8-15.2); Mean Corpuscular HGB Conc 32 % (32-34); Mean Corpuscular Volume 82 fl (84-94); Platelet Count 344 K/mm3 (140-440); Red Blood Count 4.88 M/mm3 (3.65-5.03); Red Cell Distribution Width 17.3 % (13.2-15.2)
[2022-02-17] MEDS: FUROSEMIDE 40 MG/4 ML INJ IV SCH ×2 (06:22→17:22)
[2022-02-17 06:36] LABS: BUN/Creatinine Ratio 12; Blood Urea Nitrogen 12 mg/dL (9-20); Calcium 8.8 mg/dL (8.4-10.2); Hemolysis Index 9
[2022-02-17 07:01] LABS: Basophils % (Manual) 0 % (0.0-1.8); Eosinophils % (Manual) 0 % (0.0-4.3); Monocytes % (Manual) 0 % (0.0-7.3); Total Cells Counted 100
[2022-02-17 07:04] LABS: Hypochromasia 1+
[2022-02-17 07:06] LABS: Burr Cells Rare
[2022-02-17 07:07] LABS: Ovalocytes Few; Platelet Estimate Consistent w Auto
--- NOTE | 2022-02-17 08:08 | Progress Note ---
Assessment and Plan Assessment and plan: #CHF exacerbation -chronicity unknown, patient does not take any medications indicated for HFrEF -continue IV lasix, if patient has reduced ejection fraction, we will start GDMT -results of TTE pending -continue to monitor I/Os, daily weights, fluid restriction 1.5L, telemetry -Cardiology consulted, assistance appreciated #Elevated troponin -troponin 0.149 -> 0.189 -patient has no chest pain, only shortness of breath -will order one more troponin -elevation likely secondary to CHF exacerbation -will continue to monitor #History of pulmonary sarcoidosis -resume prednisone 20mg qday #Left upper extremity DVT #History of DVT -Patient reports history of DVT and was taking warfarin in the past -LUE doppler shows acute DVT in L brachial, ulnar and radial veins -We will restart warfarin, pharmacy to dose -Lovenox ordered as a bridge #Seizure disorder -Continue Keppra at home dose -Continue seizure precautions #T2DM (type 2 diabetes mellitus) -patient takes metformin outpatient -will hold for now and continue sliding scale insulin with Accu-Cheks #Advanced care planning -Disease education conducted, care plan discussed, diagnoses discussed, prognosis discussed, and patient acknowledges understanding with care plan -Time: +30 min History Interval history: No acute events overnight. Patient reports improvement in shortness of breath. Updated about findings of upper extremity Doppler. Reports history of DVT and was taking warfarin in the past. Hospitalist Physical - Physical exam Narrative exam: GENERAL: Well-developed well-nourished. In no acute distress. HEENT: Normocephalic. Atraumatic. NECK: Supple. CHEST/LUNGS: Coarse breath sounds bilaterally. HEART/CARDIOVASCULAR: RRR. No murmur, rubs or gallops appreciated. ABDOMEN: +BS. NT/ND. SKIN: No rashes noted. NEURO: No focal motor deficit. Follows all commands. MUSCULOSKELETAL: No joint effusion EXTREMITIES: No cyanosis, clubbing. Left upper extremity edema. PSYCH: Cooperative. - Constitutional Vitals: Temp Pulse Resp BP Pulse Ox 98.9 F 95 H 16 103/80 99 02/17/22 07:45 02/17/22 02:22 02/17/22 07:45 02/17/22 07:45 02/17/22 02:58 General appearance: Present: no acute distress, well-nourished HEART Score - HEART Score Troponin: Troponin T 0.149 ng/mL (0.00-0.029) H* 02/16/22 20:32 Results - Labs CBC & Chem 7: 02/17/22 04:38 02/18/22 04:28 Labs: Laboratory Last Values WBC 7.2 K/mm3 (4.5-11.0) 02/17/22 04:38 RBC 4.88 M/mm3 (3.65-5.03) 02/17/22 04:38 Hgb 12.6 gm/dl (11.8-15.2) 02/17/22 04:38 Hct 39.7 % (35.5-45.6) 02/17/22 04:38 MCV 82 fl (84-94) L 02/17/22 04:38 MCH 26 pg (28-32) L 02/17/22 04:38 MCHC 32 % (32-34) 02/17/22 04:38 RDW 17.3 % (13.2-15.2) H 02/17/22 04:38 Plt Count 344 K/mm3 (140-440) 02/17/22 04:38 Lymph % (Auto) 23.1 % (13.4-35.0) 02/16/22 20:32 [place] % (Auto) 11.7 % (0.0-7.3) H 02/16/22 20:32 Eos % (Auto) 1.4 % (0.0-4.3) 02/16/22 20:32 Baso % (Auto) 1.1 % (0.0-1.8) 02/16/22 20:32 Lymph # (Auto) 1.8 K/mm3 (1.2-5.4) 02/16/22 20:32 Creek # (Auto) 0.9 K/mm3 (0.0-0.8) H 02/16/22 20:32 Eos # (Auto) 0.1 K/mm3 (0.0-0.4) 02/16/22 20:32 Baso # (Auto) 0.1 K/mm3 (0.0-0.1) 02/16/22 20:32 Add Manual Diff Complete 02/17/22 04:38 Total Counted 100 02/17/22 04:38 Seg Neutrophils % [employer] Head 02/17/22 04:38 Seg Neuts % (Manual) 95.0 % (40.0-70.0) H 02/17/22 04:38 Band Neutrophils % 0 % 02/17/22 04:38 Lymphocytes % (Manual) 5.0 % (13.4-35.0) L 02/17/22 04:38 Reactive Lymphs % (Man) 0 % 02/17/22 04:38 Monocytes % (Manual) 0 % (0.0-7.3) 02/17/22 04:38 Eosinophils % (Manual) 0 % (0.0-4.3) 02/17/22 04:38 Basophils % (Manual) 0 % (0.0-1.8) 02/17/22 04:38 Metamyelocytes % 0 % 02/17/22 04:38 Myelocytes % 0 % 02/17/22 04:38 Promyelocytes % 0 % 02/17/22 04:38 Blast Cells % 0 % 02/17/22 04:38 Nucleated RBC % Not Reportable 02/17/22 04:38 Seg Neutrophils # 4.8 K/mm3 (1.8-7.7) 02/16/22 20:32 Seg Neutrophils # Man 6.8 K/mm3 (1.8-7.7) 02/17/22 04:38 Band Neutrophils # 0.0 K/mm3 02/17/22 04:38 Lymphocytes # (Manual) 0.4 K/mm3 (1.2-5.4) L 02/17/22 04:38 Abs React Lymphs (Man) 0.0 K/mm3 02/17/22 04:38 Monocytes # (Manual) 0.0 K/mm3 (0.0-0.8) 02/17/22 04:38 Eosinophils # (Manual) 0.0 K/mm3 (0.0-0.4) 02/17/22 04:38 Basophils # (Manual) 0.0 K/mm3 (0.0-0.1) 02/17/22 04:38 Metamyelocytes # 0.0 K/mm3 02/17/22 04:38 Myelocytes # 0.0 K/mm3 02/17/22 04:38 Promyelocytes # 0.0 K/mm3 02/17/22 04:38 Blast Cells # 0.0 K/mm3 02/17/22 04:38 WBC Morphology Not Reportable 02/17/22 04:38 Hypersegmented Neuts Not Reportable 02/17/22 04:38 Hyposegmented Neuts Not Reportable 02/17/22 04:38 Hypogranular Neuts Not Reportable 02/17/22 04:38 Smudge Cells Not Reportable 02/17/22 04:38 Toxic Granulation Not Reportable 02/17/22 04:38 Toxic Vacuolation Not Reportable 02/17/22 04:38 Dohle Bodies Not Reportable 02/17/22 04:38 Pelger-Huet Anomaly Not Reportable 02/17/22 04:38 Rachel Rods Not Reportable 02/17/22 04:38 Platelet Estimate Consistent w auto 02/17/22 04:38 Clumped Platelets Not Reportable 02/17/22 04:38 Plt Clumps, EDTA Not Reportable 02/17/22 04:38 Large Platelets Not Reportable 02/17/22 04:38 Giant Platelets Not Reportable 02/17/22 04:38 Platelet Satelliting Not Reportable 02/17/22 04:38 Plt Morphology Comment Not Reportable 02/17/22 04:38 RBC Morphology Not Reportable 02/17/22 04:38 Dimorphic RBCs Not Reportable 02/17/22 04:38 Polychromasia Not Reportable 02/17/22 04:38 Hypochromasia 1+ 02/17/22 04:38 Poikilocytosis Not Reportable 02/17/22 04:38 Anisocytosis Not Reportable 02/17/22 04:38 Microcytosis Not Reportable 02/17/22 04:38 Macrocytosis Not Reportable 02/17/22 04:38 Spherocytes Not Reportable 02/17/22 04:38 Pappenheimer Bodies Not Reportable 02/17/22 04:38 Sickle Cells Not Reportable 02/17/22 04:38 Target Cells Not Reportable 02/17/22 04:38 Tear Drop Cells Not Reportable 02/17/22 04:38 Ovalocytes Few 02/17/22 04:38 Helmet Cells Not Reportable 02/17/22 04:38 Banuelos-Ulysses Bodies Not Reportable 02/17/22 04:38 [place] Rings Not Reportable 02/17/22 04:38 [place] Cells Rare 02/17/22 04:38 Bite Cells Not Reportable 02/17/22 04:38 Crenated Cell Not Reportable 02/17/22 04:38 Elliptocytes Not Reportable 02/17/22 04:38 Acanthocytes (Spur) Rare 02/17/22 04:38 Rouleaux Not Reportable 02/17/22 04:38 Hemoglobin C Crystals Not Reportable 02/17/22 04:38 Schistocytes Not Reportable 02/17/22 04:38 Malaria parasites Not Reportable 02/17/22 04:38 Ten Bodies Not Reportable 02/17/22 04:38 Hem Pathologist Commnt No 02/17/22 04:38 PT 15.0 Sec. (12.2-14.9) H 02/16/22 20:32 INR 1.06 (0.87-1.13) 02/16/22 20:32 ABG pH 7.425 pH Units (7.350-7.450) 02/16/22 21:52 ABG pCO2 30.1 mm Hg 02/16/22 21:52 ABG pO2 104.5 mm Hg (80.0-90.0) H 02/16/22 21:52 ABG HCO3 19.3 mmol/L (20.0-26.0) L 02/16/22 21:52 ABG O2 Saturation 97.9 % (95.0-99.0) 02/16/22 21:52 ABG O2 Content 17.0 (0.0-44) 02/16/22 21:52 ABG Base Excess -4.0 mmol/L (-2.0-3.0) L 02/16/22 21:52 ABG Hemoglobin 12.5 gm/dl (14.0-18.0) L 02/16/22 21:52 ABG Carboxyhemoglobin 1.7 % (0.0-5.0) 02/16/22 21:52 ABG Methemoglobin 0.4 % (0.0-1.5) 02/16/22 21:52 Oxyhemoglobin 95.8 % (95.0-99.0) 02/16/22 21:52 FiO2 28 % 02/16/22 21:52 Sodium 140 mmol/L (137-145) 02/17/22 04:38 Potassium 4.3 mmol/L (3.6-5.0) 02/17/22 04:38 Chloride 104.5 mmol/L (98-107) 02/17/22 04:38 Carbon Dioxide 22 mmol/L (22-30) 02/17/22 04:38 Anion Gap 18 mmol/L 02/17/22 04:38 BUN 12 mg/dL (9-20) 02/17/22 04:38 Creatinine 1.0 mg/dL (0.8-1.3) 02/17/22 04:38 Estimated GFR > 60 ml/min 02/17/22 04:38 BUN/Creatinine Ratio 12 % 02/17/22 04:38 Glucose 168 mg/dL (75-100) H 02/17/22 04:38 Calcium 8.8 mg/dL (8.4-10.2) 02/17/22 04:38 Magnesium 1.80 mg/dL (1.7-2.3) 02/16/22 20:32 Total Bilirubin 1.10 mg/dL (0.1-1.2) 02/16/22 20:32 AST 65 units/L (5-40) H 02/16/22 20:32 ALT 76 units/L (7-56) H 02/16/22 20:32 Alkaline Phosphatase 207 units/L (35-129) H 02/16/22 20:32 Total Creatine Kinase 406 units/L (55-170) H 02/16/22 20:32 CK-MB (CK-2) 34.5 ng/mL (0.0-4.0) H 02/16/22 20:32 CK-MB (CK-2) Rel Index 8.4 (0-4) H 02/16/22 20:32 Troponin T 0.149 ng/mL (0.00-0.029) H* 02/16/22 20:32 NT-Pro-B Natriuret Pep 7405 pg/mL (0-450) H 02/16/22 20:32 Total Protein 6.6 g/dL (6.3-8.2) 02/16/22 20:32 Albumin 3.8 g/dL (3.9-5) L 02/16/22 20:32 Albumin/Globulin Ratio 1.4 % 02/16/22 20:32 Triglycerides 91 mg/dL (2-149) 02/16/22 20:32 Cholesterol 129 mg/dL (50-199) 02/16/22 20:32 LDL Cholesterol Direct 67 mg/dL (50-130) 02/16/22 20:32 HDL Cholesterol 42 mg/dL (40-59) 02/16/22 20:32 Cholesterol/HDL Ratio 3.07 % 02/16/22 20:32 Lipase 15 units/L (13-60) 02/16/22 20:32 Alexandre/IV: Voiding Method Condom Catheter Active Medications - Current Medications Current Medications: Generic Name Dose Route Start Last Admin Trade Name Freq PRN Reason Stop Dose Admin Acetaminophen 650 mg 02/16/22 23:27 Acetaminophen 325 Mg Tab PO Q4H PRN Pain MILD(1-3)/Fever >100.5/AVILES Aspirin 325 mg 02/17/22 10:00 Aspirin Ec 325 Mg Tab PO QDAY [facility] Atorvastatin Calcium 40 mg 02/17/22 22:00 Atorvastatin 40 Mg Tab PO QHS [facility] Dextrose 50 ml 02/16/22 23:27 Dextrose 50% In Water (25gm) 50 Ml Syringe IV Q30MIN PRN Hypoglycemia Protocol Famotidine 40 mg 02/17/22 22:00 Famotidine 20 Mg Tab PO QHS [facility] Furosemide 40 mg 02/17/22 06:00 02/17/22 06:22 Furosemide 40 Mg/4 Ml Inj IV 40 mg BID@0600,1800 [facility] Administration Heparin Sodium (Porcine) 5,000 unit 02/17/22 14:00 Heparin 5,000 Unit/1 Ml Vial SUB-Q Q8HR [facility] Insulin Human Lispro 0 unit 02/17/22 07:30 Insulin Lispro 100 Unit/Ml SUB-Q ACHS [facility] Protocol Magnesium Hydroxide 30 ml 02/16/22 23:27 Magnesium Hydroxide (Mom) Oral Liqd Udc PO Q4H PRN Constipation Miscellaneous Medication 1,000 mg 02/17/22 10:00 Levetiracetam [Keppra Tab] PO BID [facility] Morphine Sulfate 2 mg 02/16/22 23:27 Morphine 2 Mg/1 Ml Inj IV Q4H PRN Pain, Moderate (4-6) Morphine Sulfate 4 mg 02/16/22 23:27 02/17/22 02:44 Morphine 4 Mg/1 Ml Inj IV 4 mg Q4H PRN Administration Pain , Severe (7-10) Morphine Sulfate 2 mg 02/16/22 23:27 Morphine 4 Mg/1 Ml Inj IV Q5MIN PRN Chest Pain unrelieved by NTG Nitroglycerin 0.4 mg 02/16/22 23:27 Nitroglycerin 0.4 Mg Tab Subl SL .Q5MIN PRN Chest Pain Ondansetron HCl 4 mg 02/16/22 23:27 Ondansetron 4 Mg/2 Ml Inj IV Q8H PRN Nausea And Vomiting Sodium Chloride 10 ml 02/17/22 10:00 Sodium Chloride 0.9% 10 Ml Flush Syringe IV BID REBECCA Sodium Chloride 10 ml 02/16/22 23:27 Sodium Chloride 0.9% 10 Ml Flush Syringe IV PRN PRN LINE FLUSH Sodium Chloride 10 ml 02/16/22 23:27 Sodium Chloride 0.9% 10 Ml Flush Syringe IV PRN PRN LINE FLUSH Tramadol HCl 50 mg 02/16/22 23:27 Tramadol 50 Mg Tab PO Q6H PRN Pain, Moderate (4-6)
[2022-02-17 08:53] LABS: Bacteria,Urine 1+ /HPF (Negative); Bilirubin,Urine NEG (Negative); Blood,Urine SM (Negative); Color,Urine Straw (Yellow); Hyaline Casts,Urine 1 /LPF; Mucus,Urine FEW /HPF; Protein,Urine <15 mg/dL mg/dL (Negative); RBC,Urine < 1.0 /HPF (0.0-6.0); Urobilinogen,Urine < 2.0 mg/dL (<2.0)
[2022-02-17 09:03] LABS: Amphetamine Screen,Urine Negative; Benzodiazepines Screen,Urine Negative; Cannabinoid Screen,Urine Negative; Cocaine Screen,Urine Negative; Methadone Screen,Urine Negative; Opiate Screen,Urine Negative
[2022-02-17] MEDS: INSULIN LISPRO 100 UNIT/ML SUB-Q SCH ×4 (09:57→21:12)
[2022-02-17] MEDS: levETIRAcetam 500 MG TAB PO SCH ×2 (09:57→21:10)
[2022-02-17] MEDS: ASPIRIN EC 325 MG TAB PO SCH (09:59)
--- NOTE | 2022-02-17 10:56 | Vascular Lab Report ---
DUPLEX DOPPLER UPPER EXTREMITY VENOUS, LEFT INDICATION / CLINICAL INFORMATION: left upper extremity swelling and pain,R/O DVT. TECHNIQUE: Duplex doppler imaging was performed through the veins of the left upper extremity using venous compr ession and other maneuvers. COMPARISON: None available. FINDINGS: LEFT INTERNAL JUGULAR VEIN: Negative. LEFT SUBCLAVIAN VEIN: Negative. LEFT AXILLARY VEIN: Negative. LEFT BRACHIAL VEIN: Acute thrombus. LEFT FOREARM VEINS: Acute thrombus. LEFT BASILIC VEIN (SUPERFICIAL): Acute thrombus. ADDITIONAL FINDINGS: None. IMPRESSION: 1. Acute DVT left brachial, radial and ulnar and superficial basilic veins Signer Name: Benjamín Zheng MD Signed: 02/17/2022 10:52 AM Workstation Name: [id number]
--- NOTE | 2022-02-17 10:58 | Consultation ---
History of Present Illness Consult date: 02/17/22 Consult reason: shortness of breath History of present illness: 7-year-old male with past medical history of pulmonary sarcoidosis (diagnosed by lung biopsy in early ), poorly controlled diabetes, COPD, and seizure disorder is admitted with shortness of breath. Patient reports increasing dyspnea and leg swelling. He also has left arm swelling. No chest pain. Of note, he was recently admitted to this hospital (unable to access discharge summary) after he had passed out. He did not have any preceding symptoms and felt back to normal after he woke up in hospital. He reports having foaming at mouth and was diagnosed with seizure. Work-up this admission notable for troponin x1 elevated (0.149), elevated BNP 7405, and elevated LFTs. EKG from this admission is currently unavailable (patient had been transported to [facility], [place] shortly after my encounter). Past History Past Medical History: COPD, diabetes, hypertension, seizures, stroke, other (Sarcoidosis) Past Surgical History: No surgical history Social history: smoking (Former Smoker) Family history: no significant family history Medications and Allergies Allergies Allergy/AdvReac Type Severity Reaction Status Date / Time No Known Allergies Allergy Verified 07/31/21 15:00 Home Medications Medication Instructions Recorded Confirmed Last Taken Type Meclizine [Antivert] 12.5 mg PO DAILY PRN #12 tablet 06/10/21 Unknown Rx metFORMIN [Glucophage] 500 mg PO BID #60 tablet 06/10/21 Unknown Rx Albuterol Sulfate [Proventil Hfa] 2 puff IH Q4HR PRN #1 hfa.aer.ad 07/31/21 Unknown Rx predniSONE [Deltasone] 50 mg PO QDAY #5 tab 07/31/21 Unknown Rx AtorvaSTATin [Lipitor] 40 mg PO QHS #30 tab 02/11/22 Unknown Rx Famotidine [Pepcid] 40 mg PO QHS #30 tablet 02/11/22 Unknown Rx Sennosides/Docusate [Senokot S] 1 tab PO QHS #30 tablet 02/11/22 Unknown Rx levETIRAcetam [Keppra TAB] 1,000 mg PO BID #60 tab 02/11/22 Unknown Rx metFORMIN [Glucophage] 850 mg PO BID #60 tab 02/11/22 Unknown Rx Active Meds: Active Medications Acetaminophen (Acetaminophen 325 Mg Tab) 650 mg PO Q4H PRN PRN Reason: Pain MILD(1-3)/Fever >100.5/AVILES Aspirin (Aspirin Ec 325 Mg Tab) 325 mg PO QDAY [facility] Last Admin: 02/17/22 09:59 Dose: 325 mg Atorvastatin Calcium (Atorvastatin 40 Mg Tab) 40 mg PO QHS [facility] Dextrose (Dextrose 50% In Water (25gm) 50 Ml Syringe) 50 ml IV Q30MIN PRN; Protocol PRN Reason: Hypoglycemia Enoxaparin Sodium (Enoxaparin 100 Mg/1 Ml Inj) 120 mg 1.5 mg/kg (120 mg) SUB-Q Q24HR [facility]; Protocol Famotidine (Famotidine 20 Mg Tab) 40 mg PO QHS [facility] Furosemide (Furosemide 40 Mg/4 Ml Inj) 40 mg IV BID@0600,1800 [facility] Last Admin: 02/17/22 06:22 Dose: 40 mg Insulin Human Lispro (Insulin Lispro 100 Unit/Ml) 0 unit SUB-Q ACHS [facility]; Protocol Last Admin: 02/17/22 09:57 Dose: Not Given Levetiracetam (Levetiracetam 500 Mg Tab) 1,000 mg PO BID [facility] Last Admin: 02/17/22 09:57 Dose: 1,000 mg Magnesium Hydroxide (Magnesium Hydroxide (Mom) Oral Liqd Udc) 30 ml PO Q4H PRN PRN Reason: Constipation Morphine Sulfate (Morphine 2 Mg/1 Ml Inj) 2 mg IV Q4H PRN PRN Reason: Pain, Moderate (4-6) Morphine Sulfate (Morphine 4 Mg/1 Ml Inj) 4 mg IV Q4H PRN PRN Reason: Pain , Severe (7-10) Last Admin: 02/17/22 02:44 Dose: 4 mg Morphine Sulfate (Morphine 4 Mg/1 Ml Inj) 2 mg IV Q5MIN PRN PRN Reason: Chest Pain unrelieved by NTG Nitroglycerin (Nitroglycerin 0.4 Mg Tab Subl) 0.4 mg SL .Q5MIN PRN PRN Reason: Chest Pain Ondansetron HCl (Ondansetron 4 Mg/2 Ml Inj) 4 mg IV Q8H PRN PRN Reason: Nausea And Vomiting Sodium Chloride (Sodium Chloride 0.9% 10 Ml Flush Syringe) 10 ml IV BID [facility] Last Admin: 02/17/22 10:08 Dose: 10 ml Sodium Chloride (Sodium Chloride 0.9% 10 Ml Flush Syringe) 10 ml IV PRN PRN PRN Reason: LINE FLUSH Sodium Chloride (Sodium Chloride 0.9% 10 Ml Flush Syringe) 10 ml IV PRN PRN PRN Reason: LINE FLUSH Tramadol HCl (Tramadol 50 Mg Tab) 50 mg PO Q6H PRN PRN Reason: Pain, Moderate (4-6) Physical Examination Vital Signs Temp Pulse Resp BP Pulse Ox 97.4 F L 58 L 20 134/105 97 02/16/22 18:21 02/16/22 18:21 02/16/22 18:21 02/16/22 18:21 02/16/22 18:21 Narrative exam: Gen-NAD, cooperative HEENT - normcephalic, atraumatic CV-RRR, no murmur Lungs-CTAB, no increased WOB Abd-soft/nt/nd Ext-LUE edema and excoriated lesion, 1+ pedal edema, warm to touch Neuro-alert and oriented, no focal deficits noted Psych-affect appropriate Results 02/17/22 04:38 02/17/22 04:38 Cardiac Enzymes 02/16/22 Range/Units 20:32 AST 65 H (5-40) units/L CK-MB (CK-2) 34.5 H (0.0-4.0) ng/mL Coagulation 02/16/22 Range/Units 20:32 PT 15.0 H (12.2-14.9) Sec. INR 1.06 (0.87-1.13) Lipids 02/16/22 Range/Units 20:32 Triglycerides 91 (2-149) mg/dL Cholesterol 129 (50-199) mg/dL HDL Cholesterol 42 (40-59) mg/dL Cholesterol/HDL Ratio 3.07 % CBC 02/16/22 02/17/22 Range/Units 20:32 04:38 WBC 7.6 7.2 (4.5-11.0) K/mm3 RBC 5.07 H 4.88 (3.65-5.03) M/mm3 Hgb 13.2 12.6 (11.8-15.2) gm/dl Hct 41.9 39.7 (35.5-45.6) % Plt Count 351 344 (140-440) K/mm3 Lymph # (Auto) 1.8 (1.2-5.4) K/mm3 [place] # (Auto) 0.9 H (0.0-0.8) K/mm3 Eos # (Auto) 0.1 (0.0-0.4) K/mm3 Baso # (Auto) 0.1 (0.0-0.1) K/mm3 Comprehensive Metabolic Panel 02/16/22 02/17/22 02/17/22 Range/Units 20:32 00:40 04:38 Sodium 141 140 140 (137-145) mmol/L Potassium 4.2 3.8 4.3 (3.6-5.0) mmol/L Chloride 105.7 103.4 104.5 (98-107) mmol/L Carbon Dioxide 18 L 18 L 22 (22-30) mmol/L BUN 13 13 12 (9-20) mg/dL Creatinine 1.1 1.0 1.0 (0.8-1.3) mg/dL Glucose 126 H 162 H 168 H (75-100) mg/dL Calcium 9.2 9.3 8.8 (8.4-10.2) mg/dL AST 65 H (5-40) units/L ALT 76 H (7-56) units/L Alkaline Phosphatase 207 H (35-129) units/L Total Protein 6.6 (6.3-8.2) g/dL Albumin 3.8 L (3.9-5) g/dL Tele - SR, NSVT x3 beats 02/07/22 EKG - sinus tachycardia 139 Assessment and Plan #Dyspnea - possibly due to CHF vs sarcoidosis #NSVT on telemetry #Pulmonary Sarcoidosis #Left arm swelling #Diabetes #COPD #Seizure disorder #Syncope, reportedly due to seizure Repeat troponin pending. Await echocardiogram. Agree with IV diuresis; monitor renal function. Consider pulmonary consult for evaluation of sarcoidosis as cause for dyspnea. Consider LUE doppler US. Pending echo findings, may consider further evaluation of cardiac sarcoidosis as out-patient with cMRI +/- event monitor. Continue telemetry monitoring.
[2022-02-17] MEDS: ENOXAPARIN 120 MG/0.8 ML INJ SUB-Q SCH (11:09)
[2022-02-17] MEDS ORDERED: HEPARIN 5,000 UNIT/1 ML VIAL SUB-Q SCH (14:00)
[2022-02-17] MEDS ORDERED: WARFARIN 7.5 MG TAB PO SCH (17:00)
[2022-02-17] MEDS: FAMOTIDINE 20 MG TAB PO SCH (21:10)
[2022-02-18] MEDS: FUROSEMIDE 40 MG/4 ML INJ IV SCH ×3 (04:33→17:12)
[2022-02-18] MEDS: traMADol 50 MG TAB PO PRN (04:33)
[2022-02-18 05:27] LABS: INR 1.03 (0.87-1.13)
[2022-02-18 05:38] LABS: Alanine Aminotransferase 63 units/L (7-56); Albumin 3.8 g/dL (3.9-5); BUN/Creatinine Ratio 15; Blood Urea Nitrogen 19 mg/dL (9-20); Calcium 9.1 mg/dL (8.4-10.2); Hemolysis Index 10
[2022-02-18] MEDS: INSULIN LISPRO 100 UNIT/ML SUB-Q SCH ×4 (08:10→22:40)
[2022-02-18] MEDS: levETIRAcetam 500 MG TAB PO SCH ×2 (09:04→22:37)
[2022-02-18] MEDS: ASPIRIN EC 325 MG TAB PO SCH (09:05)
[2022-02-18] MEDS ORDERED: predniSONE 50 MG TAB PO SCH (12:00)
--- NOTE | 2022-02-18 12:17 | Progress Note ---
Assessment and Plan - Patient Problems (1) CHF exacerbation Current Visit: Yes Status: Acute Plan to address problem: The patient is a 47-year-old man who presented with shortness of breath. Chest x-ray showed a moderate severity cardiomegaly with chronic interstitial lung changes. He has a history of pulmonary sarcoidosis, diabetes and COPD. Work-up on this presentation shows echocardiogram with severe dilated four-chamber cardiomyopathy, with left ventricular ejection fraction less than 20%. The chronicity of this cardiomyopathy is unknown at this time. There are no records available of any prior cardiac work-up. The patient was in this hospital 2 weeks ago with syncope, respiratory failure and was reported with seizures. He underwent extensive work-up for seizure management, but at that presentation there was no cardiology evaluation. In the setting of systolic heart failure, and recent (unexplained) syncope, in addition to guideline directed medical therapy, we will order LifeVest monitoring on discharge. Subjective Date of service: 02/18/22 Principal diagnosis: Shortness of breath Interval history: Patient has no new cardiac complaints, no new cardiac events reported. Echocardiogram shows a severe dilated cardiomyopathy, of undetermined chronicity. Objective Vital Signs Temp Pulse Resp BP BP Pulse Ox 02/18/22 07:35 97.3 F L 84 16 106/80 97 02/18/22 07:00 99 02/18/22 03:41 97.6 F 88 18 116/88 96 02/18/22 02:00 96 H 02/17/22 23:25 98.3 F 91 H 18 103/73 94 02/17/22 19:51 99 02/17/22 19:14 98.2 F 98 H 16 106/79 94 02/17/22 18:00 89 02/17/22 15:29 98.2 F 89 16 106/80 93 02/17/22 14:00 99 - Physical Examination General: No Apparent Distress Neck: Positive: neck supple Cardiac: Positive: Reg Rate and Rhythm Lungs: Positive: Decreased Breath Sounds Neuro: Positive: Grossly Intact Abdomen: Positive: Soft Skin: Positive: Clear Extremities: Absent: edema - Labs and Meds Cardiac Enzymes 02/18/22 Range/Units 04:28 AST 70 H (5-40) units/L Coagulation 02/18/22 Range/Units 04:28 PT 14.7 (12.2-14.9) Sec. INR 1.03 (0.87-1.13) Comprehensive Metabolic Panel 02/18/22 Range/Units 04:28 Sodium 144 (137-145) mmol/L Potassium 3.6 (3.6-5.0) mmol/L Chloride 104.0 (98-107) mmol/L Carbon Dioxide 24 (22-30) mmol/L BUN 19 (9-20) mg/dL Creatinine 1.3 (0.8-1.3) mg/dL Glucose 100 (75-100) mg/dL Calcium 9.1 (8.4-10.2) mg/dL AST 70 H (5-40) units/L ALT 63 H (7-56) units/L Alkaline Phosphatase 206 H (35-129) units/L Total Protein 6.8 (6.3-8.2) g/dL Albumin 3.8 L (3.9-5) g/dL
--- NOTE | 2022-02-18 12:50 | Progress Note ---
Assessment and Plan Assessment and plan: #Acute heart failure with reduced ejection fraction -TTE: EF 20% with mild pulmonary HTN -chronicity unknown, patient does not take any medications indicated for HFrEF -continue IV lasix -will start low dose lisinopril and coreg for GDMT -continue to monitor I/Os, daily weights, fluid restriction 1.5L, telemetry -Cardiology following, assistance appreciated -plan for lifevest at discharge #Elevated troponin -troponin 0.149 -> 0.189 -> 0.341 -patient has no chest pain, only shortness of breath -elevation likely secondary to CHF exacerbation -will continue to monitor #History of pulmonary sarcoidosis -resume prednisone 20mg qday #Left upper extremity DVT #History of DVT -Patient reports history of DVT and was taking warfarin in the past -LUE doppler shows acute DVT in L brachial, ulnar and radial veins -continue warfarin with lovenox bridge #Seizure disorder -Continue Keppra at home dose -Continue seizure precautions #T2DM (type 2 diabetes mellitus) -patient takes metformin outpatient -will hold for now and continue sliding scale insulin with Accu-Cheks #Advanced care planning -Disease education conducted, care plan discussed, diagnoses discussed, prognosis discussed, and patient acknowledges understanding with care plan -Time: +30 min History Interval history: No acute events overnight. Patient reports feeling "so, so". He continues to have shortness of breath. He denies chest pain, palpitations. Updated about current care plan. Hospitalist Physical - Physical exam Narrative exam: GENERAL: Well-developed well-nourished. In no acute distress. HEENT: Normocephalic. Atraumatic. CHEST/LUNGS: Coarse breath sounds bilaterally. HEART/CARDIOVASCULAR: RRR. No murmur, rubs or gallops appreciated. ABDOMEN: +BS. NT/ND. NEURO: No focal motor deficit. Follows all commands. MUSCULOSKELETAL: No joint effusion EXTREMITIES: No cyanosis, clubbing. Left upper extremity edema. PSYCH: Cooperative. - Constitutional Vitals: Temp Pulse Resp BP Pulse Ox 97.9 F 85 18 138/102 93 02/18/22 11:05 02/18/22 11:05 02/18/22 11:05 02/18/22 11:05 02/18/22 11:05 General appearance: Present: no acute distress, well-nourished HEART Score - HEART Score Troponin: Troponin T 0.341 ng/mL (0.00-0.029) H* D 02/18/22 04:28 Results - Labs CBC & Chem 7: 02/17/22 04:38 02/18/22 04:28 Labs: Laboratory Last Values WBC 7.2 K/mm3 (4.5-11.0) 02/17/22 04:38 RBC 4.88 M/mm3 (3.65-5.03) 02/17/22 04:38 Hgb 12.6 gm/dl (11.8-15.2) 02/17/22 04:38 Hct 39.7 % (35.5-45.6) 02/17/22 04:38 MCV 82 fl (84-94) L 02/17/22 04:38 MCH 26 pg (28-32) L 02/17/22 04:38 MCHC 32 % (32-34) 02/17/22 04:38 RDW 17.3 % (13.2-15.2) H 02/17/22 04:38 Plt Count 344 K/mm3 (140-440) 02/17/22 04:38 Lymph % (Auto) 23.1 % (13.4-35.0) 02/16/22 20:32 [place] % (Auto) 11.7 % (0.0-7.3) H 02/16/22 20:32 Eos % (Auto) 1.4 % (0.0-4.3) 02/16/22 20:32 Baso % (Auto) 1.1 % (0.0-1.8) 02/16/22 20:32 Lymph # (Auto) 1.8 K/mm3 (1.2-5.4) 02/16/22 20:32 [place] # (Auto) 0.9 K/mm3 (0.0-0.8) H 02/16/22 20:32 Eos # (Auto) 0.1 K/mm3 (0.0-0.4) 02/16/22 20:32 Baso # (Auto) 0.1 K/mm3 (0.0-0.1) 02/16/22 20:32 Add Manual Diff Complete 02/17/22 04:38 Total Counted 100 02/17/22 04:38 Seg Neutrophils % [place] 02/17/22 04:38 Seg Neuts % (Manual) 95.0 % (40.0-70.0) H 02/17/22 04:38 Band Neutrophils % 0 % 02/17/22 04:38 Lymphocytes % (Manual) 5.0 % (13.4-35.0) L 02/17/22 04:38 Reactive Lymphs % (Man) 0 % 02/17/22 04:38 Monocytes % (Manual) 0 % (0.0-7.3) 02/17/22 04:38 Eosinophils % (Manual) 0 % (0.0-4.3) 02/17/22 04:38 Basophils % (Manual) 0 % (0.0-1.8) 02/17/22 04:38 Metamyelocytes % 0 % 02/17/22 04:38 Myelocytes % 0 % 02/17/22 04:38 Promyelocytes % 0 % 02/17/22 04:38 Blast Cells % 0 % 02/17/22 04:38 Nucleated RBC % Not Reportable 02/17/22 04:38 Seg Neutrophils # 4.8 K/mm3 (1.8-7.7) 02/16/22 20:32 Seg Neutrophils # Man 6.8 K/mm3 (1.8-7.7) 02/17/22 04:38 Band Neutrophils # 0.0 K/mm3 02/17/22 04:38 Lymphocytes # (Manual) 0.4 K/mm3 (1.2-5.4) L 02/17/22 04:38 Abs React Lymphs (Man) 0.0 K/mm3 02/17/22 04:38 Monocytes # (Manual) 0.0 K/mm3 (0.0-0.8) 02/17/22 04:38 Eosinophils # (Manual) 0.0 K/mm3 (0.0-0.4) 02/17/22 04:38 Basophils # (Manual) 0.0 K/mm3 (0.0-0.1) 02/17/22 04:38 Metamyelocytes # 0.0 K/mm3 02/17/22 04:38 Myelocytes # 0.0 K/mm3 02/17/22 04:38 Promyelocytes # 0.0 K/mm3 02/17/22 04:38 Blast Cells # 0.0 K/mm3 02/17/22 04:38 WBC Morphology Not Reportable 02/17/22 04:38 Hypersegmented Neuts Not Reportable 02/17/22 04:38 Hyposegmented Neuts Not Reportable 02/17/22 04:38 Hypogranular Neuts Not Reportable 02/17/22 04:38 Smudge Cells Not Reportable 02/17/22 04:38 Toxic Granulation Not Reportable 02/17/22 04:38 Toxic Vacuolation Not Reportable 02/17/22 04:38 Dohle Bodies Not Reportable 02/17/22 04:38 Pelger-Huet Anomaly Not Reportable 02/17/22 04:38 Archel Rods Not Reportable 02/17/22 04:38 Platelet Estimate Consistent w auto 02/17/22 04:38 Clumped Platelets Not Reportable 02/17/22 04:38 Plt Clumps, EDTA Not Reportable 02/17/22 04:38 Large Platelets Not Reportable 02/17/22 04:38 Giant Platelets Not Reportable 02/17/22 04:38 Platelet Satelliting Not Reportable 02/17/22 04:38 Plt Morphology Comment Not Reportable 02/17/22 04:38 RBC Morphology Not Reportable 02/17/22 04:38 Dimorphic RBCs Not Reportable 02/17/22 04:38 Polychromasia Not Reportable 02/17/22 04:38 Hypochromasia 1+ 02/17/22 04:38 Poikilocytosis Not Reportable 02/17/22 04:38 Anisocytosis Not Reportable 02/17/22 04:38 Microcytosis Not Reportable 02/17/22 04:38 Macrocytosis Not Reportable 02/17/22 04:38 Spherocytes Not Reportable 02/17/22 04:38 Pappenheimer Bodies Not Reportable 02/17/22 04:38 Sickle Cells Not Reportable 02/17/22 04:38 Target Cells Not Reportable 02/17/22 04:38 Tear Drop Cells Not Reportable 02/17/22 04:38 Ovalocytes Few 02/17/22 04:38 Helmet Cells Not Reportable 02/17/22 04:38 [place] Bodies Not Reportable 02/17/22 04:38 Fred Rings Not Reportable 02/17/22 04:38 Caterina Cells Rare 02/17/22 04:38 Bite Cells Not Reportable 02/17/22 04:38 Crenated Cell Not Reportable 02/17/22 04:38 Elliptocytes Not Reportable 02/17/22 04:38 Acanthocytes (Spur) Rare 02/17/22 04:38 Rouleaux Not Reportable 02/17/22 04:38 Hemoglobin C Crystals Not Reportable 02/17/22 04:38 Schistocytes Not Reportable 02/17/22 04:38 Malaria parasites Not Reportable 02/17/22 04:38 Ten Bodies Not Reportable 02/17/22 04:38 Hem Pathologist Commnt No 02/17/22 04:38 PT 14.7 Sec. (12.2-14.9) 02/18/22 04:28 INR 1.03 (0.87-1.13) 02/18/22 04:28 ABG pH 7.425 pH Units (7.350-7.450) 02/16/22 21:52 ABG pCO2 30.1 mm Hg 02/16/22 21:52 ABG pO2 104.5 mm Hg (80.0-90.0) H 02/16/22 21:52 ABG HCO3 19.3 mmol/L (20.0-26.0) L 02/16/22 21:52 ABG O2 Saturation 97.9 % (95.0-99.0) 02/16/22 21:52 ABG O2 Content 17.0 (0.0-44) 02/16/22 21:52 ABG Base Excess -4.0 mmol/L (-2.0-3.0) L 02/16/22 21:52 ABG Hemoglobin 12.5 gm/dl (14.0-18.0) L 02/16/22 21:52 ABG Carboxyhemoglobin 1.7 % (0.0-5.0) 02/16/22 21:52 ABG Methemoglobin 0.4 % (0.0-1.5) 02/16/22 21:52 Oxyhemoglobin 95.8 % (95.0-99.0) 02/16/22 21:52 FiO2 28 % 02/16/22 21:52 Sodium 144 mmol/L (137-145) 02/18/22 04:28 Potassium 3.6 mmol/L (3.6-5.0) 02/18/22 04:28 Chloride 104.0 mmol/L (98-107) 02/18/22 04:28 Carbon Dioxide 24 mmol/L (22-30) 02/18/22 04:28 Anion Gap 20 mmol/L 02/18/22 04:28 BUN 19 mg/dL (9-20) 02/18/22 04:28 Creatinine 1.3 mg/dL (0.8-1.3) 02/18/22 04:28 Estimated GFR > 60 ml/min 02/18/22 04:28 BUN/Creatinine Ratio 15 % 02/18/22 04:28 Glucose 100 mg/dL (75-100) 02/18/22 04:28 POC Glucose 114 mg/dL (70-105) H 02/18/22 07:31 Calcium 9.1 mg/dL (8.4-10.2) 02/18/22 04:28 Magnesium 1.80 mg/dL (1.7-2.3) 02/16/22 20:32 Total Bilirubin 0.90 mg/dL (0.1-1.2) 02/18/22 04:28 AST 70 units/L (5-40) H 02/18/22 04:28 ALT 63 units/L (7-56) H 02/18/22 04:28 Alkaline Phosphatase 206 units/L (35-129) H 02/18/22 04:28 Total Creatine Kinase 406 units/L (55-170) H 02/16/22 20:32 CK-MB (CK-2) 34.5 ng/mL (0.0-4.0) H 02/16/22 20:32 CK-MB (CK-2) Rel Index 8.4 (0-4) H 02/16/22 20:32 Troponin T 0.341 ng/mL (0.00-0.029) H* D 02/18/22 04:28 NT-Pro-B Natriuret Pep 7405 pg/mL (0-450) H 02/16/22 20:32 Total Protein 6.8 g/dL (6.3-8.2) 02/18/22 04:28 Albumin 3.8 g/dL (3.9-5) L 02/18/22 04:28 Albumin/Globulin Ratio 1.3 % 02/18/22 04:28 Triglycerides 91 mg/dL (2-149) 02/16/22 20: Cholesterol 129 mg/dL (50-199) 02/16/22 20:32 LDL Cholesterol Direct 67 mg/dL (50-130) 02/16/22 20:32 HDL Cholesterol 42 mg/dL (40-59) 02/16/22 20: Cholesterol/HDL Ratio 3.07 % 02/16/22 20: Lipase 15 units/L (13-60) 02/16/22 20:32 Urine Color Straw (Yellow) 02/17/22 08:00 Urine Turbidity Clear (Clear) 02/17/22 08:00 Urine pH 5.0 (5.0-7.0) 02/17/22 08:00 Ur Specific [place] 1.006 (1.003-1.030) 02/17/22 08:00 Urine Protein <15 mg/dl mg/dL (Negative) 02/17/22 08:00 Urine Glucose (UA) Neg mg/dL (Negative) 02/17/22 08:00 Urine Ketones Neg mg/dL (Negative) 02/17/22 08:00 Urine Blood Sm (Negative) 02/17/22 08:00 Urine Nitrite Neg (Negative) 02/17/22 08:00 Urine Bilirubin Neg (Negative) 02/17/22 08:00 Urine Urobilinogen < 2.0 mg/dL (<2.0) 02/17/22 08:00 Ur Leukocyte Esterase Neg (Negative) 02/17/22 08:00 Urine WBC (Auto) 1.0 /HPF (0.0-6.0) 02/17/22 08:00 Urine RBC (Auto) < 1.0 /HPF (0.0-6.0) 02/17/22 08:00 U Epithel Cells (Auto) 1.0 /HPF (0-13.0) 02/17/22 08:00 Urine Bacteria (Auto) 1+ /HPF (Negative) 02/17/22 08:00 Hyaline Casts 1 /LPF 02/17/22 08:00 Urine Mucus Few /HPF 02/17/22 08:00 Urine Opiates Screen Negative 02/17/22 08:00 Urine Methadone Screen Negative 02/17/22 08:00 Ur Barbiturates Screen Negative 02/17/22 08:00 Ur Phencyclidine Scrn Negative 02/17/22 08:00 Ur Amphetamines Screen Negative 02/17/22 08:00 U Benzodiazepines Scrn Negative 02/17/22 08:00 Urine Cocaine Screen Negative 02/17/22 08:00 U Marijuana (THC) Screen Negative 02/17/22 08:00 Drugs of Abuse Note Disclamer 02/17/22 08:00 Alexandre/IV: Voiding Method Condom Catheter Active Medications - Current Medications Current Medications: Generic Name Dose Route Start Last Admin Trade Name Freq PRN Reason Stop Dose Admin Acetaminophen 650 mg 02/16/22 23:27 Acetaminophen 325 Mg Tab PO Q4H PRN Pain MILD(1-3)/Fever >100.5/AVILES Aspirin 325 mg 02/17/22 10:00 02/18/22 09:05 Aspirin Ec 325 Mg Tab PO 325 mg QDAY REBECCA Administration Atorvastatin Calcium 40 mg 02/17/22 22:00 02/17/22 21:10 Atorvastatin 40 Mg Tab PO 40 mg QHS REBECCA Administration Dextrose 50 ml 02/16/22 23:27 Dextrose 50% In Water (25gm) 50 Ml Syringe IV Q30MIN PRN Hypoglycemia Protocol Enoxaparin Sodium 120 mg 02/17/22 12:00 02/17/22 11:09 Enoxaparin 120 Mg/0.8 Ml Inj SUB-Q 120 mg Q24H REBECCA Administration Protocol Famotidine 40 mg 02/17/22 22:00 02/17/22 21:10 Famotidine 20 Mg Tab PO 40 mg QHS REBECCA Administration Furosemide 40 mg 02/17/22 06:00 02/18/22 05:02 Furosemide 40 Mg/4 Ml Inj IV Not Given BID@0600,1800 [facility] Insulin Human Lispro 0 unit 02/17/22 07:30 02/18/22 08:10 Insulin Lispro 100 Unit/Ml SUB-Q Not Given ACHS [facility] Protocol Levetiracetam 1,000 mg 02/17/22 10:00 02/18/22 09:04 Levetiracetam 500 Mg Tab PO 1,000 mg BID REBECCA Administration Magnesium Hydroxide 30 ml 02/16/22 23:27 Magnesium Hydroxide (Mom) Oral Liqd Udc PO Q4H PRN Constipation Morphine Sulfate 2 mg 02/16/22 23:27 Morphine 2 Mg/1 Ml Inj IV Q4H PRN Pain, Moderate (4-6) Morphine Sulfate 4 mg 02/16/22 23:27 02/17/22 13:18 Morphine 4 Mg/1 Ml Inj IV 4 mg Q4H PRN Administration Pain , Severe (7-10) Morphine Sulfate 2 mg 02/16/22 23:27 Morphine 4 Mg/1 Ml Inj IV Q5MIN PRN Chest Pain unrelieved by NTG Nitroglycerin 0.4 mg 02/16/22 23:27 Nitroglycerin 0.4 Mg Tab Subl SL .Q5MIN PRN Chest Pain Ondansetron HCl 4 mg 02/16/22 23:27 Ondansetron 4 Mg/2 Ml Inj IV Q8H PRN Nausea And Vomiting Prednisone 20 mg 02/18/22 13:00 Prednisone 20 Mg Tab PO QDAY REBECCA Sodium Chloride 10 ml 02/17/22 10:00 02/18/22 09:05 Sodium Chloride 0.9% 10 Ml Flush Syringe IV 10 ml BID REBECCA Administration Sodium Chloride 10 ml 02/16/22 23:27 Sodium Chloride 0.9% 10 Ml Flush Syringe IV PRN PRN LINE FLUSH Tramadol HCl 50 mg 02/16/22 23:27 02/18/22 04:33 Tramadol 50 Mg Tab PO 50 mg Q6H PRN Administration Pain, Moderate (4-6) Warfarin Sodium 7.5 mg 02/18/22 17:00 Warfarin 7.5 Mg Tab PO 02/19/22 16:59 DAILY@1700 NR Nutrition/Malnutrition Assess - Dietary Evaluation Nutrition/Malnutrition Findings: Nutrition Notes Start: 02/17/22 12:24 Freq: Status: Active Protocol: Document 02/18/22 11:19 SHAYNE (Rec: 02/18/22 11:31 SHAYNE [id number]) Nutrition Notes Initial or Follow up Brief Note Current Diagnosis COPD,Diabetes Other Pertinent Diagnosis Seizure, CHF, Sarcoidosis, DVT , L-UE Edema. Current Diet Cardiac/Consistent Carbohydrates -Chopped Meats- Diet (since B 02/17). Height 6 ft 1 in Weight 83 kg [place] Body Weight (kg) 83.63 BMI 24.1 Weight change and time frame 0.1 Kg body weight loss in 1 day reported. Weight Status Appropriate Subjective/Other Information RD consult for Warfarine use education. No reports available on Pt's PO intake at the time, will assess at F/U. Pt is on Nasal Cannula, O2 saturation @ 99%, according to Physical Assessment History notes. Pt has been a care home Warfarin user, according to Progress notes; not a candidate for nutrition education. Percent of energy/protein needs met: Prescribed Cardiac/Consistent Carbohydrates -Chopped Meats- Diet provides for energy/ protein needs (1,977 Kcal/86 g ) during LOS. #1 Nutrition Diagnosis Biting/Chewing (masticatory) difficulty Diagnosis Progress(for reassessment Continues documentation) Is patient on ventilator? No Is Patient Ambulatory and/or Out of Bed No REE-([place]-St. Jeor-confined to bed) 6629.172 Calculation Used for Recommendations [place]-St Jeor Additional Notes Protein: 0.8-1 g/Kg ABW; 66-84 g/day. Fluids: 1 ml/Kcal, or as per MD. Nutrition Intervention Change Diet Order: Continue Cardiac/Consistent Carbohydrates -Chopped Meats- Diet. Goal #1 Facilitate PO intake of meals with elemental, textural, or mechanical modification during LOS. Goal #2 Maintain body weight within +/ -3% of admission body weight during LOS. Follow-Up By: 02/21/22 Additional Comments Continue monitoring food tolerance, %PO intake of meals , and BM.
[2022-02-18] MEDS: LISINOPRIL 5 MG TAB PO SCH (14:21)
[2022-02-18] MEDS: predniSONE 20 MG TAB PO SCH (14:21)
[2022-02-18] MEDS: ENOXAPARIN 120 MG/0.8 ML INJ SUB-Q SCH (14:24)
[2022-02-18] MEDS ORDERED: WARFARIN 7.5 MG TAB PO NR (17:00)
[2022-02-18] MEDS: FAMOTIDINE 20 MG TAB PO SCH (22:37)
[2022-02-18] MEDS: carvediloL 3.125 MG TAB PO SCH (22:40)
[2022-02-19 05:27] LABS: INR 1.17 (0.87-1.13)
[2022-02-19 05:33] LABS: BUN/Creatinine Ratio 19; Blood Urea Nitrogen 23 mg/dL (9-20); Hemolysis Index 2
[2022-02-19] MEDS: FUROSEMIDE 40 MG/4 ML INJ IV SCH ×2 (05:39→07:22)
[2022-02-19] MEDS: INSULIN LISPRO 100 UNIT/ML SUB-Q SCH ×4 (08:28→21:58)
[2022-02-19] MEDS: ASPIRIN EC 325 MG TAB PO SCH (09:56)
[2022-02-19] MEDS: levETIRAcetam 500 MG TAB PO SCH ×2 (09:56→21:58)
[2022-02-19] MEDS: predniSONE 20 MG TAB PO SCH (09:57)
[2022-02-19] MEDS: MORPHINE 4 MG/1 ML INJ IV PRN (09:58)
[2022-02-19] MEDS: carvediloL 3.125 MG TAB PO SCH ×2 (10:07→21:57)
[2022-02-19] MEDS: LISINOPRIL 5 MG TAB PO SCH (10:07)
--- NOTE | 2022-02-19 11:21 | Progress Note ---
Assessment and Plan - Patient Problems (1) CHF exacerbation Current Visit: Yes Status: Acute Plan to address problem: The patient is a 47-year-old man who presented with shortness of breath. Chest x-ray showed a moderate severity cardiomegaly with chronic interstitial lung changes. He has a history of pulmonary sarcoidosis, diabetes and COPD. Work-up on this presentation shows echocardiogram with severe dilated four-chamber cardiomyopathy, with left ventricular ejection fraction less than 20%. The chronicity of this cardiomyopathy is unknown at this time. There are no records available of any prior cardiac work-up. The patient was in this hospital 2 weeks ago with syncope, respiratory failure and was reported with seizures. He underwent extensive work-up for seizure management, but at that presentation there was no cardiology evaluation. In the setting of systolic heart failure, and recent (unexplained) syncope, in addition to guideline directed medical therapy, we will order LifeVest monitoring on discharge. Subjective Date of service: 02/19/22 Principal diagnosis: Shortness of breath Interval history: Patient has no new cardiac complaints, no new cardiac events reported. Objective Vital Signs Temp Pulse Resp BP BP Pulse Ox 02/19/22 07:00 95 02/19/22 03:37 98.2 F 77 16 95/66 96 02/19/22 02:00 82 02/18/22 22:54 98.2 F 93 H 20 101/70 95 02/18/22 22:40 95 H 102/71 02/18/22 19:23 98.9 F 95 H 20 102/71 93 02/18/22 19:00 95 02/18/22 18:00 85 02/18/22 16:24 98 F 91 H 20 141/115 - Physical Examination General: No Apparent Distress Neck: Positive: neck supple Cardiac: Positive: Reg Rate and Rhythm Lungs: Positive: Decreased Breath Sounds Neuro: Positive: Grossly Intact Abdomen: Positive: Soft Skin: Positive: Clear Extremities: Absent: edema - Labs and Meds Coagulation 02/19/22 Range/Units 03:57 PT 16.3 H (12.2-14.9) Sec. INR 1.17 H (0.87-1.13) Comprehensive Metabolic Panel 02/19/22 Range/Units 03:57 Sodium 143 (137-145) mmol/L Potassium 4.3 (3.6-5.0) mmol/L Chloride 103.1 (98-107) mmol/L Carbon Dioxide 26 (22-30) mmol/L BUN 23 H (9-20) mg/dL Creatinine 1.2 (0.8-1.3) mg/dL Glucose 113 H (75-100) mg/dL Calcium 9.0 (8.4-10.2) mg/dL
[2022-02-19] MEDS: ENOXAPARIN 120 MG/0.8 ML INJ SUB-Q SCH (12:31)
--- NOTE | 2022-02-19 13:04 | Progress Note ---
Assessment and Plan Assessment and plan: #Acute heart failure with reduced ejection fractionimproving -TTE: EF 20% with mild pulmonary HTN -chronicity unknown, patient does not take any medications indicated for HFrEF -Transition from IV Lasix to p.o. Lasix 40 mg daily -Continue lisinopril 2.5 mg daily and Coreg 3.125 mg twice daily -continue to monitor I/Os, daily weights, fluid restriction 1.5L, telemetry -Cardiology following, assistance appreciated -plan for lifevest at discharge #Elevated troponin -troponin 0.149 -> 0.189 -> 0.341 -patient has no chest pain, only shortness of breath -elevation likely secondary to CHF exacerbation -will continue to monitor #History of pulmonary sarcoidosis -Continue prednisone 20mg qday #Left upper extremity DVT #History of DVT -Patient reports history of DVT and was taking warfarin in the past -LUE doppler shows acute DVT in L brachial, ulnar and radial veins -continue warfarin with lovenox bridge--> current INR 1.17 #Seizure disorder -Continue Keppra at home dose -Continue seizure precautions #T2DM (type 2 diabetes mellitus) -patient takes metformin outpatient -will hold for now and continue sliding scale insulin with Accu-Cheks #Advanced care planning -Disease education conducted, care plan discussed, diagnoses discussed, prognos is discussed, and patient acknowledges understanding with care plan -Time: +30 min Disposition Plan: Continue medical management Total Time Spent with Patient (Minutes): 45 minutes History Interval history: No acute events overnight. Hospitalist Physical - Constitutional Vitals: Temp Pulse Resp BP Pulse Ox 98.3 F 84 18 98/70 99 02/19/22 11:16 02/19/22 11:16 02/19/22 11:16 02/19/22 11:16 02/19/22 11:16 General appearance: Present: no acute distress, well-nourished - EENT Eyes: Present: PERRL, EOM intact ENT: hearing intact, clear oral mucosa, dentition normal - Neck Neck: Present: supple, normal ROM - Respiratory Respiratory effort: normal Respiratory: bilateral: CTA - Cardiovascular Rhythm: regular Heart Sounds: Present: S1 & S2 - Extremities Extremities: no ischemia, pulses intact, pulses symmetrical, normal temperature, normal color Extremity abnormal: edema (Significant edema of left upper extremity) Peripheral Pulses: within normal limits - Abdominal General gastrointestinal: soft, non-tender, non-distended, normal bowel sounds - Integumentary Integumentary: Present: clear, warm, dry - Psychiatric Psychiatric: appropriate mood/affect, intact judgment & insight, memory intact, cooperative - Neurologic Neurologic: other (Left-sided weakness) - Allied Health Allied health notes reviewed: nursing HEART Score - HEART Score Troponin: Troponin T 0.341 ng/mL (0.00-0.029) H* D 02/18/22 04:28 Results - Labs CBC & Chem 7: 02/17/22 04:38 02/19/22 03:57 Labs: Laboratory Last Values WBC 7.2 K/mm3 (4.5-11.0) 02/17/22 04:38 RBC 4.88 M/mm3 (3.65-5.03) 02/17/22 04:38 Hgb 12.6 gm/dl (11.8-15.2) 02/17/22 04:38 Hct 39.7 % (35.5-45.6) 02/17/22 04:38 MCV 82 fl (84-94) L 02/17/22 04:38 MCH 26 pg (28-32) L 02/17/22 04:38 MCHC 32 % (32-34) 02/17/22 04:38 RDW 17.3 % (13.2-15.2) H 02/17/22 04:38 Plt Count 344 K/mm3 (140-440) 02/17/22 04:38 Lymph % (Auto) 23.1 % (13.4-35.0) 02/16/22 20:32 [place] % (Auto) 11.7 % (0.0-7.3) H 02/16/22 20:32 Eos % (Auto) 1.4 % (0.0-4.3) 02/16/22 20:32 Baso % (Auto) 1.1 % (0.0-1.8) 02/16/22 20:32 Lymph # (Auto) 1.8 K/mm3 (1.2-5.4) 02/16/22 20:32 [place] # (Auto) 0.9 K/mm3 (0.0-0.8) H 02/16/22 20:32 Eos # (Auto) 0.1 K/mm3 (0.0-0.4) 02/16/22 20:32 Baso # (Auto) 0.1 K/mm3 (0.0-0.1) 02/16/22 20:32 Add Manual Diff Complete 02/17/22 04:38 Total Counted 100 02/17/22 04:38 Seg Neutrophils % Learning And Development Assistant 02/17/22 04:38 Seg Neuts % (Manual) 95.0 % (40.0-70.0) H 02/17/22 04:38 Band Neutrophils % 0 % 02/17/22 04:38 Lymphocytes % (Manual) 5.0 % (13.4-35.0) L 02/17/22 04:38 Reactive Lymphs % (Man) 0 % 02/17/22 04:38 Monocytes % (Manual) 0 % (0.0-7.3) 02/17/22 04:38 Eosinophils % (Manual) 0 % (0.0-4.3) 02/17/22 04:38 Basophils % (Manual) 0 % (0.0-1.8) 02/17/22 04:38 Metamyelocytes % 0 % 02/17/22 04:38 Myelocytes % 0 % 02/17/22 04:38 Promyelocytes % 0 % 02/17/22 04:38 Blast Cells % 0 % 02/17/22 04:38 Nucleated RBC % Not Reportable 02/17/22 04:38 Seg Neutrophils # 4.8 K/mm3 (1.8-7.7) 02/16/22 20:32 Seg Neutrophils # Man 6.8 K/mm3 (1.8-7.7) 02/17/22 04:38 Band Neutrophils # 0.0 K/mm3 02/17/22 04:38 Lymphocytes # (Manual) 0.4 K/mm3 (1.2-5.4) L 02/17/22 04:38 Abs React Lymphs (Man) 0.0 K/mm3 02/17/22 04:38 Monocytes # (Manual) 0.0 K/mm3 (0.0-0.8) 02/17/22 04:38 Eosinophils # (Manual) 0.0 K/mm3 (0.0-0.4) 02/17/22 04:38 Basophils # (Manual) 0.0 K/mm3 (0.0-0.1) 02/17/22 04:38 Metamyelocytes # 0.0 K/mm3 02/17/22 04:38 Myelocytes # 0.0 K/mm3 02/17/22 04:38 Promyelocytes # 0.0 K/mm3 02/17/22 04:38 Blast Cells # 0.0 K/mm3 02/17/22 04:38 WBC Morphology Not Reportable 02/17/22 04:38 Hypersegmented Neuts Not Reportable 02/17/22 04:38 Hyposegmented Neuts Not Reportable 02/17/22 04:38 Hypogranular Neuts Not Reportable 02/17/22 04:38 Smudge Cells Not Reportable 02/17/22 04:38 Toxic Granulation Not Reportable 02/17/22 04:38 Toxic Vacuolation Not Reportable 02/17/22 04:38 Dohle Bodies Not Reportable 02/17/22 04:38 Pelger-Huet Anomaly Not Reportable 02/17/22 04:38 Rachel Rods Not Reportable 02/17/22 04:38 Platelet Estimate Consistent w auto 02/17/22 04:38 Clumped Platelets Not Reportable 02/17/22 04:38 Plt Clumps, EDTA Not Reportable 02/17/22 04:38 Large Platelets Not Reportable 02/17/22 04:38 Giant Platelets Not Reportable 02/17/22 04:38 Platelet Satelliting Not Reportable 02/17/22 04:38 Plt Morphology Comment Not Reportable 02/17/22 04:38 RBC Morphology Not Reportable 02/17/22 04:38 Dimorphic RBCs Not Reportable 02/17/22 04:38 Polychromasia Not Reportable 02/17/22 04:38 Hypochromasia 1+ 02/17/22 04:38 Poikilocytosis Not Reportable 02/17/22 04:38 Anisocytosis Not Reportable 02/17/22 04:38 Microcytosis Not Reportable 02/17/22 04:38 Macrocytosis Not Reportable 02/17/22 04:38 Spherocytes Not Reportable 02/17/22 04:38 Pappenheimer Bodies Not Reportable 02/17/22 04:38 Sickle Cells Not Reportable 02/17/22 04:38 Target Cells Not Reportable 02/17/22 04:38 Tear Drop Cells Not Reportable 02/17/22 04:38 Ovalocytes Few 02/17/22 04:38 Helmet Cells Not Reportable 02/17/22 04:38 Ban[place] Bodies Not Reportable 02/17/22 04:38 [place] Rings Not Reportable 02/17/22 04:38 Stout Cells Rare 02/17/22 04:38 Bite Cells Not Reportable 02/17/22 04:38 Crenated Cell Not Reportable 02/17/22 04:38 Elliptocytes Not Reportable 02/17/22 04:38 Acanthocytes (Spur) Rare 02/17/22 04:38 Rouleaux Not Reportable 02/17/22 04:38 Hemoglobin C Crystals Not Reportable 02/17/22 04:38 Schistocytes Not Reportable 02/17/22 04:38 Malaria parasites Not Reportable 02/17/22 04:38 Ten Bodies Not Reportable 02/17/22 04:38 Hem Pathologist Commnt No 02/17/22 04:38 PT 16.3 Sec. (12.2-14.9) H 02/19/22 03:57 INR 1.17 (0.87-1.13) H 02/19/22 03:57 ABG pH 7.425 pH Units (7.350-7.450) 02/16/22 21:52 ABG pCO2 30.1 mm Hg 02/16/22 21:52 ABG pO2 104.5 mm Hg (80.0-90.0) H 02/16/22 21:52 ABG HCO3 19.3 mmol/L (20.0-26.0) L 02/16/22 21:52 ABG O2 Saturation 97.9 % (95.0-99.0) 02/16/22 21:52 ABG O2 Content 17.0 (0.0-44) 02/16/22 21:52 ABG Base Excess -4.0 mmol/L (-2.0-3.0) L 02/16/22 21:52 ABG Hemoglobin 12.5 gm/dl (14.0-18.0) L 02/16/22 21:52 ABG Carboxyhemoglobin 1.7 % (0.0-5.0) 02/16/22 21:52 ABG Methemoglobin 0.4 % (0.0-1.5) 02/16/22 21:52 Oxyhemoglobin 95.8 % (95.0-99.0) 02/16/22 21:52 FiO2 28 % 02/16/22 21:52 Sodium 143 mmol/L (137-145) 02/19/22 03:57 Potassium 4.3 mmol/L (3.6-5.0) 02/19/22 03:57 Chloride 103.1 mmol/L (98-107) 02/19/22 03:57 Carbon Dioxide 26 mmol/L (22-30) 02/19/22 03:57 Anion Gap 18 mmol/L 02/19/22 03:57 BUN 23 mg/dL (9-20) H 02/19/22 03:57 Creatinine 1.2 mg/dL (0.8-1.3) 02/19/22 03:57 Estimated GFR > 60 ml/min 02/19/22 03:57 BUN/Creatinine Ratio 19 % 02/19/22 03:57 Glucose 113 mg/dL (75-100) H 02/19/22 03:57 POC Glucose 121 mg/dL (70-105) H 02/19/22 11:16 Calcium 9.0 mg/dL (8.4-10.2) 02/19/22 03:57 Magnesium 1.80 mg/dL (1.7-2.3) 02/16/22 20:32 Total Bilirubin 0.90 mg/dL (0.1-1.2) 02/18/22 04:28 AST 70 units/L (5-40) H 02/18/22 04:28 ALT 63 units/L (7-56) H 02/18/22 04:28 Alkaline Phosphatase 206 units/L (35-129) H 02/18/22 04:28 Total Creatine Kinase 406 units/L (55-170) H 02/16/22 20:32 CK-MB (CK-2) 34.5 ng/mL (0.0-4.0) H 02/16/22 20:32 CK-MB (CK-2) Rel Index 8.4 (0-4) H 02/16/22 20:32 Troponin T 0.341 ng/mL (0.00-0.029) H* D 02/18/22 04:28 NT-Pro-B Natriuret Pep 7405 pg/mL (0-450) H 02/16/22 20: Total Protein 6.8 g/dL (6.3-8.2) 02/18/22 04: Albumin 3.8 g/dL (3.9-5) L 02/18/22 04: Albumin/Globulin Ratio 1.3 % 02/18/22 04: Triglycerides 91 mg/dL (2-149) 02/16/22: Cholesterol 129 mg/dL (50-199) 02/16/22: LDL Cholesterol Direct 67 mg/dL (50-130) 02/16/22: HDL Cholesterol 42 mg/dL (40-59) 02/16/22 Cholesterol/HDL Ratio 3.07 % 02/16/22: Lipase 15 units/L (13-60) 02/16/22 20: Urine Color Straw (Yellow) 02/17/22 08:00 Urine Turbidity Clear (Clear) 02/17/22 08:00 Urine pH 5.0 (5.0-7.0) 02/17/22 08:00 Ur Specific [place] 1.006 (1.003-1.030) 02/17/22 08:00 Urine Protein <15 mg/dl mg/dL (Negative) 02/17/22 08:00 Urine Glucose (UA) Neg mg/dL (Negative) 02/17/22 08:00 Urine Ketones Neg mg/dL (Negative) 02/17/22 08:00 Urine Blood Sm (Negative) 02/17/22 08:00 Urine Nitrite Neg (Negative) 02/17/22 08:00 Urine Bilirubin Neg (Negative) 02/17/22 08:00 Urine Urobilinogen < 2.0 mg/dL (<2.0) 02/17/22 08:00 Ur Leukocyte Esterase Neg (Negative) 02/17/22 08:00 Urine WBC (Auto) 1.0 /HPF (0.0-6.0) 02/17/22 08:00 Urine RBC (Auto) < 1.0 /HPF (0.0-6.0) 02/17/22 08:00 U Epithel Cells (Auto) 1.0 /HPF (0-13.0) 02/17/22 08:00 Urine Bacteria (Auto) 1+ /HPF (Negative) 02/17/22 08:00 Hyaline Casts 1 /LPF 02/17/22 08:00 Urine Mucus Few /HPF 02/17/22 08:00 Urine Opiates Screen Negative 02/17/22 08:00 Urine Methadone Screen Negative 02/17/22 08:00 Ur Barbiturates Screen Negative 02/17/22 08:00 Ur Phencyclidine Scrn Negative 02/17/22 08:00 Ur Amphetamines Screen Negative 02/17/22 08:00 U Benzodiazepines Scrn Negative 02/17/22 08:00 Urine Cocaine Screen Negative 02/17/22 08:00 U Marijuana (THC) Screen Negative 02/17/22 08:00 Drugs of Abuse Note Disclamer 02/17/22 08:00 Alexandre/IV: Voiding Method Condom Catheter Active Medications - Current Medications Current Medications: Generic Name Dose Route Start Last Admin Trade Name Freq PRN Reason Stop Dose Admin Acetaminophen 650 mg 02/16/22 23:27 Acetaminophen 325 Mg Tab PO Q4H PRN Pain MILD(1-3)/Fever >100.5/AVILES Aspirin 325 mg 02/17/22 10:00 02/19/22 09:56 Aspirin Ec 325 Mg Tab PO 325 mg QDAY REBECCA Administration Atorvastatin Calcium 40 mg 02/17/22 22:00 02/18/22 22:37 Atorvastatin 40 Mg Tab PO 40 mg QHS REBECCA Administration Carvedilol 3.125 mg 02/18/22 22:00 02/19/22 10:07 Carvedilol 3.125 Mg Tab PO Not Given BID REBECCA Dextrose 50 ml 02/16/22 23:27 Dextrose 50% In Water (25gm) 50 Ml Syringe IV Q30MIN PRN Hypoglycemia Protocol Enoxaparin Sodium 120 mg 02/17/22 12:00 02/19/22 12:31 Enoxaparin 120 Mg/0.8 Ml Inj SUB-Q 120 mg Q24H REBECCA Administration Protocol Famotidine 40 mg 02/17/22 22:00 02/18/22 22:37 Famotidine 20 Mg Tab PO 40 mg QHS REBECCA Administration Furosemide 40 mg 02/19/22 18:00 Furosemide 40 Mg Tab PO 0600,1800 [facility] Insulin Human Lispro 0 unit 02/17/22 07:30 02/19/22 11:31 Insulin Lispro 100 Unit/Ml SUB-Q Not Given ACHS REBECCA Protocol Levetiracetam 1,000 mg 02/17/22 10:00 02/19/22 09:56 Levetiracetam 500 Mg Tab PO 1,000 mg BID REBECCA Administration Lisinopril 2.5 mg 02/18/22 14:00 02/19/22 10:07 Lisinopril 5 Mg Tab PO Not Given QDAY REBECCA Magnesium Hydroxide 30 ml 02/16/22 23:27 Magnesium Hydroxide (Mom) Oral Liqd Udc PO Q4H PRN Constipation Morphine Sulfate 2 mg 02/16/22 23:27 Morphine 2 Mg/1 Ml Inj IV Q4H PRN Pain, Moderate (4-6) Morphine Sulfate 4 mg 02/16/22 23:27 02/19/22 09:58 Morphine 4 Mg/1 Ml Inj IV 4 mg Q4H PRN Administration Pain , Severe (7-10) Morphine Sulfate 2 mg 02/16/22 23:27 Morphine 4 Mg/1 Ml Inj IV Q5MIN PRN Chest Pain unrelieved by NTG Nitroglycerin 0.4 mg 02/16/22 23:27 Nitroglycerin 0.4 Mg Tab Subl SL .Q5MIN PRN Chest Pain Ondansetron HCl 4 mg 02/16/22 23:27 Ondansetron 4 Mg/2 Ml Inj IV Q8H PRN Nausea And Vomiting Prednisone 20 mg 02/18/22 13:00 02/19/22 09:57 Prednisone 20 Mg Tab PO 20 mg QDAY REBECCA Administration Sodium Chloride 10 ml 02/17/22 10:00 02/19/22 09:57 Sodium Chloride 0.9% 10 Ml Flush Syringe IV 10 ml BID REBECCA Administration Sodium Chloride 10 ml 02/16/22 23:27 Sodium Chloride 0.9% 10 Ml Flush Syringe IV PRN PRN LINE FLUSH Tramadol HCl 50 mg 02/16/22 23:27 02/18/22 04:33 Tramadol 50 Mg Tab PO 50 mg Q6H PRN Administration Pain, Moderate (4-6) Warfarin Sodium 7.5 mg 02/19/22 17:00 Warfarin 7.5 Mg Tab PO 02/20/22 16:59 DAILY@1700 NR Nutrition/Malnutrition Assess - Dietary Evaluation Nutrition/Malnutrition Findings: Nutrition Notes Start: 02/17/22 12:24 Freq: Status: Active Protocol: Document 02/18/22 11:19 SHAYNE (Rec: 02/18/22 11:31 SHAYNE [id number]) Nutrition Notes Initial or Follow up Brief Note Current Diagnosis COPD,Diabetes Other Pertinent Diagnosis Seizure, CHF, Sarcoidosis, DVT , L-UE Edema. Current Diet Cardiac/Consistent Carbohydrates -Chopped Meats- Diet (since B 02/17). Height 6 ft 1 in Weight 83 kg [place] Body Weight (kg) 83.63 BMI 24.1 Weight change and time frame 0.1 Kg body weight loss in 1 day reported. Weight Status Appropriate Subjective/Other Information RD consult for Warfarine use education. No reports available on Pt's PO intake at the time, will assess at F/U. Pt is on Nasal Cannula, O2 saturation @ 99%, according to Physical Assessment History notes. 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 Percent of energy/protein needs met: Prescribed Cardiac/Consistent Carbohydrates -Chopped Meats- Diet provides for energy/ protein needs (1,977 Kcal/86 g ) during LOS. #1 Nutrition Diagnosis Biting/Chewing (masticatory) difficulty Diagnosis Progress(for reassessment Continues documentation) Is patient on ventilator? No Is Patient Ambulatory and/or Out of Bed No REE-([facility]-confined to bed) 4.172 Calculation Used for Recommendations [facility] Additional Notes Protein: 0.8-1 g/Kg ABW; 66-84 g/day. Fluids: 1 ml/Kcal, or as per MD. Nutrition Intervention Change Diet Order: Continue Cardiac/Consistent Carbohydrates -Chopped Meats- Diet. Goal #1 Facilitate PO intake of meals with elemental, textural, or mechanical modification during LOS. Goal #2 Maintain body weight within +/ -3% of admission body weight during LOS. Follow-Up By: 02/21/22 Additional Comments Continue monitoring food tolerance, %PO intake of meals , and BM.
[2022-02-19] MEDS ORDERED: WARFARIN 7.5 MG TAB PO NR (17:00)
[2022-02-19] MEDS: FUROSEMIDE 40 MG TAB PO SCH (17:21)
[2022-02-19] MEDS: traMADol 50 MG TAB PO PRN (17:23)
--- NOTE | 2022-02-19 18:43 | Electrocardiograph Report ---
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
--- NOTE | 2022-02-19 18:45 | Electrocardiograph Report ---
[facility] Test Date: 2022-02-17 Test Time: 07:06:05 Pat Name: SHERYL DE LA ROSA Department: Room: A458 1 Gender: M Forms Analyst: MARCI : 1975 Requested By: KALINA BURR Order Number: [id number] Reading MD: Chele Slater Measurements Intervals [place] Rate: 81 P: 0 MD: 69 QRS: 43 QRSD: 91 T: -11 QT: 431 QTc: 511 Interpretive Statements Sinus rhythm Frequent PVCs Compared to ECG 02/16/2022 21:53:21 No significant change Electronically Signed On 02-19-2022 18:45:32 EDT by Chele Slater
[2022-02-19] MEDS: FAMOTIDINE 20 MG TAB PO SCH (21:58)
[2022-02-20] MEDS: FUROSEMIDE 40 MG TAB PO SCH ×2 (06:07→17:08)
[2022-02-20 07:56] LABS: INR 1.31 (0.87-1.13)
[2022-02-20] MEDS: INSULIN LISPRO 100 UNIT/ML SUB-Q SCH ×4 (08:24→21:11)
[2022-02-20] MEDS: predniSONE 20 MG TAB PO SCH (09:33)
[2022-02-20] MEDS: LISINOPRIL 5 MG TAB PO SCH (09:34)
[2022-02-20] MEDS: ASPIRIN EC 325 MG TAB PO SCH (09:34)
[2022-02-20] MEDS: carvediloL 3.125 MG TAB PO SCH ×2 (09:34→21:06)
[2022-02-20] MEDS: levETIRAcetam 500 MG TAB PO SCH ×2 (09:34→21:06)
--- NOTE | 2022-02-20 09:57 | Electrocardiograph Report ---
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
--- NOTE | 2022-02-20 10:22 | Progress Note ---
Assessment and Plan - Patient Problems (1) CHF exacerbation Current Visit: Yes Status: Acute Plan to address problem: The patient is a 47-year-old man who presented with shortness of breath. Chest x-ray showed a moderate severity cardiomegaly with chronic interstitial lung changes. He has a history of pulmonary sarcoidosis, prior CVA, diabetes and COPD. We also note a history of dilated NICM, evaluated with a cardiac cath at [facility] 6 months ago. No CAD at cath. Echocardiogram on this visit shows severe dilated four-chamber cardiomyopathy, with left ventricular ejection fraction less than 20%. The patient was in this hospital 2 weeks ago with syncope, respiratory failure and was reported with seizures. He underwent extensive work-up for seizure management, but at that presentation there was no cardiology evaluation. In the setting of chronic systolic heart failure, and recent (unexplained) syncope, in addition to guideline directed medical therapy, we will order LifeVest monitoring on discharge. Patient is stable for discharge on GDMT after lifevest is fitted. Follow up will be with his outpatient kiln tender at [facility]. Subjective Date of service: 02/20/22 Principal diagnosis: Shortness of breath Interval history: Patient has no new cardiac complaints, no new cardiac events reported. I have records from [facility] which show that his dilated CMP is NOT new. It was worked up in 08/2021 with a acardiac cath which showed normal coronaries, established a diagnosis of NICM. Objective Vital Signs Temp Pulse Pulse Resp BP Pulse Ox 02/20/22 08:08 98.2 F 68 16 116/80 97 02/20/22 03:11 97.9 F 50 L 18 113/82 95 02/19/22 23:30 98.0 F 91 H 18 94/72 97 02/19/22 22:00 87 02/19/22 21:57 87 101/71 02/19/22 21:40 18 02/19/22 20:31 98.4 F 87 18 101/71 95 02/19/22 19:00 87 18 95 02/19/22 15:42 97.0 F L 80 18 116/65 96 02/19/22 11:16 98.3 F 84 18 98/70 99 - Physical Examination General: No Apparent Distress Neck: Positive: neck supple Cardiac: Positive: Reg Rate and Rhythm Lungs: Positive: Decreased Breath Sounds Neuro: Positive: Weakness (L hemiparesis from prior CVA) Abdomen: Positive: Soft Skin: Positive: Clear Extremities: Absent: edema - Labs and Meds Coagulation 02/20/22 Range/Units 07:13 PT 17.8 H (12.2-14.9) Sec. INR 1.31 H (0.87-1.13)
[2022-02-20] MEDS: ENOXAPARIN 120 MG/0.8 ML INJ SUB-Q SCH (13:49)
--- NOTE | 2022-02-20 14:29 | Discharge Summary ---
Providers - Providers Date of Admission: 02/17/22 01:29 Date of discharge: 02/20/22 Attending physician: ERNA VENTURA MD 02/16/22 Consult to Cardiac Rehabilitation [CONS] Routine Reason For Exam: Phase I 02/16/22 23:28 Consult to Dietitian/Nutrition [CONS] Routine Physician Instructions: Reason For Exam: Reason for Consult: Diet education 02/16/22 23:31 Consult to Cardiology [CONS] Routine Consulting Provider: JESUS MANUEL LOONEY Reason For Exam: CHF Exac, Elevated troponin Primary care physician: ISAIAS MCKINNON Hospitalization Reason for admission: Acute on chronic diastolic heart failure Condition: Stable Pertinent studies: Reviewed. Procedures: None. Hospital course: Patient is a 47-year-old male past medical history of pulmonary sarcoidosis (diagnosed via lung biopsy in early ), poorly controlled day-yrkfjwr-rshfl dent type 2 diabetes mellitus, COPD, seizure disorder, and history of CVA who presented with few days of shortness of breath that was worsened with exertion. Patient denied any chest pain, fever, chills, nausea, vomiting, or abdominal pain. Upon presentation in the ED, the patient was found to be tachypneic but hemodynamically stable. The patient had troponin of 0.149 and an elevated proBNP of 7405. Patient was admitted for management of acute on chronic diastolic heart failure. Cardiology was consulted for further management. The patient was initiated with IV diuresis and goal-directed therapy. Patient underwent TTE revealing an EF of approximately 20% with mild pulmonary hypertension. Patient is pending a LifeVest upon discharge. Patient was discovered to have an acute left upper extremity DVT in his left brachial, ulnar, and radial veins. Patient was initiated warfarin with Lovenox bridge. Upon receipt of the LifeVest, the patient will be medically clear for discharge (assuming his INR is therapeuticgoal of 23). Patient is medically clear for discharge. Disposition: HOME / SELF CARE / HOMELESS Final Discharge Diagnosis (Prints w/discharge instructions): Acute on chronic diastolic heart failure, history of pulmonary sarcoidosis, acute left upper extremity DVT, history of DVT, seizure disorder, rui-cpjixgy-nxyzxsttg type 2 diabetes mellitus, prior history of CVA Time spent for discharge: 45 min Core Measure Documentation - Palliative Care Palliative Care/ Comfort Measures: Not Applicable - Core Measures Any of the following diagnoses?: DVT/PE, heart failure, history only - VTE Discharge Requirements Deep Vein Thrombosis/Pulmonary Embolism Present on Admission: Yes Has pt received <5 days of overlap therapy or INR<2.0: Yes Anticoagulant overlap therapy prescribed at discharge: No Contraindication No Overlap Therapy order at DC: Not Indicated - Heart Failure Discharge Requirements ABBY/ARB for LVSD if EF <40%: Yes Beta rojas at discharge: Yes Exam - Constitutional Vitals: Temp Pulse Resp BP Pulse Ox 98.2 F 68 16 116/80 97 02/20/22 08:08 02/20/22 08:08 02/20/22 08:08 02/20/22 08:08 02/20/22 08:08 General appearance: Present: no acute distress, well-nourished - EENT Eyes: Present: PERRL, EOM intact ENT: hearing intact, clear oral mucosa, dentition normal - Neck Neck: Present: supple, normal ROM - Respiratory Respiratory effort: normal Respiratory: bilateral: CTA - Cardiovascular Rhythm: regular Heart Sounds: Present: S1 & S2 - Extremities Extremities: no ischemia, pulses intact, pulses symmetrical, normal temperature, normal color Extremity abnormal: edema (1+ pitting edema of left upper extremity secondary to DVT) Peripheral Pulses: within normal limits - Abdominal General gastrointestinal: Present: soft, non-tender, non-distended, normal bowel sounds Male genitourinary: Present: deferred - Rectal Rectal Exam: deferred - Integumentary Integumentary: Present: clear, warm, dry - Musculoskeletal Musculoskeletal: left sided weakness - Psychiatric Psychiatric: appropriate mood/affect, memory intact, cooperative - Neurologic Neurologic: CNII-XII intact, moves all extremities - Allied Health Allied health notes reviewed: nursing Plan Activity: advance as tolerated Diet: low salt, diabetic Additional Instructions: Patient is a 47-year-old male past medical history of pulmonary sarcoidosis (diagnosed via lung biopsy in early ), poorly contro lled mau-knrjwzj-bufcsfnig type 2 diabetes mellitus, COPD, seizure disorder, and history of CVA who presented with few days of shortness of breath that was worsened with exertion. Patient denied any chest pain, fever, chills, nausea, vomiting, or abdominal pain. Upon presentation in the ED, the patient was found to be tachypneic but hemodynamically stable. The patient had troponin of 0.149 and an elevated proBNP of 7405. Patient was admitted for management of acute on chronic diastolic heart failure. Cardiology was consulted for further management. The patient was initiated with IV diuresis and goal-directed therapy. Patient underwent TTE revealing an EF of approximately 20% with mild pulmonary hypertension. Patient is pending a LifeVest upon discharge. Patient was discovered to have an acute left upper extremity DVT in his left brachial, ulnar, and radial veins. Patient was initiated warfarin with Lovenox bridge. Upon receipt of the LifeVest, the patient will be medically clear for discharge (assuming his INR is therapeuticgoal of 23). Patient is medically clear for discharge. Care Plan Goals: Patient is medically clear for discharge. Assessment: Patient is a 47-year-old male past medical history of pulmonary sarcoidosis (diagnosed via lung biopsy in early ), poorly controlled bic-wfydlwo-khyhbanbs type 2 diabetes mellitus, COPD, seizure disorder, and history of CVA who presented with few days of shortness of breath that was worsened with exertion. Patient denied any chest pain, fever, chills, nausea, v omiting, or abdominal pain. Upon presentation in the ED, the patient was found to be tachypneic but hemodynamically stable. The patient had troponin of 0.149 and an elevated proBNP of 7405. Patient was admitted for management of acute on chronic diastolic heart failure. Cardiology was consulted for further management. The patient was initiated with IV diuresis and goal-directed therapy. Patient underwent TTE revealing an EF of approximately 20% with mild pulmonary hypertension. Patient is pending a LifeVest upon discharge. Patient was discovered to have an acute left upper extremity DVT in his left brachial, ulnar, and radial veins. Patient was initiated warfarin with Lovenox bridge. Upon receipt of the LifeVest, the patient will be medically clear for discharge (assuming his INR is therapeuticgoal of 23). Patient is medically clear for discharge. Follow up with: ISAIAS MCKINNON MD [Primary Care Provider] - 3-5 Days Forms: Warfarin Discharge Instruction Prescriptions: AtorvaSTATin [Lipitor] 40 mg PO QHS #30 tab Famotidine [Pepcid] 40 mg PO QHS #30 tablet carvediloL [Coreg] 3.125 mg PO BID #60 tablet Warfarin [Coumadin] 7.5 mg PO DAILY@1700 #30 tablet Warfarin [Coumadin] 7.5 mg PO DAILY@1700 #30 tablet predniSONE [Deltasone] 20 mg PO QDAY #30 tablet Enoxaparin 120 mg SUB-Q Q24H #7 syringe metFORMIN [Glucophage] 850 mg PO BID #60 tab levETIRAcetam [Keppra TAB] 1,000 mg PO BID #60 tab Furosemide [Lasix TAB] 40 mg PO 0600,1800 #60 tablet lisinopriL [Zestril TAB] 2.5 mg PO QDAY #15 tablet
--- NOTE | 2022-02-20 14:55 | Progress Note ---
Assessment and Plan Assessment and plan: #Acute heart failure with reduced ejection fractionresolved -TTE: EF 20% with mild pulmonary HTN -chronicity unknown, patient does not take any medications indicated for HFrEF -Transition from IV Lasix to p.o. Lasix 40 mg daily -Continue lisinopril 2.5 mg daily and Coreg 3.125 mg twice daily -continue to monitor I/Os, daily weights, fluid restriction 1.5L, telemetry -Cardiology following, assistance appreciated -plan for lifevest at discharge #Elevated troponin -troponin 0.149 -> 0.189 -> 0.341 -patient has no chest pain, only shortness of breath -elevation likely secondary to CHF exacerbation -will continue to monitor #History of pulmonary sarcoidosis -Continue prednisone 20mg qday #Left upper extremity DVT #History of DVT -Patient reports history of DVT and was taking warfarin in the past -LUE doppler shows acute DVT in L brachial, ulnar and radial veins -continue warfarin with lovenox bridge--> current INR 1.17--> 1.31 #Seizure disorder -Continue Keppra at home dose -Continue seizure precautions #T2DM (type 2 diabetes mellitus) -patient takes metformin outpatient -will hold for now and continue sliding scale insulin with Accu-Cheks #Advanced care planning -Disease education conducted, care plan discussed, diagnoses discussed, p rognosis discussed, and patient acknowledges understanding with care plan -Time: +30 min #Discharge planning - Patient is pending INR goal of 23 and delivery of LifeVest - Case management has been made aware. Disposition Plan: Continue medical management Total Time Spent with Patient (Minutes): 45 minutes History Interval history: No acute events overnight. Hospitalist Physical - Constitutional Vitals: Temp Pulse Resp BP Pulse Ox 98.2 F 68 16 116/80 97 02/20/22 08:08 02/20/22 08:08 02/20/22 08:08 02/20/22 08:08 02/20/22 08:08 General appearance: Present: no acute distress, well-nourished - EENT Eyes: Present: PERRL, EOM intact ENT: hearing intact, clear oral mucosa, dentition normal - Neck Neck: Present: supple, normal ROM - Respiratory Respiratory effort: normal Respiratory: bilateral: CTA - Cardiovascular Rhythm: regular Heart Sounds: Present: S1 & S2 - Extremities Extremities: no ischemia, pulses intact, pulses symmetrical, normal temperature, normal color Extremity abnormal: edema (1+ pitting edema of left upper extremity secondary to DVT) Peripheral Pulses: within normal limits - Abdominal General gastrointestinal: soft, non-tender, non-distended, normal bowel sounds - Integumentary Integumentary: Present: clear, warm, dry - Psychiatric Psychiatric: appropriate mood/affect, intact judgment & insight, cooperative - Neurologic Neurologic: CNII-XII intact, other (Left-sided weakness) - Allied Health Allied health notes reviewed: nursing HEART Score - HEART Score Troponin: Troponin T 0.341 ng/mL (0.00-0.029) H* D 02/18/22 04:28 Results - Labs CBC & Chem 7: 02/17/22 04:38 02/19/22 03:57 Labs: Laboratory Last Values WBC 7.2 K/mm3 (4.5-11.0) 02/17/22 04:38 RBC 4.88 M/mm3 (3.65-5.03) 02/17/22 04:38 Hgb 12.6 gm/dl (11.8-15.2) 02/17/22 04:38 Hct 39.7 % (35.5-45.6) 02/17/22 04:38 MCV 82 fl (84-94) L 02/17/22 04:38 MCH 26 pg (28-32) L 02/17/22 04:38 MCHC 32 % (32-34) 02/17/22 04:38 RDW 17.3 % (13.2-15.2) H 02/17/22 04:38 Plt Count 344 K/mm3 (140-440) 02/17/22 04:38 Lymph % (Auto) 23.1 % (13.4-35.0) 02/16/22 20:32 [place] % (Auto) 11.7 % (0.0-7.3) H 02/16/22 20:32 Eos % (Auto) 1.4 % (0.0-4.3) 02/16/22 20:32 Baso % (Auto) 1.1 % (0.0-1.8) 02/16/22 20:32 Lymph # (Auto) 1.8 K/mm3 (1.2-5.4) 02/16/22 20:32 [place] # (Auto) 0.9 K/mm3 (0.0-0.8) H 02/16/22 20:32 Eos # (Auto) 0.1 K/mm3 (0.0-0.4) 02/16/22 20:32 Baso # (Auto) 0.1 K/mm3 (0.0-0.1) 02/16/22 20:32 Add Manual Diff Complete 02/17/22 04:38 Total Counted 100 02/17/22 04:38 Seg Neutrophils % [employer] 02/17/22 04:38 Seg Neuts % (Manual) 95.0 % (40.0-70.0) H 02/17/22 04:38 Band Neutrophils % 0 % 02/17/22 04:38 Lymphocytes % (Manual) 5.0 % (13.4-35.0) L 02/17/22 04:38 Reactive Lymphs % (Man) 0 % 02/17/22 04:38 Monocytes % (Manual) 0 % (0.0-7.3) 02/17/22 04:38 Eosinophils % (Manual) 0 % (0.0-4.3) 02/17/22 04:38 Basophils % (Manual) 0 % (0.0-1.8) 02/17/22 04:38 Metamyelocytes % 0 % 02/17/22 04:38 Myelocytes % 0 % 02/17/22 04:38 Promyelocytes % 0 % 02/17/22 04:38 Blast Cells % 0 % 02/17/22 04:38 Nucleated RBC % Not Reportable 02/17/22 04:38 Seg Neutrophils # 4.8 K/mm3 (1.8-7.7) 02/16/22 20:32 Seg Neutrophils # Man 6.8 K/mm3 (1.8-7.7) 02/17/22 04:38 Band Neutrophils # 0.0 K/mm3 02/17/22 04:38 Lymphocytes # (Manual) 0.4 K/mm3 (1.2-5.4) L 02/17/22 04:38 Abs React Lymphs (Man) 0.0 K/mm3 02/17/22 04:38 Monocytes # (Manual) 0.0 K/mm3 (0.0-0.8) 02/17/22 04:38 Eosinophils # (Manual) 0.0 K/mm3 (0.0-0.4) 02/17/22 04:38 Basophils # (Manual) 0.0 K/mm3 (0.0-0.1) 02/17/22 04:38 Metamyelocytes # 0.0 K/mm3 02/17/22 04:38 Myelocytes # 0.0 K/mm3 02/17/22 04:38 Promyelocytes # 0.0 K/mm3 02/17/22 04:38 Blast Cells # 0.0 K/mm3 02/17/22 04:38 WBC Morphology Not Reportable 02/17/22 04:38 Hypersegmented Neuts Not Reportable 02/17/22 04:38 Hyposegmented Neuts Not Reportable 02/17/22 04:38 Hypogranular Neuts Not Reportable 02/17/22 04:38 Smudge Cells Not Reportable 02/17/22 04:38 Toxic Granulation Not Reportable 02/17/22 04:38 Toxic Vacuolation Not Reportable 02/17/22 04:38 Dohle Bodies Not Reportable 02/17/22 04:38 Pelger-Huet Anomaly Not Reportable 02/17/22 04:38 Rachel Rods Not Reportable 02/17/22 04:38 Platelet Estimate Consistent w auto 02/17/22 04:38 Clumped Platelets Not Reportable 02/17/22 04:38 Plt Clumps, EDTA Not Reportable 02/17/22 04:38 Large Platelets Not Reportable 02/17/22 04:38 Giant Platelets Not Reportable 02/17/22 04:38 Platelet Satelliting Not Reportable 02/17/22 04:38 Plt Morphology Comment Not Reportable 02/17/22 04:38 RBC Morphology Not Reportable 02/17/22 04:38 Dimorphic RBCs Not Reportable 02/17/22 04:38 Polychromasia Not Reportable 02/17/22 04:38 Hypochromasia 1+ 02/17/22 04:38 Poikilocytosis Not Reportable 02/17/22 04:38 Anisocytosis Not Reportable 02/17/22 04:38 Microcytosis Not Reportable 02/17/22 04:38 Macrocytosis Not Reportable 02/17/22 04:38 Spherocytes Not Reportable 02/17/22 04:38 Pappenheimer Bodies Not Reportable 02/17/22 04:38 Sickle Cells Not Reportable 02/17/22 04:38 Target Cells Not Reportable 02/17/22 04:38 Tear Drop Cells Not Reportable 02/17/22 04:38 Ovalocytes Few 02/17/22 04:38 Helmet Cells Not Reportable 02/17/22 04:38 [place] Bodies Not Reportable 02/17/22 04:38 [place] Rings Not Reportable 02/17/22 04:38 Caterina Cells Rare 02/17/22 04:38 Bite Cells Not Reportable 02/17/22 04:38 Crenated Cell Not Reportable 02/17/22 04:38 Elliptocytes Not Reportable 02/17/22 04:38 Acanthocytes (Spur) Rare 02/17/22 04:38 Rouleaux Not Reportable 02/17/22 04:38 Hemoglobin C Crystals Not Reportable 02/17/22 04:38 Schistocytes Not Reportable 02/17/22 04:38 Malaria parasites Not Reportable 02/17/22 04:38 Ten Bodies Not Reportable 02/17/22 04:38 Hem Pathologist Commnt No 02/17/22 04:38 PT 17.8 Sec. (12.2-14.9) H 02/20/22 07:13 INR 1.31 (0.87-1.13) H 02/20/22 07:13 ABG pH 7.425 pH Units (7.350-7.450) 02/16/22 21:52 ABG pCO2 30.1 mm Hg 02/16/22 21:52 ABG pO2 104.5 mm Hg (80.0-90.0) H 02/16/22 21:52 ABG HCO3 19.3 mmol/L (20.0-26.0) L 02/16/22 21:52 ABG O2 Saturation 97.9 % (95.0-99.0) 02/16/22 21:52 ABG O2 Content 17.0 (0.0-44) 02/16/22 21:52 ABG Base Excess -4.0 mmol/L (-2.0-3.0) L 02/16/22 21:52 ABG Hemoglobin 12.5 gm/dl (14.0-18.0) L 02/16/22 21:52 ABG Carboxyhemoglobin 1.7 % (0.0-5.0) 02/16/22 21:52 ABG Methemoglobin 0.4 % (0.0-1.5) 02/16/22 21:52 Oxyhemoglobin 95.8 % (95.0-99.0) 02/16/22 21:52 FiO2 28 % 02/16/22 21:52 Sodium 143 mmol/L (137-145) 02/19/22 03:57 Potassium 4.3 mmol/L (3.6-5.0) 02/19/22 03:57 Chloride 103.1 mmol/L (98-107) 02/19/22 03:57 Carbon Dioxide 26 mmol/L (22-30) 02/19/22 03:57 Anion Gap 18 mmol/L 02/19/22 03:57 BUN 23 mg/dL (9-20) H 02/19/22 03:57 Creatinine 1.2 mg/dL (0.8-1.3) 02/19/22 03:57 Estimated GFR > 60 ml/min 02/19/22 03:57 BUN/Creatinine Ratio 19 % 02/19/22 03:57 Glucose 113 mg/dL (75-100) H 02/19/22 03:57 POC Glucose 126 mg/dL (70-105) H 02/20/22 11:31 Calcium 9.0 mg/dL (8.4-10.2) 02/19/22 03:57 Magnesium 1.80 mg/dL (1.7-2.3) 02/16/22 20:32 Total Bilirubin 0.90 mg/dL (0.1-1.2) 02/18/22 04:28 AST 70 units/L (5-40) H 02/18/22 04:28 ALT 63 units/L (7-56) H 02/18/22 04:28 Alkaline Phosphatase 206 units/L (35-129) H 02/18/22 04:28 Total Creatine Kinase 406 units/L (55-170) H 02/16/22 20:32 CK-MB (CK-2) 34.5 ng/mL (0.0-4.0) H 02/16/22 20:32 CK-MB (CK-2) Rel Index 8.4 (0-4) H 02/16/22 20:32 Troponin T 0.341 ng/mL (0.00-0.029) H* D 02/18/22 04:28 NT-Pro-B Natriuret Pep 7405 pg/mL (0-450) H 02/16/22 20:32 Total Protein 6.8 g/dL (6.3-8.2) 02/18/22 04: Albumin 3.8 g/dL (3.9-5) L 02/18/22 04: Albumin/Globulin Ratio 1.3 % 02/18/22 04:28 Triglycerides 91 mg/dL (2-149) 02/16/22 20: Cholesterol 129 mg/dL (50-199) 02/16/22: LDL Cholesterol Direct 67 mg/dL (50-130) 02/16/22: HDL Cholesterol 42 mg/dL (40-59) 02/16/22: Cholesterol/HDL Ratio 3.07 % 02/16/22 20: Lipase 15 units/L (13-60) 02/16/22 20:32 Urine Color Straw (Yellow) 02/17/22 08:00 Urine Turbidity Clear (Clear) 02/17/22 08:00 Urine pH 5.0 (5.0-7.0) 02/17/22 08:00 Ur Specific [place] 1.006 (1.003-1.030) 02/17/22 08:00 Urine Protein <15 mg/dl mg/dL (Negative) 02/17/22 08:00 Urine Glucose (UA) Neg mg/dL (Negative) 02/17/22 08:00 Urine Ketones Neg mg/dL (Negative) 02/17/22 08:00 Urine Blood Sm (Negative) 02/17/22 08:00 Urine Nitrite Neg (Negative) 02/17/22 08:00 Urine Bilirubin Neg (Negative) 02/17/22 08:00 Urine Urobilinogen < 2.0 mg/dL (<2.0) 02/17/22 08:00 Ur Leukocyte Esterase Neg (Negative) 02/17/22 08:00 Urine WBC (Auto) 1.0 /HPF (0.0-6.0) 02/17/22 08:00 Urine RBC (Auto) < 1.0 /HPF (0.0-6.0) 02/17/22 08:00 U Epithel Cells (Auto) 1.0 /HPF (0-13.0) 02/17/22 08:00 Urine Bacteria (Auto) 1+ /HPF (Negative) 02/17/22 08:00 Hyaline Casts 1 /LPF 02/17/22 08:00 Urine Mucus Few /HPF 02/17/22 08:00 Urine Opiates Screen Negative 02/17/22 08:00 Urine Methadone Screen Negative 02/17/22 08:00 Ur Barbiturates Screen Negative 02/17/22 08:00 Ur Phencyclidine Scrn Negative 02/17/22 08:00 Ur Amphetamines Screen Negative 02/17/22 08:00 U Benzodiazepines Scrn Negative 02/17/22 08:00 Urine Cocaine Screen Negative 02/17/22 08:00 U Marijuana (THC) Screen Negative 02/17/22 08:00 Drugs of Abuse Note Disclamer 02/17/22 08:00 Alexandre/IV: Voiding Method Condom Catheter Active Medications - Current Medications Current Medications: Generic Name Dose Route Start Last Admin Trade Name Freq PRN Reason Stop Dose Admin Acetaminophen 650 mg 02/16/22 23:27 Acetaminophen 325 Mg Tab PO Q4H PRN Pain MILD(1-3)/Fever >100.5/AVILES Aspirin 325 mg 02/17/22 10:00 02/20/22 09:34 Aspirin Ec 325 Mg Tab PO 325 mg QDAY REBECCA Administration Atorvastatin Calcium 40 mg 02/17/22 22:00 02/19/22 21:58 Atorvastatin 40 Mg Tab PO 40 mg QHS REBECCA Administration Carvedilol 3.125 mg 02/18/22 22:00 02/20/22 09:34 Carvedilol 3.125 Mg Tab PO 3.125 mg BID REBECCA Administration Dextrose 50 ml 02/16/22 23:27 Dextrose 50% In Water (25gm) 50 Ml Syringe IV Q30MIN PRN Hypoglycemia Protocol Enoxaparin Sodium 120 mg 02/17/22 12:00 02/20/22 13:49 Enoxaparin 120 Mg/0.8 Ml Inj SUB-Q 120 mg Q24H REBECCA Administration Protocol Famotidine 40 mg 02/17/22 22:00 02/19/22 21:58 Famotidine 20 Mg Tab PO 40 mg QHS REBECCA Administration Furosemide 40 mg 02/19/22 18:00 02/20/22 06:07 Furosemide 40 Mg Tab PO 40 mg 0600,1800 REBECCA Administration Insulin Human Lispro 0 unit 02/17/22 07:30 02/20/22 12:04 Insulin Lispro 100 Unit/Ml SUB-Q Not Given ACHS [facility] Protocol Levetiracetam 1,000 mg 02/17/22 10:00 02/20/22 09:34 Levetiracetam 500 Mg Tab PO 1,000 mg BID REBECCA Administration Lisinopril 2.5 mg 02/18/22 14:00 02/20/22 09:34 Lisinopril 5 Mg Tab PO 2.5 mg QDAY REBECCA Administration Magnesium Hydroxide 30 ml 02/16/22 23:27 Magnesium Hydroxide (Mom) Oral Liqd Udc PO Q4H PRN Constipation Morphine Sulfate 2 mg 02/16/22 23:27 02/19/22 21:40 Morphine 2 Mg/1 Ml Inj IV 2 mg Q4H PRN Administration Pain, Moderate (4-6) Morphine Sulfate 4 mg 02/16/22 23:27 02/19/22 09:58 Morphine 4 Mg/1 Ml Inj IV 4 mg Q4H PRN Administration Pain , Severe (7-10) Morphine Sulfate 2 mg 02/16/22 23:27 Morphine 4 Mg/1 Ml Inj IV Q5MIN PRN Chest Pain unrelieved by NTG Nitroglycerin 0.4 mg 02/16/22 23:27 Nitroglycerin 0.4 Mg Tab Subl SL .Q5MIN PRN Chest Pain Ondansetron HCl 4 mg 02/16/22 23:27 Ondansetron 4 Mg/2 Ml Inj IV Q8H PRN Nausea And Vomiting Prednisone 20 mg 02/18/22 13:00 02/20/22 09:33 Prednisone 20 Mg Tab PO 20 mg QDAY REBECCA Administration Sodium Chloride 10 ml 02/17/22 10:00 02/20/22 09:34 Sodium Chloride 0.9% 10 Ml Flush Syringe IV 10 ml BID REBECCA Administration Sodium Chloride 10 ml 02/16/22 23:27 Sodium Chloride 0.9% 10 Ml Flush Syringe IV PRN PRN LINE FLUSH Tramadol HCl 50 mg 02/16/22 23:27 02/19/22 17:23 Tramadol 50 Mg Tab PO 50 mg Q6H PRN Administration Pain, Moderate (4-6) Warfarin Sodium 7.5 mg 02/20/22 17:00 Warfarin 7.5 Mg Tab PO 02/21/22 16:59 DAILY@1700 NR Nutrition/Malnutrition Assess - Dietary Evaluation Nutrition/Malnutrition Findings: Nutrition Notes Start: 02/17/22 12:24 Freq: Status: Active Protocol: Document 02/18/22 11:19 SHAYNE (Rec: 02/18/22 11:31 SHAYNE [email or web address]) Nutrition Notes Initial or Follow up Brief Note Current Diagnosis COPD,Diabetes Other Pertinent Diagnosis Seizure, CHF, Sarcoidosis, DVT , L-UE Edema. Current Diet Cardiac/Consistent Carbohydrates -Chopped Meats- Diet (since B 02/17). Height 6 ft 1 in Weight 83 kg [place] Body Weight (kg) 83.63 BMI 24.1 Weight change and time frame 0.1 Kg body weight loss in 1 day reported. Weight Status Appropriate Subjective/Other Information RD consult for Warfarine use education. No reports available on Pt's PO intake at the time, will assess at F/U. Pt is on Nasal Cannula, O2 saturation @ 99%, according to Physical Assessment History notes. 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 Percent of energy/protein needs met: Prescribed Cardiac/Consistent Carbohydrates -Chopped Meats- Diet provides for energy/ protein needs (1,977 Kcal/86 g ) during LOS. #1 Nutrition Diagnosis Biting/Chewing (masticatory) difficulty Diagnosis Progress(for reassessment Continues documentation) Is patient on ventilator? No Is Patient Ambulatory and/or Out of Bed No REE-([facility]-confined to bed) 8784.172 Calculation Used for Recommendations [facility] Additional Notes Protein: 0.8-1 g/Kg ABW; 66-84 g/day. Fluids: 1 ml/Kcal, or as per MD. Nutrition Intervention Change Diet Order: Continue Cardiac/Consistent Carbohydrates -Chopped Meats- Diet. Goal #1 Facilitate PO intake of meals with elemental, textural, or mechanical modification during LOS. Goal #2 Maintain body weight within +/ -3% of admission body weight during LOS. Follow-Up By: 02/21/22 Additional Comments Continue monitoring food tolerance, %PO intake of meals , and BM.
[2022-02-20] MEDS ORDERED: WARFARIN 7.5 MG TAB PO NR (17:00)
[2022-02-20] MEDS: FAMOTIDINE 20 MG TAB PO SCH (21:06)
[2022-02-20] MEDS: traMADol 50 MG TAB PO PRN (21:07)
[2022-02-21 06:38] LABS: INR 1.41 (0.87-1.13)
[2022-02-21] MEDS: FUROSEMIDE 40 MG TAB PO SCH ×2 (07:23→17:27)
[2022-02-21] MEDS: INSULIN LISPRO 100 UNIT/ML SUB-Q SCH ×4 (08:23→21:12)
[2022-02-21] MEDS: ASPIRIN EC 325 MG TAB PO SCH (09:22)
[2022-02-21] MEDS: levETIRAcetam 500 MG TAB PO SCH ×2 (09:22→21:12)
[2022-02-21] MEDS: carvediloL 3.125 MG TAB PO SCH ×2 (09:22→21:12)
[2022-02-21] MEDS: predniSONE 20 MG TAB PO SCH (09:23)
[2022-02-21] MEDS: LISINOPRIL 5 MG TAB PO SCH (09:23)
--- NOTE | 2022-02-21 10:09 | Progress Note ---
Assessment and Plan - Patient Problems (1) CHF exacerbation Current Visit: Yes Status: Acute Plan to address problem: Patient has a severe nonischemic cardiomyopathy with left ventricle ejection fraction less than 20%. He suffered recent syncope. He had previous CVA with residual left hemiparesis. He is admitted with systolic heart failure exacerbation. He has been fitted with LifeVest for outpatient cardiac monitoring. Patient still has symptoms of heart failure exacerbation, in addition to continued diuretics, I will recommend 72 hours of intravenous milrinone and focused physical therapy in the hospital prior to eventual discharge. Subjective Date of service: 02/21/22 Principal diagnosis: Shortness of breath Interval history: Patient has been fitted with a LifeVest, has no chest pain but appears in mild respiratory distress. He has not been receiving significant physical therapy but appears very lethargic and will likely need significant assistance with activities of daily living particularly in the setting of his left hemiparesis. Objective Vital Signs Temp Pulse Pulse Resp BP Pulse Ox 02/21/22 08:20 78 18 95 02/21/22 08:01 98.0 F 76 16 107/79 97 02/21/22 05:15 97.6 F 66 18 103/75 100 02/20/22 20:18 98.7 F 77 18 102/83 100 02/20/22 19:00 18 96 02/20/22 15:35 98.5 F 70 16 106/86 99 - Physical Examination General: Other (Mild respiratory distress on supine bedrest) Neck: Positive: neck supple Cardiac: Positive: Reg Rate and Rhythm Lungs: Positive: Decreased Breath Sounds Neuro: Positive: Weakness (L hemiparesis from prior CVA) Abdomen: Positive: Soft Skin: Positive: Clear Extremities: Absent: edema - Labs and Meds Coagulation 02/21/22 Range/Units 04:47 PT 18.9 H (12.2-14.9) Sec. INR 1.41 H (0.87-1.13)
--- NOTE | 2022-02-21 11:14 | Progress Note ---
Assessment and Plan Assessment and plan: #Acute heart failure with reduced ejection fraction -TTE: EF 20% with mild pulmonary HTN -chronicity unknown, patient does not take any medications indicated for HFrEF -Transition from IV Lasix to p.o. Lasix 40 mg daily -Continue lisinopril 2.5 mg daily and Coreg 3.125 mg twice daily -continue to monitor I/Os, daily weights, fluid restriction 1.5L, telemetry -Cardiology following, assistance appreciated. Cardiology initiating milrinone drip for approximately 72 hours. -Patient currently wearing LifeVest.. #Elevated troponin -troponin 0.149 -> 0.189 -> 0.341 -patient has no chest pain, only shortness of breath -elevation likely secondary to CHF exacerbation -will continue to monitor #History of pulmonary sarcoidosis -Continue prednisone 20mg qday #Left upper extremity DVT #History of DVT -Patient reports history of DVT and was taking warfarin in the past -LUE doppler shows acute DVT in L brachial, ulnar and radial veins -continue warfarin with lovenox bridge--> current INR 1.17--> 1.31 #Seizure disorder -Continue Keppra at home dose -Continue seizure precautions #T2DM (type 2 diabetes mellitus) -patient takes metformin outpatient -will hold for now and continue sliding scale insulin with Accu-Cheks #Advanced care planning -Disease education conducted, care plan discussed, diagnoses discussed, prognosis discussed, and patient acknowledges understanding with care plan -Time: +30 min #Discharge planning - Patient is pending INR goal of 23 and resolution of milrinone drip. - Case management has been made aware. Disposition Plan: Continue medical management Total Time Spent with Patient (Minutes): 45 minutes History Interval history: No acute events overnight. Hospitalist Physical - Constitutional Vitals: Temp Pulse Resp BP Pulse Ox 98.0 F 78 18 107/79 95 02/21/22 08:01 02/21/22 08:20 02/21/22 08:20 02/21/22 08:01 02/21/22 08:20 General appearance: Present: no acute distress, well-nourished - EENT Eyes: Present: PERRL, EOM intact ENT: hearing intact, clear oral mucosa, dentition normal - Neck Neck: Present: supple, normal ROM - Respiratory Respiratory effort: normal Respiratory: bilateral: diminished - Cardiovascular Rhythm: regular Heart Sounds: Present: S1 & S2 - Extremities Extremities: no ischemia, pulses intact, pulses symmetrical, No edema, normal temperature, normal color Peripheral Pulses: within normal limits - Abdominal General gastrointestinal: soft, non-tender, non-distended, normal bowel sounds - Integumentary Integumentary: Present: clear, warm, dry - Psychiatric Psychiatric: appropriate mood/affect, intact judgment & insight, memory intact, cooperative - Neurologic Neurologic: other (Left-sided weakness) - Allied Health Allied health notes reviewed: nursing HEART Score - HEART Score Troponin: Troponin T 0.341 ng/mL (0.00-0.029) H* D 02/18/22 04:28 Results - Labs CBC & Chem 7: 02/17/22 04:38 02/19/22 03:57 Labs: Laboratory Last Values WBC 7.2 K/mm3 (4.5-11.0) 02/17/22 04:38 RBC 4.88 M/mm3 (3.65-5.03) 02/17/22 04:38 Hgb 12.6 gm/dl (11.8-15.2) 02/17/22 04:38 Hct 39.7 % (35.5-45.6) 02/17/22 04:38 MCV 82 fl (84-94) L 02/17/22 04:38 MCH 26 pg (28-32) L 02/17/22 04:38 MCHC 32 % (32-34) 02/17/22 04:38 RDW 17.3 % (13.2-15.2) H 02/17/22 04:38 Plt Count 344 K/mm3 (140-440) 02/17/22 04:38 Lymph % (Auto) 23.1 % (13.4-35.0) 02/16/22 20:32 [place] % (Auto) 11.7 % (0.0-7.3) H 02/16/22 20:32 Eos % (Auto) 1.4 % (0.0-4.3) 02/16/22 20:32 Baso % (Auto) 1.1 % (0.0-1.8) 02/16/22 20:32 Lymph # (Auto) 1.8 K/mm3 (1.2-5.4) 02/16/22 20:32 [place] # (Auto) 0.9 K/mm3 (0.0-0.8) H 02/16/22 20:32 Eos # (Auto) 0.1 K/mm3 (0.0-0.4) 02/16/22 20:32 Baso # (Auto) 0.1 K/mm3 (0.0-0.1) 02/16/22 20:32 Add Manual Diff Complete 02/17/22 04:38 Total Counted 100 02/17/22 04:38 Seg Neutrophils % Senior Product Development Engineer 02/17/22 04:38 Seg Neuts % (Manual) 95.0 % (40.0-70.0) H 02/17/22 04:38 Band Neutrophils % 0 % 02/17/22 04:38 Lymphocytes % (Manual) 5.0 % (13.4-35.0) L 02/17/22 04:38 Reactive Lymphs % (Man) 0 % 02/17/22 04:38 Monocytes % (Manual) 0 % (0.0-7.3) 02/17/22 04:38 Eosinophils % (Manual) 0 % (0.0-4.3) 02/17/22 04:38 Basophils % (Manual) 0 % (0.0-1.8) 02/17/22 04:38 Metamyelocytes % 0 % 02/17/22 04:38 Myelocytes % 0 % 02/17/22 04:38 Promyelocytes % 0 % 02/17/22 04:38 Blast Cells % 0 % 02/17/22 04:38 Nucleated RBC % Not Reportable 02/17/22 04:38 Seg Neutrophils # 4.8 K/mm3 (1.8-7.7) 02/16/22 20:32 Seg Neutrophils # Man 6.8 K/mm3 (1.8-7.7) 02/17/22 04:38 Band Neutrophils # 0.0 K/mm3 02/17/22 04:38 Lymphocytes # (Manual) 0.4 K/mm3 (1.2-5.4) L 02/17/22 04:38 Abs React Lymphs (Man) 0.0 K/mm3 02/17/22 04:38 Monocytes # (Manual) 0.0 K/mm3 (0.0-0.8) 02/17/22 04:38 Eosinophils # (Manual) 0.0 K/mm3 (0.0-0.4) 02/17/22 04:38 Basophils # (Manual) 0.0 K/mm3 (0.0-0.1) 02/17/22 04:38 Metamyelocytes # 0.0 K/mm3 02/17/22 04:38 Myelocytes # 0.0 K/mm3 02/17/22 04:38 Promyelocytes # 0.0 K/mm3 02/17/22 04:38 Blast Cells # 0.0 K/mm3 02/17/22 04:38 WBC Morphology Not Reportable 02/17/22 04:38 Hypersegmented Neuts Not Reportable 02/17/22 04:38 Hyposegmented Neuts Not Reportable 02/17/22 04:38 Hypogranular Neuts Not Reportable 02/17/22 04:38 Smudge Cells Not Reportable 02/17/22 04:38 Toxic Granulation Not Reportable 02/17/22 04:38 Toxic Vacuolation Not Reportable 02/17/22 04:38 Dohle Bodies Not Reportable 02/17/22 04:38 Pelger-Huet Anomaly Not Reportable 02/17/22 04:38 Rachel Rods Not Reportable 02/17/22 04:38 Platelet Estimate Consistent w auto 02/17/22 04:38 Clumped Platelets Not Reportable 02/17/22 04:38 Plt Clumps, EDTA Not Reportable 02/17/22 04:38 Large Platelets Not Reportable 02/17/22 04:38 Giant Platelets Not Reportable 02/17/22 04:38 Platelet Satelliting Not Reportable 02/17/22 04:38 Plt Morphology Comment Not Reportable 02/17/22 04:38 RBC Morphology Not Reportable 02/17/22 04:38 Dimorphic RBCs Not Reportable 02/17/22 04:38 Polychromasia Not Reportable 02/17/22 04:38 Hypochromasia 1+ 02/17/22 04:38 Poikilocytosis Not Reportable 02/17/22 04:38 Anisocytosis Not Reportable 02/17/22 04:38 Microcytosis Not Reportable 02/17/22 04:38 Macrocytosis Not Reportable 02/17/22 04:38 Spherocytes Not Reportable 02/17/22 04:38 Pappenheimer Bodies Not Reportable 02/17/22 04:38 Sickle Cells Not Reportable 02/17/22 04:38 Target Cells Not Reportable 02/17/22 04:38 Tear Drop Cells Not Reportable 02/17/22 04:38 Ovalocytes Few 02/17/22 04:38 Helmet Cells Not Reportable 02/17/22 04:38 [place] Bodies Not Reportable 02/17/22 04:38 [place] Rings Not Reportable 02/17/22 04:38 [place] Cells Rare 02/17/22 04:38 Bite Cells Not Reportable 02/17/22 04:38 Crenated Cell Not Reportable 02/17/22 04:38 Elliptocytes Not Reportable 02/17/22 04:38 Acanthocytes (Spur) Rare 02/17/22 04:38 Rouleaux Not Reportable 02/17/22 04:38 Hemoglobin C Crystals Not Reportable 02/17/22 04:38 Schistocytes Not Reportable 02/17/22 04:38 Malaria parasites Not Reportable 02/17/22 04:38 Ten Bodies Not Reportable 02/17/22 04:38 Hem Pathologist Commnt No 02/17/22 04:38 PT 18.9 Sec. (12.2-14.9) H 02/21/22 04:47 INR 1.41 (0.87-1.13) H 02/21/22 04:47 ABG pH 7.425 pH Units (7.350-7.450) 02/16/22 21:52 ABG pCO2 30.1 mm Hg 02/16/22 21:52 ABG pO2 104.5 mm Hg (80.0-90.0) H 02/16/22 21:52 ABG HCO3 19.3 mmol/L (20.0-26.0) L 02/16/22 21:52 ABG O2 Saturation 97.9 % (95.0-99.0) 02/16/22 21:52 ABG O2 Content 17.0 (0.0-44) 02/16/22 21:52 ABG Base Excess -4.0 mmol/L (-2.0-3.0) L 02/16/22 21:52 ABG Hemoglobin 12.5 gm/dl (14.0-18.0) L 02/16/22 21:52 ABG Carboxyhemoglobin 1.7 % (0.0-5.0) 02/16/22 21:52 ABG Methemoglobin 0.4 % (0.0-1.5) 02/16/22 21:52 Oxyhemoglobin 95.8 % (95.0-99.0) 02/16/22 21:52 FiO2 28 % 02/16/22 21:52 Sodium 143 mmol/L (137-145) 02/19/22 03:57 Potassium 4.3 mmol/L (3.6-5.0) 02/19/22 03:57 Chloride 103.1 mmol/L (98-107) 02/19/22 03:57 Carbon Dioxide 26 mmol/L (22-30) 02/19/22 03:57 Anion Gap 18 mmol/L 02/19/22 03:57 BUN 23 mg/dL (9-20) H 02/19/22 03:57 Creatinine 1.2 mg/dL (0.8-1.3) 02/19/22 03:57 Estimated GFR > 60 ml/min 02/19/22 03:57 BUN/Creatinine Ratio 19 % 02/19/22 03:57 Glucose 113 mg/dL (75-100) H 02/19/22 03:57 POC Glucose 96 mg/dL (70-105) 02/21/22 07:59 Calcium 9.0 mg/dL (8.4-10.2) 02/19/22 03:57 Magnesium 1.80 mg/dL (1.7-2.3) 02/16/22 20:32 Total Bilirubin 0.90 mg/dL (0.1-1.2) 02/18/22 04:28 AST 70 units/L (5-40) H 02/18/22 04:28 ALT 63 units/L (7-56) H 02/18/22 04:28 Alkaline Phosphatase 206 units/L (35-129) H 02/18/22 04:28 Total Creatine Kinase 406 units/L (55-170) H 02/16/22 20:32 CK-MB (CK-2) 34.5 ng/mL (0.0-4.0) H 02/16/22 20:32 CK-MB (CK-2) Rel Index 8.4 (0-4) H 02/16/22 20:32 Troponin T 0.341 ng/mL (0.00-0.029) H* D 02/18/22 04:28 NT-Pro-B Natriuret Pep 7405 pg/mL (0-450) H 02/16/22 20:32 Total Protein 6.8 g/dL (6.3-8.2) 02/18/22 04:28 Albumin 3.8 g/dL (3.9-5) L 02/18/22 04:28 Albumin/Globulin Ratio 1.3 % 02/18/22 04:28 Triglycerides 91 mg/dL (2-149) 02/16/22 20: Cholesterol 129 mg/dL (50-199) 02/16/22 20: LDL Cholesterol Direct 67 mg/dL (50-130) 02/16/22: HDL Cholesterol 42 mg/dL (40-59) 02/16/22 20: Cholesterol/HDL Ratio 3.07 % 02/16/22 20: Lipase 15 units/L (13-60) 02/16/22 20:32 Urine Color Straw (Yellow) 02/17/22 08:00 Urine Turbidity Clear (Clear) 02/17/22 08:00 Urine pH 5.0 (5.0-7.0) 02/17/22 08:00 Ur Specific [place] 1.006 (1.003-1.030) 02/17/22 08:00 Urine Protein <15 mg/dl mg/dL (Negative) 02/17/22 08:00 Urine Glucose (UA) Neg mg/dL (Negative) 02/17/22 08:00 Urine Ketones Neg mg/dL (Negative) 02/17/22 08:00 Urine Blood Sm (Negative) 02/17/22 08:00 Urine Nitrite Neg (Negative) 02/17/22 08:00 Urine Bilirubin Neg (Negative) 02/17/22 08:00 Urine Urobilinogen < 2.0 mg/dL (<2.0) 02/17/22 08:00 Ur Leukocyte Esterase Neg (Negative) 02/17/22 08:00 Urine WBC (Auto) 1.0 /HPF (0.0-6.0) 02/17/22 08:00 Urine RBC (Auto) < 1.0 /HPF (0.0-6.0) 02/17/22 08:00 U Epithel Cells (Auto) 1.0 /HPF (0-13.0) 02/17/22 08:00 Urine Bacteria (Auto) 1+ /HPF (Negative) 02/17/22 08:00 Hyaline Casts 1 /LPF 02/17/22 08:00 Urine Mucus Few /HPF 02/17/22 08:00 Urine Opiates Screen Negative 02/17/22 08:00 Urine Methadone Screen Negative 02/17/22 08:00 Ur Barbiturates Screen Negative 02/17/22 08:00 Ur Phencyclidine Scrn Negative 02/17/22 08:00 Ur Amphetamines Screen Negative 02/17/22 08:00 U Benzodiazepines Scrn Negative 02/17/22 08:00 Urine Cocaine Screen Negative 02/17/22 08:00 U Marijuana (THC) Screen Negative 02/17/22 08:00 Drugs of Abuse Note Disclamer 02/17/22 08:00 Alexandre/IV: Voiding Method Condom Catheter Active Medications - Current Medications Current Medications: Generic Name Dose Route Start Last Admin Trade Name Freq PRN Reason Stop Dose Admin Acetaminophen 650 mg 02/16/22 23:27 Acetaminophen 325 Mg Tab PO Q4H PRN Pain MILD(1-3)/Fever >100.5/AVILES Aspirin 325 mg 02/17/22 10:00 02/21/22 09:22 Aspirin Ec 325 Mg Tab PO 325 mg QDAY REBECCA Administration Atorvastatin Calcium 40 mg 02/17/22 22:00 02/20/22 21:06 Atorvastatin 40 Mg Tab PO 40 mg QHS REBECCA Administration Carvedilol 3.125 mg 02/18/22 22:00 02/21/22 09:22 Carvedilol 3.125 Mg Tab PO 3.125 mg BID REBECCA Administration Dextrose 50 ml 02/16/22 23:27 Dextrose 50% In Water (25gm) 50 Ml Syringe IV Q30MIN PRN Hypoglycemia Protocol Enoxaparin Sodium 120 mg 02/17/22 12:00 02/20/22 13:49 Enoxaparin 120 Mg/0.8 Ml Inj SUB-Q 120 mg Q24H REBECCA Administration Protocol Famotidine 40 mg 02/17/22 22:00 02/20/22 21:06 Famotidine 20 Mg Tab PO 40 mg QHS REBECCA Administration Furosemide 40 mg 02/19/22 18:00 02/21/22 07:23 Furosemide 40 Mg Tab PO 40 mg 0600,1800 REBECCA Administration Milrinone Lactate/Dextrose 20 mg in 100 mls @ 6.225 mls/hr 02/21/22 11:00 Milrinone-D5w 20 Mg/100 Ml IV 02/24/22 10:59 DIRECT [facility] Protocol 0.25 MCG/KG/MIN Insulin Human Lispro 0 unit 02/17/22 07:30 02/21/22 08:23 Insulin Lispro 100 Unit/Ml SUB-Q Not Given ACHS [facility] Protocol Levetiracetam 1,000 mg 02/17/22 10:00 02/21/22 09:22 Levetiracetam 500 Mg Tab PO 1,000 mg BID REBECCA Administration Lisinopril 2.5 mg 02/18/22 14:00 02/21/22 09:23 Lisinopril 5 Mg Tab PO 2.5 mg QDAY REBECCA Administration Magnesium Hydroxide 30 ml 02/16/22 23:27 Magnesium Hydroxide (Mom) Oral Liqd Udc PO Q4H PRN Constipation Morphine Sulfate 2 mg 02/16/22 23:27 02/19/22 21:40 Morphine 2 Mg/1 Ml Inj IV 2 mg Q4H PRN Administration Pain, Moderate (4-6) Morphine Sulfate 4 mg 02/16/22 23:27 02/19/22 09:58 Morphine 4 Mg/1 Ml Inj IV 4 mg Q4H PRN Administration Pain , Severe (7-10) Morphine Sulfate 2 mg 02/16/22 23:27 Morphine 4 Mg/1 Ml Inj IV Q5MIN PRN Chest Pain unrelieved by NTG Nitroglycerin 0.4 mg 02/16/22 23:27 Nitroglycerin 0.4 Mg Tab Subl SL .Q5MIN PRN Chest Pain Ondansetron HCl 4 mg 02/16/22 23:27 Ondansetron 4 Mg/2 Ml Inj IV Q8H PRN Nausea And Vomiting Prednisone 20 mg 02/18/22 13:00 02/21/22 09:23 Prednisone 20 Mg Tab PO 20 mg QDAY REBECCA Administration Sodium Chloride 10 ml 02/17/22 10:00 02/21/22 09:23 Sodium Chloride 0.9% 10 Ml Flush Syringe IV 10 ml BID REBECCA Administration Sodium Chloride 10 ml 02/16/22 23:27 Sodium Chloride 0.9% 10 Ml Flush Syringe IV PRN PRN LINE FLUSH Tramadol HCl 50 mg 02/16/22 23:27 02/20/22 21:07 Tramadol 50 Mg Tab PO 50 mg Q6H PRN Administration Pain, Moderate (4-6) Warfarin Sodium 7.5 mg 02/20/22 17:00 02/20/22 17:08 Warfarin 7.5 Mg Tab PO 02/21/22 16:59 7.5 mg DAILY@1700 NR Administration Nutrition/Malnutrition Assess - Dietary Evaluation Nutrition/Malnutrition Findings: Nutrition Notes Start: 02/17/22 12:24 Freq: Status: Active Protocol: Document 02/18/22 11:19 SHAYNE (Rec: 02/18/22 11:31 SHAYNE [email or web address]) Nutrition Notes Initial or Follow up Brief Note Current Diagnosis COPD,Diabetes Other Pertinent Diagnosis Seizure, CHF, Sarcoidosis, DVT , L-UE Edema. Current Diet Cardiac/Consistent Carbohydrates -Chopped Meats- Diet (since B 02/17). Height 6 ft 1 in Weight 83 kg [place] Body Weight (kg) 83.63 BMI 24.1 Weight change and time frame 0.1 Kg body weight loss in 1 day reported. Weight Status Appropriate Subjective/Other Information RD consult for Warfarine use education. No reports available on Pt's PO intake at the time, will assess at F/U. Pt is on Nasal Cannula, O2 saturation @ 99%, according to Physical Assessment History notes. 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 Percent of energy/protein needs met: Prescribed Cardiac/Consistent Carbohydrates -Chopped Meats- Diet provides for energy/ protein needs (1,977 Kcal/86 g ) during LOS. #1 Nutrition Diagnosis Biting/Chewing (masticatory) difficulty Diagnosis Progress(for reassessment Continues documentation) Is patient on ventilator? No Is Patient Ambulatory and/or Out of Bed No REE-([facility]-confined to bed) 5526.172 Calculation Used for Recommendations [facility] Additional Notes Protein: 0.8-1 g/Kg ABW; 66-84 g/day. Fluids: 1 ml/Kcal, or as per MD. Nutrition Intervention Change Diet Order: Continue Cardiac/Consistent Carbohydrates -Chopped Meats- Diet. Goal #1 Facilitate PO intake of meals with elemental, textural, or mechanical modification during LOS. Goal #2 Maintain body weight within +/ -3% of admission body weight during LOS. Follow-Up By: 02/21/22 Additional Comments Continue monitoring food tolerance, %PO intake of meals , and BM.
[2022-02-21] MEDS: ENOXAPARIN 120 MG/0.8 ML INJ SUB-Q SCH (12:22)
[2022-02-21] MEDS: MILRINONE-D5W 20 MG/100 ML 20 MG/100 ML BAG IV SCH (12:23)
[2022-02-21] MEDS ORDERED: WARFARIN 10 MG TAB PO NR (17:00)
[2022-02-21] MEDS: traMADol 50 MG TAB PO PRN (17:34)
[2022-02-21 20:34] LABS: BUN/Creatinine Ratio 18; Blood Urea Nitrogen 21 mg/dL (9-20); Calcium 9.7 mg/dL (8.4-10.2); Hemolysis Index 0
[2022-02-21] MEDS: FAMOTIDINE 20 MG TAB PO SCH (21:12)
[2022-02-22] MEDS: MILRINONE-D5W 20 MG/100 ML 20 MG/100 ML BAG IV SCH ×2 (02:50→17:49)
[2022-02-22] MEDS: FUROSEMIDE 40 MG TAB PO SCH ×2 (05:31→17:50)
[2022-02-22 06:37] LABS: INR 1.58 (0.87-1.13)
--- NOTE | 2022-02-22 08:26 | Progress Note ---
Assessment and Plan - Patient Problems (1) CHF exacerbation Current Visit: Yes Status: Acute Plan to address problem: Patient has a severe nonischemic cardiomyopathy with left ventricle ejection fraction less than 20%. He suffered recent syncope. He had previous CVA with residual left hemiparesis. He is admitted with systolic heart failure exacerbation. He has been fitted with LifeVest for outpatient cardiac monitoring. Patient still has symptoms of heart failure exacerbation, in addition to continued diuretics, I will recommend 72 hours of intravenous milrinone and focused physical therapy in the hospital prior to eventual discharge. Subjective Date of service: 02/22/22 Principal diagnosis: Shortness of breath Interval history: Patient has no new cardiac complaints. Objective Vital Signs Temp Pulse Resp BP BP Pulse Ox 02/22/22 07:52 98.2 F 46 L 16 116/83 99 02/22/22 03:45 97.5 F L 61 19 106/75 96 02/21/22 23:35 98.0 F 47 L 18 101/62 99 02/21/22 23:00 72 02/21/22 20:00 78 18 96 02/21/22 19:45 98.3 F 67 18 104/78 97 02/21/22 15:44 98.2 F 80 16 98/70 94 02/21/22 11:25 98.2 F 76 16 109/80 96 - Physical Examination General: Other (Mild respiratory distress on supine bedrest) Neck: Positive: neck supple Cardiac: Positive: Reg Rate and Rhythm Lungs: Positive: Decreased Breath Sounds Neuro: Positive: Weakness (L hemiparesis from prior CVA) Abdomen: Positive: Soft Skin: Positive: Clear Extremities: Absent: edema - Labs and Meds Coagulation 02/22/22 Range/Units 05:21 PT 20.8 H (12.2-14.9) Sec. INR 1.58 H (0.87-1.13) Comprehensive Metabolic Panel 02/21/22 Range/Units 19:53 Sodium 139 (137-145) mmol/L Potassium 4.2 (3.6-5.0) mmol/L Chloride 100.9 (98-107) mmol/L Carbon Dioxide 26 (22-30) mmol/L BUN 21 H (9-20) mg/dL Creatinine 1.2 (0.8-1.3) mg/dL Glucose 134 H (75-100) mg/dL Calcium 9.7 (8.4-10.2) mg/dL
[2022-02-22] MEDS: INSULIN LISPRO 100 UNIT/ML SUB-Q SCH ×4 (08:33→21:28)
[2022-02-22] MEDS: ASPIRIN EC 325 MG TAB PO SCH (09:20)
[2022-02-22] MEDS: LISINOPRIL 5 MG TAB PO SCH (09:20)
[2022-02-22] MEDS: carvediloL 3.125 MG TAB PO SCH ×2 (09:20→21:28)
[2022-02-22] MEDS: levETIRAcetam 500 MG TAB PO SCH ×2 (09:20→21:27)
[2022-02-22] MEDS: predniSONE 20 MG TAB PO SCH (09:20)
--- NOTE | 2022-02-22 11:38 | Progress Note ---
Assessment and Plan Assessment and plan: #Acute heart failure with reduced ejection fraction -TTE: EF 20% with mild pulmonary HTN -chronicity unknown, patient does not take any medications indicated for HFrEF -Transition from IV Lasix to p.o. Lasix 40 mg daily -Continue lisinopril 2.5 mg daily and Coreg 3.125 mg twice daily -continue to monitor I/Os, daily weights, fluid restriction 1.5L, telemetry -Cardiology following, assistance appreciated. Cardiology initiating milrinone drip for approximately 72 hours (should complete on 02/24/2022). -Patient currently wearing LifeVest.. 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 Patient endorses having acute CVA September 2021 with limited physical therapy Ordering PT/OT to further evaluate him while he remains inpatient Continue dual antiplatelet therapy + anticoagulation #Seizure disorder -Continue Keppra at home dose -Continue seizure precautions #T2DM (type 2 diabetes mellitus) -patient takes metformin outpatient -will hold for now and continue sliding scale insulin with Accu-Cheks #Advanced care planning -Disease education conducted, care plan discussed, diagnoses discussed, prognosis discussed, and patient acknowledges understanding with care plan -Time: +30 min #Discharge planning - Patient is pending INR goal of 23 and resolution of milrinone drip. - Case management has been made aware. Disposition Plan: Continue medical management Total Time Spent with Patient (Minutes): 45 minutes History Interval history: No acute events overnight. Hospitalist Physical - Constitutional Vitals: Temp Pulse Resp BP Pulse Ox 98.0 F 72 16 110/83 96 02/22/22 11:29 02/22/22 11:29 02/22/22 11:29 02/22/22 11:29 02/22/22 11:29 General appearance: Present: no acute distress, well-nourished, other (Wearing LifeVest) - EENT Eyes: Present: PERRL, EOM intact ENT: hearing intact, clear oral mucosa, dentition normal - Neck Neck: Present: supple, normal ROM - Respiratory Respiratory effort: normal Respiratory: bilateral: CTA - Cardiovascular Rhythm: regular Heart Sounds: Present: S1 & S2 - Extremities Extremities: no ischemia, pulses intact, pulses symmetrical, No edema, normal temperature, normal color Peripheral Pulses: within normal limits - Abdominal General gastrointestinal: soft, non-tender, non-distended, normal bowel sounds - Integumentary Integumentary: Present: clear, warm, dry - Psychiatric Psychiatric: appropriate mood/affect, intact judgment & insight, memory intact, cooperative - Neurologic Neurologic: CNII-XII intact, other (Left hemiparesis) - Allied Health Allied health notes reviewed: nursing HEART Score - HEART Score Troponin: Troponin T 0.341 ng/mL (0.00-0.029) H* D 02/18/22 04:28 Results - Labs CBC & Chem 7: 02/17/22 04:38 02/21/22 19:53 Labs: Laboratory Last Values WBC 7.2 K/mm3 (4.5-11.0) 02/17/22 04:38 RBC 4.88 M/mm3 (3.65-5.03) 02/17/22 04:38 Hgb 12.6 gm/dl (11.8-15.2) 02/17/22 04:38 Hct 39.7 % (35.5-45.6) 02/17/22 04:38 MCV 82 fl (84-94) L 02/17/22 04:38 MCH 26 pg (28-32) L 02/17/22 04:38 MCHC 32 % (32-34) 02/17/22 04:38 RDW 17.3 % (13.2-15.2) H 02/17/22 04:38 Plt Count 344 K/mm3 (140-440) 02/17/22 04:38 Lymph % (Auto) 23.1 % (13.4-35.0) 02/16/22 20:32 Garrett % (Auto) 11.7 % (0.0-7.3) H 02/16/22 20:32 Eos % (Auto) 1.4 % (0.0-4.3) 02/16/22 20:32 Baso % (Auto) 1.1 % (0.0-1.8) 02/16/22 20:32 Lymph # (Auto) 1.8 K/mm3 (1.2-5.4) 02/16/22 20:32 Garrett # (Auto) 0.9 K/mm3 (0.0-0.8) H 02/16/22 20:32 Eos # (Auto) 0.1 K/mm3 (0.0-0.4) 02/16/22 20:32 Baso # (Auto) 0.1 K/mm3 (0.0-0.1) 02/16/22 20:32 Add Manual Diff Complete 02/17/22 04:38 Total Counted 100 02/17/22 04:38 Seg Neutrophils % Gate Manager 02/17/22 04:38 Seg Neuts % (Manual) 95.0 % (40.0-70.0) H 02/17/22 04:38 Band Neutrophils % 0 % 02/17/22 04:38 Lymphocytes % (Manual) 5.0 % (13.4-35.0) L 02/17/22 04:38 Reactive Lymphs % (Man) 0 % 02/17/22 04:38 Monocytes % (Manual) 0 % (0.0-7.3) 02/17/22 04:38 Eosinophils % (Manual) 0 % (0.0-4.3) 02/17/22 04:38 Basophils % (Manual) 0 % (0.0-1.8) 02/17/22 04:38 Metamyelocytes % 0 % 02/17/22 04:38 Myelocytes % 0 % 02/17/22 04:38 Promyelocytes % 0 % 02/17/22 04:38 Blast Cells % 0 % 02/17/22 04:38 Nucleated RBC % Not Reportable 02/17/22 04:38 Seg Neutrophils # 4.8 K/mm3 (1.8-7.7) 02/16/22 20:32 Seg Neutrophils # Man 6.8 K/mm3 (1.8-7.7) 02/17/22 04:38 Band Neutrophils # 0.0 K/mm3 02/17/22 04:38 Lymphocytes # (Manual) 0.4 K/mm3 (1.2-5.4) L 02/17/22 04:38 Abs React Lymphs (Man) 0.0 K/mm3 02/17/22 04:38 Monocytes # (Manual) 0.0 K/mm3 (0.0-0.8) 02/17/22 04:38 Eosinophils # (Manual) 0.0 K/mm3 (0.0-0.4) 02/17/22 04:38 Basophils # (Manual) 0.0 K/mm3 (0.0-0.1) 02/17/22 04:38 Metamyelocytes # 0.0 K/mm3 02/17/22 04:38 Myelocytes # 0.0 K/mm3 02/17/22 04:38 Promyelocytes # 0.0 K/mm3 02/17/22 04:38 Blast Cells # 0.0 K/mm3 02/17/22 04:38 WBC Morphology Not Reportable 02/17/22 04:38 Hypersegmented Neuts Not Reportable 02/17/22 04:38 Hyposegmented Neuts Not Reportable 02/17/22 04:38 Hypogranular Neuts Not Reportable 02/17/22 04:38 Smudge Cells Not Reportable 02/17/22 04:38 Toxic Granulation Not Reportable 02/17/22 04:38 Toxic Vacuolation Not Reportable 02/17/22 04:38 Dohle Bodies Not Reportable 02/17/22 04:38 Pelger-Huet Anomaly Not Reportable 02/17/22 04:38 Rachel Rods Not Reportable 02/17/22 04:38 Platelet Estimate Consistent w auto 02/17/22 04:38 Clumped Platelets Not Reportable 02/17/22 04:38 Plt Clumps, EDTA Not Reportable 02/17/22 04:38 Large Platelets Not Reportable 02/17/22 04:38 Giant Platelets Not Reportable 02/17/22 04:38 Platelet Satelliting Not Reportable 02/17/22 04:38 Plt Morphology Comment Not Reportable 02/17/22 04:38 RBC Morphology Not Reportable 02/17/22 04:38 Dimorphic RBCs Not Reportable 02/17/22 04:38 Polychromasia Not Reportable 02/17/22 04:38 Hypochromasia 1+ 02/17/22 04:38 Poikilocytosis Not Reportable 02/17/22 04:38 Anisocytosis Not Reportable 02/17/22 04:38 Microcytosis Not Reportable 02/17/22 04:38 Macrocytosis Not Reportable 02/17/22 04:38 Spherocytes Not Reportable 02/17/22 04:38 Pappenheimer Bodies Not Reportable 02/17/22 04:38 Sickle Cells Not Reportable 02/17/22 04:38 Target Cells Not Reportable 02/17/22 04:38 Tear Drop Cells Not Reportable 02/17/22 04:38 Ovalocytes Few 02/17/22 04:38 Helmet Cells Not Reportable 02/17/22 04:38 Banuelos-Lafontaine Bodies Not Reportable 02/17/22 04:38 Bruno Rings Not Reportable 02/17/22 04:38 Caterina Cells Rare 02/17/22 04:38 Bite Cells Not Reportable 02/17/22 04:38 Crenated Cell Not Reportable 02/17/22 04:38 Elliptocytes Not Reportable 02/17/22 04:38 Acanthocytes (Spur) Rare 02/17/22 04:38 Rouleaux Not Reportable 02/17/22 04:38 Hemoglobin C Crystals Not Reportable 02/17/22 04:38 Schistocytes Not Reportable 02/17/22 04:38 Malaria parasites Not Reportable 02/17/22 04:38 Ten Bodies Not Reportable 02/17/22 04:38 Hem Pathologist Commnt No 02/17/22 04:38 PT 20.8 Sec. (12.2-14.9) H 02/22/22 05:21 INR 1.58 (0.87-1.13) H 02/22/22 05:21 ABG pH 7.425 pH Units (7.350-7.450) 02/16/22 21:52 ABG pCO2 30.1 mm Hg 02/16/22 21:52 ABG pO2 104.5 mm Hg (80.0-90.0) H 02/16/22 21:52 ABG HCO3 19.3 mmol/L (20.0-26.0) L 02/16/22 21:52 ABG O2 Saturation 97.9 % (95.0-99.0) 02/16/22 21:52 ABG O2 Content 17.0 (0.0-44) 02/16/22 21:52 ABG Base Excess -4.0 mmol/L (-2.0-3.0) L 02/16/22 21:52 ABG Hemoglobin 12.5 gm/dl (14.0-18.0) L 02/16/22 21:52 ABG Carboxyhemoglobin 1.7 % (0.0-5.0) 02/16/22 21:52 ABG Methemoglobin 0.4 % (0.0-1.5) 02/16/22 21:52 Oxyhemoglobin 95.8 % (95.0-99.0) 02/16/22 21:52 FiO2 28 % 02/16/22 21:52 Sodium 139 mmol/L (137-145) 02/21/22 19:53 Potassium 4.2 mmol/L (3.6-5.0) 02/21/22 19:53 Chloride 100.9 mmol/L (98-107) 02/21/22 19:53 Carbon Dioxide 26 mmol/L (22-30) 02/21/22 19:53 Anion Gap 16 mmol/L 02/21/22 19:53 BUN 21 mg/dL (9-20) H 02/21/22 19:53 Creatinine 1.2 mg/dL (0.8-1.3) 02/21/22 19:53 Estimated GFR > 60 ml/min 02/21/22 19:53 BUN/Creatinine Ratio 18 % 02/21/22 19:53 Glucose 134 mg/dL (75-100) H 02/21/22 19:53 POC Glucose 126 mg/dL (70-105) H 02/21/22 20:38 Calcium 9.7 mg/dL (8.4-10.2) 02/21/22 19:53 Magnesium 2.10 mg/dL (1.7-2.3) 02/21/22 19:53 Total Bilirubin 0.90 mg/dL (0.1-1.2) 02/18/22 04:28 AST 70 units/L (5-40) H 02/18/22 04:28 ALT 63 units/L (7-56) H 02/18/22 04:28 Alkaline Phosphatase 206 units/L (35-129) H 02/18/22 04:28 Total Creatine Kinase 406 units/L (55-170) H 02/16/22 20: CK-MB (CK-2) 34.5 ng/mL (0.0-4.0) H 02/16/22 20: CK-MB (CK-2) Rel Index 8.4 (0-4) H 02/16/22 20: Troponin T 0.341 ng/mL (0.00-0.029) H* D 02/18/22 04:28 NT-Pro-B Natriuret Pep 7405 pg/mL (0-450) H 02/16/22 20: Total Protein 6.8 g/dL (6.3-8.2) 02/18/22 04:28 Albumin 3.8 g/dL (3.9-5) L 02/18/22 04:28 Albumin/Globulin Ratio 1.3 % 02/18/22 04:28 Triglycerides 91 mg/dL (2-149) 02/16/22 20: Cholesterol 129 mg/dL (50-199) 02/16/22 20: LDL Cholesterol Direct 67 mg/dL (50-130) 02/16/22 20: HDL Cholesterol 42 mg/dL (40-59) 02/16/22 20: Cholesterol/HDL Ratio 3.07 % 02/16/22 20: Lipase 15 units/L (13-60) 02/16/22 20:32 Urine Color Straw (Yellow) 02/17/22 08:00 Urine Turbidity Clear (Clear) 02/17/22 08:00 Urine pH 5.0 (5.0-7.0) 02/17/22 08:00 Ur Specific [place] 1.006 (1.003-1.030) 02/17/22 08:00 Urine Protein <15 mg/dl mg/dL (Negative) 02/17/22 08:00 Urine Glucose (UA) Neg mg/dL (Negative) 02/17/22 08:00 Urine Ketones Neg mg/dL (Negative) 02/17/22 08:00 Urine Blood Sm (Negative) 02/17/22 08:00 Urine Nitrite Neg (Negative) 02/17/22 08:00 Urine Bilirubin Neg (Negative) 02/17/22 08:00 Urine Urobilinogen < 2.0 mg/dL (<2.0) 02/17/22 08:00 Ur Leukocyte Esterase Neg (Negative) 02/17/22 08:00 Urine WBC (Auto) 1.0 /HPF (0.0-6.0) 02/17/22 08:00 Urine RBC (Auto) < 1.0 /HPF (0.0-6.0) 02/17/22 08:00 U Epithel Cells (Auto) 1.0 /HPF (0-13.0) 02/17/22 08:00 Urine Bacteria (Auto) 1+ /HPF (Negative) 02/17/22 08:00 Hyaline Casts 1 /LPF 02/17/22 08:00 Urine Mucus Few /HPF 02/17/22 08:00 Urine Opiates Screen Negative 02/17/22 08:00 Urine Methadone Screen Negative 02/17/22 08:00 Ur Barbiturates Screen Negative 02/17/22 08:00 Ur Phencyclidine Scrn Negative 02/17/22 08:00 Ur Amphetamines Screen Negative 02/17/22 08:00 U Benzodiazepines Scrn Negative 02/17/22 08:00 Urine Cocaine Screen Negative 02/17/22 08:00 U Marijuana (THC) Screen Negative 02/17/22 08:00 Drugs of Abuse Note Disclamer 02/17/22 08:00 Alexandre/IV: Voiding Method Condom Catheter Active Medications - Current Medications Current Medications: Generic Name Dose Route Start Last Admin Trade Name Freq PRN Reason Stop Dose Admin Acetaminophen 650 mg 02/16/22 23:27 Acetaminophen 325 Mg Tab PO Q4H PRN Pain MILD(1-3)/Fever >100.5/AVILES Aspirin 325 mg 02/17/22 10:00 02/22/22 09:20 Aspirin Ec 325 Mg Tab PO 325 mg QDAY REBECCA Administration Atorvastatin Calcium 40 mg 02/17/22 22:00 02/21/22 21:12 Atorvastatin 40 Mg Tab PO 40 mg QHS REBECCA Administration Carvedilol 3.125 mg 02/18/22 22:00 02/22/22 09:20 Carvedilol 3.125 Mg Tab PO 3.125 mg BID REBECCA Administration Dextrose 50 ml 02/16/22 23:27 Dextrose 50% In Water (25gm) 50 Ml Syringe IV Q30MIN PRN Hypoglycemia Protocol Enoxaparin Sodium 120 mg 02/17/22 12:00 02/21/22 12:22 Enoxaparin 120 Mg/0.8 Ml Inj SUB-Q 120 mg Q24H REBECCA Administration Protocol Famotidine 40 mg 02/17/22 22:00 02/21/22 21:12 Famotidine 20 Mg Tab PO 40 mg QHS REBECCA Administration Furosemide 40 mg 02/19/22 18:00 02/22/22 05:31 Furosemide 40 Mg Tab PO 40 mg 0600,1800 REBECCA Administration Milrinone Lactate/Dextrose 20 mg in 100 mls @ 6.225 mls/hr 02/21/22 11:00 02/22/22 02:50 Milrinone-D5w 20 Mg/100 Ml IV 02/24/22 10:59 0.25 mcg/kg/min DIRECT REBECCA 6.225 mls/hr Administration Protocol 0.25 MCG/KG/MIN Insulin Human Lispro 0 unit 02/17/22 07:30 02/22/22 08:33 Insulin Lispro 100 Unit/Ml SUB-Q Not Given ACHS REBECCA Protocol Levetiracetam 1,000 mg 02/17/22 10:00 02/22/22 09:20 Levetiracetam 500 Mg Tab PO 1,000 mg BID REBECCA Administration Lisinopril 2.5 mg 02/18/22 14:00 02/22/22 09:20 Lisinopril 5 Mg Tab PO 2.5 mg QDAY REBECCA Administration Magnesium Hydroxide 30 ml 02/16/22 23:27 Magnesium Hydroxide (Mom) Oral Liqd Udc PO Q4H PRN Constipation Morphine Sulfate 2 mg 02/16/22 23:27 02/19/22 21:40 Morphine 2 Mg/1 Ml Inj IV 2 mg Q4H PRN Administration Pain, Moderate (4-6) Morphine Sulfate 4 mg 02/16/22 23:27 02/19/22 09:58 Morphine 4 Mg/1 Ml Inj IV 4 mg Q4H PRN Administration Pain , Severe (7-10) Morphine Sulfate 2 mg 02/16/22 23:27 Morphine 4 Mg/1 Ml Inj IV Q5MIN PRN Chest Pain unrelieved by NTG Nitroglycerin 0.4 mg 02/16/22 23:27 Nitroglycerin 0.4 Mg Tab Subl SL .Q5MIN PRN Chest Pain Ondansetron HCl 4 mg 02/16/22 23:27 Ondansetron 4 Mg/2 Ml Inj IV Q8H PRN Nausea And Vomiting Prednisone 20 mg 02/18/22 13:00 02/22/22 09:20 Prednisone 20 Mg Tab PO 20 mg QDAY REBECCA Administration Sodium Chloride 10 ml 02/17/22 10:00 02/22/22 09:20 Sodium Chloride 0.9% 10 Ml Flush Syringe IV 10 ml BID REBECCA Administration Sodium Chloride 10 ml 02/16/22 23:27 Sodium Chloride 0.9% 10 Ml Flush Syringe IV PRN PRN LINE FLUSH Tramadol HCl 50 mg 02/16/22 23:27 02/21/22 17:34 Tramadol 50 Mg Tab PO 50 mg Q6H PRN Administration Pain, Moderate (4-6) Warfarin Sodium 7.5 mg 02/22/22 17:00 Warfarin 7.5 Mg Tab PO DAILY@1700 [facility] Nutrition/Malnutrition Assess - Dietary Evaluation Nutrition/Malnutrition Findings: Nutrition Notes Start: 02/17/22 12:24 Freq: Status: Active Protocol: Document 02/21/22 12:36 SHAYNE (Rec: 02/21/22 12:54 SHAYNE [id number]) Nutrition Notes Initial or Follow up Reassessment Current Diagnosis COPD,Diabetes,Stroke Other Pertinent Diagnosis HFrEF, Seizure, CHF, Sarcoidosis, L-UE DVT/Edema. Current Diet Cardiac/Consistent Carbohydrates -Chopped Meats- Diet (since B 02/17). Labs/Tests 02/19: BUN 23, Glu 113. Pertinent Medications 02/21: Humalog 2 U, Warfarin 10 mg, others nutritionally unremarkable. Height 6 ft 1 in Weight 83 kg Andes Body Weight (kg) 83.63 BMI 24.1 Weight change and time frame No body weight change reported in 3 days. Weight Status Appropriate Subjective/Other Information RD consult for routine F/U on dietary advancement.Pt's PO intake of meals has been Fair (57-75%), acording to ADL notes. Pt is on Room Air, O2 saturation @ 95%, according to Physical Assessment History notes. Pt has missing teeth, according to Physical Assessment History notes. Pt fiited with a LifeVest, according to Progress notes. Percent of energy/protein needs met: Prescribed Cardiac/Consistent Carbohydrates -Chopped Meats- Diet provides for energy/ protein needs (1,977 Kcal/86 g ) during LOS. Burn Absent Trauma Absent GI Symptoms None Difficulty In Chewing Food Allergy No Skin Integrity/Comment Assessment WNL. Current % PO Fair (50-74%) Minimum of two criteria No #1 Nutrition Diagnosis Biting/Chewing (masticatory) difficulty Diagnosis Progress(for reassessment Continues documentation) Is patient on ventilator? No Is Patient Ambulatory and/or Out of Bed Yes REE-([place]-St. Jeor-ambulatory/OOB) [ 2286.544 [id number]] Kcal/Kg value to use for calculation 26 Approximate Energy Requirements Using 2158 kcal/Kg Calculation Used for Recommendations Kcal/kg Additional Notes Protein: 0.8-1 g/Kg ABW; 66-84 g/day. Fluids: 1 ml/Kcal, or as per MD. Nutrition Intervention Change Diet Order: Continue Cardiac/Consistent Carbohydrates -Chopped Meats- Diet. Goal #1 Facilitate PO intake of meals with elemental, textural, or mechanical modification during LOS. Goal #2 Maintain body weight within +/ -3% of admission body weight during LOS. Follow-Up By: 02/28/22 Additional Comments Continue monitoring food tolerance, %PO intake of meals , and BM.
[2022-02-22] MEDS: ENOXAPARIN 120 MG/0.8 ML INJ SUB-Q SCH (16:05)
[2022-02-22] MEDS: WARFARIN 7.5 MG TAB PO SCH (16:06)
[2022-02-22] MEDS: FAMOTIDINE 20 MG TAB PO SCH (21:27)
[2022-02-23] MEDS: FUROSEMIDE 40 MG TAB PO SCH ×2 (05:16→17:33)
--- NOTE | 2022-02-23 06:31 | Progress Note ---
Assessment and Plan Assessment and plan: #Acute heart failure with reduced ejection fraction -TTE: EF 20% with mild pulmonary HTN -chronicity unknown, patient does not take any medications indicated for HFrEF -Transition from IV Lasix to p.o. Lasix 40 mg daily -Continue lisinopril 2.5 mg daily and Coreg 3.125 mg twice daily -continue to monitor I/Os, daily weights, fluid restriction 1.5L, telemetry -Cardiology following, assistance appreciated. Cardiology initiating milrinone drip for approximately 72 hours (should complete on 02/24/2022). -Patient currently wearing LifeVest.. 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 Patient endorses having acute CVA September 2021 with limited physical therapy Physical therapy recommending home PT Continue dual antiplatelet therapy + anticoagulation #Seizure disorder -Continue Keppra at home dose -Continue seizure precautions #T2DM (type 2 diabetes mellitus) -patient takes metformin outpatient -will hold for now and continue sliding scale insulin with Accu-Cheks #Advanced care planning -Disease education conducted, care plan discussed, diagnoses discussed, prognosis discussed, and patient acknowledges understanding with care plan -Time: +30 min #Discharge planning - Patient is pending INR goal of 23 and resolution of milrinone drip. - Case management has been made aware. Disposition Plan: Continue medical management Total Time Spent with Patient (Minutes): 30 minutes History Interval history: No acute events overnight. Hospitalist Physical - Constitutional Vitals: Temp Pulse Resp BP Pulse Ox 98.4 F 55 L 16 94/75 94 02/23/22 00:13 02/23/22 00:13 02/23/22 00:13 02/23/22 00:13 02/23/22 00:13 General appearance: Present: no acute distress, well-nourished, other (Wearing LifeVest) - EENT Eyes: Present: PERRL, EOM intact ENT: hearing intact, clear oral mucosa, dentition normal - Neck Neck: Present: supple, normal ROM - Respiratory Respiratory effort: normal Respiratory: bilateral: CTA - Cardiovascular Rhythm: regular Heart Sounds: Present: S1 & S2 - Extremities Extremities: no ischemia, pulses intact, pulses symmetrical, normal temperature, normal color Peripheral Pulses: within normal limits - Abdominal General gastrointestinal: soft, non-tender, non-distended, normal bowel sounds - Integumentary Integumentary: Present: clear, warm, dry - Psychiatric Psychiatric: appropriate mood/affect, intact judgment & insight, memory intact, cooperative - Neurologic Neurologic: CNII-XII intact, focal deficits (Left hemiparesis) - Allied Health Allied health notes reviewed: nursing HEART Score - HEART Score Troponin: Troponin T 0.341 ng/mL (0.00-0.029) H* D 02/18/22 04:28 Results - Labs CBC & Chem 7: 02/17/22 04:38 02/21/22 19:53 Labs: Laboratory Last Values WBC 7.2 K/mm3 (4.5-11.0) 02/17/22 04:38 RBC 4.88 M/mm3 (3.65-5.03) 02/17/22 04:38 Hgb 12.6 gm/dl (11.8-15.2) 02/17/22 04:38 Hct 39.7 % (35.5-45.6) 02/17/22 04:38 MCV 82 fl (84-94) L 02/17/22 04:38 MCH 26 pg (28-32) L 02/17/22 04:38 MCHC 32 % (32-34) 02/17/22 04:38 RDW 17.3 % (13.2-15.2) H 02/17/22 04:38 Plt Count 344 K/mm3 (140-440) 02/17/22 04:38 Lymph % (Auto) 23.1 % (13.4-35.0) 02/16/22 20:32 [place] % (Auto) 11.7 % (0.0-7.3) H 02/16/22 20:32 Eos % (Auto) 1.4 % (0.0-4.3) 02/16/22 20:32 Baso % (Auto) 1.1 % (0.0-1.8) 02/16/22 20:32 Lymph # (Auto) 1.8 K/mm3 (1.2-5.4) 02/16/22 20:32 [place] # (Auto) 0.9 K/mm3 (0.0-0.8) H 02/16/22 20:32 Eos # (Auto) 0.1 K/mm3 (0.0-0.4) 02/16/22 20:32 Baso # (Auto) 0.1 K/mm3 (0.0-0.1) 02/16/22 20:32 Add Manual Diff Complete 02/17/22 04:38 Total Counted 100 02/17/22 04:38 Seg Neutrophils % Spool Salvager 02/17/22 04:38 Seg Neuts % (Manual) 95.0 % (40.0-70.0) H 02/17/22 04:38 Band Neutrophils % 0 % 02/17/22 04:38 Lymphocytes % (Manual) 5.0 % (13.4-35.0) L 02/17/22 04:38 Reactive Lymphs % (Man) 0 % 02/17/22 04:38 Monocytes % (Manual) 0 % (0.0-7.3) 02/17/22 04:38 Eosinophils % (Manual) 0 % (0.0-4.3) 02/17/22 04:38 Basophils % (Manual) 0 % (0.0-1.8) 02/17/22 04:38 Metamyelocytes % 0 % 02/17/22 04:38 Myelocytes % 0 % 02/17/22 04:38 Promyelocytes % 0 % 02/17/22 04:38 Blast Cells % 0 % 02/17/22 04:38 Nucleated RBC % Not Reportable 02/17/22 04:38 Seg Neutrophils # 4.8 K/mm3 (1.8-7.7) 02/16/22 20:32 Seg Neutrophils # Man 6.8 K/mm3 (1.8-7.7) 02/17/22 04:38 Band Neutrophils # 0.0 K/mm3 02/17/22 04:38 Lymphocytes # (Manual) 0.4 K/mm3 (1.2-5.4) L 02/17/22 04:38 Abs React Lymphs (Man) 0.0 K/mm3 02/17/22 04:38 Monocytes # (Manual) 0.0 K/mm3 (0.0-0.8) 02/17/22 04:38 Eosinophils # (Manual) 0.0 K/mm3 (0.0-0.4) 02/17/22 04:38 Basophils # (Manual) 0.0 K/mm3 (0.0-0.1) 02/17/22 04:38 Metamyelocytes # 0.0 K/mm3 02/17/22 04:38 Myelocytes # 0.0 K/mm3 02/17/22 04:38 Promyelocytes # 0.0 K/mm3 02/17/22 04:38 Blast Cells # 0.0 K/mm3 02/17/22 04:38 WBC Morphology Not Reportable 02/17/22 04:38 Hypersegmented Neuts Not Reportable 02/17/22 04:38 Hyposegmented Neuts Not Reportable 02/17/22 04:38 Hypogranular Neuts Not Reportable 02/17/22 04:38 Smudge Cells Not Reportable 02/17/22 04:38 Toxic Granulation Not Reportable 02/17/22 04:38 Toxic Vacuolation Not Reportable 02/17/22 04:38 Dohle Bodies Not Reportable 02/17/22 04:38 Pelger-Huet Anomaly Not Reportable 02/17/22 04:38 Rachel Rods Not Reportable 02/17/22 04:38 Platelet Estimate Consistent w auto 02/17/22 04:38 Clumped Platelets Not Reportable 02/17/22 04:38 Plt Clumps, EDTA Not Reportable 02/17/22 04:38 Large Platelets Not Reportable 02/17/22 04:38 Giant Platelets Not Reportable 02/17/22 04:38 Platelet Satelliting Not Reportable 02/17/22 04:38 Plt Morphology Comment Not Reportable 02/17/22 04:38 RBC Morphology Not Reportable 02/17/22 04:38 Dimorphic RBCs Not Reportable 02/17/22 04:38 Polychromasia Not Reportable 02/17/22 04:38 Hypochromasia 1+ 02/17/22 04:38 Poikilocytosis Not Reportable 02/17/22 04:38 Anisocytosis Not Reportable 02/17/22 04:38 Microcytosis Not Reportable 02/17/22 04:38 Macrocytosis Not Reportable 02/17/22 04:38 Spherocytes Not Reportable 02/17/22 04:38 Pappenheimer Bodies Not Reportable 02/17/22 04:38 Sickle Cells Not Reportable 02/17/22 04:38 Target Cells Not Reportable 02/17/22 04:38 Tear Drop Cells Not Reportable 02/17/22 04:38 Ovalocytes Few 02/17/22 04:38 Helmet Cells Not Reportable 02/17/22 04:38 [place] Bodies Not Reportable 02/17/22 04:38 [place] Rings Not Reportable 02/17/22 04:38 [place] Cells Rare 02/17/22 04:38 Bite Cells Not Reportable 02/17/22 04:38 Crenated Cell Not Reportable 02/17/22 04:38 Elliptocytes Not Reportable 02/17/22 04:38 Acanthocytes (Spur) Rare 02/17/22 04:38 Rouleaux Not Reportable 02/17/22 04:38 Hemoglobin C Crystals Not Reportable 02/17/22 04:38 Schistocytes Not Reportable 02/17/22 04:38 Malaria parasites Not Reportable 02/17/22 04:38 Ten Bodies Not Reportable 02/17/22 04:38 Hem Pathologist Commnt No 02/17/22 04:38 PT 20.8 Sec. (12.2-14.9) H 02/22/22 05:21 INR 1.58 (0.87-1.13) H 02/22/22 05:21 ABG pH 7.425 pH Units (7.350-7.450) 02/16/22 21:52 ABG pCO2 30.1 mm Hg 02/16/22 21:52 ABG pO2 104.5 mm Hg (80.0-90.0) H 02/16/22 21:52 ABG HCO3 19.3 mmol/L (20.0-26.0) L 02/16/22 21:52 ABG O2 Saturation 97.9 % (95.0-99.0) 02/16/22 21:52 ABG O2 Content 17.0 (0.0-44) 02/16/22 21:52 ABG Base Excess -4.0 mmol/L (-2.0-3.0) L 02/16/22 21:52 ABG Hemoglobin 12.5 gm/dl (14.0-18.0) L 02/16/22 21:52 ABG Carboxyhemoglobin 1.7 % (0.0-5.0) 02/16/22 21:52 ABG Methemoglobin 0.4 % (0.0-1.5) 02/16/22 21:52 Oxyhemoglobin 95.8 % (95.0-99.0) 02/16/22 21:52 FiO2 28 % 02/16/22 21:52 Sodium 139 mmol/L (137-145) 02/21/22 19:53 Potassium 4.2 mmol/L (3.6-5.0) 02/21/22 19:53 Chloride 100.9 mmol/L (98-107) 02/21/22 19:53 Carbon Dioxide 26 mmol/L (22-30) 02/21/22 19:53 Anion Gap 16 mmol/L 02/21/22 19:53 BUN 21 mg/dL (9-20) H 02/21/22 19:53 Creatinine 1.2 mg/dL (0.8-1.3) 02/21/22 19:53 Estimated GFR > 60 ml/min 02/21/22 19:53 BUN/Creatinine Ratio 18 % 02/21/22 19:53 Glucose 134 mg/dL (75-100) H 02/21/22 19:53 POC Glucose 144 mg/dL (70-105) H 02/22/22 21:02 Calcium 9.7 mg/dL (8.4-10.2) 02/21/22 19:53 Magnesium 2.10 mg/dL (1.7-2.3) 02/21/22 19:53 Total Bilirubin 0.90 mg/dL (0.1-1.2) 02/18/22 04:28 AST 70 units/L (5-40) H 02/18/22 04:28 ALT 63 units/L (7-56) H 02/18/22 04:28 Alkaline Phosphatase 206 units/L (35-129) H 02/18/22 04:28 Total Creatine Kinase 406 units/L (55-170) H 02/16/22 20: CK-MB (CK-2) 34.5 ng/mL (0.0-4.0) H 02/16/22 20: CK-MB (CK-2) Rel Index 8.4 (0-4) H 02/16/22 20: Troponin T 0.341 ng/mL (0.00-0.029) H* D 02/18/22 04:28 NT-Pro-B Natriuret Pep 7405 pg/mL (0-450) H 02/16/22 20: Total Protein 6.8 g/dL (6.3-8.2) 02/18/22 04: Albumin 3.8 g/dL (3.9-5) L 02/18/22 04: Albumin/Globulin Ratio 1.3 % 02/18/22 04:28 Triglycerides 91 mg/dL (2-149) 02/16/22 20: Cholesterol 129 mg/dL (50-199) 02/16/22 20: LDL Cholesterol Direct 67 mg/dL (50-130) 02/16/22 20: HDL Cholesterol 42 mg/dL (40-59) 02/16/22 20: Cholesterol/HDL Ratio 3.07 % 02/16/22 20: Lipase 15 units/L (13-60) 02/16/22 20:32 Urine Color Straw (Yellow) 02/17/22 08:00 Urine Turbidity Clear (Clear) 02/17/22 08:00 Urine pH 5.0 (5.0-7.0) 02/17/22 08:00 Ur Specific [place] 1.006 (1.003-1.030) 02/17/22 08:00 Urine Protein <15 mg/dl mg/dL (Negative) 02/17/22 08:00 Urine Glucose (UA) Neg mg/dL (Negative) 02/17/22 08:00 Urine Ketones Neg mg/dL (Negative) 02/17/22 08:00 Urine Blood Sm (Negative) 02/17/22 08:00 Urine Nitrite Neg (Negative) 02/17/22 08:00 Urine Bilirubin Neg (Negative) 02/17/22 08:00 Urine Urobilinogen < 2.0 mg/dL (<2.0) 02/17/22 08:00 Ur Leukocyte Esterase Neg (Negative) 02/17/22 08:00 Urine WBC (Auto) 1.0 /HPF (0.0-6.0) 02/17/22 08:00 Urine RBC (Auto) < 1.0 /HPF (0.0-6.0) 02/17/22 08:00 U Epithel Cells (Auto) 1.0 /HPF (0-13.0) 02/17/22 08:00 Urine Bacteria (Auto) 1+ /HPF (Negative) 02/17/22 08:00 Hyaline Casts 1 /LPF 02/17/22 08:00 Urine Mucus Few /HPF 02/17/22 08:00 Urine Opiates Screen Negative 02/17/22 08:00 Urine Methadone Screen Negative 02/17/22 08:00 Ur Barbiturates Screen Negative 02/17/22 08:00 Ur Phencyclidine Scrn Negative 02/17/22 08:00 Ur Amphetamines Screen Negative 02/17/22 08:00 U Benzodiazepines Scrn Negative 02/17/22 08:00 Urine Cocaine Screen Negative 02/17/22 08:00 U Marijuana (THC) Screen Negative 02/17/22 08:00 Drugs of Abuse Note Disclamer 02/17/22 08:00 Alexandre/IV: Voiding Method Condom Catheter Active Medications - Current Medications Current Medications: Generic Name Dose Route Start Last Admin Trade Name Freq PRN Reason Stop Dose Admin Acetaminophen 650 mg 02/16/22 23:27 Acetaminophen 325 Mg Tab PO Q4H PRN Pain MILD(1-3)/Fever >100.5/AVILES Aspirin 325 mg 02/17/22 10:00 02/22/22 09:20 Aspirin Ec 325 Mg Tab PO 325 mg QDAY REBECCA Administration Atorvastatin Calcium 40 mg 02/17/22 22:00 02/22/22 21:27 Atorvastatin 40 Mg Tab PO 40 mg QHS REBECCA Administration Carvedilol 3.125 mg 02/18/22 22:00 02/22/22 21:28 Carvedilol 3.125 Mg Tab PO Not Given BID REBECCA Dextrose 50 ml 02/16/22 23:27 Dextrose 50% In Water (25gm) 50 Ml Syringe IV Q30MIN PRN Hypoglycemia Protocol Enoxaparin Sodium 120 mg 02/17/22 12:00 02/22/22 16:05 Enoxaparin 120 Mg/0.8 Ml Inj SUB-Q 120 mg Q24H REBECCA Administration Protocol Famotidine 40 mg 02/17/22 22:00 02/22/22 21:27 Famotidine 20 Mg Tab PO 40 mg QHS REBECCA Administration Furosemide 40 mg 02/19/22 18:00 02/23/22 05:16 Furosemide 40 Mg Tab PO 40 mg 0600,1800 REBECCA Administration Milrinone Lactate/Dextrose 20 mg in 100 mls @ 6.225 mls/hr 02/21/22 11:00 02/22/22 17:49 Milrinone-D5w 20 Mg/100 Ml IV 02/24/22 10:59 0.25 mcg/kg/min DIRECT REBECCA 6.225 mls/hr Administration Protocol 0.25 MCG/KG/MIN Insulin Human Lispro 0 unit 02/17/22 07:30 02/22/22 21:28 Insulin Lispro 100 Unit/Ml SUB-Q Not Given [facility] Protocol Levetiracetam 1,000 mg 02/17/22 10:00 02/22/22 21:27 Levetiracetam 500 Mg Tab PO 1,000 mg BID REBECCA Administration Lisinopril 2.5 mg 02/18/22 14:00 02/22/22 09:20 Lisinopril 5 Mg Tab PO 2.5 mg QDAY REBECCA Administration Magnesium Hydroxide 30 ml 02/16/22 23:27 Magnesium Hydroxide (Mom) Oral Liqd Udc PO Q4H PRN Constipation Morphine Sulfate 2 mg 02/16/22 23:27 02/19/22 21:40 Morphine 2 Mg/1 Ml Inj IV 2 mg Q4H PRN Administration Pain, Moderate (4-6) Morphine Sulfate 4 mg 02/16/22 23:27 02/19/22 09:58 Morphine 4 Mg/1 Ml Inj IV 4 mg Q4H PRN Administration Pain , Severe (7-10) Morphine Sulfate 2 mg 02/16/22 23:27 Morphine 4 Mg/1 Ml Inj IV Q5MIN PRN Chest Pain unrelieved by NTG Nitroglycerin 0.4 mg 02/16/22 23:27 Nitroglycerin 0.4 Mg Tab Subl SL .Q5MIN PRN Chest Pain Ondansetron HCl 4 mg 02/16/22 23:27 Ondansetron 4 Mg/2 Ml Inj IV Q8H PRN Nausea And Vomiting Prednisone 20 mg 02/18/22 13:00 02/22/22 09:20 Prednisone 20 Mg Tab PO 20 mg QDAY REBECCA Administration Sodium Chloride 10 ml 02/17/22 10:00 02/22/22 21:28 Sodium Chloride 0.9% 10 Ml Flush Syringe IV 10 ml BID REBECCA Administration Sodium Chloride 10 ml 02/16/22 23:27 Sodium Chloride 0.9% 10 Ml Flush Syringe IV PRN PRN LINE FLUSH Tramadol HCl 50 mg 02/16/22 23:27 02/21/22 17:34 Tramadol 50 Mg Tab PO 50 mg Q6H PRN Administration Pain, Moderate (4-6) Warfarin Sodium 7.5 mg 02/22/22 17:00 02/22/22 16:06 Warfarin 7.5 Mg Tab PO 7.5 mg DAILY@1700 REBECCA Administration Nutrition/Malnutrition Assess - Dietary Evaluation Nutrition/Malnutrition Findings: Nutrition Notes Start: 02/17/22 12:24 Freq: Status: Active Protocol: Document 02/21/22 12:36 SHAYNE (Rec: 02/21/22 12:54 SHAYNE [id number]) Nutrition Notes Initial or Follow up Reassessment Current Diagnosis COPD,Diabetes,Stroke Other Pertinent Diagnosis HFrEF, Seizure, CHF, Sarcoidosis, L-UE DVT/Edema. Current Diet Cardiac/Consistent Carbohydrates -Chopped Meats- Diet (since B 02/17). Labs/Tests 02/19: BUN 23, Glu 113. Pertinent Medications 02/21: Humalog 2 U, Warfarin 10 mg, others nutritionally unremarkable. Height 6 ft 1 in Weight 83 kg [place] Body Weight (kg) 83.63 BMI 24.1 Weight change and time frame No body weight change reported in 3 days. Weight Status Appropriate Subjective/Other Information RD consult for routine F/U on dietary advancement.Pt's PO intake of meals has been Fair (57-75%), acording to ADL notes. Pt is on Room Air, O2 saturation @ 95%, according to Physical Assessment History notes. Pt has missing teeth, according to Physical Assessment History notes. Pt fiited with a LifeVest, according to Progress notes. Percent of energy/protein needs met: Prescribed Cardiac/Consistent Carbohydrates -Chopped Meats- Diet provides for energy/ protein needs (1,977 Kcal/86 g ) during LOS. Burn Absent Trauma Absent GI Symptoms None Difficulty In Chewing Food Allergy No Skin Integrity/Comment Assessment WNL. Current % PO Fair (50-74%) Minimum of two criteria No #1 Nutrition Diagnosis Biting/Chewing (masticatory) difficulty Diagnosis Progress(for reassessment Continues documentation) Is patient on ventilator? No Is Patient Ambulatory and/or Out of Bed Yes REE-([place]-St. Jeor-ambulatory/OOB) [ 2286.544 [id number]] Kcal/Kg value to use for calculation 26 Approximate Energy Requirements Using 2158 kcal/Kg Calculation Used for Recommendations Kcal/kg Additional Notes Protein: 0.8-1 g/Kg ABW; 66-84 g/day. Fluids: 1 ml/Kcal, or as per MD. Nutrition Intervention Change Diet Order: Continue Cardiac/Consistent Carbohydrates -Chopped Meats- Diet. Goal #1 Facilitate PO intake of meals with elemental, textural, or mechanical modification during LOS. Goal #2 Maintain body weight within +/ -3% of admission body weight during LOS. Follow-Up By: 02/28/22 Additional Comments Continue monitoring food tolerance, %PO intake of meals , and BM.
[2022-02-23 06:54] LABS: INR 1.67 (0.87-1.13)
[2022-02-23] MEDS: INSULIN LISPRO 100 UNIT/ML SUB-Q SCH ×4 (08:00→21:33)
--- NOTE | 2022-02-23 09:48 | Progress Note ---
Assessment and Plan - Patient Problems (1) CHF exacerbation Current Visit: Yes Status: Acute (2) Seizure Current Visit: No Status: Acute (3) T2DM (type 2 diabetes mellitus) Current Visit: No Status: Chronic Qualifiers: Diabetes mellitus terminal manager insulin use: unspecified terminal manager insulin use status Subjective Date of service: 02/23/22 Principal diagnosis: Shortness of breath Interval history: BREATHING BETTER Objective Vital Signs Temp Pulse Resp BP BP Pulse Ox 02/23/22 00:13 98.4 F 55 L 16 94/75 94 02/22/22 20:41 97.8 F 86 18 97/75 94 02/22/22 20:00 90 02/22/22 19:32 96 02/22/22 15:34 97.9 F 70 16 102/71 95 02/22/22 11:29 98.0 F 72 16 110/83 96 02/22/22 10:00 78 - Physical Examination General: Other (Mild respiratory distress on supine bedrest) Neck: Positive: neck supple, JVD/HJR (+) Cardiac: Positive: Reg Rate and Rhythm Lungs: Positive: clear to auscultation Neuro: Positive: Weakness (L hemiparesis from prior CVA) Abdomen: Positive: Soft Skin: Positive: Clear Extremities: Absent: edema - Labs and Meds Coagulation 02/23/22 Range/Units 05:06 PT 21.8 H (12.2-14.9) Sec. INR 1.67 H (0.87-1.13)
[2022-02-23] MEDS: MILRINONE-D5W 20 MG/100 ML 20 MG/100 ML BAG IV SCH (10:04)
[2022-02-23] MEDS: levETIRAcetam 500 MG TAB PO SCH ×2 (10:04→21:33)
[2022-02-23] MEDS: ASPIRIN EC 325 MG TAB PO SCH (10:04)
[2022-02-23] MEDS: LISINOPRIL 5 MG TAB PO SCH (10:05)
[2022-02-23] MEDS: predniSONE 20 MG TAB PO SCH (10:05)
[2022-02-23] MEDS: carvediloL 3.125 MG TAB PO SCH ×2 (10:05→21:33)
[2022-02-23] MEDS: ENOXAPARIN 120 MG/0.8 ML INJ SUB-Q SCH (12:43)
[2022-02-23] MEDS: WARFARIN 7.5 MG TAB PO SCH (17:33)
[2022-02-23] MEDS: FAMOTIDINE 20 MG TAB PO SCH (21:33)
[2022-02-24 05:28] LABS: INR 1.83 (0.87-1.13)
[2022-02-24] MEDS: FUROSEMIDE 40 MG TAB PO SCH (06:07)
[2022-02-24] MEDS: INSULIN LISPRO 100 UNIT/ML SUB-Q SCH (09:58)
[2022-02-24] MEDS: levETIRAcetam 500 MG TAB PO SCH (10:57)
[2022-02-24] MEDS: ASPIRIN EC 325 MG TAB PO SCH (10:57)
[2022-02-24] MEDS: predniSONE 20 MG TAB PO SCH (10:57)
[2022-02-24] MEDS: carvediloL 3.125 MG TAB PO SCH (11:01)
[2022-02-24 11:02] VITALS: BP 84/57
[2022-02-24] MEDS: LISINOPRIL 5 MG TAB PO SCH (11:02)
--- NOTE | 2022-02-24 12:03 | Progress Note ---
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 Subjective Date of service: 02/24/22 Principal diagnosis: Shortness of breath Interval history: BREATHING BETTER Objective Vital Signs Temp Pulse Resp BP Pulse Ox 02/24/22 11:02 84/57 02/24/22 11:01 84/57 02/24/22 08:47 40 L 102/70 97 02/24/22 08:00 98.2 F 02/24/22 03:31 98.2 F 74 18 109/68 99 02/24/22 00:02 98.2 F 80 18 101/67 94 02/23/22 20:50 96 02/23/22 20:00 78 02/23/22 19:42 98.2 F 82 18 102/80 98 02/23/22 14:31 98.2 F 81 18 85/58 98 02/23/22 14:28 85 18 75/54 96 - Physical Examination General: Other (Mild respiratory distress on supine bedrest) Neck: Positive: neck supple, JVD/HJR (+) Cardiac: Positive: Reg Rate and Rhythm Lungs: Positive: clear to auscultation Neuro: Positive: Weakness (L hemiparesis from prior CVA) Abdomen: Positive: Soft Skin: Positive: Clear Extremities: Absent: edema - Labs and Meds Coagulation 02/24/22 Range/Units 04:51 PT 23.5 H (12.2-14.9) Sec. INR 1.83 H (0.87-1.13)
[2022-02-24 15:30] LABS: BUN/Creatinine Ratio 14; Blood Urea Nitrogen 19 mg/dL (9-20); Calcium 10.1 mg/dL (8.4-10.2); Hemolysis Index 13
== END 2022-02-24 16:54 | disposition home health service (06) | DRG 291 ==
LOC: ED 18:02 → 4A 02-17 01:29
PROVIDERS: ADMIT Internal Medicine Geriatric Medicine; ATTEND Student in an Organized Health Care Education/Training Program
PROC: 4A033R1 Measurement of Arterial Saturation, Peripheral, Percutaneous Approach (ICD-10-PCS; principal; 2022-02-16)
DX: I11.0 Hypertensive heart disease with heart failure (principal); I50.33 Acute on chronic diastolic (congestive) heart failure; J44.1 Chronic obstructive pulmonary disease with (acute) exacerbation; G40.909 Epilepsy, unspecified, not intractable, without status epilepticus; E11.9 Type 2 diabetes mellitus without complications; Z87.891 Personal history of nicotine dependence; Z86.718 Personal history of other venous thrombosis and embolism; D86.9 Sarcoidosis, unspecified; Z86.73 Personal history of transient ischemic attack (TIA), and cerebral infarction without residual deficits
CPT/HCPCS: 36415; 71045; 80048; 80053; 80061; 80307; 81001; 82550; 82553; 82803; 82962; 83690; 83735; 83880; 84484; 85007; 85025; 85610; 93005; 93306; 94644; G0378; Q9967; C8929; J1650; J1815; J1940; J2260; J2270; J2930

== ENCOUNTER 2022-03-03 18:46 | Emergency (ER) | payer SELFPAY ==
[2022-03-03 18:56] VITALS: BP 97/76
== END 2022-03-03 21:51 | disposition left against medical advice (07) ==
LOC: ED 18:46
DX: H57.11 Ocular pain, right eye (principal); Z53.21 Procedure and treatment not carried out due to patient leaving prior to being seen by health care provider

== ENCOUNTER 2022-04-07 10:58 | Emergency (ER) | payer SELFPAY ==
[2022-04-07 12:07] LABS: Basophils # (Auto) 0.1 K/mm3 (0.0-0.1); Basophils % (Auto) 0.9 % (0.0-1.8); Eosinophils % (Auto) 0.4 % (0.0-4.3); Hematocrit 49.4 % (35.5-45.6); Hemoglobin 16.1 gm/dl (11.8-15.2); Lymphocytes # (Auto) 2.5 K/mm3 (1.2-5.4); Lymphocytes % (Auto) 44.4 % (13.4-35.0); Mean Corpuscular HGB Conc 33 % (32-34); Mean Corpuscular Volume 82 fl (84-94); Monocytes # (Auto) 0.6 K/mm3 (0.0-0.8); Monocytes % (Auto) 10.9 % (0.0-7.3); Platelet Count 499 K/mm3 (140-440); Red Blood Count 6.01 M/mm3 (3.65-5.03); Red Cell Distribution Width 19.3 % (13.2-15.2)
[2022-04-07 12:15] LABS: INR 2.43 (0.87-1.13); Partial Thromboplastin Time 36.5 Sec. (24.2-36.6)
[2022-04-07 12:20] LABS: BUN/Creatinine Ratio 13; Blood Urea Nitrogen 15 mg/dL (9-20); Calcium 9.5 mg/dL (8.4-10.2); Hemolysis Index 5
--- NOTE | 2022-04-07 20:16 | XRay Report ---
CHEST 1 VIEW INDICATION / CLINICAL INFORMATION: nausea, lightheaded. COMPARISON: 02/16/2022 FINDINGS: SUPPORT DEVICES: . No tubes or lines. HEART / MEDIASTINUM: Normal cardiac silhouette size and pulmonary vascularity. LUNGS / PLEURA: No significant pulmonary or pleural abnormality. The lungs remain mildly hyperinflate d but otherwise grossly clear. Some of the lung parenchyma is obscured by overlying devices. No pneum othorax. ADDITIONAL FINDINGS: No significant additional findings. IMPRESSION: 1. No acute pulmonary or pleural disease. Signer Name: Becky Shanks MD Signed: 04/07/2022 8:12 PM Workstation Name: [id number]
--- NOTE | 2022-04-07 20:43 | Emergency Department Report ---
- General Chief complaint: Weakness Stated complaint: NAUSEA/LT SIDE PAIN Time Seen by Provider: 04/07/22 19:28 Source: patient Mode of arrival: Ambulatory Limitations: No Limitations - History of Present Illness Initial comments: 47-year-old male with a past medical history of COPD, CHF with a EF of 20%, pulmonary hypertension, CVA with residual left-sided weakness, diabetes, se izures, sarcoidosis, anticoagulated on Coumadin for DVT, to the left upper extremity, and currently wearing a LifeVest presents to the hospital complaining of 1 episode of nausea and lightheadedness.Patient states he got out of bed and while walking to the bathroom he felt extremely nauseated which caused him to feel sweaty and lightheaded. He denies headache, chest pain, shortness of breath, palpitations, or abdominal pain at that time. Symptoms were present for approximately 1 hour prior to spontaneously resolving. Patient has been in the ER for several hours and states he is currently asymptomatic. He complains of chronic intermittent left hip pain with lateral movement that is rated 6 out of 10 Severity scale (0 -10): 6 - Related Data Previous Rx's Medication Instructions Recorded Last Taken Type Meclizine [Antivert] 12.5 mg PO DAILY PRN #12 tablet 06/10/21 2 Days Ago Rx ~02/15/22 12.5 Albuterol Sulfate [Proventil Hfa] 2 puff IH Q4HR PRN #1 hfa.aer.ad 07/31/21 Unknown Rx Sennosides/Docusate [Senokot S] 1 tab PO QHS #30 tablet 02/11/22 Unknown Rx AtorvaSTATin [Lipitor] 40 mg PO QHS #30 tab 02/20/22 Unknown Rx Famotidine [Pepcid] 40 mg PO QHS #30 tablet 02/20/22 Unknown Rx Furosemide [Lasix TAB] 40 mg PO 0600,1800 #60 tablet 02/20/22 Unknown Rx Warfarin [Coumadin] 7.5 mg PO DAILY@1700 #30 tablet 02/20/22 Unknown Rx carvediloL [Coreg] 3.125 mg PO BID #60 tablet 02/20/22 Unknown Rx levETIRAcetam [Keppra TAB] 1,000 mg PO BID #60 tab 02/20/22 Unknown Rx lisinopriL [Zestril TAB] 2.5 mg PO QDAY #15 tablet 02/20/22 Unknown Rx metFORMIN [Glucophage] 850 mg PO BID #60 tab 02/20/22 Unknown Rx predniSONE [Deltasone] 20 mg PO QDAY #30 tablet 02/20/22 Unknown Rx Enoxaparin 120 mg SUB-Q Q24H #7 syringe 02/21/22 Unknown Rx Allergies Allergy/AdvReac Type Severity Reaction Status Date / Time No Known Allergies Allergy Verified 04/07/22 12:26 ED Review of Systems ROS: Stated complaint: NAUSEA/LT SIDE PAIN Other details as noted in HPI Comment: All other systems reviewed and negative ED Past Medical Hx - Past Medical History Previous Medical History?: Yes Hx Diabetes: Yes Hx Deep Vein Thrombosis: Yes (Left arm DVT) Hx Seizures: Yes Hx COPD: Yes Additional medical history: Sarcadosis, Wearing a Life Vest, Cardiac arrhythmia - Surgical History Past Surgical History?: No - Social History Smoking Status: Unknown if ever smoked Substance Use Type: None - Medications Home Medications: Home Medications Medication Instructions Recorded Confirmed Last Taken Type Meclizine [Antivert] 12.5 mg PO DAILY PRN #12 tablet 06/10/21 02/17/22 2 Days Ago Rx ~02/15/22 12.5 Albuterol Sulfate [Proventil Hfa] 2 puff IH Q4HR PRN #1 hfa.aer.ad 07/31/21 02/17/22 Unknown Rx Sennosides/Docusate [Senokot S] 1 tab PO QHS #30 tablet 02/11/22 02/17/22 Unknown Rx AtorvaSTATin [Lipitor] 40 mg PO QHS #30 tab 02/20/22 Unknown Rx Famotidine [Pepcid] 40 mg PO QHS #30 tablet 02/20/22 Unknown Rx Furosemide [Lasix TAB] 40 mg PO 0600,1800 #60 tablet 02/20/22 Unknown Rx Warfarin [Coumadin] 7.5 mg PO DAILY@1700 #30 tablet 02/20/22 Unknown Rx carvediloL [Coreg] 3.125 mg PO BID #60 tablet 02/20/22 Unknown Rx levETIRAcetam [Keppra TAB] 1,000 mg PO BID #60 tab 02/20/22 Unknown Rx lisinopriL [Zestril TAB] 2.5 mg PO QDAY #15 tablet 02/20/22 Unknown Rx metFORMIN [Glucophage] 850 mg PO BID #60 tab 02/20/22 Unknown Rx predniSONE [Deltasone] 20 mg PO QDAY #30 tablet 02/20/22 Unknown Rx Enoxaparin 120 mg SUB-Q Q24H #7 syringe 02/21/22 Unknown Rx ED Physical Exam - General Limitations: No Limitations - Other Other exam information: General: No acute distress Head: Atraumatic Eyes: normal appearance ENT: Moist mucous membranes Neck: Normal appearance, no midline tenderness Chest: Clear to auscultation bilaterally CV: Regular rate and rhythm Abdomen: Soft, normal bowel sounds, nontender, nondistended, no rebound or guarding Back: Normal inspection Extremity: Normal inspection, full range of motion Neuro: Alert O x 3, no facial asymmetry, speech clear, light/5 left upper and left lower extremity strength. Sensation intact Psych: Appropriate behavior Skin: No rash ED Course Vital Signs 04/07/22 04/07/22 04/07/22 11:35 12:19 12:29 Temperature 97.3 F L Pulse Rate 48 L Respiratory 18 24 18 Rate Blood Pressure Blood Pressure 99/73 [Right] O2 Sat by Pulse 100 99 Oximetry 04/07/22 04/07/22 04/07/22 12:30 12:46 13:00 Temperature Pulse Rate 84 87 81 Respiratory 22 25 H 20 Rate Blood Pressure 101/69 101/69 103/75 Blood Pressure [Right] O2 Sat by Pulse 99 95 94 Oximetry 04/07/22 04/07/22 04/07/22 13:16 13:30 13:46 Temperature Pulse Rate 82 78 84 Respiratory 21 25 H 23 Rate Blood Pressure 103/75 103/75 103/75 Blood Pressure [Right] O2 Sat by Pulse 98 99 97 Oximetry 04/07/22 04/07/22 04/07/22 14:00 14:16 14:30 Temperature Pulse Rate 76 82 74 Respiratory 22 27 H 22 Rate Blood Pressure 90/52 90/52 90/52 Blood Pressure [Right] O2 Sat by Pulse 96 99 Oximetry 04/07/22 04/07/22 04/07/22 14:46 15:00 15:16 Temperature Pulse Rate 80 78 81 Respiratory 23 22 28 H Rate Blood Pressure 90/52 94/64 94/64 Blood Pressure [Right] O2 Sat by Pulse 100 96 100 Oximetry 04/07/22 04/07/22 04/07/22 15:30 15:46 16:00 Temperature Pulse Rate 79 77 74 Respiratory 29 H 24 20 Rate Blood Pressure 94/64 94/64 Blood Pressure [Right] O2 Sat by Pulse 95 97 96 Oximetry 04/07/22 04/07/22 04/07/22 16:16 16:30 16:46 Temperature Pulse Rate 79 73 86 Respiratory 18 23 20 Rate Blood Pressure 94/64 94/64 94/64 Blood Pressure [Right] O2 Sat by Pulse 98 98 96 Oximetry 04/07/22 04/07/22 04/07/22 17:00 17:16 17:30 Temperature Pulse Rate 85 78 82 Respiratory 22 24 23 Rate Blood Pressure 104/68 104/68 104/68 Blood Pressure [Right] O2 Sat by Pulse 98 93 37 L Oximetry 04/07/22 04/07/22 04/07/22 17:46 18:00 18:16 Temperature Pulse Rate 72 79 82 Respiratory 24 19 27 H Rate Blood Pressure 104/68 94/61 94/61 Blood Pressure [Right] O2 Sat by Pulse 93 92 Oximetry 04/07/22 04/07/22 04/07/22 18:30 18:46 19:00 Temperature Pulse Rate 70 80 79 Respiratory 21 22 22 Rate Blood Pressure 94/61 94/61 105/61 Blood Pressure [Right] O2 Sat by Pulse 98 98 96 Oximetry - Reevaluation(s) Reevaluation #1: 04/07/22 20:46 27-year male presents to the hospital with nausea, lightheadedness, near syncope versus vasovagal episode prior to arrival. Patient presented with mild hypotension and bradycardia that has resolved during ED stay - Consultations Consultation #1: 04/07/22 21:[address] Olivares ([facility]) sample tailor. Recommends outpatient follow-up with his sample tailor ED Medical Decision Making - Lab Data Result diagrams: 04/07/22 11:43 04/07/22 11:43 Lab Results 04/07/22 04/07/22 04/07/22 Range/Units 11:43 11:43 11:43 WBC 5.6 (4.5-11.0) K/mm3 RBC 6.01 H (3.65-5.03) M/mm3 Hgb 16.1 H (11.8-15.2) gm/dl Hct 49.4 H (35.5-45.6) % MCV 82 L (84-94) fl MCH 27 L (28-32) pg MCHC 33 (32-34) % RDW 19.3 H (13.2-15.2) % Plt Count 499 H (140-440) K/mm3 Lymph % (Auto) 44.4 H (13.4-35.0) % Stark % (Auto) 10.9 H (0.0-7.3) % Eos % (Auto) 0.4 (0.0-4.3) % Baso % (Auto) 0.9 (0.0-1.8) % Lymph # (Auto) 2.5 (1.2-5.4) K/mm3 Stark # (Auto) 0.6 (0.0-0.8) K/mm3 Eos # (Auto) 0.0 (0.0-0.4) K/mm3 Baso # (Auto) 0.1 (0.0-0.1) K/mm3 Seg Neutrophils % 43.4 (40.0-70.0) % Seg Neutrophils # 2.4 (1.8-7.7) K/mm3 PT 30.2 H (12.2-14.9) Sec. INR 2.43 H (0.87-1.13) APTT 36.5 (24.2-36.6) Sec. Thrombin Time (15.1-19.6) Sec. Sodium 142 (137-145) mmol/L Potassium 3.8 (3.6-5.0) mmol/L Chloride 99.6 (98-107) mmol/L Carbon Dioxide 29 (22-30) mmol/L Anion Gap 17 mmol/L BUN 15 (9-20) mg/dL Creatinine 1.2 (0.8-1.3) mg/dL Estimated GFR > 60 ml/min BUN/Creatinine Ratio 13 % Glucose 128 H (75-100) mg/dL Calcium 9.5 (8.4-10.2) mg/dL Troponin T < 0.010 (0.00-0.029) ng/mL Urine Color (Yellow) Urine Turbidity (Clear) Urine pH (5.0-7.0) Ur Specific [place] (1.003-1.030) Urine Protein (Negative) mg/dL Urine Glucose (UA) (Negative) mg/dL Urine Ketones (Negative) mg/dL Urine Blood (Negative) Urine Nitrite (Negative) Ur Reducing Substances Urine Bilirubin (Negative) Urine Ictotest Urine Urobilinogen (<2.0) mg/dL Ur Leukocyte Esterase (Negative) Urine WBC (Auto) (0.0-6.0) /HPF Urine RBC (Auto) (0.0-6.0) /HPF U Epithel Cells (Auto) (0-13.0) /HPF Urine Mucus /HPF 04/07/22 04/07/22 04/07/22 Range/Units 11:43 19:53 Unknown WBC (4.5-11.0) K/mm3 RBC (3.65-5.03) M/mm3 Hgb (11.8-15.2) gm/dl Hct (35.5-45.6) % MCV (84-94) fl MCH (28-32) pg MCHC (32-34) % RDW (13.2-15.2) % Plt Count (140-440) K/mm3 Lymph % (Auto) (13.4-35.0) % Stark % (Auto) (0.0-7.3) % Eos % (Auto) (0.0-4.3) % Baso % (Auto) (0.0-1.8) % Lymph # (Auto) (1.2-5.4) K/mm3 Stark # (Auto) (0.0-0.8) K/mm3 Eos # (Auto) (0.0-0.4) K/mm3 Baso # (Auto) (0.0-0.1) K/mm3 Seg Neutrophils % (40.0-70.0) % Seg Neutrophils # (1.8-7.7) K/mm3 PT (12.2-14.9) Sec. INR (0.87-1.13) APTT (24.2-36.6) Sec. Thrombin Time 33.0 H (15.1-19.6) Sec. Sodium (137-145) mmol/L Potassium (3.6-5.0) mmol/L Chloride (98-107) mmol/L Carbon Dioxide (22-30) mmol/L Anion Gap mmol/L BUN (9-20) mg/dL Creatinine (0.8-1.3) mg/dL Estimated GFR ml/min BUN/Creatinine Ratio % Glucose (75-100) mg/dL Calcium (8.4-10.2) mg/dL Troponin T < 0.010 (0.00-0.029) ng/mL Urine Color Yellow (Yellow) Urine Turbidity Slightly cloudy (Clear) Urine pH 7.0 (5.0-7.0) Ur Specific [place] 1.025 (1.003-1.030) Urine Protein 100 mg/dl (Negative) mg/dL Urine Glucose (UA) Negative (Negative) mg/dL Urine Ketones Negative (Negative) mg/dL Urine Blood Negative (Negative) Urine Nitrite Negative (Negative) Ur Reducing Substances Not Reportable Urine Bilirubin Negative (Negative) Urine Ictotest Not Reportable Urine Urobilinogen 2.0 (<2.0) mg/dL Ur Leukocyte Esterase Trace (Negative) Urine WBC (Auto) 1.0 (0.0-6.0) /HPF Urine RBC (Auto) 1.0 (0.0-6.0) /HPF U Epithel Cells (Auto) 1.0 (0-13.0) /HPF Urine Mucus Few /HPF - EKG Data -: EKG Interpreted by Ok EKG shows normal: sinus rhythm Rate: normal (91) - Radiology Data Radiology results: report reviewed CHEST 1 VIEW INDICATION / CLINICAL INFORMATION: nausea, lightheaded. COMPARISON: 02/16/2022 FINDINGS: SUPPORT DEVICES: . No tubes or lines. HEART / MEDIASTINUM: Normal cardiac silhouette size and pulmonary vascularity. LUNGS / PLEURA: No significant pulmonary or pleural abnormality. The lungs remain mildly hyperinflated but otherwise grossly clear. Some of the lung parenchyma is obscured by overlying devices. No pneumothorax. ADDITIONAL FINDINGS: No significant additional findings. IMPRESSION: 1. No acute pulmonary or pleural disease. - Medical Decision Making 47-year-old male presents to the hospital with a transient episode of nausea, lightheadedness and diaphoresis. He has been in the ED for greater than 10 hours and states symptoms have resolved. Troponin negative x2 8 hours apart. X-ray unremarkable. Other labs unremarkable. Urine without infection. And EKG unchanged from previous. Patient initially presented with bradycardia mild hypotension with spontaneously resolved patient complains of chronic intermittent left hip pain with chronic left-sided weakness that is unchanged at this time. Case discussed with sample tailor given significant cardiac history and advises outpatient follow-up with his doctor Critical Care Time: No Critical care attestation.: If time is entered above; I have spent that time in minutes in the direct care of this critically ill patient, excluding procedure time. ED Disposition Clinical Impression: Vasovagal episode Disposition: 01 HOME / SELF CARE / HOMELESS Is pt being admited?: No Does the pt Need Aspirin: No Condition: Stable Instructions: Syncope (ED), Near-Syncope, [id number] Additional Instructions: Continue current medication as prescribed. Follow-up with your sample tailor. return if symptoms worsen as indicated by your discharge instructions. Referrals: EDDIE MACKENZIE MD [Staff Physician] - 2-3 Days Time of Disposition: 21:36
[2022-04-07 20:48] LABS: Mucus,Urine FEW /HPF
[2022-04-07 20:50] LABS: Color,Urine Yellow (Yellow)
[2022-04-07 20:51] LABS: Bilirubin,Urine Negative (Negative); Blood,Urine Negative (Negative)
[2022-04-07 21:42] VITALS: BP 110/83
--- NOTE | 2022-04-08 13:21 | Electrocardiograph Report ---
[facility] Test Date: 2022-04-07 Test Time: 11:16:15 Pat Name: SHERYL DE LA ROSA Department: Room: Gender: M Environmental Protection Officer: Ben RUVALCABA RN : 1975 Requested By: ED DOC Order Number: [id number] Reading MD: Rohith Dejesus Measurements Intervals [place] Rate: 91 P: 63 MI: 169 QRS: 7 QRSD: 94 T: -79 QT: 398 QTc: 490 Interpretive Statements Sinus rhythm Atrial premature complex Biatrial enlargement Probable LVH with secondary repol abnrm Compared to ECG 02/17/2022 13:07:46 Atrial premature complex(es) now present Atrial abnormality now present Ectopic atrial rhythm no longer present Ventricular premature complex(es) no longer present Myocardial infarct finding no longer present Possible ischemia no longer present Prolonged QT interval no longer present Electronically Signed On 04-08-2022 13:21:05 EDT by Rohith Dejesus
== END 2022-04-07 22:15 | disposition home or self-care (01) ==
LOC: ED 10:58
DX: R55 Syncope and collapse (principal); R11.0 Nausea; R42 Dizziness and giddiness; E11.9 Type 2 diabetes mellitus without complications; J44.9 Chronic obstructive pulmonary disease, unspecified; Z86.718 Personal history of other venous thrombosis and embolism; Z79.899 Other long term (current) drug therapy
CPT/HCPCS: 36415; 71045; 80048; 81001; 84484; 85025; 85610; 85670; 85730; 93005; 99284

== ENCOUNTER 2022-05-05 19:24 | Emergency (ER) | payer SELFPAY ==
[2022-05-06] MEDS ORDERED: levETIRAcetam 500 MG/5 ML ORAL LIQD PO ONE ×2 (07:06→09:56)
--- NOTE | 2022-05-06 09:07 | Emergency Department Report ---
ED General Adult HPI - General Chief complaint: Seizure Stated complaint: SEIZURE ON 05/05 PUI?: No Time Seen by Provider: 05/06/22 06:46 Source: patient Mode of arrival: Ambulatory Limitations: No Limitations - History of Present Illness Initial comments: Patient is a 47-year-old male that has been in the ER overnight. On provider exam this morning he states that he had a seizure yesterday. During the HPI patient offered that he was a diabetic. His blood glucose was checked and it was low. I have advised the patient that low blood sugars can cause seizures. He does report an underlying seizure disorder which she is on Keppra for. He does report being out of the Keppra. He states he is taking his diabetic medications. Patient denies any fever or chills. Denies any abdominal pain or back pain. Denies any trauma. Denies any shortness of breath or chest pain. During the several hours that he has been in the ER he has been ambulatory and does not appear to be postictal. He has had no further seizures. -: Sudden, hour(s) Consistency: intermittent Worsens with: none Associated Symptoms: denies other symptoms. denies: confusion, chest pain, cough, diaphoresis, fever/chills, headaches, loss of appetite, malaise, nausea/vomiting, rash, seizure, shortness of breath, syncope, weakness Treatments Prior to Arrival: none - Related Data Previous Rx's Medication Instructions Recorded Last Taken Type Meclizine [Antivert] 12.5 mg PO DAILY PRN #12 tablet 06/10/21 2 Days Ago Rx ~02/15/22 12.5 Albuterol Sulfate [Proventil Hfa] 2 puff IH Q4HR PRN #1 hfa.aer.ad 07/31/21 Unknown Rx Sennosides/Docusate [Senokot S] 1 tab PO QHS #30 tablet 02/11/22 Unknown Rx AtorvaSTATin [Lipitor] 40 mg PO QHS #30 tab 02/20/22 Unknown Rx Famotidine [Pepcid] 40 mg PO QHS #30 tablet 02/20/22 Unknown Rx Furosemide [Lasix TAB] 40 mg PO 0600,1800 #60 tablet 02/20/22 Unknown Rx Warfarin [Coumadin] 7.5 mg PO DAILY@1700 #30 tablet 02/20/22 Unknown Rx carvediloL [Coreg] 3.125 mg PO BID #60 tablet 02/20/22 Unknown Rx levETIRAcetam [Keppra TAB] 1,000 mg PO BID #60 tab 02/20/22 Unknown Rx lisinopriL [Zestril TAB] 2.5 mg PO QDAY #15 tablet 02/20/22 Unknown Rx metFORMIN [Glucophage] 850 mg PO BID #60 tab 02/20/22 Unknown Rx Enoxaparin 120 mg SUB-Q Q24H #7 syringe 02/21/22 Unknown Rx Allergies Allergy/AdvReac Type Severity Reaction Status Date / Time No Known Allergies Allergy Verified 05/05/22 20:33 ED Review of Systems ROS: Stated complaint: SEIZURE ON 05/05 Other details as noted in HPI Comment: All other systems reviewed and negative ED Past Medical Hx - Past Medical History Previous Medical History?: Yes Hx Diabetes: Yes Hx Deep Vein Thrombosis: Yes (Left arm DVT) Hx Seizures: Yes Hx COPD: Yes Additional medical history: Sarcadosis, Wearing a Life Vest, Cardiac arrhythmia - Surgical History Past Surgical History?: No - Family History Family history: no significant - Social History Smoking Status: Never Smoker Substance Use Type: None - Medications Home Medications: Home Medications Medication Instructions Recorded Confirmed Last Taken Type Meclizine [Antivert] 12.5 mg PO DAILY PRN #12 tablet 06/10/21 02/17/22 2 Days Ago Rx ~02/15/22 12.5 Albuterol Sulfate [Proventil Hfa] 2 puff IH Q4HR PRN #1 hfa.aer.ad 07/31/21 02/17/22 Unknown Rx Sennosides/Docusate [Senokot S] 1 tab PO QHS #30 tablet 02/11/22 02/17/22 Unknown Rx AtorvaSTATin [Lipitor] 40 mg PO QHS #30 tab 02/20/22 Unknown Rx Famotidine [Pepcid] 40 mg PO QHS #30 tablet 02/20/22 Unknown Rx Furosemide [Lasix TAB] 40 mg PO 0600,1800 #60 tablet 02/20/22 Unknown Rx Warfarin [Coumadin] 7.5 mg PO DAILY@1700 #30 tablet 02/20/22 Unknown Rx carvediloL [Coreg] 3.125 mg PO BID #60 tablet 02/20/22 Unknown Rx levETIRAcetam [Keppra TAB] 1,000 mg PO BID #60 tab 02/20/22 Unknown Rx lisinopriL [Zestril TAB] 2.5 mg PO QDAY #15 tablet 02/20/22 Unknown Rx metFORMIN [Glucophage] 850 mg PO BID #60 tab 02/20/22 Unknown Rx Enoxaparin 120 mg SUB-Q Q24H #7 syringe 02/21/22 Unknown Rx ED Physical Exam - General Limitations: No Limitations General appearance: alert, in no apparent distress - Head Head exam: Present: atraumatic, normocephalic - Eye Eye exam: Present: normal appearance - ENT ENT exam: Present: mucous membranes moist - Neck Neck exam: Present: normal inspection - Respiratory Respiratory exam: Present: normal lung sounds bilaterally. Absent: respiratory distress - Cardiovascular Cardiovascular Exam: Present: regular rate, normal rhythm. Absent: systolic murmur, diastolic murmur, rubs, gallop - GI/Abdominal GI/Abdominal exam: Present: soft, normal bowel sounds - Rectal Rectal exam: Present: deferred - Extremities Exam Extremities exam: Present: normal inspection - Back Exam Back exam: Present: normal inspection - Neurological Exam Neurological exam: Present: alert, oriented X3 - Psychiatric Psychiatric exam: Present: normal affect, normal mood - Skin Skin exam: Present: warm, dry, intact, normal color. Absent: rash ED Course Vital Signs 05/05/22 05/06/22 20:31 10:41 Temperature 98.4 F 97.8 F Pulse Rate 69 69 Respiratory 18 16 Rate Blood Pressure 96/70 144/88 [Left] O2 Sat by Pulse 95 100 Oximetry ED Medical Decision Making - Medical Decision Making Vital Signs 05/05/22 05/06/22 20:31 10:41 Temperature 98.4 F 97.8 F Pulse Rate 69 69 Respiratory 18 16 Rate Blood Pressure 96/70 144/88 [Left] O2 Sat by Pulse 95 100 Oximetry Labs 05/06/22 05/06/22 07:39 09:45 POC Glucose 59 L 138 H Patient initially comes post reported seizure at home. It was witnessed. Family brings him in. There is no trauma. He has been alert and oriented during his stay in the ER. He is ambulatory and appropriate. Patient's blood sugar noted to be low. He was given juice and food and his blood sugar increased 138. I have had a long discussion with the patient regarding his diabetic medications and monitoring his blood sugar. He is to follow-up with his primary care. Patient is being discharged home with discharge plan of care including diet, activity, medications and follow-up. He has been advised to check his blood sugar frequently and take his Keppra daily as instructed. - Differential Diagnosis Status post seizure requesting med refill Critical care attestation.: If time is entered above; I have spent that time in minutes in the direct care of this critically ill patient, excluding procedure time. 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 Small frequent meals throughout the day including protein source. Referrals: ISAIAS MCKINNON MD [Staff Physician] - 3-5 Days Time of Disposition: 09:29
[2022-05-06 10:42] VITALS: BP 144/88
== END 2022-05-06 10:41 | disposition home or self-care (01) ==
LOC: ED 19:24
DX: R56.9 Unspecified convulsions (principal); E11.649 Type 2 diabetes mellitus with hypoglycemia without coma; J44.1 Chronic obstructive pulmonary disease with (acute) exacerbation; Z86.718 Personal history of other venous thrombosis and embolism; Z79.899 Other long term (current) drug therapy
CPT/HCPCS: 82962; 99282

== ENCOUNTER 2022-05-28 08:56 | Emergency (ER) | payer SELFPAY ==
--- NOTE | 2022-05-28 10:49 | Emergency Department Report ---
ED Shortness of Breath HPI - General Chief Complaint: Dyspnea/Respdistress Stated Complaint: SOB/WANTS EVALUATION Time Seen by Provider: 05/28/22 10:49 Source: patient, EMS Mode of arrival: Stretcher Limitations: No Limitations - History of Present Illness Initial Comments: 47 yo with known cardiac hx co [facility] cp and sob pcp cant recall meds cant recall lovenox and coumadin he recalls asa 81 [employer] no fever no chills not covid immunized Complaint: shortness of breath - Related Data Previous Rx's Medication Instructions Recorded Last Taken Type Meclizine [Antivert] 12.5 mg PO DAILY PRN #12 tablet 06/10/21 2 Days Ago Rx ~02/15/22 12.5 Albuterol Sulfate [Proventil Hfa] 2 puff IH Q4HR PRN #1 hfa.aer.ad 07/31/21 Unknown Rx Sennosides/Docusate [Senokot S] 1 tab PO QHS #30 tablet 02/11/22 Unknown Rx AtorvaSTATin [Lipitor] 40 mg PO QHS #30 tab 02/20/22 Unknown Rx Famotidine [Pepcid] 40 mg PO QHS #30 tablet 02/20/22 Unknown Rx Furosemide [Lasix TAB] 40 mg PO 0600,1800 #60 tablet 02/20/22 Unknown Rx Warfarin [Coumadin] 7.5 mg PO DAILY@1700 #30 tablet 02/20/22 Unknown Rx carvediloL [Coreg] 3.125 mg PO BID #60 tablet 02/20/22 Unknown Rx levETIRAcetam [Keppra TAB] 1,000 mg PO BID #60 tab 02/20/22 Unknown Rx lisinopriL [Zestril TAB] 2.5 mg PO QDAY #15 tablet 02/20/22 Unknown Rx metFORMIN [Glucophage] 850 mg PO BID #60 tab 02/20/22 Unknown Rx Enoxaparin 120 mg SUB-Q Q24H #7 syringe 02/21/22 Unknown Rx Allergies Allergy/AdvReac Type Severity Reaction Status Date / Time No Known Allergies Allergy Verified 05/28/22 09:11 ED Review of Systems ROS: Stated complaint: SOB/WANTS EVALUATION Other details as noted in HPI Comment: All other systems reviewed and negative ED Past Medical Hx - Past Medical History Previous Medical History?: Yes Hx Hypertension: Yes Hx CVA: Yes Hx Heart Attack/AMI: No Hx Congestive Heart Failure: Yes Hx Diabetes: Yes Hx Deep Vein Thrombosis: Yes (Left arm DVT) Hx Seizures: Yes Hx COPD: Yes Additional medical history: Sarcadosis, Wearing a Life Vest, Cardiac arrhythmia - Surgical History Past Surgical History?: No - Family History Family history: no significant - Social History Smoking Status: Never Smoker Substance Use Type: None - Medications Home Medications: Home Medications Medication Instructions Recorded Confirmed Last Taken Type Meclizine [Antivert] 12.5 mg PO DAILY PRN #12 tablet 06/10/21 02/17/22 2 Days Ago Rx ~02/15/22 12.5 Albuterol Sulfate [Proventil Hfa] 2 puff IH Q4HR PRN #1 hfa.aer.ad 07/31/21 02/17/22 Unknown Rx Sennosides/Docusate [Senokot S] 1 tab PO QHS #30 tablet 02/11/22 02/17/22 Unknown Rx AtorvaSTATin [Lipitor] 40 mg PO QHS #30 tab 02/20/22 Unknown Rx Famotidine [Pepcid] 40 mg PO QHS #30 tablet 02/20/22 Unknown Rx Furosemide [Lasix TAB] 40 mg PO 0600,1800 #60 tablet 02/20/22 Unknown Rx Warfarin [Coumadin] 7.5 mg PO DAILY@1700 #30 tablet 02/20/22 Unknown Rx carvediloL [Coreg] 3.125 mg PO BID #60 tablet 02/20/22 Unknown Rx levETIRAcetam [Keppra TAB] 1,000 mg PO BID #60 tab 02/20/22 Unknown Rx lisinopriL [Zestril TAB] 2.5 mg PO QDAY #15 tablet 02/20/22 Unknown Rx metFORMIN [Glucophage] 850 mg PO BID #60 tab 02/20/22 Unknown Rx Enoxaparin 120 mg SUB-Q Q24H #7 syringe 02/21/22 Unknown Rx ED Physical Exam - General Limitations: No Limitations General appearance: alert, in no apparent distress - Head Head exam: Present: atraumatic, normocephalic - Eye Eye exam: Present: normal appearance - ENT ENT exam: Present: mucous membranes moist - Neck Neck exam: Present: normal inspection - Respiratory Respiratory exam: Present: normal lung sounds bilaterally. Absent: respiratory distress - Cardiovascular Cardiovascular Exam: Present: regular rate, normal rhythm. Absent: systolic murmur, diastolic murmur, rubs, gallop - GI/Abdominal GI/Abdominal exam: Present: soft, normal bowel sounds - Rectal Rectal exam: Present: deferred - Extremities Exam Extremities exam: Present: normal inspection - Back Exam Back exam: Present: normal inspection - Neurological Exam Neurological exam: Present: alert, oriented X3 - Psychiatric Psychiatric exam: Present: normal affect, normal mood - Skin Skin exam: Present: warm, dry, intact, normal color. Absent: rash ED Course Vital Signs 05/28/22 09:09 Temperature 96.6 F L Pulse Rate 60 Respiratory 14 Rate Blood Pressure 120/90 [Left] O2 Sat by Pulse 96 Oximetry ED Medical Decision Making - Medical Decision Making high risk cardiac work up Critical care attestation.: If time is entered above; I have spent that time in minutes in the direct care of this critically ill patient, excluding procedure time. ED Disposition Clinical Impression: Chest pain Disposition: 30 STILL A PATIENT Is pt being admited?: No Does the pt Need Aspirin: No Condition: Stable Instructions: Nonspecific Chest Pain, Adult
[2022-05-28 10:57] VITALS: BP 133/88
--- NOTE | 2022-05-28 11:33 | XRay Report ---
CHEST 2 VIEWS INDICATION: sob. COMPARISON: 04/07/2022. FINDINGS: Support devices: None. Heart: Within normal limits. Lungs/Pleura: Underlying COPD and scarring remains. No significant pleural effusion. IMPRESSION: No acute findings. Signer Name: Greyson Moreno MD Signed: 05/28/2022 11:29 AM Workstation Name: [employer]
[2022-05-28 11:41] LABS: Hematocrit 48.6 % (35.5-45.6); Hemoglobin 15.9 gm/dl (11.8-15.2); Mean Corpuscular HGB Conc 33 % (32-34); Mean Corpuscular Volume 83 fl (84-94); Platelet Count 387 K/mm3 (140-440); Red Blood Count 5.84 M/mm3 (3.65-5.03); Red Cell Distribution Width 19.7 % (13.2-15.2)
[2022-05-28 12:08] LABS: Alanine Aminotransferase 95 units/L (7-56); Albumin 4.4 g/dL (3.9-5); BUN/Creatinine Ratio 19; Blood Urea Nitrogen 23 mg/dL (9-20); Calcium 9.4 mg/dL (8.4-10.2); Hemolysis Index 10
[2022-05-28 12:40] LABS: INR 1.17 (0.87-1.13)
[2022-05-28 12:56] LABS: Band Neutrophils # (Manual) 0.3 K/mm3; Basophils % (Manual) 0 % (0.0-1.8); Eosinophils % (Manual) 0 % (0.0-4.3); Total Cells Counted 100
[2022-05-28 12:57] LABS: Anisocytosis 1+; Platelet Estimate Consistent w Auto; Toxic Vacuolation Few
--- NOTE | 2022-05-29 03:29 | Emergency Department Report ---
ED Shortness of Breath HPI - General Chief Complaint: Dyspnea/Respdistress Stated Complaint: SOB/WANTS EVALUATION Time Seen by Provider: 05/28/22 10:49 Source: patient, EMS Mode of arrival: Stretcher Limitations: No Limitations - History of Present Illness Initial Comments: 47-year-old Afro-Chinese with a history of sarcoidosis, diabetes, hypertension, who now presents with shortness of breath that is going on for couple of days progressively getting worse. Patient reports dry cough with no wheezing. Patient also noted history of CHF. No fever or chills reported. No other modifying or associated factors reported. - Related Data Previous Rx's Medication Instructions Recorded Last Taken Type Meclizine [Antivert] 12.5 mg PO DAILY PRN #12 tablet 06/10/21 2 Days Ago Rx ~02/15/22 12.5 Albuterol Sulfate [Proventil Hfa] 2 puff IH Q4HR PRN #1 hfa.aer.ad 07/31/21 Unknown Rx Sennosides/Docusate [Senokot S] 1 tab PO QHS #30 tablet 02/11/22 Unknown Rx AtorvaSTATin [Lipitor] 40 mg PO QHS #30 tab 02/20/22 Unknown Rx Famotidine [Pepcid] 40 mg PO QHS #30 tablet 02/20/22 Unknown Rx Furosemide [Lasix TAB] 40 mg PO 0600,1800 #60 tablet 02/20/22 Unknown Rx Warfarin [Coumadin] 7.5 mg PO DAILY@1700 #30 tablet 02/20/22 Unknown Rx carvediloL [Coreg] 3.125 mg PO BID #60 tablet 02/20/22 Unknown Rx levETIRAcetam [Keppra TAB] 1,000 mg PO BID #60 tab 02/20/22 Unknown Rx lisinopriL [Zestril TAB] 2.5 mg PO QDAY #15 tablet 02/20/22 Unknown Rx metFORMIN [Glucophage] 850 mg PO BID #60 tab 02/20/22 Unknown Rx Enoxaparin 120 mg SUB-Q Q24H #7 syringe 02/21/22 Unknown Rx Allergies Allergy/AdvReac Type Severity Reaction Status Date / Time No Known Allergies Allergy Verified 05/28/22 09:11 ED Review of Systems ROS: Stated complaint: SOB/WANTS EVALUATION Other details as noted in HPI Comment: All other systems reviewed and negative Respiratory: cough, shortness of breath, SOB at rest ED Past Medical Hx - Past Medical History Previous Medical History?: Yes Hx Hypertension: Yes Hx CVA: Yes Hx Heart Attack/AMI: No Hx Congestive Heart Failure: Yes Hx Diabetes: Yes Hx Deep Vein Thrombosis: Yes (Left arm DVT) Hx Seizures: Yes Hx COPD: Yes Additional medical history: Sarcadosis, Wearing a Life Vest, Cardiac arrhythmia - Surgical History Past Surgical History?: No - Social History Smoking Status: Never Smoker Substance Use Type: None - Medications Home Medications: Home Medications Medication Instructions Recorded Confirmed Last Taken Type Meclizine [Antivert] 12.5 mg PO DAILY PRN #12 tablet 06/10/21 02/17/22 2 Days Ago Rx ~02/15/22 12.5 Albuterol Sulfate [Proventil Hfa] 2 puff IH Q4HR PRN #1 hfa.aer.ad 07/31/21 02/17/22 Unknown Rx Sennosides/Docusate [Senokot S] 1 tab PO QHS #30 tablet 02/11/22 02/17/22 Unknown Rx AtorvaSTATin [Lipitor] 40 mg PO QHS #30 tab 02/20/22 Unknown Rx Famotidine [Pepcid] 40 mg PO QHS #30 tablet 02/20/22 Unknown Rx Furosemide [Lasix TAB] 40 mg PO 0600,1800 #60 tablet 02/20/22 Unknown Rx Warfarin [Coumadin] 7.5 mg PO DAILY@1700 #30 tablet 02/20/22 Unknown Rx carvediloL [Coreg] 3.125 mg PO BID #60 tablet 02/20/22 Unknown Rx levETIRAcetam [Keppra TAB] 1,000 mg PO BID #60 tab 02/20/22 Unknown Rx lisinopriL [Zestril TAB] 2.5 mg PO QDAY #15 tablet 02/20/22 Unknown Rx metFORMIN [Glucophage] 850 mg PO BID #60 tab 02/20/22 Unknown Rx Enoxaparin 120 mg SUB-Q Q24H #7 syringe 02/21/22 Unknown Rx ED Physical Exam - General Limitations: No Limitations General appearance: alert, in no apparent distress - Head Head exam: Present: normal inspection - Eye Eye exam: Present: normal appearance Pupils: Present: normal accommodation - ENT ENT exam: Present: normal exam, normal orophraynx, mucous membranes moist - Neck Neck exam: Present: normal inspection, full ROM. Absent: tenderness - Respiratory Respiratory exam: Present: normal lung sounds bilaterally. Absent: respiratory distress, accessory muscle use - Cardiovascular Cardiovascular Exam: Present: regular rate, normal rhythm, normal heart sounds - GI/Abdominal GI/Abdominal exam: Present: soft, normal bowel sounds. Absent: distended, tenderness - Extremities Exam Extremities exam: Present: normal inspection, full ROM, normal capillary refill. Absent: tenderness - Back Exam Back exam: Present: normal inspection. Absent: tenderness - Neurological Exam Neurological exam: Present: alert, oriented X3 - Psychiatric Psychiatric exam: Present: normal affect - Skin Skin exam: Present: warm ED Course Vital Signs 05/28/22 05/28/22 09:09 10:56 Temperature 96.6 F L Pulse Rate 60 107 H Respiratory 14 14 Rate Blood Pressure 120/90 133/88 [Left] O2 Sat by Pulse 96 100 Oximetry ED Medical Decision Making - Lab Data Result diagrams: 05/28/22 11:00 05/28/22 11:00 - Radiology Data FINDINGS: Support devices: None. Heart: Within normal limits. Lungs/Pleura: Underlying COPD and scarring remains. No significant pleural effusion. IMPRESSION: No acute findings. - Medical Decision Making Here with shortness of breath--among differential diagnosis could be but not limited to acute exacerbation of COPD, myocardiac infarction, pulmonary embolism, acute exacerbation of asthma, pneumothorax, pneumonia or Viral or Bacterial Upper/Lower respiratory tract infection or other systemic infection.--To rule out the above will go ahead and order EKG, cardiac enzyme including troponin, BNP, CKMB, chest x-ray, CBC, CMP, UA. Lab reviewed and noted with elevated H&H and BMP at 2388--which is consistent with CHF chest x-ray did not show any significant vascular congestion so we will go ahead and give 40 of Lasix for diuresing and discharge patient home on 20 mg daily of Lasix with close follow-up with his primary doctor. Critical care attestation.: If time is entered above; I have spent that time in minutes in the direct care of this critically ill patient, excluding procedure time. ED Disposition Clinical Impression: Acute exacerbation of CHF (congestive heart failure) Qualifiers: Heart failure type: unspecified Qualified Code(s): I50.9 - Heart failure, unspecified Disposition: HOME / SELF CARE / HOMELESS Is pt being admited?: No Does the pt Need Aspirin: No Condition: Stable Instructions: Nonspecific Chest Pain, Adult, Heart Failure, Self Care, [id number], Living With Heart Failure, Heart Failure, Diagnosis, [id number] Additional Instructions: Avoid excess fluid intake on daily basis limit yourself to 1500 cc a day of fluid Avoid excessive weight gain back to worsen your heart failure Continue to take Lasix as prescribed by your primary doctor to continue to help your fluid buildup Please do not hesitate to call or return to emergency if your symptoms worsen Referrals: CHANA GALVEZ MD [Referring] - 3-5 Days Time of Disposition: 03:31
[2022-05-29] MEDS ORDERED: FUROSEMIDE 40 MG/4 ML INJ IV ONE (03:31)
--- NOTE | 2022-05-30 09:43 | Electrocardiograph Report ---
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
== END 2022-05-29 04:48 | disposition home or self-care (01) ==
LOC: ED 08:56
DX: R07.9 Chest pain, unspecified (principal); I10 Essential (primary) hypertension; E11.9 Type 2 diabetes mellitus without complications
CPT/HCPCS: 36415; 71046; 80053; 83880; 84484; 85007; 85025; 85610; 93005; 96374; 99284